=== PATIENT | male | born 1975 | race Caucasian/White ===

== ENCOUNTER 2016-12-09 17:24 | Inpatient (IN) ==
--- NOTE | 2016-12-09 19:04 | Emergency Department Note ---
Disposition Clinical Impression: Duodenal perforation, Tachycardia Disposition: Still a Patient Referrals: Faby Avila CRUISE CONSULTANT [Primary Care Provider] - Forms: Work/School Release, ED Satisfaction Letter General Adult HPI - General Chief complaint: ED Abdominal Pain Stated complaint: Stomach / back pain Time Seen by Provider: 12/09/16 18:40 Source: patient Limitations: no limitations Nursing Notes Reviewed: Yes Vital Signs Reviewed: Yes - History of Present Illness HPI Narrative: Ian 41 yo M presents with abdominal and back pain. PMHX bipolar, schizophrenia, GERD, PUD, esophageal strictures. Pt states that starting at noon today he has been having 10/10 constant pain in his abdomen and back. He states that he had and EGD earlier today with dilation of esophageal stricture and since that time he has had 10/10 pain generalized in abdomen and in lumbar back. Pt states he did vomit one time and it was "dark looking". Pt states he has had pain like this before, when he had his ulcer. Pt denies headache, fever , chills. Denies current nausea, CP, SOB, couh wheeze, numbness tingling, blood in stools or urine. Onset (ago): hour(s) Location: back, abdomen Radiation: non-radiation Pain Severity: severe Pain Scale: 9 Quality: stabbing, aching, sharp, constant Consistency: constant Improves with: nothing Worsens with: movement Associated symptoms: Reports: nausea/vomiting Treatments Prior to Arrival: none - Related Data Home Medications Medication Instructions Recorded Confirmed Duloxetine [Cymbalta] 60 mg PO BID 05/12/15 12/09/16 HYDROcodone/Acet 5/325 mg [[place] 1 tab PO TID 04/20/16 12/09/16 5-325 mg] Hydroxyzine HCl 25 mg PO BID PRN 12/09/16 12/09/16 Previous Rx's Medication Instructions Recorded Omeprazole [PriLOSEC] 40 mg PO BID capsule 05/14/15 Ziprasidone [Geodon] 80 mg PO BID #30 capsule 05/14/15 ChlorproMAZINE [Thorazine] 25 mg PO HS tablet 04/22/16 LORazepam [Ativan] 0.5 mg PO TID PRN #90 tablet 04/22/16 Prazosin [Minipress] 5 mg PO HS capsule 08/24/16 Allergies Allergy/AdvReac Type Severity Reaction Status Date / Time ibuprofen Allergy Unknown Abdominal Verified 12/09/16 17:32 Pain Past Medical History - Past Medical History Medical history: Reports: GERD, other Surgical history: Reports: herniorrhaphy, other Psychiatric history: Reports: bipolar, prior suicide attempt, schizophrenia, previous psychiatric hospitalization - Social History Smoking Status: Never smoker Smokeless Tobacco Status: Yes (chews tobacco) Alcohol use: Reports: occasionally Drug use: Reports: none, other Physical Exam - General Limitations: no limitations General appearance: alert, in no apparent distress - Head Head exam: atraumatic, normocephalic, normal inspection - Eye Eye exam: Present: normal appearance, PERRL, EOMI - ENT ENT exam: normal exam, normal oropharynx, mucous membranes moist - Neck Neck exam: Present: normal inspection, full ROM, trachea midline - Chest Chest inspection: Present: normal inspection, symmetric chest wall rise - Respiratory Respiratory exam: Present: normal lung sounds bilaterally - Cardiovascular Cardiovascular exam: Present: regular rate, normal rhythm, tachycardia, normal heart sounds, +S1, +S2 - Abdominal Exam Abdominal exam: Present: soft, tenderness, guarding, normal bowel sounds. Absent: rebound, rigidity, heel tap sign, tenderness at McBurney's Point Abdominal tenderness: Present: diffuse - Rectal Exam Rectal exam: Present: deferred - Extremities Exam Extremities exam: Present: normal inspection, full ROM. Absent: tenderness, pedal edema - Back Exam Back exam: Present: tenderness, CVA tenderness (R), paraspinal tenderness. Absent: CVA tenderness (L) - Neurological Exam Neurological exam: Present: alert, oriented X3, CN II-XII intact - Psychiatric Psychiatric exam: Present: anxious - Skin Skin exam: Present: warm, dry, intact, normal color. Absent: cyanosis, diaphoresis, pallor Course - Reevaluation(s) Reevaluation #1: 41yo presented after EGD with severe pain Pt OAx3 with continued severe 9/10 pain, and nausea remains tachycardic Time: 21:14 - Consultations Consultation #1: Discussed with Dr. Chang, he will come in and take the patient to surgery. Time: 21:30 Vital Signs Temperature 98.9 F 12/09/16 17:27 Pulse Rate 128 12/09/16 17:27 Respiratory Rate 20 12/09/16 17:27 Blood Pressure 142/95 12/09/16 17:27 O2 Sat by Pulse Oximetry 94 12/09/16 17:27 Temperature 98.9 F 12/09/16 17:27 Pulse Rate 135 12/09/16 21:08 Respiratory Rate 18 12/09/16 21:08 Blood Pressure 148/101 12/09/16 21:08 O2 Sat by Pulse Oximetry 93 12/09/16 21:08 Oxygen Delivery Oxygen Delivery Room Air Medical Decision Making - Differential Diagnosis abdominal pain, PUD, GERD, bleeding ulcer, abdominal perforation, - Medical Records Medical records reviewed: Yes I reviewed the patient's medical records. - Lab Data Lab results reviewed: Yes I reviewed the patient's lab results. Result diagrams: 12/09/16 19:36 12/09/16 19:36 Lab Results 12/09/16 12/09/16 12/09/16 Range/Units 19:36 19:36 19:36 WBC 17.5 H (4.3-11.1) K/mcL RBC 4.42 (4.19-5.50) M/mcL Hgb 13.9 (12.9-16.9) g/dL Hct 42.1 (37.5-50.1) % MCV 95.2 (83.0-100.0) fL MCH 31.4 (28.0-33.3) pg MCHC 33.0 (31.6-35.5) g/dL RDW 12.4 (11.5-14.5) % Plt Count 285 (140-400) K/mcL MPV 9.9 (9.4-12.4) fL Immature Gran % 0.4 (0-4) % Seg Neutrophils % 89.8 % Lymphocytes % 4.6 % Monocytes % 4.9 % Eosinophils % 0.1 % Basophils % 0.2 % Neutrophils # 15.7 H (1.6-8.9) K/mcL Lymphocytes # 0.8 (0.6-4.6) K/mcL Monocytes # 0.9 (0.0-1.3) K/mcL Eosinophils # 0.0 (0.0-0.6) K/mcL Basophils # 0.0 (0.0-0.2) K/mcL Sodium 138 (136-145) mEq/L Potassium 4.0 (3.5-4.5) mEq/L Chloride 102 (98-109) mEq/L Carbon Dioxide 25 (19-29) mEq/L BUN 14 (8-26) mg/dL Creatinine 1.42 H (0.72-1.25) mg/dL Est GFR ( Amer) > 60 (> 60) Est GFR (Non-Af Amer) 56 L (> 60) BUN/Creatinine Ratio 10 (6-26) Glucose 233 H (70-99) mg/dL Calculated Osmolality 294 (280-300) Lactic Acid 4.1 H* (0.5-2.2) mmol/L Calcium 9.3 (8.6-10.8) mg/dL Total Bilirubin 0.4 (0.2-1.2) mg/dL Direct Bilirubin 0.2 (0.0-0.5) mg/dL Indirect Bilirubin 0.2 (0.0-1.2) mg/dL AST 14 (5-34) Units/L ALT 18 (0-55) Units/L Alkaline Phosphatase 57 (38-126) Units/L Serum Total Protein 8.2 (6.0-8.3) g/dL Albumin 4.3 (3.5-5.0) g/dL Globulin 3.9 H (2.4-3.5) g/dL Albumin/Globulin Ratio 1.1 (1.1-2.2) Amylase 47 (25-125) Units/L Lipase 33 (8-78) Units/L - Radiology Data Radiology results reviewed: Yes I reviewed the patient's radiology results. Critical Care Time Critical Care Time: Yes Total Critical Care Time: 30 Attestation: The high probability of a clinically significant, sudden or life threatening deterioration of the [gastrointestinal] system(s) required my full and direct attention, intervention and personal management. The aggregate critical care time was [30] minutes. This time is in addition to time spent performing reported procedures but includes the following: [x] Data Review and interpretation [x] Patient assessment and monitoring of vital signs [x] Documentation [x] Medication orders and management Attestation Statement - Attestation Attestation: I examined this patient and my medical decision-making was reviewed with the SHEET METAL SHOP FOREMAN/PA/Advanced Practice Nurse/Resident Physician. I agree with the documented findings, disposition and treatment plan as described except to the extent set forth below. I had [id number] time with the patient. 41-year-old who underwent endoscopy with dilatation distal esophagus and a dilatation and the duodenum with increasing pain in the abdomen. Exam shows diffusely tender with some guarding and rebound. White count is elevated at 17.5, lactate is 4. CT scan shows a perforated duodenum. I discussed the case with Dr. Martinez surgery will come and is going to take the patient to surgery.
[2016-12-09] MEDS ORDERED: 0.9 % Sodium Chloride 1,000 ML IVC ONE (19:05)
[2016-12-09] MEDS ORDERED: *HR* HYDROmorphone (PF) 1 MG/ML SYRINGE IVP ONE (19:06)
[2016-12-09] MEDS ORDERED: Ondansetron 4 MG/2 ML VIAL IVP PRN ×2 (19:06→21:09)
[2016-12-09] MEDS ORDERED: Pantoprazole 40 MG VIAL IVP ONE (19:06)
[2016-12-09 19:48] LABS: Basophils % 0.2 %; Eosinophils % 0.1 %; Hematocrit 42.1 % (37.5-50.1); Hemoglobin 13.9 g/dL (12.9-16.9); Immature Granulocytes % 0.4 % (0-4); Lymphocytes # 0.8 K/mcL (0.6-4.6); Lymphocytes % 4.6 %; Mean Corpuscular Hemoglobin 31.4 pg (28.0-33.3); Mean Corpuscular Volume 95.2 fL (83.0-100.0); Mean Platelet Volume 9.9 fL (9.4-12.4); Monocytes # 0.9 K/mcL (0.0-1.3); Monocytes % 4.9 %; Neutrophils # 15.7 K/mcL (1.6-8.9); Platelet Count 285 K/mcL (140-400); Red Blood Count 4.42 M/mcL (4.19-5.50); Red Cell Distribution Width 12.4 % (11.5-14.5); Segmented Neutrophils % 89.8 %
[2016-12-09 20:04] LABS: Alanine Aminotransferase 18 Units/L (0-55); Albumin 4.3 g/dL (3.5-5.0); Albumin/Globulin Ratio 1.1 (1.1-2.2); Alkaline Phosphatase 57 Units/L (38-126); Amylase 47 Units/L (25-125); Aspartate Amino Transferase 14 Units/L (5-34); BUN/Creatinine Ratio 10 (6-26); Bilirubin,Direct 0.2 mg/dL (0.0-0.5); Bilirubin,Indirect 0.2 mg/dL (0.0-1.2); Bilirubin,Total 0.4 mg/dL (0.2-1.2); Blood Urea Nitrogen 14 mg/dL (8-26); Calcium 9.3 mg/dL (8.6-10.8); Carbon Dioxide 25 mEq/L (19-29); Chloride 102 mEq/L (98-109); Globulin 3.9 g/dL (2.4-3.5); Glucose 233 mg/dL (70-99); Lipase 33 Units/L (8-78); Osmolality,Calculated 294 (280-300); Sodium 138 mEq/L (136-145); Total Protein 8.2 g/dL (6.0-8.3); eGFR For African Americans > 60 (> 60); eGFR For Non-African Americans 56 (> 60)
[2016-12-09] MEDS ORDERED: Piperacillin/Tazobactam 3.375 GM in D5% in Water (Mini-Bag+) 100 ML IVPB ONE (20:07)
[2016-12-09] MEDS ORDERED: *HR* HYDROmorphone (PF) 1 MG/ML SYRINGE IVP PRN ×2 (21:09→22:12)
[2016-12-09] MEDS: 0.9 % Sodium Chloride 1,000 ML IVC SCH ×2 (22:03→22:11)
--- NOTE | 2016-12-09 22:05 | Anesthesia Evaluation PreOp ---
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: Other (bipolar, schizophrenia) Other Medical History: GERD (pud) Anesthesia History: No Prior Anesthetic Complications, Past Anesthesia (hernia x 5) Alcohol Use: occasionally Drug use: none Medications and Allergies Duloxetine [Cymbalta] 60 mg PO BID 05/12/15 [History] Omeprazole [PriLOSEC] 40 mg PO BID capsule 05/14/15 [Rx] Ziprasidone [Geodon] 80 mg PO BID #30 capsule 05/14/15 [Rx] HYDROcodone/Acet 5/325 mg [[place] 5-325 mg] 1 tab PO TID 04/20/16 [History] ChlorproMAZINE [Thorazine] 25 mg PO HS tablet 04/22/16 [Rx] LORazepam [Ativan] 0.5 mg PO TID PRN #90 tablet 04/22/16 [Rx] Prazosin [Minipress] 5 mg PO HS capsule 04/22/16 [Rx] Hydroxyzine HCl 25 mg PO BID PRN 12/09/16 [History] Allergies ibuprofen Allergy (Unknown, Verified 12/09/16 17:32) Abdominal Pain hx of ulcers - Meds/Allergy Pre-op Review Medications Reviewed: Yes Allergies Reviewed: Yes Beta Blockers on Current Med List: No Anesthesia Results - Labs 12/09/16 19:36 12/09/16 19:36 - Imaging Additional studies: CT abd, duodenal perf Anesthesia Exam Vital Signs/O2 Sat/Glucose, Most Current Pulse Resp BP Pulse Ox 12/09/16 21:08 135 18 148/101 93 12/09/16 20:07 129 18 161/98 94 Height: 1.83 Weight: 93 NPO (# of Hours): >8 - HEENT Pupil (Motor): Pupils equal, EOMI Mallampati: II Teeth: Poor dentition Oral Opening: Greater than 3 - ENGINEERING PROJECT MANAGER LOC: Oriented ENGINEERING PROJECT MANAGER Motor: Normal RUE, Normal LUE, Normal RLE, Normal LLE, Normal Face ENGINEERING PROJECT MANAGER Sensory: Normal: RUE, LUE, RLE, LLE, Face - Cardiac Rhythm: Irregular (tachy) Murmur: None - Pulmonary Respiratory Effort: Symmetrical Anesthesia Assess/Plan ASA Score: 5, E Modified Batsheva Scale for Level of Consciousness: Cooperative, oriented, and tranquil Anesthetic Plan: General Monitoring Plan: Standard Monitors Recovery Plan: PACU
--- NOTE | 2016-12-09 22:05 | General Surg History&Physical ---
Date of Encounter: 12/09/16 Time of Encounter: 22:03 Assessment and Plan (1) Duodenal perforation Current Visit: Yes Status: Acute Plan for exploratory laparotomy and potential resection of duodenal perforation. Risks, benefits, and expected outcomes explained to the patient and his significant other and they agree to proceed. The assessment and plan as outlined above was discussed with the patient and/or family members who expressed understanding and agreement. All questions were answered. History of Present Illness HPI: Mr. House is a 41 year old male who is status post duodenal dilation. He had a stricture in the first portion of the duodenum. This was dilated earlier today. He now presents to the hospital with abdominal pain that has been getting increasingly worse. He has had difficulty with swallowing and abdominal pain prior to his procedure. Past Med Surg Social Fam HX - Past Medical History Medical history: GERD, other Psychiatric history: bipolar, prior suicide attempt, schizophrenia, previous psychiatric hospitalization - Past Surgical History Surgical History: herniorrhaphy, other - Social History Smoking Status: Never smoker Smokeless Tobacco Status: Yes (chews tobacco) Alcohol use: occasionally Drug use: none, other - Family History Mother Adopted: Yes Living Status: Still Living Medications and Allergies Duloxetine [Cymbalta] 60 mg PO BID 05/12/15 [History] Omeprazole [PriLOSEC] 40 mg PO BID capsule 05/14/15 [Rx] Ziprasidone [Geodon] 80 mg PO BID #30 capsule 05/14/15 [Rx] HYDROcodone/Acet 5/325 mg [[place] 5-325 mg] 1 tab PO TID 04/20/16 [History] ChlorproMAZINE [Thorazine] 25 mg PO HS tablet 04/22/16 [Rx] LORazepam [Ativan] 0.5 mg PO TID PRN #90 tablet 04/22/16 [Rx] Prazosin [Minipress] 5 mg PO HS capsule 04/22/16 [Rx] Hydroxyzine HCl 25 mg PO BID PRN 12/09/16 [History] Allergies ibuprofen Allergy (Unknown, Verified 12/09/16 17:32) Abdominal Pain hx of ulcers Review of Systems All systems PM: A 10-system review of systems was performed and is negative for pertinent findings except as documented above in the HPI. General Surgery Exam Initial Vital Signs Temp Pulse Resp BP Pulse Ox 98.9 F 128 20 142/95 94 12/09/16 17:27 12/09/16 17:27 12/09/16 17:27 12/09/16 17:27 12/09/16 17:27 - General physical appearance moderate distress, moderate pain - Eyes PERRL, normal ocular movement - ENT poor residential - Neck trachea midline, no lymphadectomy - Respiratory normal expansion, normal respiratory effort - Cardiovascular Cardiovascular exam: Present: tachycardia, clicks - Abdomen Abdomen general surgery: Present: soft, tender Abdominal Tenderness: Present: diffusely - Integumentary Integumentary general surgery: Present: warm and dry, no abnormal pigmentation - Neurologic Present: CN 2-12 grossly intact, normal sensation - Psychiatric Psychiatric general surgery: Present: A&Ox3, speech is normal - Additional Findings CT scan reveals a duodenal perforation in the first portion of duodenum Results - Labs 12/09/16 19:36 12/09/16 19:36 Abnormal lab results WBC 17.5 K/mcL (4.3-11.1) H 12/09/16 19:36 Neutrophils # 15.7 K/mcL (1.6-8.9) H 12/09/16 19:36 Creatinine 1.42 mg/dL (0.72-1.25) H 12/09/16 19:36 Est GFR (Non-Af Amer) 56 (> 60) L 12/09/16 19:36 Glucose 233 mg/dL (70-99) H 12/09/16 19:36 Lactic Acid 4.1 mmol/L (0.5-2.2) H* 12/09/16 19:36 Globulin 3.9 g/dL (2.4-3.5) H 12/09/16 19:36 All other labs normal.
[2016-12-09] MEDS ORDERED: *HR* Labetalol 100 MG/20 ML MDV IVP PRN (22:12)
[2016-12-09] MEDS ORDERED: *HR* Midazolam HCl 2 MG/2 ML VIAL ONE (22:18)
[2016-12-09] MEDS ORDERED: *HR* FentaNYL (PF) 100 MCG/2 ML VIAL ONE (22:18)
[2016-12-09] MEDS ORDERED: *HR* Propofol 200 MG/20 ML VIAL IVP ONE (22:18)
[2016-12-09] MEDS ORDERED: Ketamine *HR* 500 MG/10 ML MDV ONE (22:18)
[2016-12-09] MEDS ORDERED: Dexamethasone 4 MG/ML VIAL ONE (22:19)
[2016-12-09] MEDS ORDERED: Lidocaine -MPF 2% 2 ML VIAL ONE (22:19)
[2016-12-09] MEDS ORDERED: *HR* Rocuronium Bromide 50 MG/5 ML VIAL ONE (22:19)
[2016-12-09] MEDS ORDERED: Ondansetron 4 MG/2 ML VIAL ONE (22:19)
[2016-12-09] MEDS ORDERED: *HR* Succinylcholine 200 MG/10 ML VIAL IVP ONE (22:19)
[2016-12-09] MEDS ORDERED: Water for inj. (sterile) 10 ML IV ONE (22:21)
[2016-12-09] MEDS ORDERED: *HR* Phenylephrine 10 MG/ML VIAL ONE (23:04)
[2016-12-09] MEDS ORDERED: CefOXitin 2,000 MG VIAL IVPB ONE (23:09)
[2016-12-09] MEDS ORDERED: *HR* HYDROmorphone 2 MG/ML SYRINGE ONE (23:17)
[2016-12-09] MEDS ORDERED: cefOXitin 2,000 MG in D5% in Water (Mini-Bag+) 100 ML IVPB ONE (23:22)
[2016-12-10] MEDS ORDERED: *HR* Rocuronium Bromide 50 MG/5 ML VIAL ONE (00:05)
[2016-12-10] MEDS ORDERED: Neostigmine Methylsulfate 3 MG/3 ML SYRINGE ONE (00:32)
[2016-12-10] MEDS ORDERED: *HR* HYDROmorphone 20 MG/20 ML PCA IV PRN (00:54)
[2016-12-10] MEDS ORDERED: Ondansetron 4 MG/2 ML VIAL IVP PRN (01:31)
[2016-12-10] MEDS ORDERED: *HR* HYDROmorphone (PF) 1 MG/ML SYRINGE IVP PRN ×2 (01:31)
[2016-12-10] MEDS ORDERED: *HR* Labetalol 20 MG/4 ML SYRINGE IVP PRN (01:31)
[2016-12-10] MEDS: D5% in 0.45% NACL 1,000 ML IVC SCH ×4 (02:56→20:00)
[2016-12-10] MEDS ORDERED: *HR* HYDROmorphone 20 MG/20 ML PCA IVC PRN (03:05)
[2016-12-10 04:01] LABS: Hematocrit 39.2 % (37.5-50.1); Hemoglobin 12.6 g/dL (12.9-16.9); Mean Corpuscular HGB Conc 32.1 g/dL (31.6-35.5); Mean Corpuscular Hemoglobin 30.9 pg (28.0-33.3); Mean Corpuscular Volume 96.1 fL (83.0-100.0); Platelet Count 292 K/mcL (140-400); Red Blood Count 4.08 M/mcL (4.19-5.50); Red Cell Distribution Width 12.5 % (11.5-14.5)
[2016-12-10 04:23] LABS: Lymphocytes # 0.3 K/mcL (0.6-4.6); Monocytes # 1.9 K/mcL (0.0-1.3); Neutrophils # 13.3 K/mcL (1.6-8.9); Platelet Estimate Normal (Normal)
[2016-12-10] MEDS: cefOXitin 2,000 MG in D5% in Water (Mini-Bag+) 100 ML IVPB SCH ×3 (08:04→23:09)
[2016-12-10] MEDS ORDERED: Ziprasidone injection 20 MG/ML VIAL IM PRN (10:43)
[2016-12-10] MEDS: *HR* LORazepam 2 MG/ML VIAL IVP PRN ×2 (11:02→18:53)
--- NOTE | 2016-12-10 12:20 | Electrocardiograph Report ---
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
--- NOTE | 2016-12-10 12:23 | General Surgery Progress Note ---
Date of Encounter: 12/10/16 Time of Encounter: 12:00 - Assessment and Plan (1) Duodenal perforation Current Visit: Yes Status: Acute POD #1 from exploratory laparotomy and repair of duodenal perforation with Dr. Martinez NPO NG tube to LIWS IV fluids Supportive care/pain control- IDEA WORKER pump Out of bed to chair today IS every 1 hour while awake PPI threrapy BID Repeat am labs (2) Schizophrenia Current Visit: No Status: Chronic Hold medications due to NPO status Qualifiers: Schizophrenia type: unspecified Qualified Code(s): F20.9 - Schizophrenia, unspecified (3) Anxiety Current Visit: No Status: Acute Ativan TID prn Geodon IM prn for severe agitation Will continue to monitor and adjust regimen as necessary (4) DVT prophylaxis Current Visit: Yes Status: Acute EPCDs to bilateral lower extremities for DVT prophylaxis Subjective Patient reports: no new complaints, feels better, still having pain (surgical), pain is less, no flatus, no bowel movement, afebrile Objective Vital Signs - Last 8 Hours Temp Pulse Resp BP Pulse Ox 12/10/16 12:00 125 14 116/89 94 12/10/16 11:00 97.9 F 125 14 129/88 95 12/10/16 10:00 126 16 130/77 95 12/10/16 09:00 128 14 111/86 95 12/10/16 08:00 124 14 133/87 95 12/10/16 07:45 97.9 F 12/10/16 07:00 97.9 F 124 16 142/94 95 12/10/16 06:00 124 18 127/80 96 12/10/16 05:00 126 17 133/93 94 Intake and Output 12/09/16 12/10/16 12/10/16 23:59 07:59 15:59 Intake Total 2200 / 2200 1100 / 1100 Output Total 1300 / 1300 145 / 145 Balance 2200 / 2200 -1300 / -1300 955 / 955 Intake: IV Fluids 2200 / 2200 1100 / 1100 0.9 % Sodium Chloride 1, 2000 / 2000 000 ML @ 3750 mls/hr IVC .Q16M JOSÉ MIGUEL Rx#:[id number] D5% And 0.45% Nacl 1000 1000 / 1000 Ml Bag 1,000 ML @ 125 mls /hr IVC .Q8H JOSÉ MIGUEL Rx#: [id number] Mefoxin 2,000 MG In 100 / 100 100 / 100 Dextrose 5% (Minibag+) 100 ML 100 ML @ 200 mls/ hr IVPB Q8HR JOSÉ MIGUEL Rx#: [id number] Zosyn 3.375 GM In 100 / 100 Dextrose 5% (Minibag+) 100 ML 100 ML @ 25 mls/hr IVPB ONCE ONE Rx#: [id number] Output: Urine 500 / 500 Estimated Blood Loss 250 / 250 Other 50 / 50 Catheter 310 / 310 100 / 100 Wound Drainage 190 / 190 45 / 45 Right Abdomen 190 / 190 45 / 45 Other: Weight 99.8 kg Blood Glucose* 144 Patient Weight 12/10/16 23:59 Weight 99.8 kg - General physical appearance well developed, well nourished, moderate pain - Eyes normal ocular movement - ENT dry mucosa, atraumatic, normocephalic - Neck Neck exam: trachea midline - Respiratory normal respiratory effort, clear to auscultation, other (diminished bibasilar bases. IS at bedside) - Cardiovascular Cardiovascular exam: Present: tachycardia, regular rhythm - Abdomen Abdomen: Present: soft, tender (expected post-operative tenderness), wound (NG tube to LIWS with bilious drainage noted (minimal); CATHY drain to bulb suction with serousang drainage noted (235ml since surgery)) - Incision Incision: Present: open (Midline with packing noted, small amount of serousang. drainage noted.) - Genitourinary other (ugarte catheter to SD with clear, yellow urine noted) - Neurologic CN 2-12 grossly intact - Psychiatric oriented to person, oriented to place, speech is normal, memory intact - Labs 12/10/16 03:34 12/09/16 19:36 - VTE Documentation of Mechanical Device: Intermittent pneumatic compression device Consult Discharge Plan - Plan Referrals: Faby Avila, VEHICLE ASSEMBLER [Primary Care Provider] - - Attending Attestation I examined this patient and my medical decision-making was reviewed with the HARDWARE MANAGER/PA/Advanced Practice Nurse/Resident Physician. I agree with the documented findings, disposition and treatment plan as described except to the extent set forth below.
[2016-12-10] MEDS ORDERED: Dextrose Gel 15 GM PO PRN ×2 (12:29)
[2016-12-10] MEDS ORDERED: D5% in Water 1,000 ML IVC PRN (12:29)
[2016-12-10] MEDS ORDERED: *HR* Dextrose 50 % in Water (Syg) 50 ML SYRINGE IVP PRN (12:29)
[2016-12-10] MEDS ORDERED: Piperacillin/Tazobactam 3.375 GM in D5% in Water (Mini-Bag+) 100 ML IVPB SCH (16:00)
[2016-12-10] MEDS: Insulin LISPRO 300 UNITS/3 ML VIAL SQ SCH (17:22)
[2016-12-10] MEDS: Pantoprazole 40 MG VIAL IVP SCH (18:07)
[2016-12-10] MEDS: 0.9 % Sodium Chloride 1,000 ML IVC SCH ×9 (19:47→19:59)
[2016-12-11] MEDS: Insulin LISPRO 300 UNITS/3 ML VIAL SQ SCH ×4 (00:24→18:17)
[2016-12-11 03:41] LABS: Hematocrit 32.6 % (37.5-50.1); Immature Platelets 5.1 % (1.1-6.1); Mean Corpuscular HGB Conc 31.9 g/dL (31.6-35.5); Mean Corpuscular Hemoglobin 30.6 pg (28.0-33.3); Mean Corpuscular Volume 95.9 fL (83.0-100.0); Mean Platelet Volume 9.3 fL (9.4-12.4); Platelet Count 292 K/mcL (140-400); Red Cell Distribution Width 12.5 % (11.5-14.5)
[2016-12-11 03:45] LABS: Hemoglobin 10.4 g/dL (12.9-16.9)
[2016-12-11] MEDS: D5% in 0.45% NACL 1,000 ML IVC SCH (04:00)
[2016-12-11 04:04] LABS: BUN/Creatinine Ratio 11 (6-26); Blood Urea Nitrogen 10 mg/dL (8-26); Calcium 8.1 mg/dL (8.6-10.8); Carbon Dioxide 27 mEq/L (19-29); Chloride 103 mEq/L (98-109); Glucose 132 mg/dL (70-99); Osmolality,Calculated 283 (280-300); Potassium 3.9 mEq/L (3.5-4.5); Sodium 136 mEq/L (136-145); eGFR For African Americans > 60 (> 60); eGFR For Non-African Americans > 60 (> 60)
[2016-12-11 04:08] LABS: Lymphocytes # 1.6 K/mcL (0.6-4.6); Neutrophils # 12.8 K/mcL (1.6-8.9); Platelet Estimate Normal (Normal)
[2016-12-11] MEDS: Pantoprazole 40 MG VIAL IVP SCH ×2 (06:08→18:17)
[2016-12-11] MEDS: *HR* LORazepam 2 MG/ML VIAL IVP PRN (06:08)
[2016-12-11] MEDS: cefOXitin 2,000 MG in D5% in Water (Mini-Bag+) 100 ML IVPB SCH ×3 (07:30→23:57)
[2016-12-11] MEDS ORDERED: *HR* Heparin 5,000 UNIT/ML VIAL SQ SCH (09:45)
--- NOTE | 2016-12-11 09:53 | General Surgery Progress Note ---
Date of Encounter: 12/11/16 Time of Encounter: 09:50 - Assessment and Plan (1) Duodenal perforation Current Visit: Yes Status: Acute POD #2 from exploratory laparotomy and repair of duodenal perforation with Dr. Martinez NPO NG tube to LIWS Plan to study with UGI on Wednesday12/14/16 IV fluids- 125ml/hour IV antibiotics- Cefoxitin Supportive care/pain control- BUILDING CODE ADMINISTRATOR pump Out of bed to chair today IS every 1 hour while awake PPI threrapy BID Repeat am labs Discontinue ugarte catheter May transfer to telemetry (2) Schizophrenia Current Visit: No Status: Chronic Hold medications due to NPO status Qualifiers: Schizophrenia type: unspecified Qualified Code(s): F20.9 - Schizophrenia, unspecified (3) Anxiety Current Visit: No Status: Acute Ativan TID prn Geodon IM prn for severe agitation Will continue to monitor and adjust regimen as necessary (4) DVT prophylaxis Current Visit: Yes Status: Acute EPCDs to bilateral lower extremities for DVT prophylaxis Add heparin 5,000 units SQ twice daily for DVT prophylaxis Subjective Patient reports: no new complaints, feels better, still having pain, pain is less, no flatus, no bowel movement, afebrile Objective Vital Signs - Last 8 Hours Temp Pulse Resp BP Pulse Ox 12/11/16 09:00 115 18 185/105 96 12/11/16 08:00 116 18 181/105 97 12/11/16 07:40 98.9 F 12/11/16 07:20 120 16 181/96 97 12/11/16 06:00 122 18 165/103 95 12/11/16 05:00 122 15 159/111 95 12/11/16 04:00 98.2 F 131 15 159/87 94 12/11/16 03:00 124 18 141/102 96 12/11/16 02:00 124 15 163/99 96 Intake and Output 12/10/16 12/11/16 12/11/16 23:59 07:59 15:59 Intake Total 1000 / 1000 1100 / 1100 100 / 100 Output Total 270 / 270 640 / 640 Balance 730 / 730 460 / 460 100 / 100 Intake: IV Fluids 1000 / 1000 1100 / 1100 100 / 100 D5% And 0.45% Nacl 1000 1000 / 1000 1000 / 1000 Ml Bag 1,000 ML @ 125 mls /hr IVC .Q8H JOSÉ MIGUEL Rx#: [id number] Mefoxin 2,000 MG In 100 / 100 100 / 100 Dextrose 5% (Minibag+) 100 ML 100 ML @ 200 mls/ hr IVPB Q8HR JOSÉ MIGUEL Rx#: [id number] Output: Other 10 / 10 Catheter 200 / 200 500 / 500 Gastric Drainage 100 / 100 Wound Drainage 70 / 70 30 / 30 Left Abdomen 70 / 70 30 / 30 Other: Weight 100.97 kg Blood Glucose* 122 128 Patient Weight 12/11/16 23:59 Weight 100.97 kg - General physical appearance well developed, well nourished, no distress - Eyes normal ocular movement - ENT poor senior care, dry mucosa, atraumatic, normocephalic - Neck Neck exam: trachea midline - Respiratory normal respiratory effort, clear to auscultation, other (diminished bibasilar bases) - Cardiovascular Cardiovascular exam: Present: tachycardia, regular rhythm - Abdomen Abdomen: Present: soft, tender (expected post-operative tenderness), wound (NG tube to LIWS with scant amount of drainage noted; CATHY drain to bulb suction with serousang. drainage noted (30ml since midnight) ) - Incision Incision: Present: open (Midline with packing noted, small amount of serousang. drainage without erythema ) - Genitourinary other (ugarte catheter to SD with clear, yellow urine noted) - Neurologic CN 2-12 grossly intact - Psychiatric oriented to time, oriented to person, oriented to place, speech is normal, memory intact - Labs 12/11/16 03:35 12/11/16 03:35 Diabetes panel 12/11/16 Range/Units 03:35 Sodium 136 (136-145) mEq/L Potassium 3.9 (3.5-4.5) mEq/L Chloride 103 (98-109) mEq/L Carbon Dioxide 27 (19-29) mEq/L BUN 10 (8-26) mg/dL Creatinine 0.93 (0.72-1.25) mg/dL Glucose 132 H (70-99) mg/dL Calcium 8.1 L (8.6-10.8) mg/dL Calcium panel 12/11/16 Range/Units 03:35 Calcium 8.1 L (8.6-10.8) mg/dL Pituitary panel 12/11/16 Range/Units 03:35 Sodium 136 (136-145) mEq/L Potassium 3.9 (3.5-4.5) mEq/L Chloride 103 (98-109) mEq/L Carbon Dioxide 27 (19-29) mEq/L BUN 10 (8-26) mg/dL Creatinine 0.93 (0.72-1.25) mg/dL Glucose 132 H (70-99) mg/dL Calcium 8.1 L (8.6-10.8) mg/dL Adrenal panel 12/11/16 Range/Units 03:35 Sodium 136 (136-145) mEq/L Potassium 3.9 (3.5-4.5) mEq/L Chloride 103 (98-109) mEq/L Carbon Dioxide 27 (19-29) mEq/L BUN 10 (8-26) mg/dL Creatinine 0.93 (0.72-1.25) mg/dL Glucose 132 H (70-99) mg/dL Calcium 8.1 L (8.6-10.8) mg/dL - VTE Documentation of Mechanical Device: Intermittent pneumatic compression device Consult Discharge Plan - Plan Referrals: Faby Avila, SNOW TECHNICIAN [Primary Care Provider] - - Attending Attestation I examined this patient and my medical decision-making was reviewed with the DESIGN ARCHITECT/PA/Advanced Practice Nurse/Resident Physician. I agree with the documented findings, disposition and treatment plan as described except to the extent set forth below.
[2016-12-11] MEDS: *HR* Labetalol 20 MG/4 ML SYRINGE IVP SCH ×4 (10:19→21:48)
[2016-12-11] MEDS ORDERED: D5% in 0.45% NACL 1,000 ML IVC SCH (10:37)
--- NOTE | 2016-12-11 11:26 | Operative Note ---
Date of procedure: 12/10/16 Pre-op diagnosis: Perforated duodenum Post-op diagnosis: same Procedure: Exploratory laparotomy with Waleska maneuver the duodenum and a Heineke Mikulicz' s pyloroplasty Anesthesia: QI Surgeon: Liborio Martinez Estimated blood loss (cc): 250 Condition: stable Disposition: ICU Procedure in Detail: After informed consent, the patient was taken to the operating room and placed in a supine position. After adequate sedation and anesthesia the abdomen was prepped and draped. An incision was made in the upper midline from xiphoid process down to just above the umbilicus. A Bookwalter retractor was placed on the field. Once access was gained to the peritoneal cavity retractors are placed on the abdominal side mijares. There was some purulent material in the right upper quadrant. The hepatic flexure of the colon was reflected caudally. The duodenum was identified and it was delivered from its retroperitoneal space. Once the duodenum was kocherized I was able to identify a perforation just distal to the pylorus. There was thickening of the adrenal bulb. A Heineke Mikulicz's pyloroplasty was performed after the pylorus was divided. The mucosa was approximated in a mediolateral fashion with 3-0 silk sutures in interrupted fashion. Once this was completed there was an opening that could be palpated. A 19-Emirati Presley drain was placed in the right upper quadrant. The area was suctioned dry. There is also an omental flap which was reflected and tacked to the repair as well. Once this was completed then the fascia was closed with loop PDS suture cephalad, caudal cephalad motion. He tolerated the procedure well. The patient was taken to the ICU after he was extubated.
[2016-12-11] MEDS ORDERED: 0.9 % Sodium Chloride 1,000 ML IVC SCH (11:30)
[2016-12-11] MEDS ORDERED: D10% in Water 500 ML IVC PRN ×2 (11:35→13:59)
[2016-12-11] MEDS ORDERED: D5% in Water 1,000 ML IVC PRN (13:59)
[2016-12-11] MEDS ORDERED: Dextrose Gel 15 GM PO PRN ×2 (13:59)
[2016-12-11] MEDS ORDERED: Ondansetron 4 MG/2 ML VIAL IVP PRN (13:59)
[2016-12-11] MEDS ORDERED: *HR* HYDROmorphone 20 MG/20 ML PCA IVC PRN (13:59)
[2016-12-11] MEDS ORDERED: *HR* LORazepam 2 MG/ML VIAL IVP PRN (13:59)
[2016-12-11] MEDS ORDERED: *HR* Dextrose 50 % in Water (Syg) 50 ML SYRINGE IVP PRN (13:59)
[2016-12-11] MEDS ORDERED: Ziprasidone injection 20 MG/ML VIAL IM PRN (13:59)
[2016-12-11] MEDS ORDERED: Clinimix E 5%-15% SOLUTION 2,000 ML with MVI, adult with vitamin K 10 ML IVC SCH ×2 (17:00)
[2016-12-11] MEDS: *HR* Heparin 5,000 UNIT/ML VIAL SQ SCH (18:17)
[2016-12-11] MEDS ORDERED: Albuterol 2.5 MG/3 ML NEBULIZER IH ONE (20:20)
[2016-12-11] MEDS: 0.9 % Sodium Chloride 1,000 ML IVC SCH (23:58)
[2016-12-12] MEDS: 0.9 % Sodium Chloride 1,000 ML IVC SCH ×2 (00:34→15:11)
[2016-12-12] MEDS: Insulin LISPRO 300 UNITS/3 ML VIAL SQ SCH ×4 (00:35→18:18)
[2016-12-12] MEDS: *HR* Labetalol 20 MG/4 ML SYRINGE IVP SCH ×6 (02:42→21:14)
[2016-12-12 04:37] LABS: Basophils # 0.1 K/mcL (0.0-0.2); Basophils % 0.3 %; Eosinophils # 0.2 K/mcL (0.0-0.6); Eosinophils % 1.3 %; Hematocrit 30.4 % (37.5-50.1); Hemoglobin 9.9 g/dL (12.9-16.9); Immature Granulocytes % 2.6 % (0-4); Lymphocytes # 2.2 K/mcL (0.6-4.6); Lymphocytes % 11.9 %; Mean Corpuscular HGB Conc 32.6 g/dL (31.6-35.5); Mean Corpuscular Hemoglobin 31.1 pg (28.0-33.3); Mean Corpuscular Volume 95.6 fL (83.0-100.0); Mean Platelet Volume 10.5 fL (9.4-12.4); Monocytes % 5.7 %; Neutrophils # 14.2 K/mcL (1.6-8.9); Platelet Count 297 K/mcL (140-400); Red Blood Count 3.18 M/mcL (4.19-5.50); Red Cell Distribution Width 12.5 % (11.5-14.5); Segmented Neutrophils % 78.2 %
[2016-12-12 05:00] LABS: BUN/Creatinine Ratio 10 (6-26); Blood Urea Nitrogen 8 mg/dL (8-26); Calcium 8.6 mg/dL (8.6-10.8); Carbon Dioxide 28 mEq/L (19-29); Chloride 103 mEq/L (98-109); Glucose 131 mg/dL (70-99); Magnesium 1.7 mg/dL (1.6-2.6); Osmolality,Calculated 284 (280-300); Phosphorous 1.5 mg/dL (2.3-4.7); Potassium 3.5 mEq/L (3.5-4.5); Sodium 137 mEq/L (136-145); Triglycerides 186 mg/dL (< 150); eGFR For African Americans > 60 (> 60); eGFR For Non-African Americans > 60 (> 60)
[2016-12-12 05:04] LABS: Platelet Estimate Normal (Normal)
[2016-12-12] MEDS: Pantoprazole 40 MG VIAL IVP SCH ×2 (05:24→17:29)
[2016-12-12] MEDS: *HR* Heparin 5,000 UNIT/ML VIAL SQ SCH ×2 (05:28→17:29)
[2016-12-12] MEDS: cefOXitin 2,000 MG in D5% in Water (Mini-Bag+) 100 ML IVPB SCH ×2 (09:01→15:09)
--- NOTE | 2016-12-12 11:11 | General Surgery Progress Note ---
Date of Encounter: 12/12/16 Time of Encounter: 11:10 - Assessment and Plan (1) Duodenal perforation Current Visit: Yes Status: Acute Continue the NG till wednesday. Will plan for an UGI then via the ng. He needs to ambulate. Subjective Patient reports: no new complaints, feels better Objective Vital Signs - Last 8 Hours Temp Pulse Resp BP Pulse Ox 12/12/16 08:00 98.6 F 97 18 137/91 95 12/12/16 04:26 98.5 F 106 20 134/82 94 Intake and Output 12/11/16 12/12/16 12/12/16 23:59 07:59 15:59 Intake Total 100 / 100 2128 / 2128 100 / 100 Output Total 350 / 350 1250 / 1250 670 / 670 Balance -250 / -250 879 / 879 -570 / -570 Intake: IV Fluids 100 / 100 2128 / 2128 100 / 100 0.9 % Sodium Chloride 1, 1200 / 1200 000 ML @ 125 mls/hr IVC . Q8H [facility] Rx#:[id number] Clinimix E 5%-15% 579 / 579 SOLUTION 2,000 ML @ 50 mls/hr IVC .Q24H [facility] with M.v.i. Adult 10 ml Rx#: [id number] Mefoxin 2,000 MG In 100 / 100 100 / 100 100 / 100 Dextrose 5% (Minibag+) 100 ML 100 ML @ 200 mls/ hr IVPB Q8HR [facility] Rx#: [id number] Intralipid 20% 250 ML @ 250 / 250 21 mls/hr IVPB DAILY@1700 [facility] Rx#:[id number] Oral 0 / 0 0 / 0 Output: Urine 350 / 350 900 / 900 650 / 650 Gastric Tube Lavage 350 / 350 Amount Right Nare 350 / 350 Wound Drainage 0 / 0 20 / 20 Left Abdomen 0 / 0 20 / 20 Other: Meal NPO NPO breakfast Weight 100.9 kg Blood Glucose* 118 122 135 Patient Weight 12/12/16 23:59 Weight 100.9 kg - General physical appearance well developed, no distress - Eyes PERRL - Respiratory normal expansion - Cardiovascular Cardiovascular exam: Present: NR - Abdomen Abdomen: Present: soft - Incision Incision: Present: clean and dry - Labs 12/12/16 03:44 12/12/16 03:44 Diabetes panel 12/12/16 Range/Units 03:44 Sodium 137 (136-145) mEq/L Potassium 3.5 (3.5-4.5) mEq/L Chloride 103 (98-109) mEq/L Carbon Dioxide 28 (19-29) mEq/L BUN 8 (8-26) mg/dL Creatinine 0.80 (0.72-1.25) mg/dL Glucose 131 H (70-99) mg/dL Calcium 8.6 (8.6-10.8) mg/dL Triglycerides 186 H (< 150) mg/dL Calcium panel 12/12/16 Range/Units 03:44 Calcium 8.6 (8.6-10.8) mg/dL Phosphorus 1.5 L (2.3-4.7) mg/dL Pituitary panel 12/12/16 Range/Units 03:44 Sodium 137 (136-145) mEq/L Potassium 3.5 (3.5-4.5) mEq/L Chloride 103 (98-109) mEq/L Carbon Dioxide 28 (19-29) mEq/L BUN 8 (8-26) mg/dL Creatinine 0.80 (0.72-1.25) mg/dL Glucose 131 H (70-99) mg/dL Calcium 8.6 (8.6-10.8) mg/dL Adrenal panel 12/12/16 Range/Units 03:44 Sodium 137 (136-145) mEq/L Potassium 3.5 (3.5-4.5) mEq/L Chloride 103 (98-109) mEq/L Carbon Dioxide 28 (19-29) mEq/L BUN 8 (8-26) mg/dL Creatinine 0.80 (0.72-1.25) mg/dL Glucose 131 H (70-99) mg/dL Calcium 8.6 (8.6-10.8) mg/dL - VTE Documentation of Mechanical Device: Intermittent pneumatic compression device Consult Discharge Plan - Plan Referrals: Faby Avila, SPRUE CUTTING PRESS OPERATOR [Primary Care Provider] -
[2016-12-12] MEDS ORDERED: Clinimix E 5%-15% SOLUTION 2,000 ML with MVI, adult with vitamin K 10 ML IVC SCH (17:00)
[2016-12-12] MEDS ORDERED: Clinimix E 5%-15% SOLUTION 2,000 ML, Amino Acids 10% 0 ML with MVI, adult with vitami... IVC SCH (17:00)
[2016-12-13] MEDS: Insulin LISPRO 300 UNITS/3 ML VIAL SQ SCH ×4 (00:18→17:27)
[2016-12-13] MEDS: cefOXitin 2,000 MG in D5% in Water (Mini-Bag+) 100 ML IVPB SCH ×3 (00:50→16:04)
[2016-12-13] MEDS: *HR* Labetalol 20 MG/4 ML SYRINGE IVP SCH ×6 (00:50→22:10)
[2016-12-13 03:51] LABS: Magnesium 2.1 mg/dL (1.6-2.6); Phosphorous 1.5 mg/dL (2.3-4.7)
[2016-12-13] MEDS: *HR* Heparin 5,000 UNIT/ML VIAL SQ SCH ×2 (05:38→17:26)
[2016-12-13] MEDS: Pantoprazole 40 MG VIAL IVP SCH ×2 (05:38→16:57)
[2016-12-13] MEDS: 0.9 % Sodium Chloride 1,000 ML IVC SCH ×2 (09:41→12:40)
[2016-12-13] MEDS: Fluconazole 200 MG/100 ML 200 MG/100 ML BAG IVPB SCH (09:43)
--- NOTE | 2016-12-13 12:52 | General Surgery Progress Note ---
Date of Encounter: 12/13/16 Time of Encounter: 12:52 - Assessment and Plan (1) Duodenal perforation Current Visit: Yes Status: Acute Continue the NG till wednesday. Will plan for an UGI then via the ng. He needs to ambulate. Subjective Patient reports: feels better Objective Vital Signs - Last 8 Hours Temp Pulse Resp BP Pulse Ox 12/13/16 09:02 98.3 F 89 18 140/92 95 Intake and Output 12/12/16 12/13/16 12/13/16 23:59 07:59 15:59 Intake Total 0 / 0 100 / 100 1300 / 1300 Output Total 925 / 925 0 / 0 500 / 500 Balance -925 / -925 100 / 100 800 / 800 Intake: IV Fluids 100 / 100 1300 / 1300 0.9 % Sodium Chloride 1, 850 / 850 000 ML @ 125 mls/hr IVC . Q8H [facility] Rx#:[id number] Mefoxin 2,000 MG In 100 / 100 100 / 100 Dextrose 5% (Minibag+) 100 ML 100 ML @ 200 mls/ hr IVPB Q8HR [facility] Rx#: [id number] Intralipid 20% 250 ML @ 250 / 250 21 mls/hr IVPB DAILY@1700 [facility] Rx#:[id number] Diflucan 200 MG/100 ML 100 / 100 200 mg In 100 ml @ 100 mls/hr IVPB DAILY [facility] Rx# :[id number] Oral 0 / 0 0 / 0 Output: Urine 925 / 925 0 / 0 500 / 500 Gastric Tube Lavage 0 / 0 0 / 0 Amount Right Nare 0 / 0 0 / 0 Wound Drainage 0 / 0 0 / 0 Left Abdomen 0 / 0 0 / 0 Other: Meal NPO for supper NPO Weight 101.1 kg Blood Glucose* 128 126 Patient Weight 12/13/16 23:59 Weight 101.1 kg - General physical appearance no distress - Abdomen Abdomen: Present: bowel sounds present, soft (Drain with serosanguineous fluid) - Labs 12/12/16 03:44 12/12/16 03:44 Calcium panel 12/13/16 Range/Units 02:28 Phosphorus 1.5 L (2.3-4.7) mg/dL - VTE Documentation of Mechanical Device: Intermittent pneumatic compression device Consult Discharge Plan - Plan Referrals: Faby Avila, GROOMING ASSISTANT [Primary Care Provider] -
[2016-12-13] MEDS ORDERED: Clinimix E 5%-15% SOLUTION 2,000 ML with MVI, adult with vitamin K 10 ML IVC SCH (17:00)
[2016-12-13] MEDS ORDERED: Clinimix E 5%-15% SOLUTION 2,000 ML, Amino Acids 10% 0 ML with MVI, adult with vitami... IVC SCH (17:00)
[2016-12-14] MEDS: Insulin LISPRO 300 UNITS/3 ML VIAL SQ SCH ×4 (00:43→17:28)
[2016-12-14] MEDS: cefOXitin 2,000 MG in D5% in Water (Mini-Bag+) 100 ML IVPB SCH ×3 (00:56→16:01)
[2016-12-14] MEDS: *HR* Labetalol 20 MG/4 ML SYRINGE IVP SCH ×6 (00:57→21:35)
[2016-12-14 04:49] LABS: Magnesium 2.2 mg/dL (1.6-2.6)
[2016-12-14 04:54] LABS: Phosphorous 2.6 mg/dL (2.3-4.7)
[2016-12-14] MEDS: *HR* Heparin 5,000 UNIT/ML VIAL SQ SCH ×2 (05:49→17:24)
[2016-12-14] MEDS: Pantoprazole 40 MG VIAL IVP SCH ×2 (05:49→17:17)
[2016-12-14] MEDS: Fluconazole 200 MG/100 ML 200 MG/100 ML BAG IVPB SCH (08:09)
[2016-12-14] MEDS ORDERED: 0.9 % Sodium Chloride 1,000 ML IVC SCH (15:57)
--- NOTE | 2016-12-14 16:02 | General Surgery Progress Note ---
Date of Encounter: 12/14/16 Time of Encounter: 15:30 - Assessment and Plan (1) Duodenal perforation Current Visit: Yes Status: Acute POD #5 from exploratory laparotomy and repair of duodenal perforation with Dr. Martinez Remove NG tube Clear liquids with protein supplements UGI complete- no extravasation, delayed emptying into duodenum IV fluids- 20ml/hour Continue TPN IV antibiotics- Cefoxitin Supportive care/pain control- CHILD CARE LEADER pump Out of bed to chair today IS every 1 hour while awake PPI threrapy BID Repeat am labs D/C telemetry (2) Schizophrenia Current Visit: No Status: Chronic Hold medications due to NPO status Qualifiers: Schizophrenia type: unspecified Qualified Code(s): F20.9 - Schizophrenia, unspecified (3) Anxiety Current Visit: No Status: Acute Ativan TID prn Geodon IM prn for severe agitation Will continue to monitor and adjust regimen as necessary (4) DVT prophylaxis Current Visit: Yes Status: Acute EPCDs to bilateral lower extremities for DVT prophylaxis Add heparin 5,000 units SQ twice daily for DVT prophylaxis Subjective Patient reports: no new complaints, feels better, still having pain, pain is less, voiding w/o difficulty, flatus, no bowel movement, afebrile Objective Vital Signs - Last 8 Hours Temp Pulse Resp BP Pulse Ox 12/14/16 10:44 97.8 F 70 18 142/95 96 Intake and Output 12/13/16 12/14/16 12/14/16 23:59 07:59 15:59 Intake Total 100 / 100 350 / 350 200 / 200 Output Total 625 / 625 870 / 870 318 / 318 Balance -525 / -525 -520 / -520 -118 / -118 Intake: IV Fluids 100 / 100 350 / 350 200 / 200 Mefoxin 2,000 MG In 100 / 100 100 / 100 100 / 100 Dextrose 5% (Minibag+) 100 ML 100 ML @ 200 mls/ hr IVPB Q8HR [facility] Rx#: [id number] Intralipid 20% 250 ML @ 250 / 250 21 mls/hr IVPB DAILY@1700 [facility] Rx#:[id number] Diflucan 200 MG/100 ML 100 / 100 200 mg In 100 ml @ 100 mls/hr IVPB DAILY [facility] Rx# :[id number] Oral 0 / 0 0 / 0 0 / 0 Output: Urine 0 / 0 825 / 825 300 / 300 Gastric Tube Lavage 0 / 0 Amount Right Nare 0 / 0 Gastric Drainage 625 / 625 Wound Drainage 0 / 0 45 / Left Abdomen 0 / 0 Other: Meal NPO Percent of Meal Consumed 0% Blood Glucose* 146 138 - General physical appearance well developed, well nourished, no distress - Eyes normal ocular movement - ENT dry mucosa, atraumatic, normocephalic - Neck Neck exam: trachea midline - Respiratory normal respiratory effort, clear to auscultation - Cardiovascular Cardiovascular exam: Present: RRR - Abdomen Abdomen: Present: bowel sounds present, soft, tender (expected post-operative tenderness), wound (CATHY drain to bulb suction with serousang. drainage noted; NG tube clamped for UGI) - Incision Incision: Present: open (Midline with packing noted with scant amount of seorusang. drainage noted.) - Neurologic CN 2-12 grossly intact - Psychiatric oriented to time, oriented to person, oriented to place, speech is normal, memory intact - Labs 12/12/16 03:44 12/12/16 03:44 Calcium panel 12/14/16 Range/Units 04:07 Phosphorus 2.6 D (2.3-4.7) mg/dL - VTE Documentation of Mechanical Device: Intermittent pneumatic compression device Consult Discharge Plan - Plan Referrals: Faby Avila BILLING CONTROL CLERK [Primary Care Provider] -
[2016-12-14] MEDS ORDERED: Clinimix E 5%-15% SOLUTION 2,000 ML with MVI, adult with vitamin K 10 ML IVC SCH (17:00)
[2016-12-15] MEDS: cefOXitin 2,000 MG in D5% in Water (Mini-Bag+) 100 ML IVPB SCH ×3 (00:20→15:49)
[2016-12-15] MEDS: Insulin LISPRO 300 UNITS/3 ML VIAL SQ SCH ×4 (00:23→17:29)
[2016-12-15] MEDS: *HR* Labetalol 20 MG/4 ML SYRINGE IVP SCH ×6 (02:35→21:05)
[2016-12-15 04:00] LABS: Alanine Aminotransferase 55 Units/L (0-55); Albumin 2.5 g/dL (3.5-5.0); Albumin/Globulin Ratio 0.6 (1.1-2.2); Alkaline Phosphatase 105 Units/L (38-126); Aspartate Amino Transferase 52 Units/L (5-34); BUN/Creatinine Ratio 20 (6-26); Bilirubin,Total 0.5 mg/dL (0.2-1.2); Blood Urea Nitrogen 16 mg/dL (8-26); Carbon Dioxide 24 mEq/L (19-29); Chloride 108 mEq/L (98-109); Globulin 4.4 g/dL (2.4-3.5); Glucose 103 mg/dL (70-99); Osmolality,Calculated 291 (280-300); Potassium 3.6 mEq/L (3.5-4.5); Sodium 140 mEq/L (136-145); Total Protein 6.9 g/dL (6.0-8.3); eGFR For African Americans > 60 (> 60); eGFR For Non-African Americans > 60 (> 60)
[2016-12-15] MEDS: Pantoprazole 40 MG VIAL IVP SCH (06:40)
[2016-12-15] MEDS: *HR* Heparin 5,000 UNIT/ML VIAL SQ SCH ×2 (06:41→17:31)
[2016-12-15] MEDS: Fluconazole 200 MG/100 ML 200 MG/100 ML BAG IVPB SCH (08:09)
[2016-12-15] MEDS ORDERED: *HR* LORazepam 0.5 MG TABLET PO PRN (09:52)
--- NOTE | 2016-12-15 09:58 | General Surgery Progress Note ---
Date of Encounter: 12/15/16 Time of Encounter: 09:45 - Assessment and Plan (1) Duodenal perforation Current Visit: Yes Status: Acute POD #6 from exploratory laparotomy and repair of duodenal perforation with Dr. Martinez Continue Clear liquids with protein supplements UGI complete 12/14/16- no extravasation, delayed emptying into duodenum Saline lock IV fluids Continue TPN- may decrease to 50ml/hour and continue IV antibiotics- Cefoxitin Supportive care/pain control- Percocet and prn dilaudid for breakthrough pain PO meds restarted- home regimen Out of bed to chair today IS every 1 hour while awake PPI threrapy BID (2) Schizophrenia Current Visit: No Status: Chronic Resume home medication regimen Qualifiers: Schizophrenia type: unspecified Qualified Code(s): F20.9 - Schizophrenia, unspecified (3) Anxiety Current Visit: No Status: Acute Resume home medication regimen (4) DVT prophylaxis Current Visit: Yes Status: Acute EPCDs to bilateral lower extremities for DVT prophylaxis Heparin 5,000 units SQ twice daily for DVT prophylaxis Subjective Patient reports: no new complaints, feels better, still having pain, tolerating liquids well, voiding w/o difficulty, flatus, bowel movement, diarrhea (X2 episodes), afebrile Objective Vital Signs - Last 8 Hours Temp Pulse Resp BP Pulse Ox 12/15/16 07:18 98.1 F 81 18 138/91 97 12/15/16 05:27 97.6 F 99 20 128/92 93 12/15/16 02:32 94 136/82 95 Intake and Output 12/14/16 12/15/16 12/15/16 23:59 07:59 15:59 Intake Total 1580 / 1580 350 / 350 Output Total 350 / 350 390 / 390 Balance 1230 / 1230 -40 / -40 Intake: IV Fluids 1100 / 1100 350 / 350 0.9 % Sodium Chloride 1, 1000 / 1000 000 ML @ 125 mls/hr IVC . Q8H [facility] Rx#:[id number] Mefoxin 2,000 MG In 100 / 100 100 / 100 Dextrose 5% (Minibag+) 100 ML 100 ML @ 200 mls/ hr IVPB Q8HR [facility] Rx#: [id number] Intralipid 20% 250 ML @ 250 / 250 21 mls/hr IVPB DAILY@1700 [facility] Rx#:[id number] Oral 480 / 480 0 / 0 Output: Urine 300 / 300 350 / 350 Wound Drainage 50 / 50 40 / 40 Left Abdomen 50 / 50 40 / 40 Other: Meal Dinner Percent of Meal Consumed 45% Stool Size Moderate Moderate Stool Consistency loose liquid Stool Color Yellow Brown Green Blood Glucose* 145 142 - General physical appearance well developed, well nourished, no distress - Eyes normal ocular movement - ENT normal mucosa, atraumatic, normocephalic - Neck Neck exam: trachea midline - Respiratory normal respiratory effort, clear to auscultation - Cardiovascular Cardiovascular exam: Present: RRR - Abdomen Abdomen: Present: bowel sounds present, soft, tender (expected post-operative tenderness), wound (Midline with serousang. drainage noted; CATHY with serousang. drainage noted (60ml noted since midnight)) - Incision Incision: Present: open (Midline with packing noted with small amount of serousang. drainage.) - Neurologic CN 2-12 grossly intact - Psychiatric oriented to time, oriented to person, oriented to place, speech is normal, memory intact - Labs 12/12/16 03:44 12/15/16 03:15 Diabetes panel 12/15/16 Range/Units 03:15 Sodium 140 (136-145) mEq/L Potassium 3.6 (3.5-4.5) mEq/L Chloride 108 (98-109) mEq/L Carbon Dioxide 24 (19-29) mEq/L BUN 16 (8-26) mg/dL Creatinine 0.79 (0.72-1.25) mg/dL Glucose 103 H (70-99) mg/dL Calcium 9.0 (8.6-10.8) mg/dL AST 52 H (5-34) Units/L ALT 55 (0-55) Units/L Alkaline Phosphatase 105 (38-126) Units/L Albumin 2.5 L (3.5-5.0) g/dL Calcium panel 12/15/16 Range/Units 03:15 Calcium 9.0 (8.6-10.8) mg/dL Albumin 2.5 L (3.5-5.0) g/dL Pituitary panel 12/15/16 Range/Units 03:15 Sodium 140 (136-145) mEq/L Potassium 3.6 (3.5-4.5) mEq/L Chloride 108 (98-109) mEq/L Carbon Dioxide 24 (19-29) mEq/L BUN 16 (8-26) mg/dL Creatinine 0.79 (0.72-1.25) mg/dL Glucose 103 H (70-99) mg/dL Calcium 9.0 (8.6-10.8) mg/dL Adrenal panel 12/15/16 Range/Units 03:15 Sodium 140 (136-145) mEq/L Potassium 3.6 (3.5-4.5) mEq/L Chloride 108 (98-109) mEq/L Carbon Dioxide 24 (19-29) mEq/L BUN 16 (8-26) mg/dL Creatinine 0.79 (0.72-1.25) mg/dL Glucose 103 H (70-99) mg/dL Calcium 9.0 (8.6-10.8) mg/dL Total Bilirubin 0.5 (0.2-1.2) mg/dL AST 52 H (5-34) Units/L ALT 55 (0-55) Units/L Alkaline Phosphatase 105 (38-126) Units/L Albumin 2.5 L (3.5-5.0) g/dL - VTE Documentation of Mechanical Device: Intermittent pneumatic compression device Consult Discharge Plan - Plan Referrals: Faby Avila, AUTOMOTIVE BRAKE TECHNICIAN [Primary Care Provider] - - Attending Attestation I examined this patient and my medical decision-making was reviewed with the MANAGER PHOTO/PA/Advanced Practice Nurse/Resident Physician. I agree with the documented findings, disposition and treatment plan as described except to the extent set forth below.
[2016-12-15] MEDS: Ziprasidone 80 MG CAPSULE PO SCH ×2 (10:28→21:05)
[2016-12-15] MEDS: *HR* OxyCODONE/APAP 5/325 TABLET PO PRN ×2 (11:22→17:41)
[2016-12-15] MEDS ORDERED: Clinimix E 5%-15% SOLUTION 2,000 ML with MVI, adult with vitamin K 10 ML IVC SCH (17:00)
[2016-12-15] MEDS: *HR* HYDROmorphone (PF) 1 MG/ML SYRINGE IVP PRN (21:02)
[2016-12-15] MEDS: chlorproMAZINE 25 MG TABLET PO SCH (21:05)
[2016-12-16] MEDS: Insulin LISPRO 300 UNITS/3 ML VIAL SQ SCH ×4 (00:34→17:55)
[2016-12-16] MEDS: cefOXitin 2,000 MG in D5% in Water (Mini-Bag+) 100 ML IVPB SCH ×3 (00:40→15:51)
[2016-12-16] MEDS: *HR* OxyCODONE/APAP 5/325 TABLET PO PRN ×4 (00:44→21:57)
[2016-12-16] MEDS: *HR* Labetalol 20 MG/4 ML SYRINGE IVP SCH ×6 (01:26→21:57)
[2016-12-16] MEDS: *HR* HYDROmorphone (PF) 1 MG/ML SYRINGE IVP PRN ×2 (01:38→05:38)
[2016-12-16] MEDS: *HR* Heparin 5,000 UNIT/ML VIAL SQ SCH ×2 (05:38→17:19)
[2016-12-16] MEDS: Fluconazole 200 MG/100 ML 200 MG/100 ML BAG IVPB SCH (07:50)
[2016-12-16] MEDS: Ziprasidone 80 MG CAPSULE PO SCH ×2 (07:56→21:56)
--- NOTE | 2016-12-16 14:06 | General Surgery Progress Note ---
Date of Encounter: 12/16/16 Time of Encounter: 14:00 - Assessment and Plan (1) Duodenal perforation Current Visit: Yes Status: Acute POD #7 from exploratory laparotomy and repair of duodenal perforation with Dr. Martinez Advance to full liquids with protein supplements Saline lock IV fluids TPN- may decrease to 50ml/hour and wean off IV antibiotics- Cefoxitin Supportive care/pain control- Percocet and prn dilaudid for breakthrough pain PO meds restarted- home regimen Out of bed to chair today IS every 1 hour while awake PPI threrapy BID (2) Schizophrenia Current Visit: No Status: Chronic Resume home medication regimen Qualifiers: Schizophrenia type: unspecified Qualified Code(s): F20.9 - Schizophrenia, unspecified (3) Anxiety Current Visit: No Status: Chronic Resume home medication regimen (4) DVT prophylaxis Current Visit: Yes Status: Acute EPCDs to bilateral lower extremities for DVT prophylaxis Heparin 5,000 units SQ twice daily for DVT prophylaxis Subjective Patient reports: no new complaints, feels better, still having pain, pain is less, tolerating liquids well, voiding w/o difficulty, flatus, bowel movement, diarrhea, afebrile Objective Vital Signs - Last 8 Hours Temp Pulse Resp BP Pulse Ox 12/16/16 10:46 97.5 F L 89 14 106/70 95 12/16/16 07:35 97.6 F 77 18 110/72 95 Intake and Output 12/15/16 12/16/16 12/16/16 23:59 07:59 15:59 Intake Total 460 / 460 830 / 830 920 / 920 Output Total 40 / 40 1080 / 1080 1400 / 1400 Balance 420 / 420 -250 / -250 -480 / -480 Intake: IV Fluids 100 / 100 350 / 350 200 / 200 Mefoxin 2,000 MG In 100 / 100 100 / 100 100 / 100 Dextrose 5% (Minibag+) 100 ML 100 ML @ 200 mls/ hr IVPB Q8HR [facility] Rx#: [id number] Intralipid 20% 250 ML @ 250 / 250 21 mls/hr IVPB DAILY@1700 [facility] Rx#:[id number] Diflucan 200 MG/100 ML 100 / 100 200 mg In 100 ml @ 100 mls/hr IVPB DAILY [facility] Rx# :[id number] Oral 360 / 360 480 / 480 720 / 720 Output: Urine 0 / 0 1000 / 1000 700 / 700 Stool 700 / 700 Wound Drainage 40 / 40 80 / 80 0 / 0 Left Abdomen 40 / 40 80 / 80 0 / 0 Other: Meal Lunch Stool Size Large Large Stool Consistency liquid loose liquid Stool Color Brown Brown Yellow Weight 93.259 kg Blood Glucose* 127 163 133 Patient Weight 12/16/16 23:59 Weight 93.259 kg - General physical appearance well developed, well nourished, no distress - Eyes normal ocular movement - ENT normal mucosa, atraumatic, normocephalic - Neck Neck exam: trachea midline - Respiratory normal respiratory effort, clear to auscultation - Cardiovascular Cardiovascular exam: Present: RRR - Abdomen Abdomen: Present: bowel sounds present, soft, tender (minimal, expected post- operative tenderness), wound (CATHY drain to bulb suction with serousang. drainage noted (110ml noted since midnight)) - Incision Incision: Present: open (Midline with packing noted with small amount of serousang. drainage, no odor present) - Neurologic CN 2-12 grossly intact - Psychiatric oriented to time, oriented to person, oriented to place, speech is normal, memory intact - Labs 12/12/16 03:44 12/15/16 03:15 - VTE Documentation of Mechanical Device: Intermittent pneumatic compression device Consult Discharge Plan - Plan Referrals: Faby Avila, LOG OPERATIONS COORDINATOR [Primary Care Provider] - - Attending Attestation I examined this patient and my medical decision-making was reviewed with the COLLEGE PROFESSOR/PA/Advanced Practice Nurse/Resident Physician. I agree with the documented findings, disposition and treatment plan as described except to the extent set forth below.
[2016-12-16] MEDS ORDERED: Clinimix E 5%-15% SOLUTION 2,000 ML with MVI, adult with vitamin K 10 ML IVC SCH ×2 (17:00)
[2016-12-16] MEDS: chlorproMAZINE 25 MG TABLET PO SCH (21:56)
[2016-12-17] MEDS: cefOXitin 2,000 MG in D5% in Water (Mini-Bag+) 100 ML IVPB SCH ×2 (01:12→10:04)
[2016-12-17] MEDS: Insulin LISPRO 300 UNITS/3 ML VIAL SQ SCH ×3 (01:12→12:02)
[2016-12-17] MEDS: *HR* Labetalol 20 MG/4 ML SYRINGE IVP SCH ×3 (01:13→10:05)
[2016-12-17 03:33] LABS: Hematocrit 30.4 % (37.5-50.1); Hemoglobin 9.8 g/dL (12.9-16.9); Mean Corpuscular HGB Conc 32.2 g/dL (31.6-35.5); Mean Corpuscular Hemoglobin 30.3 pg (28.0-33.3); Mean Corpuscular Volume 94.1 fL (83.0-100.0); Mean Platelet Volume 9.9 fL (9.4-12.4); Nucleated Red Blood Cells 0.3 /100 WBC (0); Platelet Count 501 K/mcL (140-400); Red Blood Count 3.23 M/mcL (4.19-5.50); Red Cell Distribution Width 13.1 % (11.5-14.5)
[2016-12-17 03:44] LABS: BUN/Creatinine Ratio 16 (6-26); Blood Urea Nitrogen 14 mg/dL (8-26); Carbon Dioxide 25 mEq/L (19-29); Chloride 107 mEq/L (98-109); Glucose 121 mg/dL (70-99); Osmolality,Calculated 292 (280-300); Potassium 3.8 mEq/L (3.5-4.5); Sodium 140 mEq/L (136-145); eGFR For African Americans > 60 (> 60); eGFR For Non-African Americans > 60 (> 60)
[2016-12-17] MEDS: *HR* Heparin 5,000 UNIT/ML VIAL SQ SCH (05:49)
[2016-12-17] MEDS: *HR* HYDROmorphone (PF) 1 MG/ML SYRINGE IVP PRN ×2 (05:49→15:15)
[2016-12-17 07:49] LABS: Eosinophils # 1.5 K/mcL (0.0-0.6); Lymphocytes # 2.2 K/mcL (0.6-4.6); Monocytes # 0.7 K/mcL (0.0-1.3); Neutrophils # 11.7 K/mcL (1.6-8.9); Platelet Estimate Increased (Normal)
[2016-12-17 07:50] LABS: Polychromasia 1+ (Not Present)
[2016-12-17] MEDS: Ziprasidone 80 MG CAPSULE PO SCH (10:06)
[2016-12-17] MEDS: Fluconazole 200 MG/100 ML 200 MG/100 ML BAG IVPB SCH (10:07)
[2016-12-17] MEDS: *HR* OxyCODONE/APAP 5/325 TABLET PO PRN ×2 (11:27→12:12)
[2016-12-17 14:40] VITALS: BP 124/79
--- NOTE | 2016-12-17 14:49 | Physician Discharge Referral ---
Home Health/Hosp Referral Info Transfer to: Home Health Attending Provider: Dr. Felipe Martinez Provider in Charge Post Discharge: Other (PCP and Dr. Felipe Martinez) - Diagnosis (1) Duodenal perforation Priority: Primary Status: Acute (2) Schizophrenia Priority: Secondary Status: Chronic (3) Anxiety Priority: Secondary Status: Chronic - Respiratory Orders None Smoking Cessation: Smoking cessation has been advised. For more information, call the [employer] Tobacco Quit Line at 6-799-UVEM-NOW. - Dressing/Wound Care Site: Midline abdomen Type of Dressing/Treatments w/Frequency: Cleanse with soap and water in the shower, pack open areas with 1/4 inch plain gauze, cover with ABD pad and tape to secure daily - Diet/Nutrition Diet/Nutrition Orders: Mechanical Soft - Activity Activity Orders: Up ad izabella, Ambulate - Services Needed Following services are medically necessary services: Residential Care Orders: Cleanse with soap and water in the shower, pack open areas with 1/4 inch plain gauze, cover with ABD pad and tape to secure daily - Transfer Medications Prescriptions: Docusate [Colace] 100 mg PO BID #30 capsule OxyCODONE/APAP 5/325 [Percocet 5/325 MG] 1 each PO Q4H PRN #30 tablet PRN Reason: Moderate Pain Home Medications: Duloxetine [Cymbalta] 60 mg PO BID 05/12/15 [History] Ziprasidone [Geodon] 80 mg PO BID #30 capsule 05/14/15 [Rx] ChlorproMAZINE [Thorazine] 25 mg PO HS tablet 04/22/16 [Rx] LORazepam [Ativan] 0.5 mg PO TID PRN #90 tablet 04/22/16 [Rx] Prazosin [Minipress] 5 mg PO HS capsule 04/22/16 [Rx] Pantoprazole Sodium [Protonix] 40 mg PO BID 12/09/16 [History] Docusate [Colace] 100 mg PO BID #30 capsule 12/17/16 [Rx] OxyCODONE/APAP 5/325 [Percocet 5/325 MG] 1 each PO Q4H PRN #30 tablet 12/17/16 [ Rx] Allergies/Adverse Reactions: Allergies ibuprofen Allergy (Unknown, Verified 12/09/16 17:32) Abdominal Pain hx of ulcers Certification: Further, I certify that my clinical findings support that this patient is homebound (i.e. absences from home require considerable and taxing effort and are for medical reasons or latter day services or infrequently or short duration when for other reasons) because: Homebound Reason: Patient requires assistance of a person or device to safely leave home, Leaving home requires considerable and taxing effort due to condition Attestation: My signature below is to certify that this patient is under my care and that I, or nurse practitioner, or a physician's senior assistant manager working with me, has a face-to -face encounter with this patient.
--- NOTE | 2016-12-17 15:00 | Discharge Summary ---
Date of Encounter: 12/17/16 Time of Encounter: 14:30 - Discharge Diagnosis (1) Duodenal perforation Priority: Primary Status: Resolved (2) Schizophrenia Priority: Secondary Status: Chronic Qualifiers: Schizophrenia type: unspecified Qualified Code(s): F20.9 - Schizophrenia, unspecified (3) Anxiety Priority: Secondary Status: Chronic - Discharge Medications Prescriptions: Docusate [Colace] 100 mg PO BID #30 capsule OxyCODONE/APAP 5/325 [Percocet 5/325 MG] 1 each PO Q4H PRN #30 tablet PRN Reason: Moderate Pain Home Medications: Duloxetine [Cymbalta] 60 mg PO BID 05/12/15 [History] Ziprasidone [Geodon] 80 mg PO BID #30 capsule 05/14/15 [Rx] ChlorproMAZINE [Thorazine] 25 mg PO HS tablet 04/22/16 [Rx] LORazepam [Ativan] 0.5 mg PO TID PRN #90 tablet 04/22/16 [Rx] Prazosin [Minipress] 5 mg PO HS capsule 04/22/16 [Rx] Pantoprazole Sodium [Protonix] 40 mg PO BID 12/09/16 [History] Docusate [Colace] 100 mg PO BID #30 capsule 12/17/16 [Rx] OxyCODONE/APAP 5/325 [Percocet 5/325 MG] 1 each PO Q4H PRN #30 tablet 12/17/16 [ Rx] Allergies/Adverse Reactions: Allergies ibuprofen Allergy (Unknown, Verified 12/09/16 17:32) Abdominal Pain hx of ulcers General Surgery Exam Initial Vital Signs Temp Pulse Resp BP Pulse Ox 98.9 F 128 20 142/95 94 12/09/16 17:27 12/09/16 17:27 12/09/16 17:27 12/09/16 17:27 12/09/16 17:27 - General physical appearance well developed, well nourished, no distress - Eyes normal ocular movement - ENT normal mucosa, atraumatic, normocephalic - Neck trachea midline - Respiratory normal expansion, normal respiratory effort, clear to auscultation - Cardiovascular Cardiovascular exam: Present: RRR, 15, 16 - Abdomen Abdomen general surgery: Present: bowel sounds present, soft, tender (minimal, expected post-operative tenderness), wound (CATHY drain to bulb suction with serous drainage noted) - Incision Incision: Present: clean and dry, intact - Integumentary Integumentary general surgery: Present: warm and dry - Neurologic Present: CN 2-12 grossly intact - Musculoskeletal Present: normal gait, normal posture - Psychiatric Psychiatric general surgery: Present: appropriate, oriented to person, oriented to place, oriented to time, speech is normal, memory intact Date of admission: 12/09/16 21:55 Primary care physician: Faby Avila CNP Consults: 12/11/16 19:15 Consult to Invasive Line Access Team [CONS] Routine Reason for Consult: Picc Line Insertion. Need for TPN Line Type: PICC Discharging clinician: Liborio Martinez (Diamante Ohara) Anticipated date of discharge: 12/17/16 - Patient Status Disposition: Home Health Service Condition: Good Functional capacity at discharge: independent ambulation Overall status at discharge: patient is progressing back to baseline - Discharge Instructions Follow Up With: Sherley Ohara CNP [Advanced Practice Nurse] - 12/31/16 10:45 am (surgery follow-up) Faby Avila CNP [Primary Care Provider] - (1 week hospital follow-up) Additional Instructions: Surgical instructions: #1 May shower, no tub bath until released per surgeon #2 Midline incision- wash with soap and water, pack open areas with 1/4 inch plain packing, cover with ABD pad and tape to secure daily #3 No lifting/pushing/pulling greater than 15 lb. for a total of 6 weeks from the date of surgery #4 No driving until off narcotics for 24 hours and able to safely react in the car #5 May climb stairs - Diet and Activity Activity: other (See additional instructions above) Diet: other (full liquid diet with protein supplements 3 times per day until seen in follow-up in the surgery office) - Hospital Course Hospital course: Mr. House is a 41 year old male presented to the hospital with abdominal pain after undergoing an esophageal and duodenal dilatation. He was found to have a duodenal perforation and was taken to the operating room for Exploratory laparotomy with Waleska maneuver the duodenum and a Heineke Mikulicz's pyloroplasty with Dr. Martinez. He remained on bowel rest with an NG tube to LIWS during the initial recovery phase. He received TPN for nutritional support. He did undergo an UGI on POD#5 and there was no extravasation of contrast noted. There were inflammatory changed noted. The NG tube was removed and the patient was trialed on clear liquids and tolerated these well. He was advanced to full liquids and tolerated well. His vital signs are stable and he is afebrile. His pain is well controlled. He is voiding and ambulating without difficulty. We will begin discharge planning to home with home health care for daily dressing changes. Will plan for outpatient follow-up in the next 10-14 days. - Time Spent with Patient Total time spent providing and/or coordinating discharge services: Less than 30 minutes Labs on day of discharge: Labs from last 24 hours 12/17/16 12/17/16 12/17/16 05:37 03:25 03:25 WBC 18.5 H RBC 3.23 L Hgb 9.8 L Hct 30.4 L MCV 94.1 MCH 30.3 MCHC 32.2 RDW 13.1 Plt Count 501 H D MPV 9.9 Seg Neutrophils % 50.0 Band Neutrophils % 13.0 H Lymphocytes % 12.0 Monocytes % 4.0 Eosinophils % 8.0 Metamyelocytes % 2.0 H Myelocytes % 11.0 H Neutrophils # 11.7 H Lymphocytes # 2.2 Monocytes # 0.7 Eosinophils # 1.5 H Nucleated RBCs/100 WBC 0.3 H Platelet Estimate Increased H Polychromasia 1+ A Smear Path Review See Below Sodium 140 Potassium 3.8 Chloride 107 Carbon Dioxide 25 BUN 14 Creatinine 0.86 Est GFR ( Amer) > 60 Est GFR (Non-Af Amer) > 60 BUN/Creatinine Ratio 16 Glucose 121 H POC Glucose 128 H Calculated Osmolality 292 Calcium 9.0 12/17/16 12/16/16 01:03 17:00 WBC RBC Hgb Hct MCV MCH MCHC RDW Plt Count MPV Seg Neutrophils % Band Neutrophils % Lymphocytes % Monocytes % Eosinophils % Metamyelocytes % Myelocytes % Neutrophils # Lymphocytes # Monocytes # Eosinophils # Nucleated RBCs/100 WBC Platelet Estimate Polychromasia Smear Path Review Sodium Potassium Chloride Carbon Dioxide BUN Creatinine Est GFR ( Amer) Est GFR (Non-Af Amer) BUN/Creatinine Ratio Glucose POC Glucose 159 H 114 H Calculated Osmolality Calcium - Impressions ITS Impressions Upper GI Series 12/14/16 00:00 IMPRESSION: Single water-soluble contrast was injected through a NG tube. Delayed contrast entering the duodenum with luminal narrowing of the 1st portion of the duodenum, likely related to postoperative changes and bowel wall thickening. No evidence of contrast extravasation. The 2nd, 3rd and 4th portions of the duodenum appear normal. The results were sent to radiology results communication. D/ / Gregory Jimenes MD / Gregory Jimenes MD Interpreting Provider: Gregory Jimenes MD - Attending Attestation I examined this patient and my medical decision-making was reviewed with the WEB GRAPHIC DESIGNER/PA/Advanced Practice Nurse/Resident Physician. I agree with the documented findings, disposition and treatment plan as described except to the extent set forth below.
== END 2016-12-17 17:57 | disposition home health service (06) | DRG 328 ==
LOC: EMEROO 17:24 → 3ANU 21:55 → ICNU 12-10 00:27 → 3ANU 12-11 13:55
PROVIDERS: ADMIT Surgery; ATTEND Surgery

== ENCOUNTER 2017-10-22 14:00 | Inpatient (IN) ==
[2017-10-22 14:40] LABS: Basophils # 0.1 K/mcL (0.0-0.2); Basophils % 1.3 %; Eosinophils # 0.9 K/mcL (0.0-0.6); Eosinophils % 9.1 %; Hematocrit 40.7 % (37.5-50.1); Hemoglobin 13.1 g/dL (12.9-16.9); Immature Granulocytes % 0.7 % (0-4); Lymphocytes % 32.1 %; Mean Corpuscular HGB Conc 32.2 g/dL (31.6-35.5); Mean Corpuscular Hemoglobin 29.3 pg (28.0-33.3); Mean Corpuscular Volume 91.1 fL (83.0-100.0); Mean Platelet Volume 9.6 fL (9.4-12.4); Monocytes # 0.5 K/mcL (0.0-1.3); Monocytes % 5.8 %; Neutrophils # 4.8 K/mcL (1.6-8.9); Platelet Count 381 K/mcL (140-400); Red Blood Count 4.47 M/mcL (4.19-5.50); Red Cell Distribution Width 14.9 % (11.5-14.5)
--- NOTE | 2017-10-22 14:52 | Emergency Department Note ---
Disposition Clinical Impression: Suicidal ideation Disposition: Admitted As Inpatient Condition: Good Psych HPI - General Chief Complaint: ED Psychiatric Symptoms Stated Complaint: "I need help, I'm trying to kill myself" Time Seen by Provider: 10/22/17 14:19 Source: patient Mode of arrival: ambulatory Limitations: no limitations Nursing Notes Reviewed: Yes Vital Signs Reviewed: Yes - History of Present Illness HPI Narrative: Patient presents today for evaluation of suicidal ideation. Patient has a significant history of schizophrenia. The patient states he has been taking all of his medications as previously prescribed. The patient's thoughts started last night. Hearing voices and seeing things and having thoughts of wanting to cut himself. The patient denies any fevers, chills, chest pain, shortness of breath, abdominal pain, urinary symptoms or problems with bowel movements. No skin rashes or lesions are concerning for trauma. Patient will undergo psychiatric clearance labs and be evaluated by [facility]. Patient is medically cleared at this time. - Related Data Home Medications Medication Instructions Recorded Confirmed DULoxetine [Cymbalta] 60 mg PO BID 05/12/15 10/22/17 Pantoprazole Sodium [Protonix] 40 mg PO BID 12/09/16 10/22/17 Previous Rx's Medication Instructions Recorded Ziprasidone [Geodon] 80 mg PO BID #30 capsule 05/14/15 LORazepam [Ativan] 0.5 mg PO TID PRN #90 tablet 04/22/16 Prazosin [Minipress] 5 mg PO HS capsule 04/22/16 chlorproMAZINE [Thorazine] 25 mg PO HS tablet 04/22/16 Docusate [Colace] 100 mg PO BID #30 capsule 12/17/16 Allergies Allergy/AdvReac Type Severity Reaction Status Date / Time ibuprofen Allergy Unknown Abdominal Verified 10/22/17 14:05 Pain Review of Systems: CONSTITUTIONAL: No weight loss, fever, chills, weakness or fatigue. HEENT: Eyes: No visual changes. Ears, Nose, Throat: No hearing loss, difficulty talking or unable to swallow. SKIN: No rash or itching. CARDIOVASCULAR: No chest pain, chest pressure or chest discomfort. No palpitations or edema. RESPIRATORY: No shortness of breath, cough or sputum. GASTROINTESTINAL: No anorexia, nausea, vomiting or diarrhea. No abdominal pain or blood. GENITOURINARY: No burning on urination or hematuria. NEUROLOGICAL: No headache, dizziness, syncope, paralysis, ataxia, numbness or tingling in the extremities. No change in bowel or bladder control. MUSCULOSKELETAL: No muscle pain, back pain, joint pain or stiffness. Psych: Visual and auditory hallucinations, suicidal ideation Past Medical History - Past Medical History Medical history: Reports: GERD Surgical history: Reports: herniorrhaphy, other Psychiatric history: Reports: bipolar, prior suicide attempt, schizophrenia, previous psychiatric hospitalization - Social History Smoking Status: Never smoker Smokeless Tobacco Status: No Alcohol use: Reports: none Drug use: Reports: none Physical Exam General: disheveled Head: Normocephalic Atraumatic Eyes: PERRL, EOMI ENT: Airway patent, no stridor Neck: supple, no meningismus Chest: Lungs clear to auscultation bilateral Cardiac: Regular rate and rhythm, no murmurs, rubs or gallops Abdomen: soft, nontender, nondistended; no guarding, rebound, or tenderness to percussion Musculoskeletal: Calves symmetric, nontender, no palpable cord Skin: No rash, normal skin tone Neuro: Alert and Oriented to person, place, and time; No focal deficit, CN 2-12 symmetric and intact Psych: Flat affect, disheveled - General Limitations: no limitations General appearance: alert, anxious Course - Reevaluation(s) Reevaluation #1: Patient admitted to 1A Vital Signs Temperature 97.8 F 10/22/17 14:02 Pulse Rate 116 10/22/17 14:02 Respiratory Rate 18 10/22/17 14:02 Blood Pressure 149/98 10/22/17 14:02 O2 Sat by Pulse Oximetry 97 10/22/17 14:02 Temperature 97.8 F 10/22/17 17:40 Pulse Rate 98 10/22/17 17:40 Respiratory Rate 18 10/22/17 17:40 Blood Pressure 140/95 10/22/17 17:40 O2 Sat by Pulse Oximetry 97 10/22/17 14:02 Oxygen Delivery Oxygen Delivery Room Air Psych - Lab Data Result diagrams: 10/22/17 14:27 10/22/17 14:27 Lab Results 10/22/17 10/22/17 10/22/17 Range/Units 14:27 14:27 14:27 WBC 9.3 (4.3-11.1) K/mcL RBC 4.47 (4.19-5.50) M/mcL Hgb 13.1 (12.9-16.9) g/dL Hct 40.7 (37.5-50.1) % MCV 91.1 (83.0-100.0) fL MCH 29.3 (28.0-33.3) pg MCHC 32.2 (31.6-35.5) g/dL RDW 14.9 H (11.5-14.5) % Plt Count 381 (140-400) K/mcL MPV 9.6 (9.4-12.4) fL Immature Gran % 0.7 (0-4) % Seg Neutrophils % 51.0 % Lymphocytes % 32.1 % Monocytes % 5.8 % Eosinophils % 9.1 % Basophils % 1.3 % Neutrophils # 4.8 (1.6-8.9) K/mcL Lymphocytes # 3.0 (0.6-4.6) K/mcL Monocytes # 0.5 (0.0-1.3) K/mcL Eosinophils # 0.9 H (0.0-0.6) K/mcL Basophils # 0.1 (0.0-0.2) K/mcL Sodium 138 (136-145) mEq/L Potassium 4.1 (3.5-5.1) mEq/L Chloride 105 (98-107) mEq/L Carbon Dioxide 25 (23-29) mEq/L BUN 14 (6-20) mg/dL Creatinine 0.79 (0.70-1.30) mg/dL Est GFR ( Amer) > 60 (> 60) Est GFR (Non-Af Amer) > 60 (> 60) BUN/Creatinine Ratio 18 (6-26) Glucose 116 H (70-105) mg/dL Calculated Osmolality 287 (280-300) Calcium 9.5 (8.6-10.3) mg/dL TSH 1.036 (0.340-5.600) mcIU/mL Urine Color (Yellow) Urine Clarity (Clear) Urine pH (5.0-8.0) pH Units Ur Specific Stark (1.010-1.025) Urine Protein (Neg-Trace) mg/dL Urine Glucose (UA) (Normal) mg/dL Urine Ketones (Negative) mg/dL Urine Blood (Negative) Urine Nitrite (Negative) Urine Bilirubin (Negative) Urine Urobilinogen (Normal) mg/dL Ur Leukocyte Esterase (Negative) Salicylates < 5.0 L (15.0-30.0) mg/dL Urine Opiates Screen (Uqndyw=718) ng/mL Acetaminophen < 1.0 L (10-30) mcg/mL Ur Barbiturates Screen (Ugzfty=276) ng/mL Ur Phencyclidine Scrn (Cutoff=25) ng/mL Ur Amphetamines Screen (Cfrybo=2838) ng/mL U Benzodiazepines Scrn (Tncglz=017) ng/mL Urine Cocaine Screen (Cutoff= 300) ng/mL U Marijuana (THC) Screen (Cutoff = 50) ng/mL Ethyl Alcohol 38 H (0-10) mg/dL 10/22/17 10/22/17 Range/Units 14:46 14:46 WBC (4.3-11.1) K/mcL RBC (4.19-5.50) M/mcL Hgb (12.9-16.9) g/dL Hct (37.5-50.1) % MCV (83.0-100.0) fL MCH (28.0-33.3) pg MCHC (31.6-35.5) g/dL RDW (11.5-14.5) % Plt Count (140-400) K/mcL MPV (9.4-12.4) fL Immature Gran % (0-4) % Seg Neutrophils % % Lymphocytes % % Monocytes % % Eosinophils % % Basophils % % Neutrophils # (1.6-8.9) K/mcL Lymphocytes # (0.6-4.6) K/mcL Monocytes # (0.0-1.3) K/mcL Eosinophils # (0.0-0.6) K/mcL Basophils # (0.0-0.2) K/mcL Sodium (136-145) mEq/L Potassium (3.5-5.1) mEq/L Chloride (98-107) mEq/L Carbon Dioxide (23-29) mEq/L BUN (6-20) mg/dL Creatinine (0.70-1.30) mg/dL Est GFR ( Amer) (> 60) Est GFR (Non-Af Amer) (> 60) BUN/Creatinine Ratio (6-26) Glucose (70-105) mg/dL Calculated Osmolality (280-300) Calcium (8.6-10.3) mg/dL TSH (0.340-5.600) mcIU/mL Urine Color Yellow (Yellow) Urine Clarity Clear (Clear) Urine pH 5.5 (5.0-8.0) pH Units Ur Specific Stark 1.018 (1.010-1.025) Urine Protein Negative (Neg-Trace) mg/dL Urine Glucose (UA) Normal (Normal) mg/dL Urine Ketones Negative (Negative) mg/dL Urine Blood Negative (Negative) Urine Nitrite Negative (Negative) Urine Bilirubin Negative (Negative) Urine Urobilinogen Normal (Normal) mg/dL Ur Leukocyte Esterase Negative (Negative) Salicylates (15.0-30.0) mg/dL Urine Opiates Screen Positive H (Bkaciw=408) ng/mL Acetaminophen (10-30) mcg/mL Ur Barbiturates Screen Negative (Qygtqj=710) ng/mL Ur Phencyclidine Scrn Negative (Cutoff=25) ng/mL Ur Amphetamines Screen Negative (Oydpze=1972) ng/mL U Benzodiazepines Scrn Negative (Tyrzdm=632) ng/mL Urine Cocaine Screen Negative (Cutoff= 300) ng/mL U Marijuana (THC) Screen Negative (Cutoff = 50) ng/mL Ethyl Alcohol (0-10) mg/dL Psychiatric Medical Clearance - Medical Clearance Checklist Medical History: Schizophrenia (Chronic) Mood disorder (Chronic) Anxiety (Chronic) Chest pain (Acute) Schizophrenia (Chronic) Syncope due to orthostatic hypotension (Resolved) Melena (Acute) Weakness (Acute) Head injury (Acute) DVT prophylaxis (Acute) Syncope (Acute) Orthostatic hypotension (Acute) Abdominal pain (Resolved) Dyspepsia (Chronic) Suicidal ideation (Acute) Depression (Chronic) Chronic schizophrenia (Acute) Duodenal perforation (Resolved) Tachycardia (Acute) Duodenal perforation (Acute) DVT prophylaxis (Acute) Abdominal pain (Inactive) Abdominal pain (Inactive) Atypical chest pain (Inactive) Diverticulosis (Inactive) Right knee pain (Inactive) Sciatica (Inactive) No Social History Section defined Current Vitals: Last Vital Signs Temp 97.8 F 10/22/17 17:40 Pulse 98 10/22/17 17:40 Resp 18 10/22/17 17:40 BP 140/95 10/22/17 17:40 Pulse Ox 97 10/22/17 14:02 Psychiatric Lab Panel: Drug Levels and Toxicity 10/22/17 10/22/17 14:27 14:46 Urine Opiates Screen Positive H Acetaminophen < 1.0 L Ur Barbiturates Screen Negative Ur Phencyclidine Scrn Negative Ur Amphetamines Screen Negative U Benzodiazepines Scrn Negative Urine Cocaine Screen Negative U Marijuana (THC) Screen Negative Ethyl Alcohol 38 H Abnormal Labs: Abnormal lab results RDW 14.9 % (11.5-14.5) H 10/22/17 14:27 Eosinophils # 0.9 K/mcL (0.0-0.6) H 10/22/17 14:27 Glucose 116 mg/dL (70-105) H 10/22/17 14:27 Salicylates < 5.0 mg/dL (15.0-30.0) L 10/22/17 14:27 Urine Opiates Screen Positive ng/mL (Akalan=458) H 10/22/17 14:46 Acetaminophen < 1.0 mcg/mL (10-30) L 10/22/17 14:27 Ethyl Alcohol 38 mg/dL (0-10) H 10/22/17 14:27 Statement of Medical Clearance: I have evaluated the patient, reviewed diagnostic information, and certify that the patient's medical condition is sufficiently stable that transfer to the psychiatric unit does not pose a significant risk of deterioration.
[2017-10-22 14:55] LABS: Bilirubin,Urine Negative (Negative); Blood,Urine Negative (Negative); Clarity,Urine Clear (Clear); Color,Urine Yellow (Yellow); Glucose,Urine (UA) Normal (Normal); Ketones,Urine Negative (Negative); Leukocyte Esterase,Urine Negative (Negative); Nitrite,Urine Negative (Negative); PH,Urine 5.5 pH Units (5.0-8.0); Protein,Urine Negative (Neg-Trace); Specific Gravity,Urine 1.018 (1.010-1.025); Urobilinogen,Urine Normal (Normal)
--- NOTE | 2017-10-22 14:57 | Emergency Department Note ---
START Narrative - START START: I examined this patient and my medical decision-making was reviewed with the GRIT REMOVAL OPERATOR/PA/Advanced Practice Nurse/Resident Physician. I agree with the documented findings, disposition and treatment plan as described except to the extent set forth below. ED attending note: Patient seen with emergency medicine resident Dr. Javi Alejandre. We independently evaluated the patient. We independently had face-to- face contact with the patient. Please see a copy of his note for details of the history and physical, evaluation, management and disposition of this emergency Department patient. Briefly: 42-year-old male history of schizophrenia presents ambulatory and voluntarily for suicidal ideations. Patient states he wants to cut himself and harm himself. Patient's physical examination is benign there is no signs of any fresh cuts or lacerations at this point in time. Patient will undergo medical clearance and evaluation by mental health services. Disposition pending. Patient stable
[2017-10-22 14:59] LABS: Ethanol 38 mg/dL (0-10)
[2017-10-22 15:00] LABS: Acetaminophen < 1.0 mcg/mL (10-30); Salicylate < 5.0 mg/dL (15.0-30.0)
[2017-10-22 15:01] LABS: Amphetamine Screen,Urine Negative ng/mL (Cutoff=1000); Barbiturate Screen,Urine Negative ng/mL (Cutoff=200); Benzodiazepines Screen,Urine Negative ng/mL (Cutoff=200); Cannabinoid Screen,Urine Negative ng/mL (Cutoff = 50); Cocaine Screen,Urine Negative ng/mL (Cutoff= 300); Opiate Screen,Urine Positive ng/mL (Cutoff=300); Phencyclidine Screen,Urine Negative ng/mL (Cutoff=25)
[2017-10-22 15:09] LABS: BUN/Creatinine Ratio 18 (6-26); Blood Urea Nitrogen 14 mg/dL (6-20); Calcium 9.5 mg/dL (8.6-10.3); Carbon Dioxide 25 mEq/L (23-29); Chloride 105 mEq/L (98-107); Glucose 116 mg/dL (70-105); Osmolality,Calculated 287 (280-300); Potassium 4.1 mEq/L (3.5-5.1); Sodium 138 mEq/L (136-145); eGFR For Non-African Americans > 60 (> 60)
[2017-10-22] MEDS ORDERED: *HR* LORazepam 0.5 MG TABLET PO PRN (16:54)
[2017-10-22] MEDS ORDERED: Mag Hydrox/Al Hydrox/Simeth 30 ML UDC PO PRN (16:56)
[2017-10-22] MEDS ORDERED: Haloperidol Lactate 5 MG/ML VIAL IM PRN (16:56)
[2017-10-22] MEDS ORDERED: *HR* LORazepam 1 MG TABLET PO PRN (16:56)
[2017-10-22] MEDS ORDERED: *HR* LORazepam 2 MG/ML VIAL IM PRN (16:56)
[2017-10-22] MEDS ORDERED: MOM Conc 10 ML UD.LIQ PO PRN (16:56)
[2017-10-22] MEDS ORDERED: chlorproMAZINE 25 MG TABLET PO SCH (21:00)
[2017-10-22] MEDS: hydrOXYzine pamoate 25 MG CAPSULE PO PRN (21:42)
[2017-10-22] MEDS: Ziprasidone 80 MG CAPSULE PO SCH (21:42)
[2017-10-23] MEDS: Ziprasidone 80 MG CAPSULE PO SCH ×2 (08:56→21:20)
--- NOTE | 2017-10-23 13:10 | Psychiatry History & Physical ---
Date of Encounter: 10/23/17 Time of Encounter: 13:02 History of Present Illness Patient Stated Chief Complaint: suicidal ideation Medicare Admission Attestation: For traditional Medicare patients the provided hospital inpatient services are reasonable and necessary and in the case of services not specified as inpatient -only under 42 CFR 419.22 (n), that they are appropriately provided as inpatient services in accordance 42 CFR 412.3. For Critical Access Hospital the patient may reasonably be expected to be discharged or transferred to a hospital within 96 hours after admission to the Critical Access Hospital. Admitted From: Home Plans for Post Hospital Care: Home History of Present Illness: Mr. House is a 42 year old male who was admitted yesterday secondary to SI and /. Client is familiar to staff here and he has had multiple prior admissions. Client states he is diagnosed with Bipolar Disorder and Schizophrenia. He denies ever being told he has Schizoaffective Disorder. Already linked with services in the community. Prescribed Geodon, Cymbalta, Prazosin, and Chlorpromazine. Client states his current medication regimen has worked better for him than anything else over the years. Geodon, Cymbalta, and Prazosin are already at decent doses. Currently only takes 25mg of Chlorpromazine at night. Will increase the dose slightly as opposed to adding yet another medication. Will need to be cautious and make sure his blood pressure does not get too low. Client denies having any physical health problems. Denies any substance abuse issues. Lives with and kids and states they are supportive. Hopefully, just being in a safe environment and having the structure of the hospital for a couple of days will help to stabilize him. Past Med Surg Social Fam HX - Past Medical History Medical history: GERD - Past Psychiatric History Psychiatric history: Reports: bipolar, schizophrenia, previous psychiatric hospitalization Family psychiatric history: Unknown Family History of Suicide: Unknown - Past Surgical History Surgical History: herniorrhaphy, other - Social History Smoking Status: Never smoker Smokeless Tobacco Status: No Alcohol use: none Drug use: none - Family History Mother History Unknown: Yes Adopted: Yes Living Status: Still Living Medications & Allergies DULoxetine [Cymbalta] 60 mg PO BID 05/12/15 [History] Ziprasidone [Geodon] 80 mg PO BID #30 capsule 05/14/15 [Rx] LORazepam [Ativan] 0.5 mg PO TID PRN #90 tablet 04/22/16 [Rx] Prazosin [Minipress] 5 mg PO HS capsule 04/22/16 [Rx] chlorproMAZINE [Thorazine] 25 mg PO HS tablet 04/22/16 [Rx] Pantoprazole Sodium [Protonix] 40 mg PO BID 12/09/16 [History] Docusate [Colace] 100 mg PO BID #30 capsule 12/17/16 [Rx] 3 Allergy/AdvReac Type Severity Reaction Status Date / Time ibuprofen Allergy Unknown Abdominal Verified 10/22/17 14:05 Pain Review of Systems Constitutional: Denies: fever, chills, weakness, weight change Eyes: Denies: eye pain, vision change Ears, Nose, Throat: Denies: ear pain, throat pain, dental pain, hearing loss, congestion Cardiovascular: Denies: chest pain, palpitations, dyspnea on exertion Respiratory: Denies: cough, dyspnea, wheezes Gastrointestinal: Denies: abdominal pain, nausea, vomiting, diarrhea, constipation Genitourinary male: Denies: urgency, dysuria, frequency, genital lesions Genitourinary female: Denies: urgency, dysuria, frequency, abnormal menses, dyspareunia Musculoskeletal: Denies: joint swelling, joint pain Integumentary: Denies: rash, lesions, pruritus Neurological: Denies: headache, weakness, numbness, memory loss Endocrine: Denies: fatigue, heat or cold intolerance Hematologic/Lymphatic: Denies: easy bruising, lymphadenopathy Allergic/Immunologic: Denies: urticaria, itchy eyes Mental Status Exam Patient orientation: Yes Person, Yes Time, Yes Place Level of alertness: Alert Patient appearance: Disheveled Behavior: calm, cooperative Psychomotor activity: Normal Eye contact: Maintains Eye Contact Mood description: Depressed Affect description: congruent with mood Speech pattern: Normal rate, Normal rhythm, Normal tone Speech volume: Normal Thought process: Linear Thought content: Yes Suicidal ideation, No Homicidal ideation, No Overt delusions Perceptual disturbances: Yes Auditory hallucinations, Yes Visual hallucinations Attention span: Capable of Focused Attention Memory description: Grossly Intact Patient reliability: Reliable Historian Intelligence estimate: Average Judgment: Fair Insight: Partial Exam - HEENT Head exam IM: Present: atraumatic Eye exam IM: Present: EOMI ENT exam IM: Present: mucous membranes moist - Neurological Neurological exam IM: Present: alert, oriented X3 - Respiratory Respiratory exam IM: Present: CTAB - GI/Abdominal GI/Abdominal exam IM: Present: normal bowel sounds - Extremities Extremities exam IM: Present: full ROM - Skin Skin exam IM: Present: normal color Results - Vital Signs Vital signs: Temp Pulse Resp BP Pulse Ox 97.2 F L 114 16 111/82 97 10/23/17 09:00 10/23/17 09:00 10/23/17 09:00 10/23/17 09:00 10/22/17 14:02 - Labs Labs: Laboratory Last Values WBC 9.3 K/mcL (4.3-11.1) 10/22/17 14:27 RBC 4.47 M/mcL (4.19-5.50) 10/22/17 14:27 Hgb 13.1 g/dL (12.9-16.9) 10/22/17 14:27 Hct 40.7 % (37.5-50.1) 10/22/17 14:27 MCV 91.1 fL (83.0-100.0) 10/22/17 14:27 MCH 29.3 pg (28.0-33.3) 10/22/17 14:27 MCHC 32.2 g/dL (31.6-35.5) 10/22/17 14:27 RDW 14.9 % (11.5-14.5) H 10/22/17 14:27 Plt Count 381 K/mcL (140-400) 10/22/17 14:27 MPV 9.6 fL (9.4-12.4) 10/22/17 14:27 Immature Gran % 0.7 % (0-4) 10/22/17 14:27 Seg Neutrophils % 51.0 % 10/22/17 14:27 Lymphocytes % 32.1 % 10/22/17 14:27 Monocytes % 5.8 % 10/22/17 14:27 Eosinophils % 9.1 % 10/22/17 14:27 Basophils % 1.3 % 10/22/17 14:27 Neutrophils # 4.8 K/mcL (1.6-8.9) 10/22/17 14:27 Lymphocytes # 3.0 K/mcL (0.6-4.6) 10/22/17 14:27 Monocytes # 0.5 K/mcL (0.0-1.3) 10/22/17 14:27 Eosinophils # 0.9 K/mcL (0.0-0.6) H 10/22/17 14:27 Basophils # 0.1 K/mcL (0.0-0.2) 10/22/17 14:27 Sodium 138 mEq/L (136-145) 10/22/17 14:27 Potassium 4.1 mEq/L (3.5-5.1) 10/22/17 14:27 Chloride 105 mEq/L (98-107) 10/22/17 14:27 Carbon Dioxide 25 mEq/L (23-29) 10/22/17 14:27 BUN 14 mg/dL (6-20) 10/22/17 14:27 Creatinine 0.79 mg/dL (0.70-1.30) 10/22/17 14:27 Est GFR ( Amer) > 60 (> 60) 10/22/17 14:27 Est GFR (Non-Af Amer) > 60 (> 60) 10/22/17 14:27 BUN/Creatinine Ratio 18 (6-26) 10/22/17 14:27 Glucose 116 mg/dL (70-105) H 10/22/17 14:27 Calculated Osmolality 287 (280-300) 10/22/17 14:27 Calcium 9.5 mg/dL (8.6-10.3) 10/22/17 14:27 TSH 1.036 mcIU/mL (0.340-5.600) 10/22/17 14:27 Urine Color Yellow (Yellow) 10/22/17 14:46 Urine Clarity Clear (Clear) 10/22/17 14:46 Urine pH 5.5 pH Units (5.0-8.0) 10/22/17 14:46 Ur Specific [place] 1.018 (1.010-1.025) 10/22/17 14:46 Urine Protein Negative mg/dL (Neg-Trace) 10/22/17 14:46 Urine Glucose (UA) Normal mg/dL (Normal) 10/22/17 14:46 Urine Ketones Negative mg/dL (Negative) 10/22/17 14:46 Urine Blood Negative (Negative) 10/22/17 14:46 Urine Nitrite Negative (Negative) 10/22/17 14:46 Urine Bilirubin Negative (Negative) 10/22/17 14:46 Urine Urobilinogen Normal mg/dL (Normal) 10/22/17 14:46 Ur Leukocyte Esterase Negative (Negative) 10/22/17 14:46 Salicylates < 5.0 mg/dL (15.0-30.0) L 10/22/17 14:27 Urine Opiates Screen Positive ng/mL (Lfoclv=702) H 10/22/17 14:46 Acetaminophen < 1.0 mcg/mL (10-30) L 10/22/17 14:27 Ur Barbiturates Screen Negative ng/mL (Erguzr=133) 10/22/17 14:46 Ur Phencyclidine Scrn Negative ng/mL (Cutoff=25) 10/22/17 14:46 Ur Amphetamines Screen Negative ng/mL (Cxlklt=5628) 10/22/17 14:46 U Benzodiazepines Scrn Negative ng/mL (Nponcf=966) 10/22/17 14:46 Urine Cocaine Screen Negative ng/mL (Cutoff= 300) 10/22/17 14:46 U Marijuana (THC) Screen Negative ng/mL (Cutoff = 50) 10/22/17 14:46 Ethyl Alcohol 38 mg/dL (0-10) H 10/22/17 14:27 Assessment and Plan (1) Schizophrenia Current visit: No Status: Chronic Plan: Admit inpatient for safety and stabilization, Close observation, Suicide Precautions per unit protocol, Encourage participation in unit milieu, Group Therapy, Monitor sleep, Monitor appetite Risks, benefits, side effects, alternatives discussed w/pt: Yes Patient agreeable to treatment: Yes Plans for Post Hospital Care: Home Estimated Length of Stay (Days): 4 Qualifiers: Schizophrenia type: unspecified Qualified Code(s): F20.9 - Schizophrenia, unspecified
[2017-10-23] MEDS ORDERED: chlorproMAZINE 25 MG TABLET PO SCH (21:00)
[2017-10-23] MEDS: hydrOXYzine pamoate 25 MG CAPSULE PO PRN (21:19)
[2017-10-24] MEDS: Ziprasidone 80 MG CAPSULE PO SCH ×2 (09:39→20:48)
--- NOTE | 2017-10-24 10:01 | Psychiatry Progress Note ---
Date of Encounter: 10/24/17 Time of Encounter: 09:52 Subjective Interval history: Client states he did not sleep at all last night. Staff report that he did sleep. Client states SI is lessening but that AH are still present. Discussed how most of his medications are at good doses and that Chlorpromazine was increased slightly last night. If poor sleep and AH are his major complaints then it would make sense to keep increasing this medication. Staff found a ticket for an [employer] in his pants pocket while going through his clothing. Staff also reported his clothing smelled bad. Client may be drinking more than he initially verbalized. /family may also be giving him a hard time about his drinking but this is only speculation at this point. Review of Systems Constitutional: Denies: fever, chills, weakness, weight change Eyes: Denies: eye pain, vision change Ears, Nose, Throat: Denies: ear pain, throat pain, dental pain, hearing loss, congestion Cardiovascular: Denies: chest pain, palpitations, dyspnea on exertion Respiratory: Denies: cough, dyspnea, wheezes Gastrointestinal: Denies: abdominal pain, nausea, vomiting, diarrhea, constipation Musculoskeletal: Denies: joint swelling, joint pain Neurological: Denies: headache, weakness, numbness, memory loss Objective: Exam Patient orientation: Yes Person, Yes Time, Yes Place Level of alertness: Alert Patient appearance: Unkempt, Disheveled Behavior: calm, cooperative Psychomotor activity: Abnormal movements Eye contact: Maintains Eye Contact Mood description: Depressed Affect description: congruent with mood Speech pattern: Normal rate, Normal rhythm, Normal tone Speech volume: Normal Thought process: Linear Thought content: Yes Suicidal ideation, No Homicidal ideation, No Overt delusions Perceptual disturbances: Yes Auditory hallucinations, Yes Visual hallucinations Judgment: Limited Insight: Partial Results - Vital Signs Vital Signs: Temp Pulse Resp BP Pulse Ox 97.8 F 114 16 109/82 97 10/23/17 21:00 10/23/17 21:00 10/23/17 21:10/23/17 21:10/22/17 14:02 Assessment and Plan (1) Schizophrenia Current visit: No Status: Chronic Plan: Continue hospitalization, Close observation, Suicide Precautions per unit protocol, Encourage participation in unit milieu, Group Therapy, Monitor sleep, Monitor appetite Risks, benefits, side effects, alternatives discussed w/pt: Yes Patient agreeable to treatment: Yes Qualifiers: Schizophrenia type: unspecified Qualified Code(s): F20.9 - Schizophrenia, unspecified Consult Discharge Plan - Plan
[2017-10-24] MEDS: chlorproMAZINE 25 MG TABLET PO SCH (20:49)
[2017-10-25] MEDS: Ziprasidone 80 MG CAPSULE PO SCH ×2 (09:07→20:43)
--- NOTE | 2017-10-25 12:35 | Psychiatry Progress Note ---
Date of Encounter: 10/25/17 Time of Encounter: 12:00 Subjective Interval history: Ben is seen today for follow-up. He states that he still feels very depressed and wants to kill himself. He denies any active plan but does report if he left the hospital he would "figure out something." Attempted to discuss alcohol use and how this may be affecting his mood but patient is only minimally responsive to this. He states he cannot remember getting an ROGELIO or why this happened. Today he denies auditory or visual hallucinations and he does not appear to be responding to internal stimuli. He does admit to difficulty falling asleep and staying asleep. He would be willing to try a sleep aid. Encouraged patient to participate in therapeutic milieu and leave his room. Patient verbalized understanding of this. Review of Systems Constitutional: Denies: fever, chills, weakness, weight change Eyes: Denies: eye pain, vision change Ears, Nose, Throat: Denies: ear pain, throat pain, dental pain, hearing loss, congestion Cardiovascular: Denies: chest pain, palpitations, dyspnea on exertion Respiratory: Denies: cough, dyspnea, wheezes Gastrointestinal: Denies: abdominal pain, nausea, vomiting, diarrhea, constipation Musculoskeletal: Denies: joint swelling, joint pain Neurological: Denies: headache, weakness, numbness, memory loss Psychiatric: Reports: depression, anxiety, abnormal sleep pattern, difficulty concentrating, hopelessness, irritability, mood swings. Denies: auditory hallucinations, visual hallucinations Objective: Exam Patient orientation: Yes Person, Yes Time, Yes Place Level of alertness: Alert Patient appearance: Unkempt, Disheveled Behavior: calm, cooperative Psychomotor activity: Slowed Eye contact: Minimal Contact Mood description: Depressed Affect description: flat Speech pattern: Normal rate, Normal rhythm, Normal tone Speech volume: Normal Thought process: [place], Slowed Thinking Thought content: Yes Suicidal ideation Perceptual disturbances: No Reacting to internal stimuli, No Auditory hallucinations, No Visual hallucinations Judgment: Limited Insight: Minimal Results - Vital Signs Vital Signs: Temp Pulse Resp BP Pulse Ox 98 F 114 20 109/83 97 10/25/17 09:00 10/25/17 09:00 10/25/17 09:00 10/25/17 09:00 10/22/17 14:02 Assessment and Plan (1) Schizoaffective disorder Current visit: Yes Status: Acute Plan: Continue hospitalization, Close observation, Suicide Precautions per unit protocol, Encourage participation in unit milieu, Group Therapy, Monitor sleep, Monitor appetite Additional Plan: Continue Geodon. Monitor for side effects. We will start trazodone for improvement in sleep. Encouraged positive coping strategies and participation in therapeutic milieu. Risks, benefits, side effects, alternatives discussed w/pt: Yes Patient agreeable to treatment: Yes Qualifiers: Schizoaffective disorder type: depressive Qualified Code(s): F25.1 - Schizoaffective disorder, depressive type (2) Anxiety Current visit: Yes Status: Acute Plan: Continue hospitalization, Close observation, Suicide Precautions per unit protocol, Encourage participation in unit milieu, Group Therapy, Monitor sleep, Monitor appetite Additional Plan: Vistaril when necessary. (3) Alcohol abuse Current visit: Yes Status: Acute Plan: Continue hospitalization, Close observation, Suicide Precautions per unit protocol, Encourage participation in unit milieu, Group Therapy, Monitor sleep, Monitor appetite Additional Plan: No apparent withdrawal. Continue to monitor. Risks, benefits, side effects, alternatives discussed w/pt: Yes Patient agreeable to treatment: Yes Consult Discharge Plan - Plan Referrals: NONE,PCP [Primary Care Provider] -
[2017-10-25] MEDS: chlorproMAZINE 25 MG TABLET PO SCH (20:40)
[2017-10-25] MEDS: traZODone 50 MG TABLET PO SCH (20:43)
[2017-10-26] MEDS: Ziprasidone 80 MG CAPSULE PO SCH ×2 (09:20→20:45)
[2017-10-26] MEDS: Nicotine 21 MG PATCH.TD24 TD SCH (09:53)
[2017-10-26] MEDS: hydrOXYzine pamoate 25 MG CAPSULE PO PRN ×2 (10:36→20:44)
--- NOTE | 2017-10-26 13:46 | Psychiatry Progress Note ---
Date of Encounter: 10/26/17 Time of Encounter: 13:00 Subjective Interval history: Ben is seen today for follow-up. He states that his depression is slightly improved. He slept a little bit better last night. He denies auditory or visual hallucinations today. He still occasionally is having intermittent suicidal ideations. He reported to staff that he was working nights at [facility] [employer] and not taking his medications because he did not know when to take them with him being awake at night. Patient apparently got an ability I went straight to the hospital after getting out of intermediate from this. Staff discussed with patient' s . Patient denies side effects of current medications. Review of Systems Constitutional: Denies: fever, chills, weakness, weight change Eyes: Denies: eye pain, vision change Ears, Nose, Throat: Denies: ear pain, throat pain, dental pain, hearing loss, congestion Cardiovascular: Denies: chest pain, palpitations, dyspnea on exertion Respiratory: Denies: cough, dyspnea, wheezes Gastrointestinal: Denies: abdominal pain, nausea, vomiting, diarrhea, constipation Musculoskeletal: Denies: joint swelling, joint pain Neurological: Denies: headache, weakness, numbness, memory loss Psychiatric: Reports: depression, anxiety, difficulty concentrating, irritability, mood swings. Denies: auditory hallucinations, visual hallucinations Objective: Exam Patient orientation: Yes Person, Yes Time, Yes Place Level of alertness: Alert Patient appearance: Unkempt, Disheveled Behavior: calm, cooperative Psychomotor activity: Slowed Eye contact: Minimal Contact Mood description: Depressed Affect description: dysphoric Speech pattern: Normal rate, Normal rhythm, Normal tone Speech volume: Normal Thought process: Intact, [place], Slowed Thinking Thought content: Yes Suicidal ideation, No Homicidal ideation Judgment: Limited Insight: Minimal Results - Vital Signs Vital Signs: Temp Pulse Resp BP Pulse Ox 98 F 105 16 113/84 97 10/26/17 09:00 10/26/17 09:00 10/26/17 09:00 10/26/17 09:00 10/22/17 14:02 Assessment and Plan (1) Schizoaffective disorder Current visit: Yes Status: Acute Plan: Continue hospitalization, Close observation, Suicide Precautions per unit protocol, Encourage participation in unit milieu, Group Therapy, Monitor sleep, Monitor appetite Additional Plan: Continue current meds. We will hold on adjusting doses as patient was not taking them as prescribed outside of the hospital. Monitor for side effects. Encourage appropriate sleep hygiene. Risks, benefits, side effects, alternatives discussed w/pt: Yes Patient agreeable to treatment: Yes Qualifiers: Schizoaffective disorder type: depressive Qualified Code(s): F25.1 - Schizoaffective disorder, depressive type (2) Anxiety Current visit: Yes Status: Acute Plan: Continue hospitalization, Close observation, Suicide Precautions per unit protocol, Encourage participation in unit milieu, Group Therapy, Monitor sleep, Monitor appetite Additional Plan: Vistaril when necessary. Risks, benefits, side effects, alternatives discussed w/pt: Yes Patient agreeable to treatment: Yes (3) Alcohol abuse Current visit: Yes Status: Acute Risks, benefits, side effects, alternatives discussed w/pt: Yes Patient agreeable to treatment: Yes Consult Discharge Plan - Plan Referrals: NONE,PCP [Primary Care Provider] -
[2017-10-26] MEDS: traZODone 50 MG TABLET PO SCH (20:44)
[2017-10-26] MEDS: chlorproMAZINE 25 MG TABLET PO SCH (20:44)
[2017-10-27] MEDS: Acetaminophen 325 MG TABLET PO PRN ×2 (06:35→15:20)
[2017-10-27] MEDS: Nicotine 21 MG PATCH.TD24 TD SCH (08:37)
[2017-10-27] MEDS: Ziprasidone 80 MG CAPSULE PO SCH ×2 (08:39→20:47)
[2017-10-27] MEDS: hydrOXYzine pamoate 25 MG CAPSULE PO PRN (08:58)
--- NOTE | 2017-10-27 16:53 | Psychiatry Progress Note ---
Date of Encounter: 10/27/17 Time of Encounter: 12:00 Subjective Interval history: Ben is seen today for follow-up. He reports his mood is a lot better today. We discussed the importance of medication compliance. Patient is agreeable to taking his meds as prescribed when he leaves the hospital. He denies suicidal ideation. He denies auditory or visual hallucinations today. He has been agreeable to substance abuse treatment. He did request medications for his ADHD but we discussed that that would be between him and his outpatient provider. Also discussed he should not be on controlled substances if he was misusing alcohol. Patient starting feel good enough to leave the hospital and is agreeable to discharge tomorrow if his mood symptoms remain stable. Review of Systems Psychiatric: Reports: depression, anxiety, difficulty concentrating, irritability, mood swings. Denies: auditory hallucinations, visual hallucinations Objective: Exam Patient orientation: Yes Person, Yes Time, Yes Place Level of alertness: Alert Patient appearance: Disheveled Behavior: calm, cooperative Psychomotor activity: Normal Eye contact: Maintains Eye Contact Mood description: Euthymic/stable Affect description: full range Speech pattern: Normal rate, Normal rhythm, Normal tone Speech volume: Normal Thought process: Linear, [place] Thought content: No Suicidal ideation, No Homicidal ideation Perceptual disturbances: No Auditory hallucinations, No Visual hallucinations Judgment: Limited Insight: Minimal Results - Vital Signs Vital Signs: Temp Pulse Resp BP Pulse Ox 97.4 F L 96 18 128/85 97 10/27/17 09:00 10/27/17 09:00 10/27/17 09:00 10/27/17 09:00 10/22/17 14:02 Assessment and Plan (1) Schizoaffective disorder Current visit: Yes Status: Acute Plan: Continue hospitalization, Close observation, Suicide Precautions per unit protocol, Encourage participation in unit milieu, Group Therapy, Monitor sleep, Monitor appetite Additional Plan: Continue current meds. Plan for discharge tomorrow as long as patient's symptoms continued to improve. Discussed the importance of outpatient follow-up. Risks, benefits, side effects, alternatives discussed w/pt: Yes Patient agreeable to treatment: Yes Qualifiers: Schizoaffective disorder type: depressive Qualified Code(s): F25.1 - Schizoaffective disorder, depressive type (2) Anxiety Current visit: Yes Status: Acute Risks, benefits, side effects, alternatives discussed w/pt: Yes Patient agreeable to treatment: Yes (3) Alcohol abuse Current visit: Yes Status: Acute Risks, benefits, side effects, alternatives discussed w/pt: Yes Patient agreeable to treatment: Yes Consult Discharge Plan - Plan Referrals: Imani Velasquez [Outside] - 11/01/17 2:00 pm (The above appointment is with Juli Lee for outpatient mental health and substance abuse counseling services. You will also see Marta Perez for outpatient psychiatric assessment and medication management services on 12/06/2017 at 9:20 AM.)
[2017-10-27] MEDS: chlorproMAZINE 25 MG TABLET PO SCH (20:46)
[2017-10-27] MEDS: traZODone 50 MG TABLET PO SCH (20:48)
[2017-10-28] MEDS: Nicotine 21 MG PATCH.TD24 TD SCH (08:00)
[2017-10-28] MEDS: hydrOXYzine pamoate 25 MG CAPSULE PO PRN (08:02)
[2017-10-28] MEDS: Ziprasidone 80 MG CAPSULE PO SCH (08:02)
--- NOTE | 2017-10-28 08:33 | Discharge Summary ---
Date of Encounter: 10/28/17 Time of Encounter: 09:00 Diagnosis - Discharge Diagnosis (1) Schizoaffective disorder Priority: Primary Status: Acute Qualifiers: Schizoaffective disorder type: depressive Qualified Code(s): F25.1 - Schizoaffective disorder, depressive type (2) Anxiety Priority: Secondary Status: Acute (3) Alcohol abuse Priority: Secondary Status: Acute Medications - Discharge Medications Prescriptions: chlorproMAZINE [Thorazine] 25 mg PO HS #30 tablet DULoxetine [Cymbalta] 60 mg PO BID #120 capsule. Prazosin [Minipress] 5 mg PO HS #30 capsule traZODone [TraZODone] 50 mg PO HS #30 tablet Ziprasidone [Geodon] 80 mg PO BID #30 capsule 05/14/15 [Rx] LORazepam [Ativan] 0.5 mg PO TID PRN #90 tablet 04/22/16 [Rx] Pantoprazole Sodium [Protonix] 40 mg PO BID 12/09/16 [History] Docusate [Colace] 100 mg PO BID #30 capsule 12/17/16 [Rx] DULoxetine [Cymbalta] 60 mg PO BID #120 capsule. 10/28/17 [Rx] Prazosin [Minipress] 5 mg PO HS #30 capsule 10/28/17 [Rx] chlorproMAZINE [Thorazine] 25 mg PO HS #30 tablet 10/28/17 [Rx] traZODone [TraZODone] 50 mg PO HS #30 tablet 10/28/17 [Rx] 3 Allergy/AdvReac Type Severity Reaction Status Date / Time ibuprofen Allergy Unknown Abdominal Verified 10/22/17 14:05 Pain Provider Date of admission: 10/22/17 16:39 Primary care physician: PCP NONE Discharging clinician: Vani Santiago Assessment and Plan - Patient/Caregiver Discharge Instructions Activity: resume usual activities as tolerated Diet: regular diet - Follow up Plan Follow up with: Imani Velasquez [Outside] - 11/01/17 2:00 pm (The above appointment is with Juli Lee for outpatient mental health and substance abuse counseling services. You will also see Marta Perez for outpatient psychiatric assessment and medication management services on 12/06/2017 at 9:20 AM.) Functional capacity at discharge: independent ambulation Overall status at discharge: Stable Disposition: Home, Self-Care Hospital Course Hospital course: Mr. House is a 42 year old male with a history of schizoaffective disorder, anxiety and recent history of alcohol abuse who presented to the hospital with increasing depression and reporting hallucinations. He was admitted to [facility] for psychiatric stabilization. Patient was incorporated into the therapeutic milieu and offer group and individual as well as recreational therapy. He was also offered psychoeducational materials and supportive therapy. He was placed on suicide precautions and close observation per unit protocol. Patient was restarted on his home medications. He reported that he has been working nights at [employer] and states that he did not know when to take his medications because he was working during the night and sleeping during the day. He was not taking them regularly and started to note that his mood worsened. Also, he apparently got a DUI prior to coming to the hospital and was very upset and stressed about this. Patient was willing to to attend some group and unit activities while on the unit. He was cooperative and pleasant with peers and staff. Throughout the course of the hospital stay he did report that his mood was improving. At the time of discharge she denied suicidal or homicidal ideation, intent or plan. He denied auditory or visual hallucinations. Patient is willing to continue treatment as an outpatient as well as consider substance abuse treatment. He is discharged stable condition. - Time Spent with Patient Total time spent providing and/or coordinating discharge services: Less than 30 minutes Quality - Multiple Antipsychotics Patient discharged on 2 or more antipsychotic medications: No Procedures - Procedures Procedures: Medication Management, Crisis Stabilization, Supportive Therapy, Group Therapy, Psychoeducational Therapy Mental Status Exam - Mental Status Exam Patient orientation: Yes Person, Yes Time, Yes Place Level of alertness: Alert Patient appearance: Unkempt Behavior: calm, cooperative Psychomotor activity: Normal Eye contact: Maintains Eye Contact Mood description: Euthymic/stable Affect description: congruent with mood, full range Speech pattern: Normal rate, Normal rhythm, Normal tone Speech Volume: Normal Thought process: Linear, Goal Oriented Thought Content: No Suicidal ideation, No Homicidal ideation, No Overt delusions Perceptual Disturbances: No Auditory hallucinations, No Visual hallucinations Judgment: Limited Insight: Partial
[2017-10-28 09:37] VITALS: BP 115/85
== END 2017-10-28 11:40 | disposition home or self-care (01) | DRG 885 ==
LOC: EMEROO 14:00 → 1ANU 16:39 → SUATTDRO 16:39 → 1ANU 17:32
PROVIDERS: ADMIT Psychiatry & Neurology Psychiatry; ATTEND Student in an Organized Health Care Education/Training Program

== ENCOUNTER 2018-06-05 18:35 | Observation (INO) ==
[2018-06-05] MEDS ORDERED: 0.9 % Sodium Chloride 1,000 ML IVC ONE (19:01)
[2018-06-05] MEDS ORDERED: Famotidine 20 MG/2 ML VIAL IVP ONE (19:01)
--- NOTE | 2018-06-05 19:08 | Emergency Department Note ---
Disposition Clinical Impression: Melena Gastritis Qualifiers: Gastritis type: unspecified gastritis Chronicity: unspecified Gastritis bleeding: with bleeding Qualified Code(s): K29.71 - Gastritis, unspecified, with bleeding Disposition: Admitted As Inpatient Condition: Good Abdominal Pain HPI - General Chief Complaint: ED Abdominal Pain Stated Complaint: "ulcers,rectal bleeding" Time Seen by Provider: 06/05/18 18:47 Source: patient Mode of arrival: private vehicle Limitations: no limitations Nursing Notes Reviewed: Yes Vital Signs Reviewed: Yes - History of Present Illness HPI Narrative: 43-year-old male history of prior ulcerations in his esophagus and stomach who presents to the ER with a complaint of abdominal pain and dark bowel movements. The patient states this started on Wednesday. He was seen on Wednesday where he had labs performed and was sent home. He has a history of duodenal perforation in 2017 following an EGD requiring exploratory laparotomy. He also has a past history of 5 hernia repairs. Reports his bowel movements have been dark. No gross blood. Denies bleeding from any other source. He is not on antiplatelet or anticoagulation medications. Returned today because his pain was worsening including pain around his epigastric and right sided that goes into his back. He has required blood transfusions in the past. No other complaints. Pt Subjective Complaint: abdominal pain Onset (ago): day(s) Consistency: constant Location: epigastric Pain Severity: moderate Pain Scale: 8 Radiation: back Migration to: no migration Improves with: nothing Worsens with: nothing Associated symptoms: Reports: melena. Denies: hematemesis, hematochezia, hematuria Treatments prior to arrival: none - Related Data Home Medications Medication Instructions Recorded Confirmed Pantoprazole Sodium [Protonix] 40 mg PO BID 12/09/16 10/22/17 Previous Rx's Medication Instructions Recorded Ziprasidone [Geodon] 80 mg PO BID #30 capsule 05/14/15 LORazepam [Ativan] 0.5 mg PO TID PRN #90 tablet 04/22/16 Docusate [Colace] 100 mg PO BID #30 capsule 12/17/16 DULoxetine [Cymbalta] 60 mg PO BID #120 capsule. 10/28/17 Prazosin [Minipress] 5 mg PO HS #30 capsule 10/28/17 chlorproMAZINE [Thorazine] 25 mg PO HS #30 tablet 03/01/18 traZODone [TraZODone] 50 mg PO HS #30 tablet 10/28/17 Sucralfate [Carafate] 1 gm PO QIDAC #40 tablet 06/01/18 Allergies Allergy/AdvReac Type Severity Reaction Status Date / Time ibuprofen Allergy Unknown Abdominal Verified 06/05/18 19:05 Pain All systems ED: reviewed and negative except as stated. ENT ED: Denies: epistaxis Respiratory: Denies: hemoptysis Gastrointestinal: Reports: abdominal pain, melena. Denies: nausea, vomiting, diarrhea, hematemesis, hematochezia Genitourinary: Denies: hematuria Abdominal Pain PMH - Past Medical History Medical history: Reports: GERD, GI bleed Psychiatric history: Reports: bipolar, schizophrenia, previous psychiatric hospitalization - Social History Smoking status: Never smoker Alcohol use: Reports: none Drug use: Reports: none Physical Exam - General Limitations: no limitations General appearance: alert, in no apparent distress - Head Head exam: atraumatic, normocephalic - Eye Eye exam: Present: normal appearance - ENT ENT exam: normal exam - Neck Neck exam: Present: normal inspection - Chest Chest inspection: Present: normal inspection, symmetric chest wall rise - Respiratory Respiratory exam: Present: normal lung sounds bilaterally - Cardiovascular Cardiovascular exam: Present: regular rate, normal rhythm, normal heart sounds - Abdominal Exam Abdominal exam: Present: soft, tenderness (Mild tenderness in the epigastric and right upper quadrant.). Absent: distention, guarding, rigidity - Rectal Exam Tobacco Stemmer present during exam: Yes Rectal exam: Present: normal inspection, heme (-) stool (Grossly). Absent: bloody stool, hemorrhoids - Extremities Exam Extremities exam: Present: normal inspection, full ROM - Expanded Upper Extremity Exam Shoulder exam: Present: normal inspection, full ROM Arm exam: Present: normal inspection, full ROM Elbow exam: Present: normal inspection, full ROM Forearm/Wrist exam: Present: normal inspection, full ROM Hand exam: Present: normal inspection, full ROM - Expanded Lower Extremity Exam Hip/Pelvis exam: Present: normal inspection, full ROM Upper leg exam: Present: normal inspection, full ROM Knee exam: Present: normal inspection, full ROM Lower leg exam: Present: normal inspection, full ROM Ankle exam: Present: normal inspection, full ROM Foot/toe exam: Present: normal inspection, full ROM - Skin Skin exam: Present: warm, dry Course Course Narrative: Patient seen and examined. Nonsurgical abdominal exam. Plan to obtain imaging , labs, IV fluids, Pepcid. - Reevaluation(s) Reevaluation #1: Discussed results of imaging and lab work with the patient. Agreeable with admission. Plan to start a Protonix drip given findings of gastritis with his melena. Vital Signs Temperature 98.1 F 06/05/18 18:42 Pulse Rate 81 06/05/18 18:42 Respiratory Rate 20 06/05/18 18:42 Blood Pressure 116/81 06/05/18 18:42 O2 Sat by Pulse Oximetry 99 06/05/18 18:42 Temperature 98.1 F 06/05/18 19:13 Pulse Rate 79 06/05/18 19:55 Respiratory Rate 17 06/05/18 19:55 Blood Pressure 139/89 06/05/18 19:55 O2 Sat by Pulse Oximetry 100 06/05/18 19:55 Oxygen Delivery Oxygen Delivery Room Air Abdominal Pain - MDM Narrative Medical decision making narrative: 43-year-old male presenting with melanotic for 6 days with epigastric abdominal pain with a prior history of gastric ulcerations and pyloroplasty from a duodenal perforation. He is not on any anticoagulants. He is hemodynamically stable here. Does have a roughly 1.5 drop in his hemoglobin from previous. CT imaging consistent with gastritis. The patient was given an initial dose of Pepcid and started on a Protonix drip. The patient is admitted to the hospitalist service for further evaluation. - Lab Data Lab results reviewed: Yes I reviewed the patient's lab results. Result diagrams: 06/05/18 18:57 06/05/18 18:57 Lab Results 06/05/18 06/05/18 06/05/18 Range/Units 18:56 18:57 18:57 WBC 12.1 H (4.3-11.1) K/mcL RBC 4.39 (4.19-5.50) M/mcL Hgb 12.7 L (12.9-16.9) g/dL Hct 40.0 (37.5-50.1) % MCV 91.1 (83.0-100.0) fL MCH 28.9 (28.0-33.3) pg MCHC 31.8 (31.6-35.5) g/dL RDW 13.4 (11.5-14.5) % Plt Count 388 (140-400) K/mcL MPV 10.3 (9.4-12.4) fL Immature Gran % 0.7 (0-4) % Seg Neutrophils % 56.0 % Lymphocytes % 28.1 % Monocytes % 6.4 % Eosinophils % 8.1 % Basophils % 0.7 % Neutrophils # 6.8 (1.6-8.9) K/mcL Lymphocytes # 3.4 (0.6-4.6) K/mcL Monocytes # 0.8 (0.0-1.3) K/mcL Eosinophils # 1.0 H (0.0-0.6) K/mcL Basophils # 0.1 (0.0-0.2) K/mcL PT 11.0 (9.4-12.1) Seconds INR 1.0 APTT 37.7 H (26.0-36.0) Seconds Sodium (136-145) mEq/L Potassium (3.5-5.1) mEq/L Chloride (98-107) mEq/L Carbon Dioxide (23-29) mEq/L BUN (6-20) mg/dL Creatinine (0.70-1.30) mg/dL Est GFR ( Amer) (> 60) Est GFR (Non-Af Amer) (> 60) BUN/Creatinine Ratio (6-26) Glucose (70-105) mg/dL Calculated Osmolality (280-300) Calcium (8.6-10.3) mg/dL Stool Occult Bld Scrn Negative (Negative) Blood Type Antibody Screen 06/05/18 06/05/18 Range/Units 18:57 18:57 WBC (4.3-11.1) K/mcL RBC (4.19-5.50) M/mcL Hgb (12.9-16.9) g/dL Hct (37.5-50.1) % MCV (83.0-100.0) fL MCH (28.0-33.3) pg MCHC (31.6-35.5) g/dL RDW (11.5-14.5) % Plt Count (140-400) K/mcL MPV (9.4-12.4) fL Immature Gran % (0-4) % Seg Neutrophils % % Lymphocytes % % Monocytes % % Eosinophils % % Basophils % % Neutrophils # (1.6-8.9) K/mcL Lymphocytes # (0.6-4.6) K/mcL Monocytes # (0.0-1.3) K/mcL Eosinophils # (0.0-0.6) K/mcL Basophils # (0.0-0.2) K/mcL PT (9.4-12.1) Seconds INR APTT (26.0-36.0) Seconds Sodium 136 (136-145) mEq/L Potassium 4.2 (3.5-5.1) mEq/L Chloride 103 (98-107) mEq/L Carbon Dioxide 27 (23-29) mEq/L BUN 12 (6-20) mg/dL Creatinine 0.84 (0.70-1.30) mg/dL Est GFR ( Amer) > 60 (> 60) Est GFR (Non-Af Amer) > 60 (> 60) BUN/Creatinine Ratio 14 (6-26) Glucose 126 H (70-105) mg/dL Calculated Osmolality 283 (280-300) Calcium 9.1 (8.6-10.3) mg/dL Stool Occult Bld Scrn (Negative) Blood Type O POSITIVE Antibody Screen NEGATIVE - Radiology Data Radiology results reviewed: Yes I reviewed the patient's radiology results. Abdomen/Pelvis CT 06/05/18 19:00 IMPRESSION: 1. Diffuse thickening of the wall of the stomach. This may be exaggerated by its collapsed state but gastritis could give this appearance. No focal mass lesions identified. 2. Normal appearing gallbladder 3. No obstructive uropathy 4. Colonic diverticulosis without evidence for diverticulitis 5. Normal appearing appendix D/ / Alexx Molina MD / Alexx Molina MD Interpreting Provider: Alexx Molina MD S.B.A.R. - S.B.A.R. Situation: Demographics, MOA Background: Presenting Complaint, Relevant PMH, Meds, & Allergies Assessment: Course and respsone to treatment, Exam Concerns, Patient/Family Expectation, Pertinant Lab Results Recommendation: Barrier(s) to disposition, Recommendation based on pending studies, treatments, or consults S.B.A.R. Report Given to: Dr. Casey Salcido Repor Time: 20:24 Attestation Statement - Attestation Attestation: Patient was seen with resident physician. I reviewed the history, physical, assessment and plan, and agree with the findings. I also personally evaluated this patient and had [id number] time with this patient. 43-year-old male presents with blood in stool. Patient says he has had this since earlier this week Wednesday. He was seen in the ER had a normal H&H and was dispositioned home. He claims he did not get the medicine that was prescribed him Carafate. He has had PPIs in the past. He is also had a perforation in the past which resulted in GI bleeding similar to this. He now has pain in the right mid abdominal area radiating inferiorly. Patient was concerned as he was told to return to the ER if he had continuation of bleeding. No nausea vomiting. Review systems as above remainder negative. Physical exam vital signs are stable. ENT is unremarkable. Heart and lungs are normal. Abdomen is soft and could not reproduce tenderness with palpation. Extremities unremarkable. Neurologically intact. Skin no rashes. Psych normal. ED course. We will do a GI bleed workup. He will get Protonix. Hemoccult was negative but it was not a good sample. His blood counts have dropped slightly from Tuesdays number which is suggestive of continuation of GI bleed. Considering his history of perforation in the past and a CT scan which shows some inflammation were going to admit the patient to the hospital service for serial H&H's and additional evaluation and treatment as indicated. Patient was comfortable with this plan. We notified the hospitalist service as the need for admission. Hemodynamically he remained stable in the emergency department.
[2018-06-05 19:27] LABS: Basophils # 0.1 K/mcL (0.0-0.2); Basophils % 0.7 %; Eosinophils % 8.1 %; Hemoglobin 12.7 g/dL (12.9-16.9); Immature Granulocytes % 0.7 % (0-4); Lymphocytes # 3.4 K/mcL (0.6-4.6); Lymphocytes % 28.1 %; Mean Corpuscular HGB Conc 31.8 g/dL (31.6-35.5); Mean Corpuscular Hemoglobin 28.9 pg (28.0-33.3); Mean Corpuscular Volume 91.1 fL (83.0-100.0); Mean Platelet Volume 10.3 fL (9.4-12.4); Monocytes # 0.8 K/mcL (0.0-1.3); Monocytes % 6.4 %; Neutrophils # 6.8 K/mcL (1.6-8.9); Platelet Count 388 K/mcL (140-400); Red Blood Count 4.39 M/mcL (4.19-5.50); Red Cell Distribution Width 13.4 % (11.5-14.5)
[2018-06-05 19:37] LABS: Activated Partial Thrombo Time 37.7 Seconds (26.0-36.0)
[2018-06-05] MEDS ORDERED: *HR* FentaNYL (PF) 100 MCG/2 ML VIAL IVP ONE (19:43)
[2018-06-05] MEDS ORDERED: GI Cocktail 40 ML EACH PO ONE (19:43)
[2018-06-05 19:50] LABS: BUN/Creatinine Ratio 14 (6-26); Blood Urea Nitrogen 12 mg/dL (6-20); Calcium 9.1 mg/dL (8.6-10.3); Carbon Dioxide 27 mEq/L (23-29); Chloride 103 mEq/L (98-107); Glucose 126 mg/dL (70-105); Osmolality,Calculated 283 (280-300); Potassium 4.2 mEq/L (3.5-5.1); Sodium 136 mEq/L (136-145); eGFR For Non-African Americans > 60 (> 60)
[2018-06-05] MEDS ORDERED: Naloxone 0.4 MG/ML INJ IVP PRN (20:54)
[2018-06-05] MEDS ORDERED: Acetaminophen 325 MG TABLET PO PRN (20:54)
--- NOTE | 2018-06-05 22:03 | Internal Med History&Physical ---
<Alexx Jamison Valentin - Last Filed: 06/05/18 21:56> Date of Encounter: 06/05/18 Time of Encounter: 21:57 Internal Medicine - H&P: HPI Chief complaint: Abdominal pain Admitted From: Emergency Dept Plans for Post Hospital Care: Home History of present illness: Mr. House is a 43 year old male with history of gastric ulcers, previous ulcerations with perforation after endoscopy presents with abdominal pain. Patient states that his pain began Wednesday. He reports using the emergency department for this complaint and was discharged home with follow-up however his pain persisted so he presented back to the emergency department. He reports epigastric pain with radiation into the right upper quadrant. He states his pain was similar to his previous ulcer pain. He reports some intermittent nausea but denies vomiting. He reports loose stools that have been black for the last 2 days. Denies hematemesis or hematochezia, vomiting. He reports he was last scoped a year ago which was complicated by duodenal perforation for which he underwent emergency surgery. He reports chills but denies fevers, denies chest pain, shortness of breath, dysuria, syncope, lightheadedness. Of note patient also reports that due to insurance reasons he has been out of his medications approximately a month. He was given Protonix in the emergency department 2 days ago but otherwise has not been able to take his Protonix at home as is prescribed. Past Med Surg Social Fam HX - Past Medical History Medical history: GERD, GI bleed Additional medical history: gastric and esophageal ulcers Psychiatric history: bipolar, schizophrenia, previous psychiatric hospitalization - Past Surgical History Surgical History: herniorrhaphy, other Additional surgical history: exploratory surgery on stomach, was lacerated during scope , repaired - Social History Smoking Status: Never smoker Smokeless Tobacco Status: No Alcohol use: none Drug use: none - Family History Mother Adopted: Yes Living Status: Still Living Internal Medicine - H&P: Meds Ziprasidone [Geodon] 80 mg PO BID #30 capsule 05/14/15 [Rx] LORazepam [Ativan] 0.5 mg PO TID PRN #90 tablet 04/22/16 [Rx] Pantoprazole Sodium [Protonix] 40 mg PO BID 12/09/16 [History] Docusate [Colace] 100 mg PO BID #30 capsule 12/17/16 [Rx] DULoxetine [Cymbalta] 60 mg PO BID #120 capsule. 10/28/17 [Rx] Prazosin [Minipress] 5 mg PO HS #30 capsule 10/28/17 [Rx] chlorproMAZINE [Thorazine] 25 mg PO HS #30 tablet 10/28/17 [Rx] traZODone [TraZODone] 50 mg PO HS #30 tablet 10/28/17 [Rx] Sucralfate [Carafate] 1 gm PO QIDAC #40 tablet 06/01/18 [Rx] 3 Allergy/AdvReac Type Severity Reaction Status Date / Time ibuprofen Allergy Unknown Abdominal Verified 06/05/18 19:05 Pain All Systems PM: A 10-system review of systems was performed and is negative for pertinent findings except as documented above in the HPI. - Constitutional Constitutional: chills, no fatigue, no fever(s), no lethargy - EENT Eyes: no blurry vision, no change in vision Nose, mouth and throat: no sinus pain, no sinus pressure, no sore throat - Cardiovascular Cardiovascular ROS IM: no chest pain, no dyspnea, no lightheadedness, no palpitations, no syncope - Respiratory Respiratory: no cough, no dyspnea, no chest congestion, no excessive phlegm production, no change in phlegm color - Gastrointestinal Gastrointestinal: abdominal pain, change in stool character, melena, nausea, no diarrhea, no hematemesis, no hematochezia, no vomiting - Genitourinary Genitourinary ROS male: no dysuria, no hematuria - Musculoskeletal Musculoskeletal ROS IM: no arthralgias - Integumentary Integumentary IM: no erythema, no rash - Neurological Neurological ROS: no disequilibrium, no dizziness, no numbness, no tingling, no weakness - Psychiatric Psychiatric: no anxiety, no depression - Endocrine Endocrine IM: no polydipsia, no polyuria - Hematologic/Lymphatic Hematologic/Lymphatic: no easy bleeding, no easy bruising - Allergic/Immunologic Allergic/Immunologic: no tongue swelling, no throat swelling - Constitutional Vitals: Temp Pulse Resp BP Pulse Ox 98.1 F 63 14 144/92 100 06/05/18 21:16 06/05/18 21:16 06/05/18 21:16 06/05/18 21:16 06/05/18 21:16 General appearance: Present: A&O X 3, pleasant, no acute distress, answers questions appropriately Exam: . - Head Head exam: Present: atraumatic, normal inspection, normocephalic - Eye Eye exam: Present: EOMI, PERRL - ENT ENT exam: Present: mucous membranes moist, normal oropharynx Additional comments: Poor dentition noted - Neck Neck exam general surgery: Present: full ROM, supple - Respiratory Respiratory exam: Present: CTAB. Absent: rales, rhonchi, wheezes - Cardiovascular Cardiovascular exam: Present: RRR. Absent: gallop, irregular rhythm, rubs, systolic murmur, tachycardia - GI/Abdominal GI/Abdominal exam: Present: normal bowel sounds, soft, tenderness (epigastric and RUQ), no peritoneal signs. Absent: distended, firm, guarding, mass, rebound , rigid Additional comments: Midline surgical scar present - Extremities Exam Extremities exam: Present: warm. Absent: pedal edema, tenderness - Neurological Exam Neurological exam: Present: alert, CN II-XII intact, oriented X3, no focal deficits - Psychiatric Psychiatric exam: Present: normal affect, normal mood - Skin Skin exam: Present: dry, intact, warm Internal Med - H&P Results - Labs CBC & Chem 7: 06/05/18 18:57 06/05/18 18:57 - Assessment and plan (1) GI bleed Current Visit: No Status: Acute Assessment and plan: Patient reports several days of black tarry stools with abdominal pain similar to his previous ulcer pain. CT of the abdomen and pelvis reveals thickening wall of the stomach with possible gastritis. No evidence of perforation. No peritoneal signs on exam. Hemoglobin was 13.9 4 days ago, is now 12.7. Trend hemoglobin every 6 hours. Start PPI infusion. Patient has been off his PPI for the last month. Clear liquid diet until midnight and then make nothing by mouth. Surgery has been consulted for possible upper endoscopy. Of note patient has mild leukocytosis and subjective chills but no fevers or other signs of infection. We will obtain blood cultures now, hold off on antibiotics as the patient does not appear infected but will have low threshold for starting antibiotics. Qualifiers: GI bleed type/associated pathology: melena Qualified Code(s): K92.1 - Melena (2) History of ulcer disease Current Visit: Yes Status: Acute Assessment and plan: Concern for recurrent ulcers given symptoms as discussed above. (3) DVT prophylaxis Current Visit: No Status: Acute Assessment and plan: EPCDs for now given concern of GI bleed. (4) Psychiatric disorder Current Visit: Yes Status: Acute Assessment and plan: Patient appears to be at baseline, no evidence of acute psychiatric illness. Patient reports she has been without his medication for a month but appears stable this time. Recommend outpatient follow-up with psychiatry as long as the patient remained stable. conference services director consult to assist with medication coverage. - Time Spent With Patient Total time spent is greater than 50% in coordination of care (as documented) at patient's floor/unit and/or counseling patient: <Darien Peña - Last Filed: 06/06/18 00:08> Date of Encounter: 06/05/18 Time of Encounter: 22:35 - Constitutional Constitutional: chills, no fever(s), no night sweats - EENT Eyes: no change in vision Ears: no ear pain, no tinnitus Nose, mouth and throat: no sore throat - Cardiovascular Cardiovascular ROS IM: no chest pain, no dyspnea, no lightheadedness - Respiratory Respiratory: no cough, no chest congestion, no excessive phlegm production - Gastrointestinal Gastrointestinal: abdominal pain, heartburn, melena, nausea, no hematemesis, no hematochezia - Genitourinary Genitourinary ROS male: no dysuria, no flank pain, no hematuria - Integumentary Integumentary IM: no rash, no jaundice - Neurological Neurological ROS: no focal weakness - Allergic/Immunologic Allergic/Immunologic: GI upset with certain foods, no wheezing - Constitutional Vitals: Temp Pulse Resp BP Pulse Ox 98.1 F 63 14 144/92 100 06/05/18 21:16 06/05/18 21:16 06/05/18 21:16 06/05/18 21:16 06/05/18 21:16 General appearance: Present: A&O X 3, pleasant, no acute distress - Eye Eye exam: Present: PERRL. Absent: scleral icterus - ENT ENT exam: Present: mucous membranes moist, normal oropharynx Additional comments: dental caries/poor dentition - Neck Neck exam general surgery: Present: supple - Respiratory Respiratory exam: Present: CTAB. Absent: rales, rhonchi, wheezes - Cardiovascular Cardiovascular exam: Present: RRR, +S1, +S2. Absent: diastolic murmur, systolic murmur - GI/Abdominal GI/Abdominal exam: Present: normal bowel sounds, soft, tenderness. Absent: guarding, rebound - Extremities Exam Extremities exam: Present: warm, radial pulses palpable and symmetrical. Absent : calf tenderness - Back Exam Back exam: Absent: CVA tenderness (L), CVA tenderness (R) - Skin Skin exam: Present: dry, warm Internal Med - H&P Results - Labs CBC & Chem 7: 06/05/18 23:01 06/05/18 18:57 Labs: Short CBC 06/05/18 Range/Units 23:01 WBC 10.3 (4.3-11.1) K/mcL Hgb 12.1 L (12.9-16.9) g/dL Hct 38.6 (37.5-50.1) % Plt Count 362 (140-400) K/mcL - Assessment and plan (1) DVT prophylaxis Current Visit: No Status: Acute (2) GI bleed Current Visit: No Status: Acute Qualifiers: GI bleed type/associated pathology: melena Qualified Code(s): K92.1 - Melena (3) History of ulcer disease Current Visit: Yes Status: Acute (4) Psychiatric disorder Current Visit: Yes Status: Acute - Time Spent With Patient Total time spent is greater than 50% in coordination of care (as documented) at patient's floor/unit and/or counseling patient: - Attending Attestation I discussed the patient MILLE LACS, past medical history, review of systems, lab data , and exam findings with Dr. Jamison. I then saw and examined patient independently as well. Patient is resting comfortably in bed, he is hemodynamically stable, and he has no concerns other than some mild epigastric pain. He does report melena for the last 5 days. I reviewed his old records and noted that he had ulcers and perforation roughly year ago. He was seen and treated by Dr. Danielle and Dr. Martinez. [facility] and I contacted him requesting that either Dr. Danielle or Dr. Martinez see patient in consultation tomorrow and likely proceed with EGD at their discretion. We will keep patient nothing by mouth after midnight, on protonix drip, and monitor his hemoglobin and hematocrit closely. I did request blood cultures be drawn, but it I do not think he needs antibiotics at this time. Should he develop any fever or rising white count, I would have a low threshold to start antibiotics to cover GI organisms. Other than my comments noted above and documented physical exam findings, I agree with Dr. Jamison's assessment and plan.
[2018-06-05] MEDS: Pantoprazole 40 MG in 0.9 % Sodium Chloride Mini Bag 100 ML IVC SCH (22:35)
[2018-06-05] MEDS: Ringers Solution, Lactated 1,000 ML IVC SCH (22:38)
[2018-06-05] MEDS ORDERED: OXYCODONE Oral CONC 10 MG/0.5 ML ORAL.SYG SL ONE (23:10)
[2018-06-05 23:18] LABS: Hematocrit 38.6 % (37.5-50.1); Hemoglobin 12.1 g/dL (12.9-16.9); Mean Corpuscular HGB Conc 31.3 g/dL (31.6-35.5); Mean Corpuscular Hemoglobin 28.4 pg (28.0-33.3); Mean Corpuscular Volume 90.6 fL (83.0-100.0); Mean Platelet Volume 10.2 fL (9.4-12.4); Platelet Count 362 K/mcL (140-400); Red Blood Count 4.26 M/mcL (4.19-5.50); Red Cell Distribution Width 13.5 % (11.5-14.5)
[2018-06-06] MEDS: Pantoprazole 40 MG in 0.9 % Sodium Chloride Mini Bag 100 ML IVC SCH ×3 (03:25→14:01)
[2018-06-06 04:02] LABS: Basophils # 0.1 K/mcL (0.0-0.2); Basophils % 0.9 %; Eosinophils # 0.9 K/mcL (0.0-0.6); Hematocrit 38.1 % (37.5-50.1); Hemoglobin 12.1 g/dL (12.9-16.9); Immature Granulocytes % 0.4 % (0-4); Lymphocytes # 3.7 K/mcL (0.6-4.6); Lymphocytes % 34.2 %; Mean Corpuscular HGB Conc 31.8 g/dL (31.6-35.5); Mean Corpuscular Hemoglobin 28.9 pg (28.0-33.3); Mean Corpuscular Volume 90.9 fL (83.0-100.0); Mean Platelet Volume 10.3 fL (9.4-12.4); Monocytes # 0.7 K/mcL (0.0-1.3); Monocytes % 6.5 %; Neutrophils # 5.3 K/mcL (1.6-8.9); Platelet Count 373 K/mcL (140-400); Red Blood Count 4.19 M/mcL (4.19-5.50); Red Cell Distribution Width 13.5 % (11.5-14.5)
[2018-06-06 04:21] LABS: BUN/Creatinine Ratio 11 (6-26); Blood Urea Nitrogen 9 mg/dL (6-20); Calcium 8.9 mg/dL (8.6-10.3); Carbon Dioxide 29 mEq/L (23-29); Chloride 105 mEq/L (98-107); Glucose 91 mg/dL (70-105); Magnesium 2.4 mg/dL (1.6-2.6); Osmolality,Calculated 282 (280-300); Potassium 4.3 mEq/L (3.5-5.1); Sodium 137 mEq/L (136-145); eGFR For Non-African Americans > 60 (> 60)
[2018-06-06] MEDS ORDERED: OXYCODONE Oral CONC 10 MG/0.5 ML ORAL.SYG SL PRN (06:18)
[2018-06-06] MEDS: Ringers Solution, Lactated 1,000 ML IVC SCH (08:30)
--- NOTE | 2018-06-06 10:29 | General Surgery Consult Note ---
Date of Encounter: 06/06/18 Time of Encounter: 09:45 Assessment and Plan (1) Melena Current Visit: Yes Status: Acute NPO IV fluids PPI therapy- protonix gtt ordered per medicine service Carafate QID Plan for EGD with Dr. Martinez in the next 24 hours Supportive care Hgb stable Surgery will continue to follow and assess progress (2) Abdominal pain Current Visit: No Status: Resolved NPO IV fluids PPI therapy- protonix gtt ordered per medicine service Carafate QID Plan for EGD with Dr. Martinez in the next 24 hours Supportive care Surgery will continue to follow and assess progress Qualifiers: Abdominal location: epigastric Qualified Code(s): R10.13 - Epigastric pain History of Present Illness Consult date: 06/06/18 Reason for consult: abdominal pain Requesting physician: Alexx Jamison History of present illness: Mr oHuse is a 43 year old male with a past medical history significant for a perforated duodenal ulcer in November of 2016 as well as schizophrenia, bipolar disorder, and gastric ulcers. He reports that he began having epigastric and RUQ abdominal discomfort 1 week ago. he states that the pain was similar to when he had a perforated ulcer in November of 2016. He states that the pain was constant. He reported to the ED 6 days ago and states that he was treated and released. He was given an Rx for protonix at that time. He does report that he has not been taking his PPI because he has not been able to fill his prescriptions for approxiately 1 month. He did not fill the Rx for protonix given by the ED. He reported back to the ED last evening with persistent pain and black stools. He reports having black stools for the last few days. Admits to nausea without vomiting. Denies any hematemesis or coffee ground emesis. Denies any fevers/chills. Denies any shortness of breath or chest pains. Denies any syncope. He denies have any black stools since admission to the hospital. His last EGD was complete in 2016 when he had perforation of his duodenum. We have been asked to see and evaluate the patient for recommendations/treatment. Past Med Surg Social Fam HX - Past Medical History Source: patient Medical history: GERD (with gastric and duodenal ulcers), GI bleed Additional medical history: gastric and duondenal ulcers Psychiatric history: bipolar, schizophrenia, previous psychiatric hospitalization - Past Surgical History Surgical History: herniorrhaphy Additional surgical history: Exploratory laparotomy with Waleska maneuver the duodenum and a Heineke Mikulicz's pyloroplasty 11/[address] Martinez, EGD 11/2016 - Social History Smoking Status: Never smoker Smokeless Tobacco Status: No Alcohol use: none Drug use: none Current living situation: Home - Independent Activity Level: Independent ambulation - Family History Mother Adopted: Yes Living Status: Still Living Medications and Allergies No Known Home Drugs 06/06/18 [History] 3 Allergy/AdvReac Type Severity Reaction Status Date / Time ibuprofen Allergy Unknown Abdominal Verified 06/05/18 19:05 Pain Review of Systems All systems PM: reviewed and no additional remarkable complaints except as stated (in the HPI) All systems PM: The remainder of the systems were reviewed and are negative General Surgery Exam Initial Vital Signs Temp Pulse Resp BP Pulse Ox 98.1 F 81 20 116/81 99 10 18:42 10 18:42 06/05/18 18:42 06/05/18 18:42 06/05/18 18:42 - General physical appearance well nourished, no distress - Eyes normal ocular movement - ENT poor assisted, atraumatic, normocephalic - Neck trachea midline - Respiratory normal respiratory effort, clear to auscultation - Cardiovascular Cardiovascular exam: Present: RRR - Abdomen Abdomen general surgery: Present: bowel sounds present, soft, tender Abdominal Tenderness: Present: epigastic, RUQ - Integumentary Integumentary general surgery: Present: warm and dry - Neurologic Present: CN 2-12 grossly intact, normal coordination, normal sensation - Psychiatric Psychiatric general surgery: Present: A&Ox3 Exam Initial Vital Signs Temp Pulse Resp BP Pulse Ox 98.1 F 81 20 116/81 99 06/05/18 18:42 10 18:42 06/05/18 18:42 06/05/18 18:42 06/05/18 18:42 Results - Labs 06/06/18 03:34 06/06/18 03:34 Abnormal lab results Hgb 12.1 g/dL (12.9-16.9) L 06/06/18 03:34 Eosinophils # 0.9 K/mcL (0.0-0.6) H 06/06/18 03:34 APTT 37.7 Seconds (26.0-36.0) H 06/05/18 18:57 Diabetes panel 06/06/18 Range/Units 03:34 Sodium 137 (136-145) mEq/L Potassium 4.3 (3.5-5.1) mEq/L Chloride 105 (98-107) mEq/L Carbon Dioxide 29 (23-29) mEq/L BUN 9 (6-20) mg/dL Creatinine 0.82 (0.70-1.30) mg/dL Glucose 91 (70-105) mg/dL Calcium 8.9 (8.6-10.3) mg/dL Calcium panel 06/06/18 Range/Units 03:34 Calcium 8.9 (8.6-10.3) mg/dL Pituitary panel 06/06/18 Range/Units 03:34 Sodium 137 (136-145) mEq/L Potassium 4.3 (3.5-5.1) mEq/L Chloride 105 (98-107) mEq/L Carbon Dioxide 29 (23-29) mEq/L BUN 9 (6-20) mg/dL Creatinine 0.82 (0.70-1.30) mg/dL Glucose 91 (70-105) mg/dL Calcium 8.9 (8.6-10.3) mg/dL Adrenal panel 06/06/18 Range/Units 03:34 Sodium 137 (136-145) mEq/L Potassium 4.3 (3.5-5.1) mEq/L Chloride 105 (98-107) mEq/L Carbon Dioxide 29 (23-29) mEq/L BUN 9 (6-20) mg/dL Creatinine 0.82 (0.70-1.30) mg/dL Glucose 91 (70-105) mg/dL Calcium 8.9 (8.6-10.3) mg/dL All other labs normal. - Imaging Additional studies: Abdomen/Pelvis CT 06/05/18 19:00 IMPRESSION: 1. Diffuse thickening of the wall of the stomach. This may be exaggerated by its collapsed state but gastritis could give this appearance. No focal mass lesions identified. 2. Normal appearing gallbladder 3. No obstructive uropathy 4. Colonic diverticulosis without evidence for diverticulitis 5. Normal appearing appendix D/ / Alexx Molina MD / Alexx Molina MD Interpreting Provider: Alexx Molina MD Consult Discharge Plan - Plan Referrals: Faby Avila CNP [Primary Care Provider] - - Attending Attestation For this encounter, I have reviewed the SAMPLER TESTER or PA documentation, treatment plan, and medical decision making; and I have had face to face time with this patient.
[2018-06-06] MEDS ORDERED: *HR* FentaNYL (PF) 100 MCG/2 ML VIAL ONE (11:17)
[2018-06-06] MEDS ORDERED: *HR* Midazolam HCl 5 MG/5 ML VIAL IVP ONE ×2 (11:17→11:36)
[2018-06-06] MEDS ORDERED: Simethicone 40 MG/0.6 ML MLS IR ONE (11:36)
[2018-06-06] MEDS ORDERED: Tetracaine/Benzocaine/Butamben 1 SPRAY AEROSOL MM ONE (11:36)
--- NOTE | 2018-06-06 11:37 | Pre-Sedation Evaluation ---
Pre-sedation evaluation - Pre-sedation checklist Procedure: EGD Recent Vitals: Last Vital Signs Temp 98.0 F 06/06/18 10:27 Pulse 58 06/06/18 10:27 Resp 16 06/06/18 10:27 BP 138/93 06/06/18 10:27 Pulse Ox 99 06/06/18 10:27 H&P (including ROS) documented in medical record: Yes Previous reaction to sedatives/anesthetics: No Dietary Status: NPO after Midnight Dentition: No loose teeth or bridges, poor dentition Possible difficult airway: No ASA Classification *see protocol: CLASS III-Severe systemic disease Cardiac Registry (Cardio Only) - Functional Capacity - Clincal Frailty Scale
--- NOTE | 2018-06-06 12:20 | Internal Med Progress Note ---
Hospitalist Progress Note - Encounter Date of Encounter: 06/06/18 Time of Encounter: 09:30 - Subjective Interval History: Patient was seen and assessed at bedside at 9:30 AM. He is alert, awake, oriented, pleasant. He denies any headache, vomiting, shortness of breath, chest pain. Patient has epigastric pain that radiates in the right upper quadrant with associated nausea, no vomiting or diarrhea. He denies any further loose, dark stools. She reports sudden onset of pain to abdomen Wednesday at 1400, it awakened him from sleep. He reports it as 7/10, sharp, stabbing. It has improved to a 4/10 with continued nausea. Patient will go for EGD today. - Exam Vitals: Temp Pulse Resp BP Pulse Ox 97.3 F L 85 16 134/91 96 06/06/18 12:01 06/06/18 12:01 06/06/18 12:01 06/06/18 12:01 06/06/18 12:01 Exam: General: Pt resting quietly on bed, no distress. Skin: pwd, no rashes, lesions, redness Neurological: Pt is alert and awake, oriented x 3, Speech is clear, PERRLA, EOMI , no nystagmus, no pronator drift. strength equal x 4 extremities HEENT: mucous mumbranes moist, no conjuctival pallor Neck: supple, no tracheal deviation, no lymphadenopathy, tenderness, no thyromegaly Heart: S1S2 heard without gallops, clicks, murmurs, no bradycardia or tachycardia, pt has no peripheral edema, pedal and radial pulses palpable bilaterally. Lungs: clear throughout without wheezing, rales, or ronchi, respirations are unlabored Abdomen: soft and tender to palpation in right upper quadrant and epigastric area with bowel sound present, no hepatomegaly. Psych: Normal affect with good eye contact - Assessment and Plan (1) DVT prophylaxis Current Visit: Yes Status: Acute Assessment and Plan: EPCDs for now given concern of GI bleed.Pt is ambulatory in the room. (2) GI bleed Current Visit: No Status: Ruled-out Assessment and Plan: ruled out. Patient reports several days of black tarry stools with abdominal pain similar to his previous ulcer pain. CT of the abdomen and pelvis reveals thickening wall of the stomach with possible gastritis. No evidence of perforation. Hemoglobin was 13.9 4 days ago, is now 12.1. Stool occult blood is negative. EGD completed, normal esophagus, one nonbleeding duodenal ulcer with no stigmata of bleeding, as well as gastritis per report. PPI gtt stopped, will switch to po for pending discharge. Clear liquid diet , advance as tolerated. Pt will follow up with Dr. Martinez in the office in 2 weeks. (3) History of ulcer disease Current Visit: Yes Status: Acute Assessment and Plan: Concern for recurrent ulcers given symptoms as discussed above. Pt has not been able to afford his PPI, will continue after discharge. check with clinical social work therapist to see if they can assist with medications. Carafate 1000mg po qidac started today, continue after discharge. (4) Psychiatric disorder Current Visit: Yes Status: Acute Assessment and Plan: Patient appears to be at baseline, no evidence of acute psychiatric illness. Patient reports she has been without his medication for a month but appears stable this time. Recommend outpatient follow-up with psychiatry as long as the patient remained stable. consulting services project manager consult to assist with medication coverage. (5) Abdominal pain Current Visit: Yes Status: Acute Assessment and Plan: Plan as above. He reports sudden onset epigastric pain with radiation to right upper quadrant with associated nausea. Onset while sleeping on the day of admission. Prior history of same. EGD results above. Continue PPI and Carafate Attempt to control pain with nonnarcotic pain medication Patient will stay overnight in an attempt to control pain, likely discharge tomorrow. - Time Spent with Patient Total time spent is greater than 50% in coordination of care (as documented) at patient's floor/unit and/or counseling patient: less than 15 minutes Plan of Care Discussed with: patient Internal Medicine: Result - Labs CBC & Chem 7: 06/06/18 03:34 06/06/18 03:34 Labs: Short CBC 06/05/18 06/06/18 Range/Units 23:01 03:34 WBC 10.3 10.7 (4.3-11.1) K/mcL Hgb 12.1 L 12.1 L (12.9-16.9) g/dL Hct 38.6 38.1 (37.5-50.1) % Plt Count 362 373 (140-400) K/mcL Neutrophils # 5.3 (1.6-8.9) K/mcL BMP 06/06/18 03:34 Sodium 137 Potassium 4.3 Chloride 105 Carbon Dioxide 29 BUN 9 Creatinine 0.82 Glucose 91 Calcium 8.9 - ABG Interpretation ABG results: PT/INR, D-dimer PT 11.0 Seconds (9.4-12.1) 06/05/18 18:57 Consult Discharge Plan - Plan Referrals: Faby Avila, ACCOUNTING SUPERVISOR [Primary Care Provider] - (2) GI bleed Qualifiers: GI bleed type/associated pathology: melena Qualified Code(s): K92.1 - Melena (5) Abdominal pain Qualifiers: Abdominal location: epigastric Qualified Code(s): R10.13 - Epigastric pain
[2018-06-06] MEDS: Sucralfate 1 GM TABLET PO SCH ×3 (12:26→21:38)
[2018-06-06] MEDS: Acetaminophen 325 MG TABLET PO PRN (21:39)
[2018-06-07] MEDS: Acetaminophen 325 MG TABLET PO PRN ×2 (05:22→11:43)
[2018-06-07 05:52] LABS: Basophils # 0.1 K/mcL (0.0-0.2); Basophils % 0.8 %; Eosinophils # 0.6 K/mcL (0.0-0.6); Eosinophils % 6.7 %; Hematocrit 40.8 % (37.5-50.1); Hemoglobin 12.9 g/dL (12.9-16.9); Immature Granulocytes % 0.3 % (0-4); Lymphocytes # 2.5 K/mcL (0.6-4.6); Lymphocytes % 25.8 %; Mean Corpuscular HGB Conc 31.6 g/dL (31.6-35.5); Mean Corpuscular Hemoglobin 28.4 pg (28.0-33.3); Mean Corpuscular Volume 89.7 fL (83.0-100.0); Mean Platelet Volume 10.1 fL (9.4-12.4); Monocytes # 0.5 K/mcL (0.0-1.3); Monocytes % 5.5 %; Neutrophils # 5.9 K/mcL (1.6-8.9); Platelet Count 379 K/mcL (140-400); Red Blood Count 4.55 M/mcL (4.19-5.50); Red Cell Distribution Width 13.2 % (11.5-14.5); Segmented Neutrophils % 60.9 %
[2018-06-07 06:13] LABS: BUN/Creatinine Ratio 11 (6-26); Blood Urea Nitrogen 10 mg/dL (6-20); Calcium 9.3 mg/dL (8.6-10.3); Carbon Dioxide 27 mEq/L (23-29); Chloride 103 mEq/L (98-107); Glucose 93 mg/dL (70-105); Osmolality,Calculated 285 (280-300); Sodium 138 mEq/L (136-145); eGFR For Non-African Americans > 60 (> 60)
[2018-06-07] MEDS: Sucralfate 1 GM TABLET PO SCH ×3 (07:53→15:54)
[2018-06-07 14:23] VITALS: BP 131/86
--- NOTE | 2018-06-07 15:35 | Discharge Summary ---
- NOTES TO OUTPATIENT PROVIDER Notes to Outpatient Provider: Follow up with general surgery as an outpatient Orders not resulted at time of discharge: Pending orders 06/05/18 22:13 Culture,Blood [BC] Routine 06/06/18 11:50 H. pylori Urease Culture [RM] Stat Date of Encounter: 06/07/18 Time of Encounter: 11:00 - Discharge Diagnosis (1) Abdominal pain Priority: Primary Status: Acute Qualifiers: Abdominal location: epigastric Qualified Code(s): R10.13 - Epigastric pain (2) GI bleed Priority: Primary Status: Ruled-out Qualifiers: GI bleed type/associated pathology: melena Qualified Code(s): K92.1 - Melena (3) History of ulcer disease Priority: Primary Status: Acute (4) Psychiatric disorder Priority: Secondary Status: Acute Hospital course: Patient is a 43 year old male with history of gastric ulcers, previous ulcerations with perforation after endoscopy presents with abdominal pain. He reports epigastric pain with radiation into the right upper quadrant. He states his pain was similar to his previous ulcer pain. He reports some intermittent nausea but denies vomiting. He reports loose stools that have been black for the last 2 days. Denies hematemesis or hematochezia, vomiting. He reports he was last scoped a year ago which was complicated by duodenal perforation for which he underwent emergency surgery. During patients hospital stay general surgery was consulted for EGD which showed 1 nonbleeding duodenal ulcer. Recommendations for patient to start Carafate and PPI will be discharged to follow up with general surgery as an outpatient. - Time Spent with Patient Total time spent providing and/or coordinating discharge services: Less than 30 minutes - Discharge Medications Prescriptions: Omeprazole [PriLOSEC] 20 mg PO BIDAC #60 capsule. Sucralfate [Carafate] 1 gm PO QIDAC #120 tablet Home Medications: Omeprazole [PriLOSEC] 20 mg PO BIDAC #60 capsule. 06/07/18 [Rx] Sucralfate [Carafate] 1 gm PO QIDAC #120 tablet 06/07/18 [Rx] Allergies/Adverse Reactions: 3 Allergy/AdvReac Type Severity Reaction Status Date / Time ibuprofen Allergy Unknown Abdominal Verified 06/05/18 19:05 Pain Date of admission: 06/05/18 20:15 Primary care physician: Faby Avila CNP Consults: 06/05/18 20:55 Consult to Surgery [CONS] Routine Consulting Provider: Surgery June Surgical Reason for Consult: Abdominal pain/Hgb drop, hx of ulcers Call Completed: Yes 06/05/18 22:12 Consult to Dredge Pump Operator [CONS] Routine Reason for SW Consult: Patient reports being without his medication for the past month due to insurance reasons - Constitutional Vitals: Temp Pulse Resp BP Pulse Ox 97.7 F 70 15 131/86 99 06/07/18 14:20 06/07/18 14:20 06/07/18 14:20 06/07/18 14:20 06/07/18 14:20 General appearance: Present: A&O X 3, pleasant, no acute distress Exam: Gen.: Nonacute distress, alert and oriented 3 Skin: Normal color - Patient Status Disposition: Home, Self-Care Condition: Good - Discharge Instructions Follow Up With: Liborio Martinez DO [Partnered Physician] - 07/05/18 10:50 am (hospital follow-up ) Faby Avila CNP [Primary Care Provider] - 06/14/18 10:00 am Additional Instructions: Avoid citrus and tomato based foods
--- NOTE | 2018-06-07 15:51 | General Surgery Progress Note ---
Date of Encounter: 06/07/18 Time of Encounter: 15:50 - Assessment and Plan (1) Melena Current Visit: Yes Status: Resolved (2) Abdominal pain Current Visit: Yes Status: Acute Qualifiers: Abdominal location: epigastric Qualified Code(s): R10.13 - Epigastric pain Subjective Patient reports: no new complaints, feels better, afebrile Objective Vital Signs - Last 8 Hours Temp Pulse Resp BP Pulse Ox 06/07/18 14:20 97.7 F 70 15 131/86 99 06/07/18 10:09 98.4 F 74 15 130/87 97 Intake and Output 06/06/18 06/07/18 06/07/18 23:59 07:59 15:59 Intake Total 1100 / 1100 100 / 100 600 / 600 Output Total 550 / 550 0 / 0 0 / 0 Balance 550 / 550 100 / 100 600 / 600 Intake: IV Fluids 1100 / 1100 Lactated Ringers 1,000 ML @ 100 1000 / 1000 mls/hr IVC .Q10H JOSÉ MIGUEL Rx#: [id number] Oral 0 / 0 100 / 100 600 / 600 Output: Urine 550 / 550 0 / 0 0 / 0 Other: Meal Lunch Percent of Meal Consumed 25% # Voids 2 Weight 84.7 kg Patient Weight 06/07/18 23:59 Weight 84.7 kg - General physical appearance well nourished, no distress - Eyes normal ocular movement - ENT poor residential, atraumatic, normocephalic - Neck Neck exam: trachea midline - Respiratory normal respiratory effort, clear to auscultation - Cardiovascular Cardiovascular exam: Present: RRR - Abdomen Abdomen: Present: bowel sounds present, soft, non tender - Neurologic CN 2-12 grossly intact - Musculoskeletal normal gait, normal posture - Psychiatric oriented to time, oriented to person, oriented to place, speech is normal, memory intact - Labs 06/07/18 05:28 06/07/18 05:28 Diabetes panel 06/07/18 Range/Units 05:28 Sodium 138 (136-145) mEq/L Potassium 4.0 (3.5-5.1) mEq/L Chloride 103 (98-107) mEq/L Carbon Dioxide 27 (23-29) mEq/L BUN 10 (6-20) mg/dL Creatinine 0.87 (0.70-1.30) mg/dL Glucose 93 (70-105) mg/dL Calcium 9.3 (8.6-10.3) mg/dL Calcium panel 06/07/18 Range/Units 05:28 Calcium 9.3 (8.6-10.3) mg/dL Pituitary panel 06/07/18 Range/Units 05:28 Sodium 138 (136-145) mEq/L Potassium 4.0 (3.5-5.1) mEq/L Chloride 103 (98-107) mEq/L Carbon Dioxide 27 (23-29) mEq/L BUN 10 (6-20) mg/dL Creatinine 0.87 (0.70-1.30) mg/dL Glucose 93 (70-105) mg/dL Calcium 9.3 (8.6-10.3) mg/dL Adrenal panel 06/07/18 Range/Units 05:28 Sodium 138 (136-145) mEq/L Potassium 4.0 (3.5-5.1) mEq/L Chloride 103 (98-107) mEq/L Carbon Dioxide 27 (23-29) mEq/L BUN 10 (6-20) mg/dL Creatinine 0.87 (0.70-1.30) mg/dL Glucose 93 (70-105) mg/dL Calcium 9.3 (8.6-10.3) mg/dL Consult Discharge Plan - Plan Additional Instructions: Avoid citrus and tomato based foods Referrals: Faby Avila, EDWAR [Primary Care Provider] - Liborio Martinez DO [Partnered Physician] - 07/05/18 10:50 am (hospital follow-up ) Prescriptions: Omeprazole [PriLOSEC] 20 mg PO BIDAC #60 capsule. Sucralfate [Carafate] 1 gm PO QIDAC #120 tablet
== END 2018-06-07 17:38 | disposition home or self-care (01) ==
LOC: EMEROOARM 18:35 → 3ANU 18:35 → SUATTDRO 20:15 → 3ANU 21:05
PROVIDERS: ADMIT Pediatrics; ATTEND Hospitalist
PROC: ENDOEBX (2018-06-06 14:30)

== ENCOUNTER 2018-06-12 18:25 | Observation (INO) ==
[2018-06-12] MEDS ORDERED: 0.9 % Sodium Chloride 1,000 ML IVC ONE (18:43)
[2018-06-12] MEDS ORDERED: Sucralfate 1 GM TABLET PO STA (18:43)
[2018-06-12] MEDS ORDERED: GI Cocktail 40 ML EACH PO ONE (18:43)
--- NOTE | 2018-06-12 18:44 | Emergency Department Note ---
Disposition Clinical Impression: YADIRA (acute kidney injury) GI bleed Qualifiers: GI bleed type/associated pathology: unspecified gastrointestinal hemorrhage type Qualified Code(s): K92.2 - Gastrointestinal hemorrhage, unspecified Disposition: Admitted As Inpatient Condition: Undetermined Forms: ED Satisfaction Letter Time of Disposition: 19:36 GI Bleed HPI - General Chief complaint: ED GI Bleed Stated complaint: rectal bleeding Time Seen by Provider: 06/12/18 18:38 Source: patient Mode of arrival: ambulatory Limitations: no limitations Nursing Notes Reviewed: Yes Vital Signs Reviewed: Yes - History of Present Illness HPI Narrative: 43-year-old male with extensive history of gastric ulcers and GI bleeding arrives to the emergency department complaining of worsening GI bleeding. Patient denies any hematemesis. He is complaining of melena or hematochezia. The patient was recently admitted to the hospital roughly 1 week ago with concern for GI bleeding and worsening anemia. The patient had a scope at that time which revealed an ulcer. The patient's continued on his medications. The patient states that he was fainted last night after feeling very weak. The patient arrives to the emergency department with no complaints of chest pain, difficulty breathing, worse abdominal discomfort. He is otherwise resting comfortably with the exception of his baseline epigastric discomfort. - Related Data Previous Rx's Medication Instructions Recorded Omeprazole [PriLOSEC] 20 mg PO BIDAC #60 capsule. 06/07/18 Sucralfate [Carafate] 1 gm PO QIDAC #120 tablet 06/07/18 Allergies Allergy/AdvReac Type Severity Reaction Status Date / Time ibuprofen Allergy Unknown Abdominal Verified 06/05/18 19:05 Pain All systems ED: reviewed and negative except as stated. Constitutional: Denies: fever, chills, weakness ENT ED: Denies: congestion Cardiovascular: Reports: syncope. Denies: chest pain, dyspnea on exertion, edema Respiratory: Denies: dyspnea Gastrointestinal: Reports: melena, hematochezia. Denies: abdominal pain, nausea , vomiting, diarrhea, constipation, hematemesis Genitourinary: Reports: urgency, dysuria Musculoskeletal: Denies: back pain Integumentary: Denies: rash Neurological: Denies: headache Past Medical History - Past Medical History Attestation: Yes The following information was validated with the patient. Source: patient, old records reviewed Medical history: Reports: GERD (with gastric and duodenal ulcers), GI bleed Surgical history: Reports: herniorrhaphy Psychiatric history: Reports: bipolar, schizophrenia, previous psychiatric hospitalization - Social History Smoking Status: Never smoker Smokeless Tobacco Status: No Alcohol use: Reports: none Drug use: Reports: none Physical Exam - General Limitations: no limitations General appearance: alert, in no apparent distress - Head Head exam: atraumatic, normocephalic, normal inspection - Eye Eye exam: Present: normal appearance, PERRL, EOMI - ENT ENT exam: normal exam, normal oropharynx, mucous membranes moist - Neck Neck exam: Present: normal inspection, full ROM, trachea midline - Chest Chest inspection: Present: normal inspection, symmetric chest wall rise - Respiratory Respiratory exam: Present: normal lung sounds bilaterally - Cardiovascular Cardiovascular exam: Present: normal rhythm, tachycardia, normal heart sounds - Abdominal Exam Abdominal exam: Present: soft, Non-Tender. Absent: tenderness, distention, guarding, rebound, rigidity - Extremities Exam Extremities exam: Present: normal inspection, full ROM. Absent: tenderness, pedal edema - Neurological Exam Neurological exam: Present: alert, oriented X3 - Skin Skin exam: Present: warm, dry, intact, pallor Course Vital Signs Temperature 98.5 F 06/12/18 18:30 Pulse Rate 118 06/12/18 18:30 Respiratory Rate 16 06/12/18 18:30 Blood Pressure 163/91 06/12/18 18:30 O2 Sat by Pulse Oximetry 100 06/12/18 18:30 Temperature 98.5 F 06/12/18 18:51 Pulse Rate 118 06/12/18 18:51 Respiratory Rate 16 06/12/18 18:51 Blood Pressure 163/91 06/12/18 18:51 O2 Sat by Pulse Oximetry 100 06/12/18 18:51 Oxygen Delivery Oxygen Delivery Room Air GI Bleed - [facility] Narrative Medical decision making narrative: Patient work-up demonstrates mildly decreased Hgb. The patient arrived to the ED and was noted to be tachycardic in the 102s. The patient had labs drawn and was administered IVF 1L bolus. He had some fluid response to his HR. Labs revealed YADIRA. The patient has evelio experiencing continued bleeding. Reveiw of chart found friable esophageal tissue and non-bleeding duodenal ulcer. The patient will be admitted with likely trending of Hgb. The patient case will be discussed with Endoscopy infection control rn. Patient made aware and agrees to plan. No further questions or concerns noted. Administered protonix, GI cocktail, and Carafate. The patient will be admitted to the hospitalist, Dr. Woods. - Medical Records Medical records reviewed: Yes I reviewed the patient's medical records. - Lab Data Lab results reviewed: Yes I reviewed the patient's lab results. Result diagrams: 06/12/18 18:38 06/12/18 18:38 Lab Results 06/12/18 06/12/18 06/12/18 Range/Units 18:38 18:38 18:50 WBC 19.4 H D (4.3-11.1) K/mcL RBC 4.41 (4.19-5.50) M/mcL Hgb 12.6 L (12.9-16.9) g/dL Hct 39.8 (37.5-50.1) % MCV 90.2 (83.0-100.0) fL MCH 28.6 (28.0-33.3) pg MCHC 31.7 (31.6-35.5) g/dL RDW 13.8 (11.5-14.5) % Plt Count 439 H (140-400) K/mcL MPV 10.1 (9.4-12.4) fL Immature Gran % 0.6 (0-4) % Seg Neutrophils % 70.8 % Lymphocytes % 12.8 % Monocytes % 8.1 % Eosinophils % 7.2 % Basophils % 0.5 % Neutrophils # 13.7 H (1.6-8.9) K/mcL Lymphocytes # 2.5 (0.6-4.6) K/mcL Monocytes # 1.6 H (0.0-1.3) K/mcL Eosinophils # 1.4 H (0.0-0.6) K/mcL Basophils # 0.1 (0.0-0.2) K/mcL Sodium 138 (136-145) mEq/L Potassium 4.6 (3.5-5.1) mEq/L Chloride 104 (98-107) mEq/L Carbon Dioxide 23 (23-29) mEq/L BUN 30 H (6-20) mg/dL Creatinine 1.58 H (0.70-1.30) mg/dL Est GFR ( Amer) 59 L (> 60) Est GFR (Non-Af Amer) 49 L (> 60) BUN/Creatinine Ratio 19 (6-26) Glucose 121 H (70-105) mg/dL Calculated Osmolality 293 (280-300) Calcium 10.1 (8.6-10.3) mg/dL Blood Type O POSITIVE - EKG Data EKG attestation: Yes I reviewed and interpreted this EKG. EKG results narrative: Heart rate 99 beats for minute. Normal sinus rhythm. No ST elevation or ST depression noted. EKG identical to EKG from June 11. No acute changes noted.
--- NOTE | 2018-06-12 18:46 | Emergency Department Note ---
Disposition Clinical Impression: GI bleed, YADIRA (acute kidney injury) Disposition: Admitted As Inpatient Condition: Undetermined General Adult HPI - General Chief complaint: ED GI Bleed Stated complaint: rectal bleeding Time Seen by Provider: 06/12/18 18:38 Source: patient Mode of arrival: ambulatory Limitations: no limitations - History of Present Illness Pain Scale: 8 - Related Data Previous Rx's Medication Instructions Recorded Omeprazole [PriLOSEC] 20 mg PO BIDAC #60 capsule. 06/07/18 Sucralfate [Carafate] 1 gm PO QIDAC #120 tablet 06/07/18 Allergies Allergy/AdvReac Type Severity Reaction Status Date / Time ibuprofen Allergy Unknown Abdominal Verified 06/05/18 19:05 Pain Constitutional: Denies: fever, chills, weakness ENT ED: Denies: congestion Cardiovascular: Reports: syncope. Denies: chest pain, dyspnea on exertion, edema Respiratory: Denies: dyspnea Gastrointestinal: Reports: melena, hematochezia. Denies: abdominal pain, nausea , vomiting, diarrhea, constipation, hematemesis Genitourinary: Reports: urgency, dysuria Musculoskeletal: Denies: back pain Integumentary: Denies: rash Neurological: Denies: headache Past Medical History - Past Medical History Medical history: Reports: GERD (with gastric and duodenal ulcers), GI bleed Surgical history: Reports: herniorrhaphy Psychiatric history: Reports: bipolar, schizophrenia, previous psychiatric hospitalization - Social History Smoking Status: Never smoker Smokeless Tobacco Status: No Alcohol use: Reports: none Drug use: Reports: none Physical Exam - General Limitations: no limitations General appearance: alert, in no apparent distress Course Vital Signs Temperature 98.5 F 06/12/18 18:30 Pulse Rate 118 06/12/18 18:30 Respiratory Rate 16 06/12/18 18:30 Blood Pressure 163/91 06/12/18 18:30 O2 Sat by Pulse Oximetry 100 06/12/18 18:30 Temperature 98.5 F 06/12/18 18:51 Pulse Rate 74 06/12/18 19:52 Respiratory Rate 17 06/12/18 19:52 Blood Pressure 149/85 06/12/18 19:52 O2 Sat by Pulse Oximetry 100 06/12/18 19:52 Oxygen Delivery Oxygen Delivery Room Air Medical Decision Making - Lab Data Result diagrams: 06/12/18 18:38 06/12/18 18:38 Lab Results 06/12/18 06/12/18 06/12/18 Range/Units 18:38 18:38 18:50 WBC 19.4 H D (4.3-11.1) K/mcL RBC 4.41 (4.19-5.50) M/mcL Hgb 12.6 L (12.9-16.9) g/dL Hct 39.8 (37.5-50.1) % MCV 90.2 (83.0-100.0) fL MCH 28.6 (28.0-33.3) pg MCHC 31.7 (31.6-35.5) g/dL RDW 13.8 (11.5-14.5) % Plt Count 439 H (140-400) K/mcL MPV 10.1 (9.4-12.4) fL Immature Gran % 0.6 (0-4) % Seg Neutrophils % 70.8 % Lymphocytes % 12.8 % Monocytes % 8.1 % Eosinophils % 7.2 % Basophils % 0.5 % Neutrophils # 13.7 H (1.6-8.9) K/mcL Lymphocytes # 2.5 (0.6-4.6) K/mcL Monocytes # 1.6 H (0.0-1.3) K/mcL Eosinophils # 1.4 H (0.0-0.6) K/mcL Basophils # 0.1 (0.0-0.2) K/mcL Sodium 138 (136-145) mEq/L Potassium 4.6 (3.5-5.1) mEq/L Chloride 104 (98-107) mEq/L Carbon Dioxide 23 (23-29) mEq/L BUN 30 H (6-20) mg/dL Creatinine 1.58 H (0.70-1.30) mg/dL Est GFR ( Amer) 59 L (> 60) Est GFR (Non-Af Amer) 49 L (> 60) BUN/Creatinine Ratio 19 (6-26) Glucose 121 H (70-105) mg/dL Calculated Osmolality 293 (280-300) Calcium 10.1 (8.6-10.3) mg/dL Blood Type O POSITIVE Antibody Screen NEGATIVE Attestation Statement - Attestation Attestation: I examined this patient and my medical decision-making was reviewed with the Resident Physician. I agree with the documented findings, disposition and treatment plan as described except to the extent set forth below. [id number] time provided Patient arrives complaining of blood per rectum. History of duodenal ulcer. Patient tachycardic upon arrival but otherwise appears in no acute distress. Plan of care and management discussed by me the resident physician Dr. Connell Upper endoscopy report dated 06/06/18 results reviewed by me
[2018-06-12 19:03] LABS: Basophils # 0.1 K/mcL (0.0-0.2); Basophils % 0.5 %; Eosinophils # 1.4 K/mcL (0.0-0.6); Eosinophils % 7.2 %; Hematocrit 39.8 % (37.5-50.1); Hemoglobin 12.6 g/dL (12.9-16.9); Immature Granulocytes % 0.6 % (0-4); Lymphocytes # 2.5 K/mcL (0.6-4.6); Lymphocytes % 12.8 %; Mean Corpuscular HGB Conc 31.7 g/dL (31.6-35.5); Mean Corpuscular Hemoglobin 28.6 pg (28.0-33.3); Mean Corpuscular Volume 90.2 fL (83.0-100.0); Mean Platelet Volume 10.1 fL (9.4-12.4); Monocytes # 1.6 K/mcL (0.0-1.3); Monocytes % 8.1 %; Neutrophils # 13.7 K/mcL (1.6-8.9); Platelet Count 439 K/mcL (140-400); Red Blood Count 4.41 M/mcL (4.19-5.50); Red Cell Distribution Width 13.8 % (11.5-14.5); Segmented Neutrophils % 70.8 %
[2018-06-12] MEDS ORDERED: Pantoprazole 40 MG VIAL IVP ONE (19:15)
[2018-06-12 19:21] LABS: Calcium 10.1 mg/dL (8.6-10.3); Potassium 4.6 mEq/L (3.5-5.1)
[2018-06-12] MEDS ORDERED: Naloxone 0.4 MG/ML INJ IVP PRN (20:06)
[2018-06-12] MEDS ORDERED: Ondansetron 4 MG/2 ML VIAL IVP PRN (20:06)
--- NOTE | 2018-06-12 20:14 | Internal Med History&Physical ---
Addendum entered and electronically signed by Alexx Barnes DO 06/12/18 21: 31: Addendum to A/P YADIRA Patient has elevated serum creatinine 1.58, Baseline 0.8 Suspect this is secondary to poor PO intake Got 1L bolus in ED, will continue at 100mL/hr LR Recheck BMP in AM Avoid nephrotoxins Original Note: <Alexx Barnes - Last Filed: 06/12/18 21:04> Date of Encounter: 06/12/18 Time of Encounter: 21:04 Internal Medicine - H&P: HPI Chief complaint: Abdominal pain Admitted From: Emergency Dept Plans for Post Hospital Care: Home History of present illness: Mr. House is a 43 year old male with history of gastric and duodenal ulcers, multiple psychiatric complaints and recent admission for GI bleed who presents to the ED for continued right upper quadrant abdominal pain. The patient was recently discharged from [facility] approximately 1 week ago at which time he was being worked up for upper quadrant abdominal pain with melena. He did have EGD which demonstrated gastric ulcer at that time, and he was discharged on Carafate and PPI. He states that he has not with ulcers for a significant amount time, since he was a teenager. According to the patient, he never truly recovered following this hospitalization. He continues to have significant pain that is 8 out of 10 in intensity, resides primarily in the right upper quadrant and is nonradiating. Nothing seems to help the pain too much other than sometimes a little bit of milk, however eating makes the pain significantly worse and he feels that he is unable to eat as result. The pain is otherwise constant, and it has actually even woken him from sleep. In addition of this, the patient says that today he started to have dark/coffee ground-appearing bowel movements which were initially liquid in nature but then became dry and pasty. Last night at work, the patient says that he began to feel faint and dizzy and had to leave early as result. He felt that he may pass out at that time. He returned to the emergency room because he was concerned that he may be experiencing worsening of this potential GI bleed and felt that he should be checked out again. In the emergency room, the patient received labs which demonstrated significantly elevated WBC at 19.4, however relatively stable hemoglobin at 12.6. He did demonstrate acute kidney injury with a BUN/creatinine 30 and serum creatinine 1.58. On arrival the patient was tachycardic with heart rate of 118 initially. GI was consulted from the ED and recommended admission for observation. 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 He denies smoking, denies recent alcohol use for several years, denies illicit drug use. He does admit to drinking approximately 2 sodas per day. Surgical history: Several endoscopies with one perforation which required open repair, multiple hernia repairs Family history: Patient is adopted although he knows that his mother is a 74- year-old woman who is living and healthy Past Med Surg Social Fam HX - Past Medical History Medical history: GERD (with gastric and duodenal ulcers), GI bleed Additional medical history: gastric and duondenal ulcers Psychiatric history: bipolar, schizophrenia, previous psychiatric hospitalization - Past Surgical History Surgical History: herniorrhaphy Additional surgical history: Exploratory laparotomy with Waleska maneuver the duodenum and a Heineke Mikulicz's pyloroplasty 11/[address] Martinez, EGD 2016. EGD 06/16 - Social History Smoking Status: Never smoker Smokeless Tobacco Status: No Alcohol use: none Drug use: none - Family History Mother Adopted: Yes Living Status: Still Living Father History Unknown: Yes Internal Medicine - H&P: Meds Omeprazole [PriLOSEC] 20 mg PO BIDAC #60 capsule. 06/07/18 [Rx] Sucralfate [Carafate] 1 gm PO QIDAC #120 tablet 06/07/18 [Rx] 3 Allergy/AdvReac Type Severity Reaction Status Date / Time ibuprofen Allergy Unknown Abdominal Verified 06/05/18 19:05 Pain All Systems PM: A 10-system review of systems was performed and is negative for pertinent findings except as documented above in the HPI. Review of systems: Constitutional: Denies fevers, chills, weight loss. Does feel generally fatigued Head/Neck: Denies neck stiffness. Admits to headache EENT: Denies vision changes/blurriness, rhinorrhea, congestion, sore throat CVS: Denies chest pain, palpitations, COLE, orthopnea, edema, PND Pulm: Denies SOB, cough, sputum, hemoptysis, wheezing GI: Admits to right upper quadrant abdominal pain which is intense, melenic stools : Denies dysuria, increased frequency, urgency, hematuria Heme: Denies ease of bleeding or bruising MSK: Denies joint pain, limited ROM Skin: Denies rashes, ulcers, color changes Neuro: Denies paresthesias, focal deficits, ataxia - Constitutional Vitals: Temp Pulse Resp BP Pulse Ox 98.5 F 74 17 149/85 100 06/12/18 18:51 06/12/18 19:52 06/12/18 19:52 06/12/18 19:52 06/12/18 19:52 Exam: Gen: Vitals noted. No acute distress. Relatively unkempt HEENT: Normocephalic, atraumatic. Poor dentition Neck: Supple. No adenopathy. Cardiac: RRR, no murmur, +S1/S2 Pulmonary: CTA bilaterally, no wheezes, rales or rhonchi, equal chest expansion Abdomen: soft, mild tenderness to palpation, no guarding. Vertical midline scar noted from prior open surgery Back: Nontender throughout. MSK: ROM intact, no joint swelling noted Extremities: no BLE edema, nontender calf, no cyanosis or clubbing Neuro: moves all extremities, no focal deficits. A&Ox3 Psych: Appropriate mood and behavior Internal Med - H&P Results - Labs CBC & Chem 7: 06/12/18 20:34 06/12/18 18:38 - Assessment and plan (1) GI bleed Current Visit: Yes Status: Suspected Assessment and plan: Suspected GI bleed, source duodenal ulcer Patient was admitted approximately one week ago with known duodenal ulcer on EGD Long history of epigastric ulcer disease and duodenal ulcers He was discharged on PPI and Carafate, however continues to have worsening symptoms Reports melena over the past 24 hours We will make the patient clear liquids tonight, nothing by mouth after midnight We will put the patient on IV Protonix drip overnight GI was consultative from the ED, we will see the patient in the morning Qualifiers: GI bleed type/associated pathology: duodenal ulcer Qualified Code(s): K26.4 - Chronic or unspecified duodenal ulcer with hemorrhage (2) Pre-syncope Current Visit: Yes Status: Acute Assessment and plan: Presyncope at work, likely secondary to dehydration Patient presents with poor oral intake secondary to abdominal pain I suspect that he has been failing to take in enough oral hydration due to the fact that he is having abdominal pain when he does This endorse not only by his history but also the fact that he has developed an YADIRA We will give the patient IV hydration, monitor vitals (3) YADIRA (acute kidney injury) Current Visit: Yes Status: Acute (4) Abdominal pain Current Visit: Yes Status: Acute Assessment and plan: Abdominal pain, likely secondary to gastritis versus duodenal ulcer Patient was admitted one week ago with EGD that demonstrated duodenal ulcer and some gastric erythema CT abdomen and pelvis on 06/05/18 did demonstrate gastric wall thickening suggestive of gastritis At this time we will continue with PPI drip, monitor with serial abdominal exams GI consult in AM Qualifiers: Abdominal location: right upper quadrant Qualified Code(s): R10.11 - Right upper quadrant pain (5) DVT prophylaxis Current Visit: No Status: Acute Assessment and plan: SQ Heparin is contraindicated in suspected GI bleed We will use SCDs in this patient (6) Duodenal ulcer Current Visit: Yes Status: Acute - Time Spent With Patient Total time spent is greater than 50% in coordination of care (as documented) at patient's floor/unit and/or counseling patient: <ArminMariella - Last Filed: 06/12/18 22:02> Date of Encounter: 06/12/18 Internal Medicine - H&P: HPI History of present illness: Mr. House is a 43 year old male All Systems PM: A 10-system review of systems was performed and is negative for pertinent findings except as documented above in the HPI. - Constitutional Vitals: Temp Pulse Resp BP Pulse Ox 98.7 F 77 14 136/89 100 06/12/18 20:30 06/12/18 20:30 06/12/18 20:30 06/12/18 20:30 06/12/18 20:30 Internal Med - H&P Results - Labs CBC & Chem 7: 06/12/18 20:34 06/12/18 18:38 Labs: Short CBC 06/12/18 Range/Units 20:34 WBC 15.4 H (4.3-11.1) K/mcL Hgb 11.7 L (12.9-16.9) g/dL Hct 36.6 L (37.5-50.1) % Plt Count 406 H (140-400) K/mcL Neutrophils # 10.5 H (1.6-8.9) K/mcL - Assessment and plan (1) DVT prophylaxis Current Visit: No Status: Acute (2) Abdominal pain Current Visit: Yes Status: Acute Qualifiers: Abdominal location: right upper quadrant Qualified Code(s): R10.11 - Right upper quadrant pain (3) GI bleed Current Visit: Yes Status: Suspected Qualifiers: GI bleed type/associated pathology: duodenal ulcer Qualified Code(s): K26.4 - Chronic or unspecified duodenal ulcer with hemorrhage (4) YADIRA (acute kidney injury) Current Visit: Yes Status: Acute (5) Pre-syncope Current Visit: Yes Status: Acute (6) Duodenal ulcer Current Visit: Yes Status: Acute - Time Spent With Patient Total time spent is greater than 50% in coordination of care (as documented) at patient's floor/unit and/or counseling patient: - Attending Attestation Pop House is a 43 year old man with a history of gastric/ duodenal ulcers and prior perforation who was recently discharged from here after presenting with dark stool and underwent EGD showing 1 non-bleeding duodenal ulcer. He was discharged on 06/08 with sucralfate and omeprazole. He presents now with dark stool again and feeling faint. He denied chest pain and difficulty breathing but complaints of burning abdominal pain. He says milk helps with the pain. He was slightly tachycardic. He was placed on IVF and given IVP PPI. Of note, his last endoscopic gastric biopsy was negative for H.pylori. PMHx: Schizoaffective d/o, anxiety. SHx: Emergent duodenal perforation surgery Social: Prior hx of alcohol abuse. FHx: Diabetes in mother. Review of systems: All systems reviewed and negative except as listed above in the HPI. Vitals: Reviewed Physical exam remarkable for well-developed, well-appearing white man in NAD. Foul-smelling. Very poor dentition. Warm, supple skin. No cyanosis. CTABL. Nl s1 /s2. Non-distended abdomen, tender to palpation in epigastrium and RUQ, no peripheral edema. AAOx 3 and no focal deficits. Affect appropriate. Will admit to observation for suspected upper GI bleed. H/H stable for now but will require continued monitoring. Start PPI gtt. Avoid NSAIDs. GI consult. Continuous IVF. NPO. He also has stage 2 YADIRA likely from poor volemia which should improve with fluids. His CBC indices are also elevated which could be secondary to hemoconcentration; will follow.
[2018-06-12 20:56] LABS: Basophils # 0.1 K/mcL (0.0-0.2); Basophils % 0.6 %; Eosinophils # 1.1 K/mcL (0.0-0.6); Eosinophils % 7.2 %; Hematocrit 36.6 % (37.5-50.1); Hemoglobin 11.7 g/dL (12.9-16.9); Immature Granulocytes % 0.5 % (0-4); Lymphocytes # 2.4 K/mcL (0.6-4.6); Lymphocytes % 15.3 %; Mean Corpuscular Volume 90.6 fL (83.0-100.0); Mean Platelet Volume 10.3 fL (9.4-12.4); Monocytes # 1.3 K/mcL (0.0-1.3); Monocytes % 8.3 %; Neutrophils # 10.5 K/mcL (1.6-8.9); Platelet Count 406 K/mcL (140-400); Red Blood Count 4.04 M/mcL (4.19-5.50); Segmented Neutrophils % 68.1 %
[2018-06-12] MEDS: Pantoprazole 40 MG in 0.9 % Sodium Chloride Mini Bag 100 ML IVC SCH (21:01)
[2018-06-12] MEDS: Ringers Solution, Lactated 1,000 ML IVC SCH (21:15)
[2018-06-12] MEDS: OXYCODONE Oral CONC 10 MG/0.5 ML ORAL.SYG SL PRN (21:25)
[2018-06-12] MEDS ORDERED: Sucralfate 1 GM TABLET PO SCH (22:00)
[2018-06-13] MEDS: Pantoprazole 40 MG in 0.9 % Sodium Chloride Mini Bag 100 ML IVC SCH ×5 (01:25→22:03)
[2018-06-13] MEDS: OXYCODONE Oral CONC 10 MG/0.5 ML ORAL.SYG SL PRN ×6 (01:31→23:08)
[2018-06-13 04:27] LABS: Prothrombin Time 11.3 Seconds (9.4-12.1)
[2018-06-13 04:28] LABS: Basophils # 0.1 K/mcL (0.0-0.2); Basophils % 0.4 %; Eosinophils # 0.9 K/mcL (0.0-0.6); Eosinophils % 5.5 %; Hemoglobin 11.6 g/dL (12.9-16.9); Lymphocytes # 2.4 K/mcL (0.6-4.6); Lymphocytes % 14.3 %; Mean Corpuscular HGB Conc 32.2 g/dL (31.6-35.5); Mean Platelet Volume 10.1 fL (9.4-12.4); Monocytes # 1.4 K/mcL (0.0-1.3); Monocytes % 8.4 %; Neutrophils # 11.8 K/mcL (1.6-8.9); Platelet Count 375 K/mcL (140-400); Segmented Neutrophils % 70.4 %
[2018-06-13 04:48] LABS: Albumin 4.1 g/dL (3.5-5.7); Albumin/Globulin Ratio 1.5 (1.1-2.2); Bilirubin,Direct 0.1 mg/dL (0.0-0.2); Bilirubin,Indirect 0.2 mg/dL (0.0-1.2); Bilirubin,Total 0.3 mg/dL (0.3-1.0); Globulin 2.8 g/dL (2.4-3.5); Total Protein 6.9 g/dL (6.4-8.9)
[2018-06-13 04:52] LABS: Alanine Aminotransferase 9 Units/L (7-52); Albumin/Globulin Ratio 1.4 (1.1-2.2); Alkaline Phosphatase 49 Units/L (34-104); Aspartate Amino Transferase 9 Units/L (13-39); BUN/Creatinine Ratio 17 (6-26); Bilirubin,Total 0.3 mg/dL (0.3-1.0); Blood Urea Nitrogen 23 mg/dL (6-20); Calcium 9.1 mg/dL (8.6-10.3); Carbon Dioxide 21 mEq/L (23-29); Chloride 110 mEq/L (98-107); Globulin 2.9 g/dL (2.4-3.5); Glucose 76 mg/dL (70-105); Magnesium 2.2 mg/dL (1.6-2.6); Osmolality,Calculated 290 (280-300); Potassium 4.3 mEq/L (3.5-5.1); Sodium 139 mEq/L (136-145); Total Protein 6.9 g/dL (6.4-8.9); eGFR For Non-African Americans 57 (> 60)
[2018-06-13] MEDS ORDERED: *HR* Dextrose 50 % in Water (Syg) 50 ML SYRINGE IVP ONE (05:28)
[2018-06-13] MEDS ORDERED: *HR* Dextrose 50 % in Water (Syg) 50 ML SYRINGE ONE (05:50)
--- NOTE | 2018-06-13 08:56 | Electrocardiograph Report ---
[address] [address] Test Date: 2018-06-12 Pat Name: Pop House Department: [id number] Room: 3A43 Gender: M Direct Care Staffer: : 1975 Requested By: Carlos Connell Order Number: [id number] Reading MD: Stella Leahy Measurements Intervals [place] Rate: 99 P: 82 AK: 143 QRS: 81 QRSD: 90 T: 65 QT: 316 QTc: 406 Interpretive Statements Sinus rhythm Nonspecific ST abnormalities Q waves inferiorly may represent prior SD Electronically Signed On 06-13-2018 8:54:07 EDT by Stella Leahy
--- NOTE | 2018-06-13 09:58 | Gastroenterology Consult Note ---
<Lachelle Pineda - Last Filed: 06/13/18 09:51> Date of Encounter: 06/13/18 Time of Encounter: 09:05 - Assessment and plan (1) Melena Current Visit: No Status: Resolved Assessment and plan: Will proceed with EGD today to rule out upper GI bleed from known duodenal ulcers, gastritis or avm. Continue PPI and carafate. (2) Abdominal pain Current Visit: Yes Status: Acute Qualifiers: Abdominal location: right upper quadrant Qualified Code(s): R10.11 - Right upper quadrant pain - Time Spent With Patient Total time spent is greater than 50% in coordination of care (as documented) at patient's floor/unit and/or counseling patient: GI History of Present Illness - Data of Consult Patient: known to practice within the last 3 years Consult date: 06/13/18 Requesting Physician: Devin Moore MD - Consult Narrative Reason for consult: RUQ pain, melena History of present illness: Mr. House is a 43 year old male with history of perforated duodenal ulcer in November 2016, with open repair, schizophrenia and recent admission for GI bleed. He presents to the ED for continued right upper quadrant abdominal pain. The patient was recently discharged from [facility] approximately 1 week ago at which time he was being worked up for upper quadrant abdominal pain with melena. He did have EGD which demonstrated gastric ulcer at that time, and he was discharged on Carafate and PPI. He admitted to not taking PPI for one month before last admission but states he has been taking carafate and prilosec daily since being discharged home. He complains of continuous right upper quadrant pain, worse with eating and would wake him at night. He admits to 3 black stools and diarrhea at home. Denies any nausea and vomiting. Last night at work, the patient says that he began to feel faint and dizzy and had to leave early as result. He felt that he may pass out at that time. He returned to the emergency room because he was concerned that he may be experiencing worsening of this potential GI bleed and felt that he should be checked out again. He was also found to be have acute kidney injury in the ER,likely due to poor by mouth intake and hydration was initiated. He denies aspirin or NSAIDs or blood thinners. Past Med Surg Social Fam HX - Past Medical History Medical history: GERD (with gastric and duodenal ulcers), GI bleed Additional medical history: gastric and duondenal ulcers Psychiatric history: bipolar, schizophrenia, previous psychiatric hospitalization - Past Surgical History Surgical History: herniorrhaphy Additional surgical history: Exploratory laparotomy with Waleska maneuver the duodenum and a Heineke Mikulicz's pyloroplasty 11/[address] Martinez, EGD 2016. EGD 06/16 - Social History Smoking Status: Never smoker Smokeless Tobacco Status: No Alcohol use: none Drug use: none - Family History Mother Adopted: Yes Age: 72 Living Status: Still Living Father History Unknown: Yes Review of Systems: GI: as per TELLER GENERAL: denies fever, has some chills EYES: denies yellow discoloration ENT: denies pain with swallowing or difficulty swallowing CARDIO: denies chest pain, palpitations RESP: No Shortness of breath with exertion : denies change in color of urine NEURO: weakness and dizziness last night HEME: Denies any bruising MS: denies joint pain, joint swelling or back pain. DERM: denies rash or itching PSYCH: multiple complaints in his history - Constitutional Vitals: Temp Pulse Resp BP Pulse Ox 98.0 F 80 16 133/82 100 06/13/18 06:46 06/13/18 06:46 06/13/18 06:46 06/13/18 06:46 06/13/18 06:46 Exam: CONSTITUTIONAL:~alert, no acute distress.~HEAD:~normocephalic, black discoloation of teeth.~EYES:~no jaundice.~NECK:~no obvious swelling.~HEART:~ regular rate and rhythm, no murmurs.~LUNGS:~bilateral good air entry.~ABDOMEN:~ non distended, soft, tender epigastric and RUQ, no masses pulpable, no organomegaly, scar well healed.~RECTAL EXAM:~Deferred.~EXTREMITIES:~no clubbing , cyanosis or edema.~SKIN:~pallor noted,no stigmata of chronic liver disease.~ NEUROLOGIC:~no obvious focal defect.~~~~ Results - Labs CBC & Chem 7: 06/13/18 04:07 06/13/18 04:07 Labs: Last Result Calcium 9.1 mg/dL (8.6-10.3) 06/13/18 04:07 Entire Visit Hgb 11.6 g/dL (12.9-16.9) L 06/13/18 04:07 Hct 36.0 % (37.5-50.1) L 06/13/18 04:07 PT 11.3 Seconds (9.4-12.1) 06/13/18 04:07 Total Bilirubin 0.3 mg/dL (0.3-1.0) 06/13/18 04:07 AST 9 Units/L (13-39) L 06/13/18 04:07 ALT 9 Units/L (7-52) 06/13/18 04:07 - ABG ABG results: PT/INR, D-dimer PT 11.3 Seconds (9.4-12.1) 06/13/18 04:07 Consult Discharge Plan - Plan Referrals: Faby Avila, [employer] [Primary Care Provider] - <Do Wasserman - Last Filed: 06/13/18 13:23> Date of Encounter: 06/13/18 Time of Encounter: 12:45 - Time Spent With Patient Total time spent is greater than 50% in coordination of care (as documented) at patient's floor/unit and/or counseling patient: GI History of Present Illness - Data of Consult Requesting Physician: Devin Moore MD - Consult Narrative History of present illness: Mr. House is a 43 year old male - Constitutional Vitals: Temp Pulse Resp BP Pulse Ox 98.3 F 87 16 125/71 98 06/13/18 09:54 06/13/18 12:48 06/13/18 12:48 06/13/18 12:48 06/13/18 12:48 Results - Labs CBC & Chem 7: 06/13/18 12:00 06/13/18 04:07 Labs: Last Result Calcium 9.1 mg/dL (8.6-10.3) 06/13/18 04:07 Entire Visit Hgb 11.2 g/dL (12.9-16.9) L 06/13/18 12:00 Hct 34.6 % (37.5-50.1) L 06/13/18 12:00 PT 11.3 Seconds (9.4-12.1) 06/13/18 04:07 Total Bilirubin 0.3 mg/dL (0.3-1.0) 06/13/18 04:07 AST 9 Units/L (13-39) L 06/13/18 04:07 ALT 9 Units/L (7-52) 06/13/18 04:07 - ABG ABG results: PT/INR, D-dimer PT 11.3 Seconds (9.4-12.1) 06/13/18 04:07 - Attending Attestation I have personally performed a face to face evaluation on this patient. I have reviewed and agree with the care plan. History and Exam by me shows: Seen patient with a history of peptic ulcer disease that required surgery by Dr. Martinez in 2017 he was admitted last week because of abdominal pain and found to have ulcer again. Was sent home on omeprazole and Carafate and per patient he has been taking them but now he is mentioning again because of melena and abdominal pain. On examination he is tender in the right upper quadrant . Assessment : patient with significant history of peptic ulcer disease now with recurrence of his ulcer. Recommendation: EGD to make sure patient is not bleeding from the ulcer. No NSAIDs at all. We will also check serum gastrin to make sure patient do not have Zolinger Villatoro syndrome.
--- NOTE | 2018-06-13 10:52 | Anesthesia Evaluation PreOp ---
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 06/07/18 [Rx] Sucralfate [Carafate] 1 gm PO QIDAC #120 tablet 06/07/18 [Rx] 3 Allergy/AdvReac Type Severity Reaction Status Date / Time ibuprofen Allergy Unknown Abdominal Verified 06/05/18 19:05 Pain - Meds/Allergy Pre-op Review Medications Reviewed: Yes Allergies Reviewed: Yes Beta Blockers on Current Med List: No Anesthesia Results - Labs 06/13/18 12:00 06/13/18 04:07 Laboratory Last Values WBC 16.8 K/mcL (4.3-11.1) H 06/13/18 04:07 RBC 4.00 M/mcL (4.19-5.50) L 06/13/18 04:07 Hgb 11.6 g/dL (12.9-16.9) L 06/13/18 04:07 Hct 36.0 % (37.5-50.1) L 06/13/18 04:07 MCV 90.0 fL (83.0-100.0) 06/13/18 04:07 MCH 29.0 pg (28.0-33.3) 06/13/18 04:07 MCHC 32.2 g/dL (31.6-35.5) 06/13/18 04:07 RDW 14.0 % (11.5-14.5) 06/13/18 04:07 Plt Count 375 K/mcL (140-400) 06/13/18 04:07 MPV 10.1 fL (9.4-12.4) 06/13/18 04:07 Immature Gran % 1.0 % (0-4) 06/13/18 04:07 Seg Neutrophils % 70.4 % 06/13/18 04:07 Lymphocytes % 14.3 % 06/13/18 04:07 Monocytes % 8.4 % 06/13/18 04:07 Eosinophils % 5.5 % 06/13/18 04:07 Basophils % 0.4 % 06/13/18 04:07 Neutrophils # 11.8 K/mcL (1.6-8.9) H 06/13/18 04:07 Lymphocytes # 2.4 K/mcL (0.6-4.6) 06/13/18 04:07 Monocytes # 1.4 K/mcL (0.0-1.3) H 06/13/18 04:07 Eosinophils # 0.9 K/mcL (0.0-0.6) H 06/13/18 04:07 Basophils # 0.1 K/mcL (0.0-0.2) 06/13/18 04:07 PT 11.3 Seconds (9.4-12.1) 06/13/18 04:07 INR 1.0 06/13/18 04:07 Sodium 139 mEq/L (136-145) 06/13/18 04:07 Potassium 4.3 mEq/L (3.5-5.1) 06/13/18 04:07 Chloride 110 mEq/L (98-107) H 06/13/18 04:07 Carbon Dioxide 21 mEq/L (23-29) L 06/13/18 04:07 BUN 23 mg/dL (6-20) H 06/13/18 04:07 Creatinine 1.38 mg/dL (0.70-1.30) H 06/13/18 04:07 Est GFR ( Amer) > 60 (> 60) 06/13/18 04:07 Est GFR (Non-Af Amer) 57 (> 60) L 06/13/18 04:07 BUN/Creatinine Ratio 17 (6-26) 06/13/18 04:07 Glucose 76 mg/dL (70-105) 06/13/18 04:07 POC Glucose 149 mg/dL (70-99) H 06/13/18 06:42 Calculated Osmolality 290 (280-300) 06/13/18 04:07 Calcium 9.1 mg/dL (8.6-10.3) 06/13/18 04:07 Magnesium 2.2 mg/dL (1.6-2.6) 06/13/18 04:07 Total Bilirubin 0.3 mg/dL (0.3-1.0) 06/13/18 04:07 Direct Bilirubin 0.1 mg/dL (0.0-0.2) 06/13/18 04:07 Indirect Bilirubin 0.2 mg/dL (0.0-1.2) 06/13/18 04:07 AST 9 Units/L (13-39) L 06/13/18 04:07 ALT 9 Units/L (7-52) 06/13/18 04:07 Alkaline Phosphatase 49 Units/L (34-104) 06/13/18 04:07 Serum Total Protein 6.9 g/dL (6.4-8.9) 06/13/18 04:07 Albumin 4.0 g/dL (3.5-5.7) 06/13/18 04:07 Globulin 2.9 g/dL (2.4-3.5) 06/13/18 04:07 Albumin/Globulin Ratio 1.4 (1.1-2.2) 06/13/18 04:07 Blood Type O POSITIVE 06/12/18 18:50 Antibody Screen NEGATIVE 06/12/18 18:50 Anesthesia Exam Vital Signs/O2 Sat, Most Current Temp Pulse Resp BP Pulse Ox 98.3 F 90 15 111/75 98 06/13/18 09:54 06/13/18 09:54 06/13/18 09:54 06/13/18 09:54 06/13/18 09:54 Height: 1.83 m Weight: 83 kg - BMI 25 NPO (# of Hours): 8 - HEENT Mallampati: I Teeth: Poor dentition Oral Opening: Greater than 3 - Cardiac Rhythm: Regular - Pulmonary Breath Sounds: bilateral Clear Respiratory Effort: Symmetrical - Additional Findings Active Medications Lactated Ringer's (Lactated Ringers) 1,000 mls @ 100 mls/hr IVC .Q10H JOSÉ MIGUEL Stop: 06/13/18 16:14 Last Admin: 06/12/18 21:15 Dose: 100 mls/hr Pantoprazole Sodium 40 mg/ (Sodium Chloride) 100 mls @ 20 mls/hr IVC .Q5H JOSÉ MIGUEL Stop: 12/12/18 20:16 Last Admin: 06/13/18 06:10 Dose: 20 mls/hr Naloxone HCl (Narcan) 0.4 mg IVP Q2MIN PRN PRN Reason: SEE COMMENTS Stop: 12/12/18 20:07 Ondansetron HCl (Zofran) 4 mg IVP Q8HR PRN PRN Reason: Nausea And Vomiting Stop: 12/12/18 20:07 Oxycodone HCl (Oxycodone Oral Conc) 5 mg SL Q4H PRN; Protocol PRN Reason: mild to moderate pain Stop: 12/12/18 20:59 Oxycodone HCl (Oxycodone Oral Conc) 10 mg SL Q4H PRN; Protocol PRN Reason: Severe Pain Stop: 12/12/18 20:59 Last Admin: 06/13/18 06:19 Dose: 10 mg Anesthesia Assess/Plan ASA Score: 3 Anesthetic Plan: MAC Monitoring Plan: Standard Monitors Recovery Plan: Other
[2018-06-13] MEDS ORDERED: Pantoprazole 40 MG VIAL ONE (11:01)
[2018-06-13] MEDS ORDERED: Lidocaine -MPF 2% 2 ML VIAL ONE (11:51)
[2018-06-13] MEDS ORDERED: *HR* Propofol 200 MG/20 ML VIAL IVP ONE ×2 (11:52→12:03)
--- NOTE | 2018-06-13 12:29 | Internal Med Progress Note ---
Hospitalist Progress Note - Encounter Date of Encounter: 06/13/18 Time of Encounter: 12:26 - Subjective Interval History: Pt reports dark stools. He denies fever, chills, N/V or diarrhea. Denies CP or SOB - Exam Vitals: Temp Pulse Resp BP Pulse Ox 98.3 F 90 15 111/75 98 06/13/18 09:54 06/13/18 09:54 06/13/18 09:54 06/13/18 09:54 06/13/18 09:54 Exam: Gen: Vitals noted. No acute distress. Relatively unkempt HEENT: Normocephalic, atraumatic. Poor dentition Neck: Supple. No adenopathy. Cardiac: RRR, no murmur, +S1/S2 Pulmonary: CTA bilaterally, no wheezes, rales or rhonchi, equal chest expansion Abdomen: soft, mild tenderness to palpation, no guarding. Vertical midline scar noted from prior open surgery Back: Nontender throughout. MSK: ROM intact, no joint swelling noted Extremities: no BLE edema, nontender calf, no cyanosis or clubbing Neuro: moves all extremities, no focal deficits. A&Ox3 Psych: Appropriate mood and behavior - Assessment and Plan (1) GI bleed Current Visit: Yes Status: Suspected Assessment and Plan: Suspected GI bleed, source duodenal ulcer Patient was admitted approximately one week ago with known duodenal ulcer on EGD Long history of epigastric ulcer disease and duodenal ulcers He was discharged on PPI and Carafate, however continues to have worsening symptoms Reports melena over the past 24 hours On clear liquids and nothing by mouth after midnight 06/13/2018 On IV Protonix drip overnight GI planing EGD 06/13/2018 (2) Duodenal ulcer Current Visit: Yes Status: Acute Assessment and Plan: Recent admission for this and at that times was discharged on PPI and carafate. (3) Abdominal pain Current Visit: Yes Status: Acute Assessment and Plan: Abdominal pain, likely secondary to gastritis versus duodenal ulcer Patient was admitted one week ago with EGD that demonstrated duodenal ulcer and some gastric erythema CT abdomen and pelvis on 06/05/18 did demonstrate gastric wall thickening suggestive of gastritis Continue with PPI drip, monitor with serial abdominal exams GI consulted to see and planing on repeating EGD 06/13/2018 (4) YADIRA (acute kidney injury) Current Visit: Yes Status: Acute Assessment and Plan: cr down from 1.50 to 1.38. Will continue with IVF and check BMP in am. (5) Pre-syncope Current Visit: Yes Status: Acute Assessment and Plan: Pre-syncope at work, likely secondary to dehydration Patient presented with poor oral intake secondary to abdominal pain continue with IV hydration, monitor vitals DVT Prophylaxis: SCD - Summary of Assessment and Plan Summary of Assessment and Plan: Mr. House is a 43 year old male with history of gastric and duodenal ulcers, multiple psychiatric complaints and recent admission for GI bleed who presents to the ED for continued right upper quadrant abdominal pain. The patient was recently discharged from [facility] approximately 1 week ago at which time he was being worked up for upper quadrant abdominal pain with melena. He did have EGD which demonstrated gastric ulcer at that time, and he was discharged on Carafate and PPI. He states that he has not with ulcers for a significant amount time, since he was a teenager. According to the patient, he never truly recovered following this hospitalization. He continues to have significant pain that is 8 out of 10 in intensity, resides primarily in the right upper quadrant and is non-radiating. Nothing seems to help the pain too much other than sometimes a little bit of milk, however eating makes the pain significantly worse and he feels that he is unable to eat as result. The pain is otherwise constant, and it has actually even woken him from sleep. In addition of this, the patient says that today he started to have dark/coffee ground-appearing bowel movements which were initially liquid in nature but then became dry and pasty. Last night at work, the patient says that he began to feel faint and dizzy and had to leave early as result. He felt that he may pass out at that time. He returned to the emergency room because he was concerned that he may be experiencing worsening of this potential GI bleed and felt that he should be checked out again. In the emergency room, the patient received labs which demonstrated significantly elevated WBC at 19.4, however relatively stable hemoglobin at 12.6. He did demonstrate acute kidney injury with a BUN/creatinine 30 and serum creatinine 1.58. On arrival the patient was tachycardic with heart rate of 118 initially. GI was consulted from the ED and recommended admission for observation. 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 He denies smoking, denies recent alcohol use for several years, denies illicit drug use. He does admit to drinking approximately 2 sodas per day. Surgical history: Several endoscopies with one perforation which required open repair, multiple hernia repairs - Time Spent with Patient Total time spent is greater than 50% in coordination of care (as documented) at patient's floor/unit and/or counseling patient: Plan of Care Discussed with: patient Internal Medicine: Result - Labs CBC & Chem 7: 06/13/18 04:07 06/13/18 04:07 Labs: Short CBC 06/12/18 06/13/18 Range/Units 20:34 04:07 WBC 15.4 H 16.8 H (4.3-11.1) K/mcL Hgb 11.7 L 11.6 L (12.9-16.9) g/dL Hct 36.6 L 36.0 L (37.5-50.1) % Plt Count 406 H 375 (140-400) K/mcL Neutrophils # 10.5 H 11.8 H (1.6-8.9) K/mcL BMP 06/13/18 04:07 Sodium 139 Potassium 4.3 Chloride 110 H Carbon Dioxide 21 L BUN 23 H Creatinine 1.38 H Glucose 76 Calcium 9.1 Liver Function 06/13/18 06/13/18 Range/Units 04:07 04:07 Total Bilirubin 0.3 0.3 (0.3-1.0) mg/dL Direct Bilirubin 0.1 (0.0-0.2) mg/dL AST 9 L 8 L (13-39) Units/L ALT 9 8 (7-52) Units/L Alkaline Phosphatase 49 51 (34-104) Units/L Albumin 4.0 4.1 (3.5-5.7) g/dL - ABG Interpretation ABG results: PT/INR, D-dimer PT 11.3 Seconds (9.4-12.1) 06/13/18 04:07 Consult Discharge Plan - Plan Referrals: Faby Avila, ENRICHMENT SPECIALIST [Primary Care Provider] - (1) GI bleed Qualifiers: GI bleed type/associated pathology: duodenal ulcer Qualified Code(s): K26.4 - Chronic or unspecified duodenal ulcer with hemorrhage (3) Abdominal pain Qualifiers: Abdominal location: right upper quadrant Qualified Code(s): R10.11 - Right upper quadrant pain
[2018-06-13 12:37] LABS: Basophils # 0.1 K/mcL (0.0-0.2); Basophils % 0.5 %; Eosinophils # 0.8 K/mcL (0.0-0.6); Eosinophils % 5.1 %; Hematocrit 34.6 % (37.5-50.1); Hemoglobin 11.2 g/dL (12.9-16.9); Immature Granulocytes % 0.5 % (0-4); Lymphocytes # 2.4 K/mcL (0.6-4.6); Lymphocytes % 15.5 %; Mean Corpuscular HGB Conc 32.4 g/dL (31.6-35.5); Mean Corpuscular Hemoglobin 29.1 pg (28.0-33.3); Mean Corpuscular Volume 89.9 fL (83.0-100.0); Mean Platelet Volume 10.1 fL (9.4-12.4); Monocytes # 1.4 K/mcL (0.0-1.3); Neutrophils # 10.7 K/mcL (1.6-8.9); Platelet Count 367 K/mcL (140-400); Red Blood Count 3.85 M/mcL (4.19-5.50); Red Cell Distribution Width 14.4 % (11.5-14.5); Segmented Neutrophils % 69.4 %
[2018-06-13] MEDS: Sucralfate 1 GM TABLET PO SCH ×3 (13:39→22:02)
[2018-06-13] MEDS: Ringers Solution, Lactated 1,000 ML IVC SCH (14:28)
[2018-06-14 01:56] LABS: BUN/Creatinine Ratio 14 (6-26); Blood Urea Nitrogen 15 mg/dL (6-20); Calcium 8.9 mg/dL (8.6-10.3); Carbon Dioxide 22 mEq/L (23-29); Chloride 107 mEq/L (98-107); Glucose 93 mg/dL (70-105); Osmolality,Calculated 285 (280-300); Potassium 4.2 mEq/L (3.5-5.1); Sodium 137 mEq/L (136-145); eGFR For Non-African Americans > 60 (> 60)
[2018-06-14] MEDS: Pantoprazole 40 MG in 0.9 % Sodium Chloride Mini Bag 100 ML IVC SCH ×5 (03:12→23:52)
[2018-06-14] MEDS: OXYCODONE Oral CONC 10 MG/0.5 ML ORAL.SYG SL PRN ×5 (03:32→22:21)
[2018-06-14] MEDS: Sucralfate 1 GM TABLET PO SCH ×4 (08:09→22:22)
--- NOTE | 2018-06-14 09:20 | Gastroenterology Progress Note ---
<Lachelle Pineda - Last Filed: 06/14/18 09:18> Date of Encounter: 06/14/18 Time of Encounter: 09:00 - Assessment and plan (1) Abdominal pain Current Visit: Yes Status: Acute Assessment and plan: Continues to complain of RUQ pain. EGD showed gastric and duodenal ulcers. Continue protonix drip for at least 24 more hours, dc home on omeprazole 40 mg bid and carafate tid. Discussed with pt and he verbalizes understanding. Qualifiers: Abdominal location: right upper quadrant Qualified Code(s): R10.11 - Right upper quadrant pain (2) Gastric ulcer Current Visit: Yes Status: Acute (3) Duodenal ulcer Current Visit: Yes Status: Acute - Time Spent With Patient Total time spent is greater than 50% in coordination of care (as documented) at patient's floor/unit and/or counseling patient: - Subjective Interval history: Pt is status post EGD. He has continued complaints of RUQ pain. He is tolerating clear liquids without nausea or vomiting. - Constitutional Vitals: Temp Pulse Resp BP Pulse Ox 98.2 F 76 16 130/82 99 06/14/18 07:26 06/14/18 07:26 06/14/18 07:26 06/14/18 07:26 06/14/18 07:26 Exam: CONSTITUTIONAL:~alert, no acute distress.~HEAD:~normocephalic.~EYES:~no jaundice.~NECK:~no obvious swelling.~HEART:~regular rate and rhythm, no murmurs. ~LUNGS:~bilateral good air entry.~ABDOMEN:~non distended, soft, tender epigastric and RUQ, no masses pulpable, no organomegaly.~RECTAL EXAM:~Deferred.~ EXTREMITIES:~no clubbing, cyanosis or edema.~SKIN:~no stigmata of chronic liver disease.~NEUROLOGIC:~no obvious focal defect.~~~~ Results - Labs CBC & Chem 7: 06/13/18 12:00 06/14/18 01:14 Labs: Last Result Calcium 8.9 mg/dL (8.6-10.3) 06/14/18 01:14 Entire Visit Hgb 11.2 g/dL (12.9-16.9) L 06/13/18 12:00 Hct 34.6 % (37.5-50.1) L 06/13/18 12:00 PT 11.3 Seconds (9.4-12.1) 06/13/18 04:07 Total Bilirubin 0.3 mg/dL (0.3-1.0) 06/13/18 04:07 AST 9 Units/L (13-39) L 06/13/18 04:07 ALT 9 Units/L (7-52) 06/13/18 04:07 - ABG ABG results: PT/INR, D-dimer PT 11.3 Seconds (9.4-12.1) 06/13/18 04:07 Consult Discharge Plan - Plan Referrals: Faby Avila, BARREL LOADER AND CLEANER [Primary Care Provider] - <Do Wasserman - Last Filed: 06/14/18 15:05> Date of Encounter: 06/14/18 Time of Encounter: 14:55 - Time Spent With Patient Total time spent is greater than 50% in coordination of care (as documented) at patient's floor/unit and/or counseling patient: - Constitutional Vitals: Temp Pulse Resp BP Pulse Ox 98.8 F 97 14 135/90 98 06/14/18 14:32 06/14/18 14:32 06/14/18 14:32 06/14/18 14:32 06/14/18 14:32 Results - Labs CBC & Chem 7: 06/13/18 12:00 06/14/18 01:14 Labs: Last Result Calcium 8.9 mg/dL (8.6-10.3) 06/14/18 01:14 Entire Visit Hgb 11.2 g/dL (12.9-16.9) L 06/13/18 12:00 Hct 34.6 % (37.5-50.1) L 06/13/18 12:00 PT 11.3 Seconds (9.4-12.1) 06/13/18 04:07 Total Bilirubin 0.3 mg/dL (0.3-1.0) 06/13/18 04:07 AST 9 Units/L (13-39) L 06/13/18 04:07 ALT 9 Units/L (7-52) 06/13/18 04:07 - ABG ABG results: PT/INR, D-dimer PT 11.3 Seconds (9.4-12.1) 06/13/18 04:07 - Attending Attestation I have personally performed a face to face evaluation on this patient. I have reviewed and agree with the care plan. History and Exam by me shows: Patient seen still complaining of right-sided abdominal pain. A: Patient with peptic ulcer disease and multiple ulcers in the prepyloric and the duodenal wall. Recommendation: Twice a day PPI omeprazole 40 mg twice a day of discharge along with Carafate 1 g 3 times a day tablets. No NSAIDs no alcohol no spicy food.
--- NOTE | 2018-06-14 14:51 | Internal Med Progress Note ---
Hospitalist Progress Note - Encounter Date of Encounter: 06/14/18 Time of Encounter: 14:47 - Subjective Interval History: Pt states no BM since his admission and reports feeling constipated. He denies fever, chills, N/V or diarrhea. Denies CP or SOB - Exam Vitals: Temp Pulse Resp BP Pulse Ox 98.8 F 97 14 135/90 98 06/14/18 14:32 06/14/18 14:32 06/14/18 14:32 06/14/18 14:32 06/14/18 14:32 Exam: Gen: Vitals noted. No acute distress. Relatively unkempt HEENT: Normocephalic, atraumatic. Poor dentition Neck: Supple. No adenopathy. Cardiac: RRR, no murmur, +S1/S2 Pulmonary: CTA bilaterally, no wheezes, rales or rhonchi, equal chest expansion Abdomen: soft, mild tenderness to palpation, no guarding. Vertical midline scar noted from prior open surgery Back: Non-tender throughout. MSK: ROM intact, no joint swelling noted Extremities: no BLE edema, non-tender calf, no cyanosis or clubbing Neuro: moves all extremities, no focal deficits. A&Ox3 Psych: Appropriate mood and behavior - Assessment and Plan (1) GI bleed Current Visit: Yes Status: Suspected Assessment and Plan: Seen by GI and s/p EGD which showed gastric ulcer and duodenal ulcers. Per GI, ulcers where non-bleeding. Patient was admitted approximately one week ago with known duodenal ulcer on EGD Long history of epigastric ulcer disease and duodenal ulcers He was discharged on PPI and Carafate, however did not fill carafate due to cost. Coupon has been given for Sulcrafate at [facility] which should help alleviate pt' s symptoms. On clear liquids and advance as tolerated. On IV Protonix drip overnight per GI then poss DC 06/15/2018 with PPI and carafate (2) Duodenal ulcer Current Visit: Yes Status: Acute Assessment and Plan: Recent admission for this and at that times was discharged on PPI and carafate, however did not fill carafate due to cost. Coupon has been given for Sulcrafate at [facility] which should help alleviate pt' s symptoms. (3) Abdominal pain Current Visit: Yes Status: Acute Assessment and Plan: Abdominal pain, likely secondary to gastritis versus duodenal ulcer Patient was admitted one week ago with EGD that demonstrated duodenal ulcer and some gastric erythema GI consulting and s/p EGD, see above. Continue with PPI drip. CT abd/pelvis CT/CT abd pelvis wo no iv no oral IMPRESSION: 1. Diffuse thickening of the wall of the stomach. This may be exaggerated by its collapsed state but gastritis could give this appearance. No focal mass lesions identified. 2. Normal appearing gallbladder 3. No obstructive uropathy 4. Colonic diverticulosis without evidence for diverticulitis 5. Normal appearing appendix (4) YADIRA (acute kidney injury) Current Visit: Yes Status: Acute Assessment and Plan: Resolved. Cr down from 1.50 to 1.38 to 1.11. Will DC IVF and encourage PO intake (5) Pre-syncope Current Visit: Yes Status: Acute Assessment and Plan: Pre-syncope likely secondary to dehydration Patient presented with poor oral intake secondary to abdominal pain responded to IV hydration, continue to monitor vitals DVT Prophylaxis: SCD - Summary of Assessment and Plan Summary of Assessment and Plan: Mr. House is a 43 year old male with history of gastric and duodenal ulcers, multiple psychiatric complaints and recent admission for GI bleed who presents to the ED for continued right upper quadrant abdominal pain. The patient was recently discharged from [facility] approximately 1 week ago at which time he was being worked up for upper quadrant abdominal pain with melena. He did have EGD which demonstrated gastric ulcer at that time, and he was discharged on Carafate and PPI. He states that he has not with ulcers for a significant amount time, since he was a teenager. According to the patient, he never truly recovered following this hospitalization. He continues to have significant pain that is 8 out of 10 in intensity, resides primarily in the right upper quadrant and is non-radiating. Nothing seems to help the pain too much other than sometimes a little bit of milk, however eating makes the pain significantly worse and he feels that he is unable to eat as result. The pain is otherwise constant, and it has actually even woken him from sleep. In addition of this, the patient says that today he started to have dark/coffee ground-appearing bowel movements which were initially liquid in nature but then became dry and pasty. Last night at work, the patient says that he began to feel faint and dizzy and had to leave early as result. He felt that he may pass out at that time. He returned to the emergency room because he was concerned that he may be experiencing worsening of this potential GI bleed and felt that he should be checked out again. In the emergency room, the patient received labs which demonstrated significantly elevated WBC at 19.4, however relatively stable hemoglobin at 12.6. He did demonstrate acute kidney injury with a BUN/creatinine 30 and serum creatinine 1.58. On arrival the patient was tachycardic with heart rate of 118 initially. GI was consulted from the ED and recommended admission for observation. 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 He does admit to drinking approximately 2 sodas per day. Surgical history: Several endoscopies with one perforation which required open repair, multiple hernia repairs - Time Spent with Patient Total time spent is greater than 50% in coordination of care (as documented) at patient's floor/unit and/or counseling patient: less than 15 minutes Plan of Care Discussed with: patient Internal Medicine: Result - Labs CBC & Chem 7: 06/13/18 12:00 06/14/18 01:14 Labs: BMP 06/14/18 01:14 Sodium 137 Potassium 4.2 Chloride 107 Carbon Dioxide 22 L BUN 15 Creatinine 1.11 Glucose 93 Calcium 8.9 - ABG Interpretation ABG results: PT/INR, D-dimer PT 11.3 Seconds (9.4-12.1) 06/13/18 04:07 Consult Discharge Plan - Plan Referrals: Faby Avila, ACCESS NURSE [Primary Care Provider] - (1) GI bleed Qualifiers: GI bleed type/associated pathology: duodenal ulcer Qualified Code(s): K26.4 - Chronic or unspecified duodenal ulcer with hemorrhage (3) Abdominal pain Qualifiers: Abdominal location: right upper quadrant Qualified Code(s): R10.11 - Right upper quadrant pain
[2018-06-14 23:48] LABS: Bilirubin,Urine Negative (Negative); Blood,Urine Negative (Negative); Clarity,Urine Clear (Clear); Color,Urine Yellow (Yellow); Glucose,Urine (UA) Normal (Normal); Ketones,Urine Negative (Negative); Leukocyte Esterase,Urine Negative (Negative); Nitrite,Urine Negative (Negative); Protein,Urine Negative (Neg-Trace); Specific Gravity,Urine 1.015 (1.010-1.025); Urobilinogen,Urine Normal (Normal)
[2018-06-15] MEDS: Pantoprazole 40 MG in 0.9 % Sodium Chloride Mini Bag 100 ML IVC SCH ×2 (04:06→09:03)
[2018-06-15] MEDS: OXYCODONE Oral CONC 10 MG/0.5 ML ORAL.SYG SL PRN ×3 (04:06→15:08)
[2018-06-15] MEDS: Sucralfate 1 GM TABLET PO SCH ×2 (08:14→11:58)
[2018-06-15] MEDS ORDERED: MOM Conc 10 ML UD.LIQ PO ONE (09:40)
[2018-06-15 10:36] VITALS: BP 113/74
--- NOTE | 2018-06-15 12:52 | Discharge Summary ---
- NOTES TO OUTPATIENT PROVIDER Notes to Outpatient Provider: PCP in 5 to 7 days Orders not resulted at time of discharge: Pending orders 06/12/18 21:01 Occult Blood,Stool [BF] Routine 06/14/18 01:14 Gastrin AM 0400 Date of Encounter: 06/15/18 Time of Encounter: 12:50 - Discharge Diagnosis (1) GI bleed Priority: Primary Status: Suspected Assessment and Plan: Seen by GI and s/p EGD which showed gastric ulcer and duodenal ulcers. Per GI, ulcers where non-bleeding. Patient was admitted approximately one week ago with known duodenal ulcer on EGD Long history of epigastric ulcer disease and duodenal ulcers He was discharged on PPI and Carafate, however did not fill carafate due to cost. Coupon has been given for Sulcrafate at [facility] which should help alleviate pt' s symptoms. On clear liquids and advance as tolerated. On IV Protonix drip overnight per GI then poss DC 06/15/2018 with Omeprazole 20 mg PO BID and carafate 1gm TID Qualifiers: GI bleed type/associated pathology: duodenal ulcer Qualified Code(s): K26.4 - Chronic or unspecified duodenal ulcer with hemorrhage (2) Duodenal ulcer Priority: Primary Status: Acute Assessment and Plan: Recent admission for this and at that times was discharged on PPI and carafate, however did not fill carafate due to cost. Coupon has been given for Sulcrafate at [facility] which should help alleviate pt' s symptoms. (3) Abdominal pain Priority: Primary Status: Acute Assessment and Plan: Resolved. Abdominal pain, likely secondary to gastritis versus duodenal ulcer Patient was admitted one week ago with EGD that demonstrated duodenal ulcer and some gastric erythema GI consulting and s/p EGD, see above. Continue with PPI drip. CT abd/pelvis CT/CT abd pelvis wo no iv no oral IMPRESSION: 1. Diffuse thickening of the wall of the stomach. This may be exaggerated by its collapsed state but gastritis could give this appearance. No focal mass lesions identified. 2. Normal appearing gallbladder 3. No obstructive uropathy 4. Colonic diverticulosis without evidence for diverticulitis 5. Normal appearing appendix Qualifiers: Abdominal location: right upper quadrant Qualified Code(s): R10.11 - Right upper quadrant pain (4) YADIRA (acute kidney injury) Priority: Secondary Status: Acute Assessment and Plan: Resolved. Cr down from 1.50 to 1.38 to 1.11. Will DC IVF and encourage PO intake (5) Pre-syncope Priority: Secondary Status: Acute Assessment and Plan: Pre-syncope likely secondary to dehydration Patient presented with poor oral intake secondary to abdominal pain responded to IV hydration, continue to monitor vitals Hospital course: History of presenting illness. Mr. House is a 43 year old male with history of gastric and duodenal ulcers, multiple psychiatric complaints and recent admission for GI bleed who presents to the ED for continued right upper quadrant abdominal pain. The patient was recently discharged from [facility] approximately 1 week ago at which time he was being worked up for upper quadrant abdominal pain with melena. He did have EGD which demonstrated gastric ulcer at that time, and he was discharged on Carafate and PPI. He states that he has not with ulcers for a significant amount time, since he was a teenager. According to the patient, he never truly recovered following this hospitalization. He continues to have significant pain that is 8 out of 10 in intensity, resides primarily in the right upper quadrant and is non-radiating. Nothing seems to help the pain too much other than sometimes a little bit of milk, however eating makes the pain significantly worse and he feels that he is unable to eat as result. The pain is otherwise constant, and it has actually even woken him from sleep. In addition of this, the patient says that today he started to have dark/coffee ground-appearing bowel movements which were initially liquid in nature but then became dry and pasty. Last night at work, the patient says that he began to feel faint and dizzy and had to leave early as result. He felt that he may pass out at that time. He returned to the emergency room because he was concerned that he may be experiencing worsening of this potential GI bleed and felt that he should be checked out again. In the emergency room, the patient received labs which demonstrated significantly elevated WBC at 19.4, however relatively stable hemoglobin at 12.6. He did demonstrate acute kidney injury with a BUN/creatinine 30 and serum creatinine 1.58. On arrival the patient was tachycardic with heart rate of 118 initially. GI was consulted from the ED and recommended admission for observation. 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 He denies smoking, denies recent alcohol use for several years, denies illicit drug use. He does admit to drinking approximately 2 sodas per day. Surgical history: Several endoscopies with one perforation which required open repair, multiple hernia repairs. See Assessment and plan for hospital course Discharge discussed with: patient - Time Spent with Patient Total time spent providing and/or coordinating discharge services: Greater than 30 minutes - Discharge Medications Home Medications: Omeprazole [PriLOSEC] 20 mg PO BIDAC #60 capsule. 06/07/18 [Rx] Sucralfate [Carafate] 1 gm PO QIDAC #120 tablet 06/15/18 [Rx] Allergies/Adverse Reactions: 3 Allergy/AdvReac Type Severity Reaction Status Date / Time ibuprofen Allergy Unknown Abdominal Verified 06/05/18 19:05 Pain Date of admission: 06/12/18 19:44 Primary care physician: Faby Avila CNP Consults: 06/12/18 20:09 Consult to Gastroenterology [CONS] Routine Consulting Provider: Gastroenterology June Reason for Consult: Upper GI bleed, consulted from ED Call Completed: Yes Discharging clinician: Cathryn Jack Anticipated date of discharge: 06/15/18 - Constitutional Vitals: Temp Pulse Resp BP Pulse Ox 98.5 F 85 16 113/74 96 06/15/18 10:34 06/15/18 10:34 06/15/18 10:34 06/15/18 10:34 06/15/18 10:34 Exam: Gen: Vitals noted. No acute distress. Relatively unkempt HEENT: Normocephalic, atraumatic. Poor dentition Neck: Supple. No adenopathy. Cardiac: RRR, no murmur, +S1/S2 Pulmonary: CTA bilaterally, no wheezes, rales or rhonchi, equal chest expansion Abdomen: soft, mild tenderness to palpation, no guarding. Vertical midline scar noted from prior open surgery Back: Non-tender throughout. MSK: ROM intact, no joint swelling noted Extremities: no BLE edema, non-tender calf, no cyanosis or clubbing Neuro: moves all extremities, no focal deficits. A&Ox3 Psych: Appropriate mood and behavior - Patient Status Disposition: Home, Self-Care Condition: Good Overall status at discharge: patient is back to baseline - Discharge Instructions Follow Up With: Faby Avila, PAGINATOR [Primary Care Provider] - - Diet and Activity Activity: increase activity as tolerated Diet: advance to your usual diet, regular diet
== END 2018-06-15 16:00 | disposition home or self-care (01) ==
LOC: EMEROOARM 18:25 → 3ANU 18:25
PROVIDERS: ADMIT Internal Medicine; ATTEND Internal Medicine
PROC: ENDOEBX (2018-06-13 13:00)

== ENCOUNTER 2018-06-19 15:02 | Observation (INO) ==
[2018-06-19] MEDS ORDERED: Metoclopramide 10 MG/2 ML VIAL IVP ONE (15:28)
--- NOTE | 2018-06-19 15:31 | Emergency Department Note ---
Addendum entered and electronically signed by Frank Tejada DO 06/19/18 22:23: I examined this patient and my medical decision-making was reviewed with the Jc hackett Physician. I agree with the documented findings, disposition and treatment plan as described except to the extent set forth below. Findings consistent with terminal illilitis. Can not exclude neoplasm, will admit for colonoscopy and gi consultation to ro colon cancer. Patient has on going abd pain and will need admission for pain control. Original Note: Disposition Clinical Impression: RUQ abdominal pain Disposition: Still a Patient Referrals: Faby Avila CNP [Primary Care Provider] - Forms: ED Satisfaction Letter, Work/School Release Time of Disposition: 19:35 General Adult HPI - General Chief complaint: ED Abdominal Pain Stated complaint: ABD / Back Pain Time Seen by Provider: 06/19/18 15:09 Source: patient Mode of arrival: ambulatory Limitations: no limitations - History of Present Illness HPI Narrative: This is a 43-year-old male with a history of bleeding gastric ulcer who reports vomiting starting yesterday, right upper quadrant pain, and fever and also states that he has been constipated for the last 4 days. He states that he became constipated while he was admitted in the hospital, and believes he received opiates at that time. He has taken no opiates since his admission. He still takes omeprazole and Carafate. Pain Scale: 8 - Related Data Previous Rx's Medication Instructions Recorded Omeprazole [PriLOSEC] 20 mg PO BIDAC #60 capsule. 06/07/18 Sucralfate [Carafate] 1 gm PO QIDAC #120 tablet 06/15/18 Allergies Allergy/AdvReac Type Severity Reaction Status Date / Time ibuprofen Allergy Unknown Abdominal Verified 06/05/18 19:05 Pain All systems ED: reviewed and negative except as stated. Gastrointestinal: Reports: abdominal pain, vomiting, constipation Past Medical History - Past Medical History Medical history: Reports: GERD (with gastric and duodenal ulcers), GI bleed Surgical history: Reports: herniorrhaphy Psychiatric history: Reports: bipolar, schizophrenia, previous psychiatric hospitalization - Social History Smoking Status: Never smoker Smokeless Tobacco Status: No Alcohol use: Reports: none Drug use: Reports: none Physical Exam - General Limitations: no limitations General appearance: alert, in distress (In mild distress) - Head Head exam: atraumatic, normocephalic, normal inspection - Eye Eye exam: Present: normal appearance, PERRL, EOMI. Absent: scleral icterus - Chest Chest inspection: Present: normal inspection, symmetric chest wall rise - Respiratory Respiratory exam: Present: normal lung sounds bilaterally - Cardiovascular Cardiovascular exam: Present: regular rate, normal rhythm, normal heart sounds - Abdominal Exam Abdominal exam: Present: soft, tenderness. Absent: distention, guarding, rebound, rigidity Abdominal tenderness: Present: RUQ, mild. Absent: RLQ, LUQ, LLQ - Extremities Exam Extremities exam: Present: normal inspection, full ROM. Absent: tenderness, pedal edema - Back Exam Back exam: Present: tenderness (There is bilateral paralumbar tenderness). A bsent: CVA tenderness (R), CVA tenderness (L) - Neurological Exam Neurological exam: Present: alert, oriented X3, CN II-XII intact - Psychiatric Psychiatric exam: Present: normal affect, normal mood - Skin Skin exam: Present: warm, dry, intact, normal color Course Course Narrative: This is a 43-year-old male with nausea and vomiting along with constipation. The nausea and vomiting is associated with right upper quadrant pain and I am co ncerned about cholecystitis. Constipation may well be associated with opiates. Vital Signs Temperature 98.9 F 06/19/18 15:05 Pulse Rate 99 06/19/18 15:05 Respiratory Rate 18 06/19/18 15:05 Blood Pressure 185/112 06/19/18 15:05 O2 Sat by Pulse Oximetry 97 06/19/18 15:05 Temperature 98.9 F 06/19/18 15:30 Pulse Rate 84 06/19/18 16:50 Respiratory Rate 16 06/19/18 16:50 Blood Pressure 134/96 06/19/18 16:50 O2 Sat by Pulse Oximetry 100 06/19/18 16:50 Oxygen Delivery Oxygen Delivery Room Air Medical Decision Making - MDM Narrative Medical decision making narrative: 43 y/o M with RUQ pain and tenderness, concern for cholecystitis Signed out to Dr Tejada before US results were available - Lab Data Lab results reviewed: Yes I reviewed the patient's lab results. Lab results narrative: CBC shows leukocytosis at 14.8, anemia at 12.0 36.8, thrombocytosis of 543 BMP was unremarkable LFT was unremarkable Lipase was low Result diagrams: 06/19/18 15:40 06/19/18 15:40 Lab Results 06/19/18 06/19/18 Range/Units 15:40 15:40 WBC 14.8 H (4.3-11.1) K/mcL RBC 4.24 (4.19-5.50) M/mcL Hgb 12.0 L (12.9-16.9) g/dL Hct 36.8 L (37.5-50.1) % MCV 86.8 (83.0-100.0) fL MCH 28.3 (28.0-33.3) pg MCHC 32.6 (31.6-35.5) g/dL RDW 13.0 (11.5-14.5) % Plt Count 543 H (140-400) K/mcL MPV 9.6 (9.4-12.4) fL Immature Gran % 2.8 (0-4) % Seg Neutrophils % 57.8 % Lymphocytes % 22.1 % Monocytes % 7.6 % Eosinophils % 8.5 % Basophils % 1.2 % Neutrophils # 8.6 (1.6-8.9) K/mcL Lymphocytes # 3.3 (0.6-4.6) K/mcL Monocytes # 1.1 (0.0-1.3) K/mcL Eosinophils # 1.3 H (0.0-0.6) K/mcL Basophils # 0.2 (0.0-0.2) K/mcL Sodium 138 (136-145) mEq/L Potassium 4.0 (3.5-5.1) mEq/L Chloride 104 (98-107) mEq/L Carbon Dioxide 25 (23-29) mEq/L BUN 17 (6-20) mg/dL Creatinine 1.11 (0.70-1.30) mg/dL Est GFR ( Amer) > 60 (> 60) Est GFR (Non-Af Amer) > 60 (> 60) BUN/Creatinine Ratio 15 (6-26) Glucose 124 H (70-105) mg/dL Calculated Osmolality 289 (280-300) Calcium 10.0 (8.6-10.3) mg/dL Total Bilirubin 0.2 L (0.3-1.0) mg/dL Direct Bilirubin 0.1 (0.0-0.2) mg/dL Indirect Bilirubin 0.1 (0.0-1.2) mg/dL AST 34 (13-39) Units/L ALT 36 (7-52) Units/L Alkaline Phosphatase 64 (34-104) Units/L Serum Total Protein 7.6 (6.4-8.9) g/dL Albumin 4.2 (3.5-5.7) g/dL Globulin 3.4 (2.4-3.5) g/dL Albumin/Globulin Ratio 1.2 (1.1-2.2) Lipase 74 (11-82) Units/L Critical Care Time Critical Care Time: No
[2018-06-19] MEDS ORDERED: Methylnaltrexone 12 MG/0.6 ML SYRINGE SQ ONE (15:32)
[2018-06-19 15:48] LABS: Basophils # 0.2 K/mcL (0.0-0.2); Basophils % 1.2 %; Eosinophils # 1.3 K/mcL (0.0-0.6); Eosinophils % 8.5 %; Hematocrit 36.8 % (37.5-50.1); Immature Granulocytes % 2.8 % (0-4); Lymphocytes # 3.3 K/mcL (0.6-4.6); Lymphocytes % 22.1 %; Mean Corpuscular HGB Conc 32.6 g/dL (31.6-35.5); Mean Corpuscular Hemoglobin 28.3 pg (28.0-33.3); Mean Corpuscular Volume 86.8 fL (83.0-100.0); Mean Platelet Volume 9.6 fL (9.4-12.4); Monocytes # 1.1 K/mcL (0.0-1.3); Monocytes % 7.6 %; Neutrophils # 8.6 K/mcL (1.6-8.9); Platelet Count 543 K/mcL (140-400); Red Blood Count 4.24 M/mcL (4.19-5.50); Segmented Neutrophils % 57.8 %
[2018-06-19 16:12] LABS: Alanine Aminotransferase 36 Units/L (7-52); Albumin 4.2 g/dL (3.5-5.7); Albumin/Globulin Ratio 1.2 (1.1-2.2); Alkaline Phosphatase 64 Units/L (34-104); Aspartate Amino Transferase 34 Units/L (13-39); BUN/Creatinine Ratio 15 (6-26); Bilirubin,Direct 0.1 mg/dL (0.0-0.2); Bilirubin,Indirect 0.1 mg/dL (0.0-1.2); Bilirubin,Total 0.2 mg/dL (0.3-1.0); Blood Urea Nitrogen 17 mg/dL (6-20); Carbon Dioxide 25 mEq/L (23-29); Chloride 104 mEq/L (98-107); Globulin 3.4 g/dL (2.4-3.5); Glucose 124 mg/dL (70-105); Lipase 74 Units/L (11-82); Osmolality,Calculated 289 (280-300); Sodium 138 mEq/L (136-145); Total Protein 7.6 g/dL (6.4-8.9); eGFR For Non-African Americans > 60 (> 60)
[2018-06-19] MEDS ORDERED: Isovue-370 500 ML INFUS..BTL IV ONE (19:22)
[2018-06-19] MEDS ORDERED: *HR* HYDROmorphone (PF) 1 MG/ML SYRINGE IVP ONE (19:23)
[2018-06-19] MEDS ORDERED: *HR* LORazepam 2 MG/ML VIAL IVP ONE (22:07)
[2018-06-19] MEDS ORDERED: *HR* Promethazine 25 MG/ML VIAL IM ONE (22:07)
[2018-06-19] MEDS: Ringers Solution, Lactated 1,000 ML IVC SCH (22:26)
[2018-06-20] MEDS ORDERED: Naloxone 0.4 MG/ML INJ IVP PRN (07:37)
[2018-06-20] MEDS: *HR* HYDROcodone/Acet 5/325 mg TABLET PO PRN ×3 (08:23→20:21)
--- NOTE | 2018-06-20 09:50 | Gastroenterology Consult Note ---
<Alexx Jamison - Last Filed: 06/20/18 12:47> Date of Encounter: 06/20/18 Time of Encounter: 09:48 - Assessment and plan (1) Ileitis, terminal Status: Acute Assessment and plan: Patient presents with right-sided abdominal pain, constipation and one episode of vomiting. CT of the abdomen and pelvis with contrast revealed thickening of the ileocecal valve and terminal ileum. Differential includes infectious versus inflammatory versus malignancy. Plan for Golytely bowel prep this afternoon and colonoscopy with biopsies tomorrow. If not clear in AM then tap water enemas until clear. Discussed with patient and he is agreeable to proceed. Of note patient was noted to have multiple liver lesions on both CT and right upper quadrant ultrasound. These have been present since at least 2014, likely indicative of hemangioma. Qualifiers: Digestive disease complication type: without complication Qualified Code(s): K50.00 - Crohn's disease of small intestine without complications (2) Peptic ulcer disease Status: Chronic Assessment and plan: History of peptic ulcer disease with multiple EGDs recently. Most recent upper endoscopy on 06/13/18 revealed grade a esophagitis with 3 nonbleeding linear gastric ulcers, largest was 7 mm duodenal ulcers were also noted. No stigmata of recent bleeding was noted. Patient does report 1 episode of hematemesis recently. Hemoglobin stable. Continue omeprazole 20 mg twice a day and Carafate 4 times a day with meals. No indication for repeat upper endoscopy at this time. - Time Spent With Patient Total time spent is greater than 50% in coordination of care (as documented) at patient's floor/unit and/or counseling patient: GI History of Present Illness - Data of Consult Patient: known to practice within the last 3 years Consult date: 06/20/18 Requesting Physician: Bola Sierra MD - Consult Narrative Reason for consult: Abdominal pain/ileitis History of present illness: Mr. House is a 43 year old male with history of peptic ulcer disease, schizophrenia who presents with right-sided abdominal pain. Patient states that the pain is been going on for the last month or so. He describes it as a sharp pain on the right side of his abdomen. He states he has had this pain on and off for the last several years. He states he has been hospitalized twice recently for melanoma and has had upper endoscopy that revealed gastric ulcers. He states he has had ulcers for years and had surgery about a year ago after a duodenal perforation post endoscopy. He reports intermittent subjective fevers and chills. He reports an episode of vomiting recently and noted some bright red blood in the emesis. He reports he has not had a bowel movement in the last 3 days and is normally regular with daily bowel movements. He states his last bowel movement was formed and normal for him, denies loose stools, diarrhea, hematochezia, melena. He denies any oral ulcerations, personal or family history of inflammatory bowel disease. Patient states that he takes omeprazole and Carafate daily. Colonoscopy: Approx 5 years ago EGD: 06/13/2018 Past Med Surg Social Fam HX - Past Medical History Medical history: GERD, GI bleed Additional medical history: gastric and duondenal ulcers Psychiatric history: bipolar, schizophrenia, previous psychiatric hospitalization - Past Surgical History Surgical History: herniorrhaphy Additional surgical history: Exploratory laparotomy with Waleska maneuver the duodenum and a Heineke Mikulicz's pyloroplasty 11/[address] Martinez, EGD 11/2016. EGD 06/16 - Social History Smoking Status: Never smoker Smokeless Tobacco Status: No Alcohol use: none Drug use: none - Family History Mother Adopted: Yes Age: 72 Living Status: Still Living All systems PM: reviewed and no additional remarkable complaints except as stated - Gastrointestinal Gastrointestinal: Present: as per HPI, abdominal pain, constipation, hematemesis, nausea, vomiting. Absent: change in bowel habits, coffee ground emesis, diarrhea, melena - Constitutional Constitutional: no weight gain, no weight loss - Constitutional Vitals: Temp Pulse Resp BP Pulse Ox 98.6 F 82 14 132/91 99 06/20/18 04:55 06/20/18 04:55 06/20/18 04:55 06/20/18 04:55 06/20/18 04:55 General appearance: Present: A&O X 3, pleasant, no acute distress - Head Head exam: Present: atraumatic, normal inspection, normocephalic - ENT ENT exam: Present: mucous membranes moist, normal oropharynx - Neck Neck exam general surgery: Present: full ROM - Respiratory Respiratory exam: Present: CTAB. Absent: rales, rhonchi, wheezes - Cardiovascular Cardiovascular exam: Present: RRR. Absent: gallop, rubs, systolic murmur - GI/Abdominal GI/Abdominal exam: Present: distended (mild), normal bowel sounds, soft, tenderness (RUQ/RLQ), no peritoneal signs. Absent: firm, guarding, rigid - Rectal Rectal exam: Present: deferred - Extremities Exam Extremities exam: Present: warm. Absent: pedal edema, tenderness - Psychiatric Psychiatric exam: Present: flat affect Results - Labs CBC & Chem 7: 06/19/18 15:40 06/19/18 15:40 Labs: Last Result Calcium 10.0 mg/dL (8.6-10.3) 06/19/18 15:40 Entire Visit Hgb 12.0 g/dL (12.9-16.9) L 06/19/18 15:40 Hct 36.8 % (37.5-50.1) L 06/19/18 15:40 Total Bilirubin 0.2 mg/dL (0.3-1.0) L 06/19/18 15:40 AST 34 Units/L (13-39) 06/19/18 15:40 ALT 36 Units/L (7-52) 06/19/18 15:40 Lipase 74 Units/L (11-82) 06/19/18 15:40 - Impressions Impressions Gallbladder Ultrasound 06/19/18 15:27 IMPRESSION: 1. Nonspecific echogenic right and left hepatic lobe lesions typically reflect cavernous hemangiomas in the absence of known malignancy elsewhere. In retrospect, both of these are present on unenhanced CT abdomen (06/14/2015) in keeping with benign findings. 2. Remainder of the ultrasound right upper quadrant appears unremarkable. D/ / Cordell Harrison / Cordell Harrison Interpreting Provider: Cordell Harrison Abdomen/Pelvis CT 06/19/18 20:55 IMPRESSION: 1. Thickening in the region of the terminal ileum and ileocecal bowel. Inflammatory versus neoplastic conditions should be considered. Mild distention of small bowel loops. 2. Two small solid liver lesions which may represent hemangiomas; however, metastatic disease cannot be ruled out. 3. Mild right lower quadrant mesenteric lymphadenopathy. RECOMMENDATIONS: Colonoscopy or contrast study to visualize the ileocecal valve and distal ileum D/ / 06/19/2018 21:47:36 Ignacia Dunbar MD / [email or web address] Interpreting Provider: Ignacia Dunbar MD Consult Discharge Plan - Plan Instructions: Peptic Ulcer (DC), Colonoscopy (DC), Crohn Disease (DC) Additional Instructions: FOLLOW-UP WITH DR. ZHANG -- NEXT WEEK (THEY WILL CALL WITH THE APPT).. Referrals: Faby Avila, [employer] [Primary Care Provider] - 06/27/18 9:00 am Prescriptions: Acetaminophen [Tylenol] 500 mg PO Q6HR #20 tablet <Eliu Zhang - Last Filed: 06/24/18 10:32> - Time Spent With Patient Total time spent is greater than 50% in coordination of care (as documented) at patient's floor/unit and/or counseling patient: GI History of Present Illness - Data of Consult Requesting Physician: Nicolas Dias - Consult Narrative History of present illness: Mr. House is a 43 year old male - Constitutional Vitals: Temp Pulse Resp BP Pulse Ox 97.8 F 69 16 105/67 94 06/22/18 06:39 06/22/18 06:39 06/22/18 06:39 06/22/18 06:39 06/22/18 06:39 Results - Labs CBC & Chem 7: 06/21/18 06:00 06/21/18 06:00 Labs: Last Result Calcium 9.2 mg/dL (8.6-10.3) 06/21/18 06:00 Entire Visit Hgb 10.9 g/dL (12.9-16.9) L 06/21/18 06:00 Hct 33.8 % (37.5-50.1) L 06/21/18 06:00 Total Bilirubin 0.2 mg/dL (0.3-1.0) L 06/19/18 15:40 AST 34 Units/L (13-39) 06/19/18 15:40 ALT 36 Units/L (7-52) 06/19/18 15:40 Lipase 74 Units/L (11-82) 06/19/18 15:40 - Attending Attestation Agree. I have personally performed a face to face evaluation on this patient. I have reviewed and agree with the care plan. History and Exam by me shows:
--- NOTE | 2018-06-20 11:33 | Internal Med History&Physical ---
Date of Encounter: 06/20/18 Time of Encounter: 08:16 Internal Medicine - H&P: HPI Chief complaint: abdominal pain Admitted From: Home Plans for Post Hospital Care: Home History of present illness: Mr. House is a 43 year old male with past medical history of peptic ulcer disease who came in to ER with complaint of abdominal pain for past 2-3 days. Patient has long-standing history of ulcers and recently was discharged after endoscopy which showed gastric and duodenal ulcers. He was discharged on PPI and Carafate. He also had associated nausea vomiting or past 1-2 days. He has decreased appetite but no significant weight loss. He had colonoscopy about 5-6 years ago at [facility] and apparently did not find any abnormal findings. His associated constipation for past 2-3 days. He has associated subjective fevers and chills. Denies any back pain diarrhea or urinary problems or blood in stool. Denies any family history significant for any colon cancer or inflammatory bowel disease. Patient had a CT abdomen in ER and received Dilaudid and Phenergan. CT showed thickening of terminal ileum and ileocecal valve suspicion of inflammatory versus neoplastic condition and to liver lesions and mild right lower quadrant mesenteric adenopathy. Patient had abdominal ultrasound which showed a liver lesion more likely to be hemangiomas in stable on comparison to scan from 2015. On interview patient alert oriented in was acute distress. Corroborated above- mentioned history. Currently nothing by mouth. Vitals stable. Past Med Surg Social Fam HX - Past Medical History Attestation: Yes The following information was validated with the patient. Medical history: GERD, GI bleed Additional medical history: gastric and duondenal ulcers Psychiatric history: bipolar, schizophrenia, previous psychiatric hospitalization - Past Surgical History Surgical History: herniorrhaphy Additional surgical history: Exploratory laparotomy with Ribera maneuver the duodenum and a Heineke Mikulicz's pyloroplasty 11/[address] Martinez, EGD 11/2016. EGD 06/16 - Social History Smoking Status: Never smoker Smokeless Tobacco Status: No Alcohol use: none Drug use: none - Family History Mother Adopted: Yes Age: 72 Living Status: Still Living - Additional Family History Additional family history: No significant family history in mother, father or sibling to his knowledge. Internal Medicine - H&P: Meds Omeprazole [PriLOSEC] 20 mg PO BIDAC #60 capsule. 06/07/18 [Rx] Sucralfate [Carafate] 1 gm PO QIDAC #120 tablet 06/15/18 [Rx] Allergy/AdvReac Type Severity Reaction Status Date / Time ibuprofen Allergy Unknown Abdominal Verified 06/05/18 19:05 Pain All Systems PM: A 10-system review of systems was performed and is negative for pertinent findin gs except as documented above in the HPI. - Constitutional Vitals: Temp Pulse Resp BP Pulse Ox 98.6 F 94 16 146/85 97 06/20/18 10:25 06/20/18 10:25 06/20/18 10:25 06/20/18 10:25 06/20/18 10:25 General appearance: Present: A&O X 3, no acute distress Exam: Constitutional: Vitals as noted. Conversant. No Apparent Distress. Eyes : Sclera white, conjunctiva clear, no lid lag, PEARLA. ENT : Grossly normal hearing. Oropharyngeal exam unremarkable. Moist mucus membranes. No JVD, no cervical lymphadenopathy. no thyromegaly or mass. Respiratory : Clear to auscultation bilaterally. No accessory muscle use, rales, rhonchi or wheezes Cardiovascular : RRR, +S1, +S2. no murmur, gallop, rubs. No chest wall tendern ess GI/Abdominal : Soft, tendernes in RLQ, Non-distended, normal bowel sounds, soft, no peritoneal signs. no orgenomegaly or mass appreciated. no hernia. Musculoskeletal: no deformity noted. no edema or cyanosis. warm extremities, pulses palpable and symmetrical in UE/LE. no calf tenderness. Neurological: AO X3, CN II-XII grossly intact, grossly normal motor and sensory exam. Skin: No skin rash, lesions or ulcers noted. Pych: Good insight and judgement. Intact memory. AOx3. Internal Med - H&P Results - Labs CBC & Chem 7: 06/19/18 15:40 06/19/18 15:40 Labs: Short CBC 06/19/18 Range/Units 15:40 WBC 14.8 H (4.3-11.1) K/mcL Hgb 12.0 L (12.9-16.9) g/dL Hct 36.8 L (37.5-50.1) % Plt Count 543 H (140-400) K/mcL Neutrophils # 8.6 (1.6-8.9) K/mcL BMP 06/19/18 15:40 Sodium 138 Potassium 4.0 Chloride 104 Carbon Dioxide 25 BUN 17 Creatinine 1.11 Glucose 124 H Calcium 10.0 Liver Function 06/19/18 Range/Units 15:40 Total Bilirubin 0.2 L (0.3-1.0) mg/dL Direct Bilirubin 0.1 (0.0-0.2) mg/dL AST 34 (13-39) Units/L ALT 36 (7-52) Units/L Alkaline Phosphatase 64 (34-104) Units/L Albumin 4.2 (3.5-5.7) g/dL - EKG Data -: EKG Interpreted by Myself Rate: normal - EKG Data Prior EKG available for review: yes - Impressions ITS Impressions Gallbladder Ultrasound 06/19/18 15:27 IMPRESSION: 1. Nonspecific echogenic right and left hepatic lobe lesions typically reflect cavernous hemangiomas in the absence of known malignancy elsewhere. In retrospect, both of these are present on unenhanced CT abdomen (06/14/2015) in keeping with benign findings. 2. Remainder of the ultrasound right upper quadrant appears unremarkable. D/ / Cordell Harrison / Cordell Harrison Interpreting Provider: Cordell Harrison Abdomen/Pelvis CT 06/19/18 20:55 IMPRESSION: 1. Thickening in the region of the terminal ileum and ileocecal bowel. Inflammatory versus neoplastic conditions should be considered. Mild distention of small bowel loops. 2. Two small solid liver lesions which may represent hemangiomas; however, metastatic disease cannot be ruled out. 3. Mild right lower quadrant mesenteric lymphadenopathy. RECOMMENDATIONS: Colonoscopy or contrast study to visualize the ileocecal valve and distal ileum D/ / 06/19/2018 21:47:36 Ignacia Dunbar MD / [email or web address] Interpreting Provider: Ignacia Dunbar MD - Assessment and plan (1) Abdominal pain Current Visit: No Status: Acute Assessment and plan: Patient has right lower quadrant and right upper quadrant pain - CT abdomen suggestive of terminal ileitis with differential of IBD for malignancy. - Ultrasound abdomen with 2 lesions likely to be hemangiomas. - Last colonoscopy about 5 years ago which was reportedly normal Plan - Patient needs colonoscopy for further evaluation. We will consult gastroenterology. - Continue patient to be nothing by mouth. - Pain and nausea control with oxycodone and Zofran Qualifiers: Abdominal location: right upper quadrant Qualified Code(s): R10.11 - Right upper quadrant pain (2) Ileitis, terminal Current Visit: Yes Status: Acute Assessment and plan: -As above Qualifiers: Digestive disease complication type: without complication Qualified Code(s): K50.00 - Crohn's disease of small intestine without complications (3) Peptic ulcer disease Current Visit: Yes Status: Chronic Assessment and plan: - Avoid NSAIDs - Resume PPI and Carafate (4) YADIRA (acute kidney injury) Current Visit: No Status: Acute Assessment and plan: - Baseline creatinine of 0.8 currently 1.1. - Likely prerenal - We will start patient on IV fluids of LR at 1 25 mL/hr - Monitor renal function - Time Spent With Patient Total time spent is greater than 50% in coordination of care (as documented) at patient's floor/unit and/or counseling patient:
[2018-06-20] MEDS: Sucralfate 1 GM TABLET PO SCH ×3 (11:39→22:32)
[2018-06-20] MEDS ORDERED: SODIUM CHLORIDE/NAHCO3/KCL/PEG 4,000 ML SOLN.RECON PO ONE (17:00)
[2018-06-20] MEDS ORDERED: Ondansetron 4 MG/2 ML VIAL IVP ONE (20:54)
[2018-06-20] MEDS ORDERED: Ondansetron 4 MG/2 ML VIAL IM ONE (22:54)
[2018-06-21 01:14] LABS: Bilirubin,Urine Negative (Negative); Blood,Urine Negative (Negative); Clarity,Urine Clear (Clear); Color,Urine Yellow (Yellow); Glucose,Urine (UA) Normal (Normal); Ketones,Urine Negative (Negative); Leukocyte Esterase,Urine Negative (Negative); Nitrite,Urine Negative (Negative); Protein,Urine Negative (Neg-Trace); Specific Gravity,Urine 1.018 (1.010-1.025); Urobilinogen,Urine Normal (Normal)
[2018-06-21] MEDS: *HR* HYDROcodone/Acet 5/325 mg TABLET PO PRN ×2 (04:15→19:44)
[2018-06-21 06:22] LABS: Basophils # 0.1 K/mcL (0.0-0.2); Basophils % 1.3 %; Eosinophils # 0.7 K/mcL (0.0-0.6); Hematocrit 33.8 % (37.5-50.1); Hemoglobin 10.9 g/dL (12.9-16.9); Immature Granulocytes % 1.5 % (0-4); Lymphocytes # 2.1 K/mcL (0.6-4.6); Lymphocytes % 20.1 %; Mean Corpuscular HGB Conc 32.2 g/dL (31.6-35.5); Mean Corpuscular Hemoglobin 27.9 pg (28.0-33.3); Mean Corpuscular Volume 86.7 fL (83.0-100.0); Mean Platelet Volume 9.4 fL (9.4-12.4); Monocytes # 0.8 K/mcL (0.0-1.3); Monocytes % 7.9 %; Neutrophils # 6.5 K/mcL (1.6-8.9); Platelet Count 478 K/mcL (140-400); Red Cell Distribution Width 13.4 % (11.5-14.5); Segmented Neutrophils % 62.2 %
[2018-06-21 06:55] LABS: BUN/Creatinine Ratio 16 (6-26); Blood Urea Nitrogen 14 mg/dL (6-20); Calcium 9.2 mg/dL (8.6-10.3); Carbon Dioxide 28 mEq/L (23-29); Chloride 103 mEq/L (98-107); Glucose 110 mg/dL (70-105); Osmolality,Calculated 289 (280-300); Potassium 3.8 mEq/L (3.5-5.1); Sodium 139 mEq/L (136-145); eGFR For Non-African Americans > 60 (> 60)
[2018-06-21] MEDS: Sucralfate 1 GM TABLET PO SCH ×4 (08:20→22:28)
[2018-06-21] MEDS: OXYCODONE Oral CONC 10 MG/0.5 ML ORAL.SYG SL PRN ×2 (10:00→15:20)
[2018-06-21] MEDS: Ringers Solution, Lactated 1,000 ML IVC SCH ×4 (10:03→19:44)
--- NOTE | 2018-06-21 11:23 | Gastroenterology Progress Note ---
<Alexx Jamison - Last Filed: 06/21/18 12:41> Date of Encounter: 06/21/18 Time of Encounter: 10:09 - Assessment and plan (1) Ileitis, terminal Status: Acute Assessment and plan: Patient presents with right-sided abdominal pain, constipation and one episode of vomiting. CT of the abdomen and pelvis with contrast revealed thickening of the ileocecal valve and terminal ileum. Differential includes infectious versus inflammatory versus malignancy. Underwent bowel prep last night, now with clear bowel movements. Plan for colonoscopy this afternoon. Patient remains nothing by mouth. Of note patient was noted to have multiple liver lesions on both CT and right upper quadrant ultrasound. These have been present since at least 2014, likely indicative of hemangioma. Qualifiers: Digestive disease complication type: without complication Qualified Code(s): K50.00 - Crohn's disease of small intestine without complications (2) Peptic ulcer disease Status: Chronic Assessment and plan: History of peptic ulcer disease with multiple EGDs recently. Most recent upper endoscopy on 06/13/18 revealed grade a esophagitis with 3 nonbleeding linear gastric ulcers, largest was 7 mm duodenal ulcers were also noted. No stigmata of recent bleeding was noted. Patient does report 1 episode of hematemesis recently. Hemoglobin stable. Continue omeprazole 20 mg twice a day and Carafate 4 times a day with meals. No indication for repeat upper endoscopy at this time. - Time Spent With Patient Total time spent is greater than 50% in coordination of care (as documented) at patient's floor/unit and/or counseling patient: - Subjective Interval history: Patient seen and examined at bedside. Patient states that he feels slightly better today although still has some mild right-sided abdominal pain. He states he had one episode of vomiting last night related to his bowel prep. He reports it was clear without blood. He is had frequent bowel movements that are becoming clear. Denies hematochezia or melena. - Constitutional Vitals: Temp Pulse Resp BP Pulse Ox 98.2 F 72 16 133/84 99 06/21/18 07:05 06/21/18 07:05 06/21/18 07:05 06/21/18 07:05 06/21/18 07:05 General appearance: Present: A&O X 3, pleasant, no acute distress - Respiratory Respiratory exam: Present: CTAB. Absent: rales, rhonchi, wheezes - Cardiovascular Cardiovascular exam: Present: RRR. Absent: gallop, rubs, systolic murmur - GI/Abdominal GI/Abdominal exam: Present: normal bowel sounds, soft, tenderness (Mild right- sided). Absent: distended, firm Results - Labs CBC & Chem 7: 06/21/18 06:00 06/21/18 06:00 Labs: Last Result Calcium 9.2 mg/dL (8.6-10.3) 06/21/18 06:00 Entire Visit Hgb 10.9 g/dL (12.9-16.9) L 06/21/18 06:00 Hct 33.8 % (37.5-50.1) L 06/21/18 06:00 Total Bilirubin 0.2 mg/dL (0.3-1.0) L 06/19/18 15:40 AST 34 Units/L (13-39) 06/19/18 15:40 ALT 36 Units/L (7-52) 06/19/18 15:40 Lipase 74 Units/L (11-82) 06/19/18 15:40 Consult Discharge Plan - Plan Instructions: Peptic Ulcer (DC), Colonoscopy (DC), Crohn Disease (DC) Additional Instructions: FOLLOW-UP WITH DR. RO -- NEXT WEEK (THEY WILL CALL WITH THE APPT).. Referrals: Faby Avila ASSOCIATE SALES MANAGER [Primary Care Provider] - 06/27/18 9:00 am Prescriptions: Acetaminophen [Tylenol] 500 mg PO Q6HR #20 tablet <Eliu Ro - Last Filed: 06/24/18 10:06> - Time Spent With Patient Total time spent is greater than 50% in coordination of care (as documented) at patient's floor/unit and/or counseling patient: - Constitutional Vitals: Temp Pulse Resp BP Pulse Ox 97.8 F 69 16 105/67 94 06/22/18 06:39 06/22/18 06:39 06/22/18 06:39 06/22/18 06:39 06/22/18 06:39 Results - Labs CBC & Chem 7: 06/21/18 06:00 06/21/18 06:00 Labs: Last Result Calcium 9.2 mg/dL (8.6-10.3) 06/21/18 06:00 Entire Visit Hgb 10.9 g/dL (12.9-16.9) L 06/21/18 06:00 Hct 33.8 % (37.5-50.1) L 06/21/18 06:00 Total Bilirubin 0.2 mg/dL (0.3-1.0) L 06/19/18 15:40 AST 34 Units/L (13-39) 06/19/18 15:40 ALT 36 Units/L (7-52) 06/19/18 15:40 Lipase 74 Units/L (11-82) 06/19/18 15:40 - Attending Attestation Possiblity of Crohn's disease given his symptoms and presentation. Plan colonoscopy with biopsies today I examined this patient and my medical decision-making was reviewed with the Resident Physician. I agree with the documented findings, disposition and treatment plan as described except to the extent set forth below.
[2018-06-21] MEDS ORDERED: Lidocaine -MPF 2% 2 ML VIAL ONE (12:02)
[2018-06-21] MEDS ORDERED: Propofol 500 MG/50 ML INFUS..BTL ONE (13:10)
--- NOTE | 2018-06-21 13:11 | Anesthesia Evaluation PreOp ---
Date of Encounter: 06/21/18 Time of Encounter: 13:09 - Past History Planned Operation: Colonoscopy Cardiac History: Denies any Significant Hx Pulmonary History: Denies Any Significant HX BLENDER/BRAZE APPLICATOR History: Other (Bipolar, Schizophrenia) Other Medical History: GERD (GASTRIC & DUODENAL ULCERS, GI BLEED, PYLOROPLASTY 2016) Anesthesia History: No Prior Anesthetic Complications, Past Anesthesia (EGD,Exploratory laparotomy with [place] maneuver the duodenum and a Heineke Mikulicz's pyloroplasty 11/[address] Martinez, EGD 11/2016. EGD 06/16) Alcohol Use: none Drug use: none Medications and Allergies Omeprazole [PriLOSEC] 20 mg PO BIDAC #60 capsule. 06/07/18 [Rx] Sucralfate [Carafate] 1 gm PO QIDAC #120 tablet 06/15/18 [Rx] Allergy/AdvReac Type Severity Reaction Status Date / Time ibuprofen Allergy Unknown Abdominal Verified 06/05/18 19:05 Pain - Meds/Allergy Pre-op Review Medications Reviewed: Yes Allergies Reviewed: Yes Beta Blockers on Current Med List: No Anesthesia Results - Labs 06/21/18 06:00 06/21/18 06:00 Echo 09/18/15 EF-60-65% no valvular dx - Imaging EKG: report reviewed (Sinus rhythm Nonspecific ST abnormalities Q waves inferiorly may represent prior PR) Anesthesia Exam Vital Signs/O2 Sat, Most Current Temp Pulse Resp BP Pulse Ox 98.2 F 79 16 130/83 98 06/21/18 10:13 06/21/18 10:13 06/21/18 10:13 06/21/18 10:13 06/21/18 10:13 - HEENT Pupil (Motor): Pupils equal Mallampati: I Oral Opening: Greater than 3 - BLENDER/BRAZE APPLICATOR LOC: Oriented BLENDER/BRAZE APPLICATOR Motor: Normal RUE, Normal LUE, Normal RLE, Normal LLE, Normal Face BLENDER/BRAZE APPLICATOR Sensory: Normal: RUE, LUE, RLE, LLE, Face - Cardiac Rhythm: Regular Murmur: None JVD: No Carotid Bruit: No - Pulmonary Breath Sounds: bilateral Clear Respiratory Effort: Symmetrical Anesthesia Assess/Plan ASA Score: 3 Modified Livingston Scale for Level of Consciousness: Cooperative, oriented, and tranquil Anesthetic Plan: MAC Autologous Blood: Yes Monitoring Plan: Standard Monitors Recovery Plan: Other
--- NOTE | 2018-06-21 23:35 | Internal Med Progress Note ---
Hospitalist Progress Note - Encounter Date of Encounter: 06/21/18 Time of Encounter: 19:00 - Subjective Interval History: SUBJECTIVE: We admitted this patient with right lower quadrant abdominal pain. CT done at admission shows suspected terminal ileitis. The patient was recently diagnosed with multiple gastric/duodenal ulcers suspected of peptic ulcer disease. Denies nausea and vomiting. His right lower quadrant abdominal pain is relatively mild. Denies chest pain, dyspnea, coughing and wheezing. OBJECTIVE: Skin: Free of rash and discoloration. ENMT: Oral/pharyngeal mucosa is normal in appearance. Eyes: Sclera is white. There is no discharge from eyes. Respiratory: Normal breath sounds; no crackles or wheezes. CV: Heart is regular; no gallop or murmur. GI: Abdomen is soft and not tender. There is no palpable mass or visceromegaly. Neuro: There is no focal deficits. ADDITIONAL DATA: Hemoglobin is 10.9 with WBC of 10.4 thousand (14.8 thousand at admission). BMP is normal. ASSESSMENT AND PLAN: Suspected terminal ileitis. GI is consulted. They are to do lower endoscopy. Peptic ulcer disease. Stable. We will continue Prilosec and Carafate. History of schizophrenia/bipolar disorder. The patient tells me that he could not afford for medications prescribed to him for those problems. - Exam Vitals: Temp Pulse Resp BP Pulse Ox 98.4 F 83 15 123/71 92 06/21/18 23:05 06/21/18 23:05 06/21/18 23:05 06/21/18 23:05 06/21/18 23:05 Exam: xx - Assessment and Plan (1) Ileitis, terminal Current Visit: Yes Status: Acute (2) Peptic ulcer disease Current Visit: Yes Status: Chronic (3) GERD with esophagitis Current Visit: Yes Status: Acute (4) Schizophrenia Current Visit: No Status: Chronic (5) Bipolar disorder Current Visit: Yes Status: Acute - Time Spent with Patient Total time spent is greater than 50% in coordination of care (as documented) at patient's floor/unit and/or counseling patient: 25 - 35 minutes Plan of Care Discussed with: patient Internal Medicine: Result - Labs CBC & Chem 7: 06/21/18 06:00 06/21/18 06:00 Labs: Short CBC 06/21/18 Range/Units 06:00 WBC 10.4 (4.3-11.1) K/mcL Hgb 10.9 L (12.9-16.9) g/dL Hct 33.8 L (37.5-50.1) % Plt Count 478 H (140-400) K/mcL Neutrophils # 6.5 (1.6-8.9) K/mcL BMP 06/21/18 06:00 Sodium 139 Potassium 3.8 Chloride 103 Carbon Dioxide 28 BUN 14 Creatinine 0.86 Glucose 110 H Calcium 9.2 Urine 06/21/18 Range/Units 01:05 Urine Color Yellow (Yellow) Urine Clarity Clear (Clear) Urine pH 6.0 (5.0-8.0) pH Units Ur Specific [place] 1.018 (1.010-1.025) Urine Protein Negative (Neg-Trace) mg/dL Urine Glucose (UA) Normal (Normal) mg/dL Consult Discharge Plan - Plan Referrals: Faby Avila, AUTO GLASS TECHNICIAN [Primary Care Provider] - (1) Ileitis, terminal Qualifiers: Digestive disease complication type: without complication Qualified Code(s): K50.00 - Crohn's disease of small intestine without complications (4) Schizophrenia Qualifiers: Schizophrenia type: unspecified Qualified Code(s): F20.9 - Schizophrenia, unspecified (5) Bipolar disorder Qualifiers: Active/Remission status: in full remission Most recent bipolar episode type: most recent episode unspecified type Qualified Code(s): F31.70 - Bipolar disorder, currently in remission, most recent episode unspecified
[2018-06-22] MEDS: *HR* HYDROcodone/Acet 5/325 mg TABLET PO PRN (04:07)
[2018-06-22] MEDS: Ringers Solution, Lactated 1,000 ML IVC SCH (04:07)
[2018-06-22 06:42] VITALS: BP 105/67
[2018-06-22] MEDS: Sucralfate 1 GM TABLET PO SCH ×2 (09:07→12:00)
--- NOTE | 2018-06-22 09:41 | Gastroenterology Progress Note ---
Date of Encounter: 06/22/18 Time of Encounter: 09:39 - Assessment and plan (1) Ileitis, terminal Current Visit: Yes Status: Acute Assessment and plan: Status post colonoscopy with inflammation noted at the terminal ileum. Biopsies obtained and pathology is pending. Tolerating diet, minimal pain and no nausea and vomiting. Stable for discharge from a GI standpoint. Follow-up as an outpatient in 1 week to discuss biopsy results Qualifiers: Digestive disease complication type: without complication Qualified Code(s): K50.00 - Crohn's disease of small intestine without complications (2) Peptic ulcer disease Current Visit: Yes Status: Chronic Assessment and plan: History of peptic ulcer disease with multiple EGDs recently. Most recent upper endoscopy on 06/13/18 revealed grade a esophagitis with 3 nonbleeding linear gastric ulcers, largest was 7 mm duodenal ulcers were also noted. No stigmata of recent bleeding was noted. Patient does report 1 episode of hematemesis recently. Hemoglobin stable. Continue omeprazole 20 mg twice a day and Carafate 4 times a day with meals. No indication for repeat upper endoscopy at this time. - Time Spent With Patient Total time spent is greater than 50% in coordination of care (as documented) at patient's floor/unit and/or counseling patient: - Subjective Interval history: Patient seen and examined at bedside. Patient states that he feels pretty good today. He still reports mild right-sided abdominal pain but otherwise has no complaints. She has had a few clear bowel movements after his colonoscopy yesterday. Denies nausea and vomiting. Tolerating diet well. - Constitutional Vitals: Temp Pulse Resp BP Pulse Ox 97.8 F 69 16 105/67 94 06/22/18 06:39 06/22/18 06:39 06/22/18 06:39 06/22/18 06:39 06/22/18 06:39 General appearance: Present: A&O X 3, pleasant, no acute distress - Respiratory Respiratory exam: Present: CTAB. Absent: rales, rhonchi, wheezes - Cardiovascular Cardiovascular exam: Present: RRR. Absent: gallop, rubs, systolic murmur - GI/Abdominal GI/Abdominal exam: Present: normal bowel sounds, soft, tenderness (mild, RUQ, RLQ). Absent: distended Results - Labs CBC & Chem 7: 06/21/18 06:00 06/21/18 06:00 Labs: Last Result Calcium 9.2 mg/dL (8.6-10.3) 06/21/18 06:00 Entire Visit Hgb 10.9 g/dL (12.9-16.9) L 06/21/18 06:00 Hct 33.8 % (37.5-50.1) L 06/21/18 06:00 Total Bilirubin 0.2 mg/dL (0.3-1.0) L 06/19/18 15:40 AST 34 Units/L (13-39) 06/19/18 15:40 ALT 36 Units/L (7-52) 06/19/18 15:40 Lipase 74 Units/L (11-82) 06/19/18 15:40 Consult Discharge Plan - Plan Referrals: Faby Avila, SHEET METAL WELDER [Primary Care Provider] -
--- NOTE | 2018-06-22 09:50 | Discharge Summary ---
Orders not resulted at time of discharge: Pending orders 06/21/18 14:47 Surgical Pathology [PTH] Routine Date of Encounter: 06/22/18 Time of Encounter: 09:45 - Discharge Diagnosis (1) Ileitis, terminal Priority: Primary Status: Acute Qualifiers: Digestive disease complication type: without complication Qualified Code(s): K50.00 - Crohn's disease of small intestine without complications (2) Peptic ulcer disease Priority: Primary Status: Chronic (3) GERD with esophagitis Priority: Primary Status: Chronic (4) Schizophrenia Priority: Secondary Status: Chronic Qualifiers: Schizophrenia type: unspecified Qualified Code(s): F20.9 - Schizophrenia, unspecified (5) Bipolar disorder Priority: Secondary Status: Chronic Qualifiers: Active/Remission status: in full remission Most recent bipolar episode type: most recent episode unspecified type Qualified Code(s): F31.70 - Bipolar disorder, currently in remission, most recent episode unspecified Hospital course: HOSPITAL COURSE: The patient is a 43-year-old male. He has been fighting with her peptic ulcer disease/had multiple EGDs recently. We admitted him with abdominal pain, nausea and vomiting developing in the last few days preceding this admission. Most of his pain was in the right lower quadrant. CT of abdomen and pelvis suggested diagnosis of terminal ileitis. We presented him to GI service. They proceeded with colonoscopy. They found multiple ulcers at the ileocecal valve. They were biopsied. They found a few ulcers in the terminal ileum. They were biopsied, too. The patient was treated with twice a day Prilosec and Carafate. He was getting When necessary [place] and/or oxycodone. Interestingly, his abdominal pain, nausea and vomiting subsided nearly completely during this short hospitalization. This is why we decided for further treatments in outpatient settings. CONDITION AT DISCHARGE: He feels good. He has only mild right lower quadrant abdominal pain. No nausea and vomiting. Skin: Free of rash and discoloration. Respiratory: Normal breath sounds with no crackles and wheezes bilaterally. CV: Heart is regular with no gallop or murmur. GI: Abdomen is flat and soft with no palpable mass or visceromegaly. Neuro exam: There is no focal deficits. Normal speech, swallowing and gait. SEE DISCHARGE ORDERS/MEDICATIONS.. Discharge discussed with: patient, client care consultant - Time Spent with Patient Total time spent providing and/or coordinating discharge services: Greater than 30 minutes (40 minutes..) - Discharge Medications Prescriptions: Acetaminophen [Tylenol] 500 mg PO Q6HR #20 tablet Home Medications: Omeprazole [PriLOSEC] 20 mg PO BIDAC #60 capsule. 06/07/18 [Rx] Sucralfate [Carafate] 1 gm PO QIDAC #120 tablet 06/15/18 [Rx] Acetaminophen [Tylenol] 500 mg PO Q6HR #20 tablet 06/22/18 [Rx] Allergies/Adverse Reactions: Allergy/AdvReac Type Severity Reaction Status Date / Time ibuprofen Allergy Unknown Abdominal Verified 06/05/18 19:05 Pain Date of admission: 06/19/18 22:28 Primary care physician: Faby Avila CNP Consults: 06/20/18 12:44 Consult to Gastroenterology [CONS] Routine Consulting Provider: Gastroenterology June Reason for Consult: elevated lft Call Completed: Yes 06/20/18 18:36 Consult to Invasive Line Access Team [CONS] Routine Reason for Consult: poor vascular access, no success with vein viewer Line Type: EPIV Discharging clinician: Nicolas Dias Anticipated date of discharge: 06/22/18 - Constitutional Vitals: Temp Pulse Resp BP Pulse Ox 97.8 F 69 16 105/67 94 06/22/18 06:39 06/22/18 06:39 06/22/18 06:39 06/22/18 06:39 06/22/18 06:39 General appearance: Present: A&O X 3, no acute distress, answers questions appropriately Exam: xx - Patient Status Disposition: Home, Self-Care Condition: Fair Functional capacity at discharge: independent ambulation Overall status at discharge: patient is not back to baseline - Discharge Instructions Instructions: Peptic Ulcer (DC), Colonoscopy (DC), Crohn Disease (DC) Follow Up With: Faby Avila CNP [Primary Care Provider] - 06/27/18 9:00 am Additional Instructions: FOLLOW-UP WITH DR. RO -- NEXT WEEK (THEY WILL CALL WITH THE APPT).. - Diet and Activity Activity: resume usual activities as tolerated Diet: regular diet - VTE Reasons for not Prescribing Prophylaxis: Treatment not Indicated - Low risk for VTE Deep Vein Thrombosis/Pulmonary Embolism Present on Admission: No
[2018-06-26 07:28] LABS: Saccharomyces cerevisiae IgA 9.3 Units (0.0-24.9)
== END 2018-06-22 13:03 | disposition home or self-care (01) ==
LOC: 3ANU 15:02 → EMEROOARM 15:02 → SUATTDRO 22:28 → 3ANU 22:43
PROVIDERS: ADMIT Family Medicine; ATTEND Internal Medicine
PROC: ENDOCBX (2018-06-21 19:05)

== ENCOUNTER 2018-07-15 17:15 | Observation (INO) ==
[2018-07-15] MEDS ORDERED: Ondansetron 4 MG/2 ML VIAL IVP ONE (18:46)
[2018-07-15] MEDS ORDERED: 0.9 % Sodium Chloride 1,000 ML IVC ONE (18:47)
[2018-07-15] MEDS ORDERED: Isovue-370 500 ML INFUS..BTL IV ONE (18:47)
[2018-07-15] MEDS ORDERED: *HR* FentaNYL (PF) 100 MCG/2 ML VIAL IVP ONE (18:50)
--- NOTE | 2018-07-15 18:53 | Emergency Department Note ---
Disposition Clinical Impression: Abdominal pain, RLQ abdominal pain Disposition: Admitted As Inpatient Condition: Fair General Adult HPI - General Chief complaint: ED Abdominal Pain Stated complaint: "abd pain,black stool" Time Seen by Provider: 07/15/18 17:30 Source: patient, family Limitations: no limitations Nursing Notes Reviewed: Yes Vital Signs Reviewed: Yes - History of Present Illness HPI Narrative: Patient is a 43 year old male with chief complaint of 3 days of right sided abdominal pain and multiple episodes of dark colored diarrhea. Pt reports that he has been admitted for similar complaint three times in the past month. Pt reports that his last admission one month ago he had a CT scan with no acute findings, EGD with confirmation of stomach ulcers and colonoscopy which showed inflammation of right sided colon. Pt reports that he is being seen by Dr. Calles who has ordered an outpatient CT abdomen and pelvis with contrast which he has not yet gone for because he does not currently have insurance. Pt states that right sided abdominal pain is constant and sharp. Pt denies nausea, vomiting. Pt denies history of coagulopathy, not currently on blood thinners, pt denies overtly bleeding from any other site. Pt denies fever chills. Pt denies lightheadedness, syncope. Pt denies dysuria, hematuria, low back pain. Pain Scale: 8 - Related Data Home Medications Medication Instructions Recorded Confirmed Duloxetine HCl [Cymbalta] 60 mg PO BID 07/16/18 07/16/18 Hyoscyamine SL [Levsin SL] 0.125 mg SL Q6H PRN 07/16/18 07/16/18 Prazosin HCl [Minipress] 5 mg PO HS PRN 07/16/18 07/16/18 RX: Chlorpromazine HCl 25 mg PO HS 07/16/18 07/16/18 RX: LORazepam [Ativan] 0.5 mg PO BID PRN 07/16/18 07/16/18 RX: Ziprasidone [Geodon] 80 mg PO BID 07/16/18 07/16/18 RX: traZODone [TraZODone] 50 mg PO HS PRN 07/16/18 07/16/18 Previous Rx's Medication Instructions Recorded RX: Omeprazole [PriLOSEC] 20 mg PO BIDAC #60 capsule. 06/07/18 RX: Sucralfate [Carafate] 1 gm PO QIDAC #120 tablet 06/15/18 Allergies Allergy/AdvReac Type Severity Reaction Status Date / Time ibuprofen Allergy Unknown Abdominal Verified 06/05/18 19:05 Pain NSAIDS (Non-Steroidal Allergy See Verified 07/16/18 16:55 Anti-Inflamma Comments Constitutional: Denies: fever, chills, weakness Cardiovascular: Denies: chest pain, palpitations, dyspnea on exertion, syncope Respiratory: Denies: cough, dyspnea Gastrointestinal: Reports: abdominal pain, diarrhea, melena. Denies: nausea, vomiting Genitourinary: Denies: dysuria, hematuria Musculoskeletal: Denies: back pain Neurological: Denies: headache, weakness, numbness Hematological/Lymphatic: Reports: as per HPI (no bleeding from other sites) Past Medical History - Past Medical History Medical history: Reports: GERD, GI bleed Surgical history: Reports: herniorrhaphy Psychiatric history: Reports: bipolar, schizophrenia, previous psychiatric hospitalization - Social History Smoking Status: Never smoker Smokeless Tobacco Status: No Alcohol use: Reports: none Drug use: Reports: none Physical Exam - General Limitations: no limitations General appearance: alert, in no apparent distress - Head Head exam: atraumatic, normocephalic, normal inspection - Eye Eye exam: Present: normal appearance - ENT ENT exam: mucous membranes moist - Chest Chest inspection: Present: normal inspection, symmetric chest wall rise - Respiratory Respiratory exam: Present: normal lung sounds bilaterally - Cardiovascular Cardiovascular exam: Present: normal rhythm, tachycardia, normal heart sounds - Abdominal Exam Abdominal exam: Present: soft, tenderness. Absent: distention, guarding, rebound, psoas sign, heel tap sign Abdominal tenderness: Present: RUQ, RLQ, mild - Extremities Exam Extremities exam: Present: normal inspection, full ROM. Absent: tenderness, pedal edema - Back Exam Back exam: Absent: tenderness, CVA tenderness (R), CVA tenderness (L) - Neurological Exam Neurological exam: Present: alert, oriented X3 - Skin Skin exam: Present: warm, dry, intact, normal color Course Vital Signs Temperature 98.9 F 07/15/18 17:17 Pulse Rate 126 07/15/18 17:17 Respiratory Rate 16 07/15/18 17:17 Blood Pressure 117/77 07/15/18 17:17 O2 Sat by Pulse Oximetry 99 07/15/18 17:17 Temperature 98.9 F 07/15/18 17:44 Pulse Rate 126 07/15/18 17:44 Respiratory Rate 16 07/15/18 17:44 Blood Pressure 117/77 07/15/18 17:44 O2 Sat by Pulse Oximetry 99 07/15/18 17:44 Oxygen Delivery Oxygen Delivery Room Air Medical Decision Making - Lab Data Result diagrams: 07/17/18 03:09 07/17/18 03:09
[2018-07-15 19:13] LABS: Basophils # 0.1 K/mcL (0.0-0.2); Basophils % 1.3 %; Eosinophils % 12.1 %; Hematocrit 31.6 % (37.5-50.1); Immature Granulocytes % 0.6 % (0-4); Lymphocytes # 2.9 K/mcL (0.6-4.6); Lymphocytes % 35.1 %; Mean Corpuscular HGB Conc 31.6 g/dL (31.6-35.5); Mean Corpuscular Hemoglobin 27.2 pg (28.0-33.3); Mean Corpuscular Volume 86.1 fL (83.0-100.0); Mean Platelet Volume 9.2 fL (9.4-12.4); Monocytes # 0.6 K/mcL (0.0-1.3); Monocytes % 7.7 %; Neutrophils # 3.5 K/mcL (1.6-8.9); Platelet Count 411 K/mcL (140-400); Red Blood Count 3.67 M/mcL (4.19-5.50); Red Cell Distribution Width 13.5 % (11.5-14.5); Segmented Neutrophils % 43.2 %
--- NOTE | 2018-07-15 19:15 | Emergency Department Note ---
Disposition Clinical Impression: Abdominal pain Qualifiers: Abdominal location: right lower quadrant Qualified Code(s): R10.31 - Right lower quadrant pain Disposition: Admitted As Inpatient Condition: Fair Referrals: Faby Avila, CLAY PRESS OPERATOR [Primary Care Provider] - Forms: ED Satisfaction Letter, Work/School Release General Adult HPI - General Chief complaint: ED Abdominal Pain Stated complaint: "abd pain,black stool" Time Seen by Provider: 07/15/18 17:30 Source: patient, family Limitations: no limitations Nursing Notes Reviewed: Yes Vital Signs Reviewed: Yes - History of Present Illness Pain Scale: 8 - Related Data Previous Rx's Medication Instructions Recorded Omeprazole [PriLOSEC] 20 mg PO BIDAC #60 capsule.dr 06/07/18 Sucralfate [Carafate] 1 gm PO QIDAC #120 tablet 06/15/18 Acetaminophen [Tylenol] 500 mg PO Q6HR #20 tablet 06/22/18 Ciprofloxacin [Cipro] 500 mg PO BID #20 tablet 06/26/18 metroNIDAZOLE [Metronidazole] 500 mg PO TID #30 tablet 06/26/18 Allergies Allergy/AdvReac Type Severity Reaction Status Date / Time ibuprofen Allergy Unknown Abdominal Verified 06/05/18 19:05 Pain Constitutional: Denies: fever, chills, weakness Cardiovascular: Denies: chest pain, palpitations, dyspnea on exertion, syncope Respiratory: Denies: cough, dyspnea Gastrointestinal: Reports: abdominal pain, diarrhea, melena. Denies: nausea, vomiting Genitourinary: Denies: dysuria, hematuria Musculoskeletal: Denies: back pain Neurological: Denies: headache, weakness, numbness Hematological/Lymphatic: Reports: as per HPI (no bleeding from other sites) Past Medical History - Past Medical History Medical history: Reports: GERD, GI bleed Surgical history: Reports: herniorrhaphy Psychiatric history: Reports: bipolar, schizophrenia, previous psychiatric hospitalization - Social History Smoking Status: Never smoker Smokeless Tobacco Status: No Alcohol use: Reports: none Drug use: Reports: none Physical Exam - General Limitations: no limitations General appearance: alert, in no apparent distress Course Vital Signs Temperature 98.9 F 07/15/18 17:17 Pulse Rate 126 07/15/18 17:17 Respiratory Rate 16 07/15/18 17:17 Blood Pressure 117/77 07/15/18 17:17 O2 Sat by Pulse Oximetry 99 07/15/18 17:17 Temperature 98.9 F 07/15/18 17:44 Pulse Rate 97 07/15/18 21:13 Respiratory Rate 18 07/15/18 21:13 Blood Pressure 129/86 07/15/18 21:13 O2 Sat by Pulse Oximetry 98 07/15/18 21:13 Oxygen Delivery Oxygen Delivery Room Air Medical Decision Making - MDM Narrative Medical decision making narrative: Abdomen/Pelvis CT 07/15/18 18:47 IMPRESSION: The appendix is mildly dilated measuring 10.3 cm but only slightly increased in size from prior studies. The appendix is primarily fluid-filled with no definite periappendiceal fat stranding. Findings are equivocal for mild or early appendicitis and clinical correlation is recommended. Mild to moderate stool load suggests constipation. Urinary bladder is markedly distended. Correlate for possible outlet obstruction. There is trace bibasilar pleural and parenchymal lung disease. D/ / John North MD / John North MD Interpreting Provider: John North MD 2130 hrs.: Patient is still having some pain in the area we spoke with Dr. Pelaez, he is on for surgery, patient seen Dr. Martinez before so he has to call who is on for their group. Were talking Dr. Lara at this time for evaluation. 2148 hrs.: Dr. Lara is agreed to the admission. - Lab Data Result diagrams: 07/15/18 18:57 07/15/18 18:57 Lab Results 07/15/18 07/15/18 07/15/18 Range/Units 18:57 18:57 19:22 WBC 8.2 (4.3-11.1) K/mcL RBC 3.67 L (4.19-5.50) M/mcL Hgb 10.0 L (12.9-16.9) g/dL Hct 31.6 L (37.5-50.1) % MCV 86.1 (83.0-100.0) fL MCH 27.2 L (28.0-33.3) pg MCHC 31.6 (31.6-35.5) g/dL RDW 13.5 (11.5-14.5) % Plt Count 411 H (140-400) K/mcL MPV 9.2 L (9.4-12.4) fL Immature Gran % 0.6 (0-4) % Seg Neutrophils % 43.2 % Lymphocytes % 35.1 % Monocytes % 7.7 % Eosinophils % 12.1 % Basophils % 1.3 % Neutrophils # 3.5 (1.6-8.9) K/mcL Lymphocytes # 2.9 (0.6-4.6) K/mcL Monocytes # 0.6 (0.0-1.3) K/mcL Eosinophils # 1.0 H (0.0-0.6) K/mcL Basophils # 0.1 (0.0-0.2) K/mcL Sodium 137 (136-145) mEq/L Potassium 3.8 (3.5-5.1) mEq/L Chloride 103 (98-107) mEq/L Carbon Dioxide 26 (23-29) mEq/L BUN 16 (6-20) mg/dL Creatinine 1.11 (0.70-1.30) mg/dL Est GFR ( Amer) > 60 (> 60) Est GFR (Non-Af Amer) > 60 (> 60) BUN/Creatinine Ratio 14 (6-26) Glucose 110 H (70-105) mg/dL Calculated Osmolality 286 (280-300) Calcium 9.6 (8.6-10.3) mg/dL Total Bilirubin 0.3 (0.3-1.0) mg/dL Direct Bilirubin 0.0 (0.0-0.2) mg/dL Indirect Bilirubin 0.3 (0.0-1.2) mg/dL AST 12 L (13-39) Units/L ALT 12 (7-52) Units/L Alkaline Phosphatase 47 (34-104) Units/L Serum Total Protein 6.9 (6.4-8.9) g/dL Albumin 4.1 (3.5-5.7) g/dL Globulin 2.8 (2.4-3.5) g/dL Albumin/Globulin Ratio 1.5 (1.1-2.2) Lipase 28 (11-82) Units/L Urine Color Yellow (Yellow) Urine Clarity Clear (Clear) Urine pH 6.5 (5.0-8.0) pH Units Ur Specific [place] 1.006 L (1.010-1.025) Urine Protein Negative (Neg-Trace) mg/dL Urine Glucose (UA) Normal (Normal) mg/dL Urine Ketones Negative (Negative) mg/dL Urine Blood Negative (Negative) Urine Nitrite Negative (Negative) Urine Bilirubin Negative (Negative) Urine Urobilinogen Normal (Normal) mg/dL Ur Leukocyte Esterase Negative (Negative) Ur Culture Indicated? NO (NO) Attestation Statement - Attestation Attestation: This documentation is done with the assistance of Dragon dictation. Despite efforts made to ensure accuracy, there may be inaccuracies in pharmacist's aide or spelling and typographical errors. I examined this patient and my medical decision-making was reviewed with the Resident Physician. I agree with the documented findings, disposition and treatment plan as described except to the extent set forth below. Patient seen and evaluated by Dr. Tubbs and myself, I agree with his evaluation and management plan, supervise care the patient's stay. Patient comes in today with abdominal pain which he says chronically. Also dark-colored stool. Has been getting worked up with GI. He said he was here does need a CAT scan done the had a CAT scan done 2 weeks ago which was negative. [facility] lab work on him to clean make him more comfortable then reassess. He is in agreement with this plan.
[2018-07-15 19:36] LABS: Bilirubin,Urine Negative (Negative); Blood,Urine Negative (Negative); Clarity,Urine Clear (Clear); Color,Urine Yellow (Yellow); Glucose,Urine (UA) Normal (Normal); Ketones,Urine Negative (Negative); Leukocyte Esterase,Urine Negative (Negative); Nitrite,Urine Negative (Negative); PH,Urine 6.5 pH Units (5.0-8.0); Protein,Urine Negative (Neg-Trace); Specific Gravity,Urine 1.006 (1.010-1.025); Urobilinogen,Urine Normal (Normal)
[2018-07-15 20:02] LABS: Alanine Aminotransferase 12 Units/L (7-52); Albumin 4.1 g/dL (3.5-5.7); Albumin/Globulin Ratio 1.5 (1.1-2.2); Alkaline Phosphatase 47 Units/L (34-104); Aspartate Amino Transferase 12 Units/L (13-39); BUN/Creatinine Ratio 14 (6-26); Bilirubin,Indirect 0.3 mg/dL (0.0-1.2); Bilirubin,Total 0.3 mg/dL (0.3-1.0); Blood Urea Nitrogen 16 mg/dL (6-20); Calcium 9.6 mg/dL (8.6-10.3); Carbon Dioxide 26 mEq/L (23-29); Chloride 103 mEq/L (98-107); Globulin 2.8 g/dL (2.4-3.5); Glucose 110 mg/dL (70-105); Lipase 28 Units/L (11-82); Osmolality,Calculated 286 (280-300); Potassium 3.8 mEq/L (3.5-5.1); Sodium 137 mEq/L (136-145); Total Protein 6.9 g/dL (6.4-8.9); eGFR For Non-African Americans > 60 (> 60)
--- NOTE | 2018-07-15 20:27 | Emergency Department Note ---
Disposition Clinical Impression: RLQ abdominal pain Disposition: Admitted As Inpatient Condition: Fair Referrals: Faby Avila, SLACKMAN [Primary Care Provider] - Forms: ED Satisfaction Letter, Work/School Release Time of Disposition: 21:48 General Adult HPI - General Chief complaint: ED Abdominal Pain Stated complaint: "abd pain,black stool" Time Seen by Provider: 07/15/18 17:30 Source: patient, family Mode of arrival: ambulatory Limitations: no limitations Nursing Notes Reviewed: Yes Vital Signs Reviewed: Yes - History of Present Illness HPI Narrative: Patient is a 43-year-old male with PMHx of bipolar, schizophrenia, and crohns presents [facility] department for evaluation of 3 days of right-sided abdominal pain as well as multiple episodes of diarrhea with intermittent blood present. Patient states that he has been seen for similar symptoms in the past 3 months and is currently seen by general surgery as well as gastroenterology has had multiple scopes done. States that he also has a CT of his abdomen and pelvis scheduled in the next couple weeks for an unknown reason. Denies any recent sick contacts. States that he does have a history of ulcers which she currently is on medication for. Pain Scale: 8 - Related Data Previous Rx's Medication Instructions Recorded Omeprazole [PriLOSEC] 20 mg PO BIDAC #60 capsule. 06/07/18 Sucralfate [Carafate] 1 gm PO QIDAC #120 tablet 06/15/18 Acetaminophen [Tylenol] 500 mg PO Q6HR #20 tablet 06/22/18 Ciprofloxacin [Cipro] 500 mg PO BID #20 tablet 06/26/18 metroNIDAZOLE [Metronidazole] 500 mg PO TID #30 tablet 06/26/18 Allergies Allergy/AdvReac Type Severity Reaction Status Date / Time ibuprofen Allergy Unknown Abdominal Verified 06/05/18 19:05 Pain All systems ED: reviewed and negative except as stated. Review of Systems: As Per HPI Constitutional: Denies: fever, chills, weakness Cardiovascular: Denies: chest pain, palpitations, dyspnea on exertion, syncope Respiratory: Denies: cough, dyspnea Gastrointestinal: Reports: abdominal pain, diarrhea, melena. Denies: nausea, vomiting Genitourinary: Denies: dysuria, hematuria Musculoskeletal: Denies: back pain Neurological: Denies: headache, weakness, numbness Hematological/Lymphatic: Reports: as per HPI (no bleeding from other sites) Past Medical History - Past Medical History Attestation: Yes The following information was validated with the patient. Medical history: Reports: GERD, GI bleed Surgical history: Reports: herniorrhaphy Psychiatric history: Reports: bipolar, schizophrenia, previous psychiatric hospitalization - Social History Smoking Status: Never smoker Smokeless Tobacco Status: No Alcohol use: Reports: none Drug use: Reports: none Physical Exam CONSTITUTIONAL: Alert and oriented X3. No acute distress. HEAD: Normocephalic; atraumatic. EYES: PERRL, no scleral icterus. THROAT: Mucus membranes moist. No ulcers/lesions. NOSE: The nose is normal in appearance without rhinorrhea RESP: Normal chest excursion with respiration; breath sounds clear and equal bilaterally; no wheezes, rhonchi, or rales CARD: Regular rhythm, without murmurs, rub or gallop ABD: Non-distended; mild right lower quadrant tenderss without rigidity, rebound or guarding SKIN: Normal for age and race; warm and dry; no apparent lesions - General Limitations: no limitations General appearance: alert, in no apparent distress Course Course Narrative: Review the patient's records does appear that he has been seen multiple times in the past month for similar symptoms which been going on intermittently. Going to surgery for the patient was diagnosed with Crohn's as well as peptic ulcer disease. According to past records the patient has had an endoscopy as well as fluoroscopy was performed which ulcers were found throughout the GI tract however none were actively bleeding. Plan is times evaluate the patient's hemoglobin given his reports of lower GI bleed. Patient also undergo basic labs receive analgesia as well as a CT scan of abdomen and pelvis. - Reevaluation(s) Reevaluation #1: Discussed the CT scan findings with Dr. Lara with showing concerns for acute early appendicitis with appendiceal dilation greater than 10 mm. Discussed plan to admit the patient to the surgery service and she will see the patient in the morning. We will also give the patient an initial dose of antibiotics in the emergency department. Discussed this with the patient he agrees to plan. Discussed with the patient is to be nothing by mouth until seen by the surgeon tomorrow morning. Time: 21:49 Vital Signs Temperature 98.9 F 07/15/18 17:17 Pulse Rate 126 07/15/18 17:17 Respiratory Rate 16 07/15/18 17:17 Blood Pressure 117/77 07/15/18 17:17 O2 Sat by Pulse Oximetry 99 07/15/18 17:17 Temperature 98.9 F 07/15/18 17:44 Pulse Rate 97 07/15/18 21:13 Respiratory Rate 18 07/15/18 21:13 Blood Pressure 129/86 07/15/18 21:13 O2 Sat by Pulse Oximetry 98 07/15/18 21:13 Oxygen Delivery Oxygen Delivery Room Air Medical Decision Making - Medical Records Medical records reviewed: Yes I reviewed the patient's medical records. - Lab Data Lab results reviewed: Yes I reviewed the patient's lab results. Result diagrams: 07/15/18 18:57 07/15/18 18:57 Lab Results 07/15/18 07/15/18 07/15/18 Range/Units 18:57 18:57 19:22 WBC 8.2 (4.3-11.1) K/mcL RBC 3.67 L (4.19-5.50) M/mcL Hgb 10.0 L (12.9-16.9) g/dL Hct 31.6 L (37.5-50.1) % MCV 86.1 (83.0-100.0) fL MCH 27.2 L (28.0-33.3) pg MCHC 31.6 (31.6-35.5) g/dL RDW 13.5 (11.5-14.5) % Plt Count 411 H (140-400) K/mcL MPV 9.2 L (9.4-12.4) fL Immature Gran % 0.6 (0-4) % Seg Neutrophils % 43.2 % Lymphocytes % 35.1 % Monocytes % 7.7 % Eosinophils % 12.1 % Basophils % 1.3 % Neutrophils # 3.5 (1.6-8.9) K/mcL Lymphocytes # 2.9 (0.6-4.6) K/mcL Monocytes # 0.6 (0.0-1.3) K/mcL Eosinophils # 1.0 H (0.0-0.6) K/mcL Basophils # 0.1 (0.0-0.2) K/mcL Sodium 137 (136-145) mEq/L Potassium 3.8 (3.5-5.1) mEq/L Chloride 103 (98-107) mEq/L Carbon Dioxide 26 (23-29) mEq/L BUN 16 (6-20) mg/dL Creatinine 1.11 (0.70-1.30) mg/dL Est GFR ( Amer) > 60 (> 60) Est GFR (Non-Af Amer) > 60 (> 60) BUN/Creatinine Ratio 14 (6-26) Glucose 110 H (70-105) mg/dL Calculated Osmolality 286 (280-300) Calcium 9.6 (8.6-10.3) mg/dL Total Bilirubin 0.3 (0.3-1.0) mg/dL Direct Bilirubin 0.0 (0.0-0.2) mg/dL Indirect Bilirubin 0.3 (0.0-1.2) mg/dL AST 12 L (13-39) Units/L ALT 12 (7-52) Units/L Alkaline Phosphatase 47 (34-104) Units/L Serum Total Protein 6.9 (6.4-8.9) g/dL Albumin 4.1 (3.5-5.7) g/dL Globulin 2.8 (2.4-3.5) g/dL Albumin/Globulin Ratio 1.5 (1.1-2.2) Lipase 28 (11-82) Units/L Urine Color Yellow (Yellow) Urine Clarity Clear (Clear) Urine pH 6.5 (5.0-8.0) pH Units Ur Specific [place] 1.006 L (1.010-1.025) Urine Protein Negative (Neg-Trace) mg/dL Urine Glucose (UA) Normal (Normal) mg/dL Urine Ketones Negative (Negative) mg/dL Urine Blood Negative (Negative) Urine Nitrite Negative (Negative) Urine Bilirubin Negative (Negative) Urine Urobilinogen Normal (Normal) mg/dL Ur Leukocyte Esterase Negative (Negative) Ur Culture Indicated? NO (NO) - Radiology Data Radiology results reviewed: Yes I reviewed the patient's radiology results. Abdomen/Pelvis CT 07/15/18 18:47 IMPRESSION: The appendix is mildly dilated measuring 10.3 cm but only slightly increased in size from prior studies. The appendix is primarily fluid-filled with no definite periappendiceal fat stranding. Findings are equivocal for mild or early appendicitis and clinical correlation is recommended. Mild to moderate stool load suggests constipation. Urinary bladder is markedly distended. Correlate for possible outlet obstruction. There is trace bibasilar pleural and parenchymal lung disease. D/ / John North MD / John North MD Interpreting Provider: John North MD
[2018-07-15] MEDS ORDERED: Piperacillin/Tazobactam 3.375 GM in Water for inj. (sterile) 20 ML 20 ML IVP ONE (21:39)
[2018-07-15] MEDS ORDERED: *HR* HYDROmorphone (PF) 1 MG/ML SYRINGE IVP ONE (21:53)
[2018-07-15] MEDS ORDERED: Ondansetron 4 MG/2 ML VIAL IVP PRN (23:18)
[2018-07-16] MEDS: MORPHINE SUL Oral CONC 10 MG/0.5 ML ORAL.SYG SL PRN ×3 (00:19→12:22)
[2018-07-16] MEDS: 0.9 % Sodium Chloride 1,000 ML IVC SCH ×4 (00:21→22:48)
[2018-07-16] MEDS ORDERED: Piperacillin/Tazobactam 3.375 GM in 0.9 % Sodium Chloride Mini Bag 100 ML IVPB SCH (08:00)
--- NOTE | 2018-07-16 08:28 | Anesthesia Evaluation PreOp ---
Date of Encounter: 07/16/18 Time of Encounter: 09:32 - Past History Planned Operation: [employer]DE[employer]IPS History: Other (BIPOLAR, SCHIZOPHRENIA) Other Medical History: GERD (GASTRIC ULCERS), Other (ANEMIA, INTERMITTENT BLOODY DIARRHEA) Alcohol Use: none Drug use: none Medications and Allergies Omeprazole [PriLOSEC] 20 mg PO BIDAC #60 capsule. 06/07/18 [Rx] Sucralfate [Carafate] 1 gm PO QIDAC #120 tablet 06/15/18 [Rx] Allergy/AdvReac Type Severity Reaction Status Date / Time ibuprofen Allergy Unknown Abdominal Verified 06/05/18 19:05 Pain - Meds/Allergy Pre-op Review Medications Reviewed: Yes Allergies Reviewed: Yes Beta Blockers on Current Med List: No Anesthesia Results - Labs 07/15/18 18:57 07/15/18 18:57 Anesthesia Exam Vital Signs/O2 Sat, Most Current Temp Pulse Resp BP Pulse Ox 98.4 F 93 13 125/86 94 07/16/18 07:12 07/16/18 07:12 07/16/18 07:12 07/16/18 07:12 07/16/18 07:12 Weight: 88 KG NPO (# of Hours): 8 - HEENT Mallampati: II Teeth: Missing, Poor dentition Oral Opening: Greater than 3 - Cardiac Rhythm: Regular - Pulmonary Breath Sounds: bilateral Clear Respiratory Effort: Symmetrical - Additional Findings Active Medications Sodium Chloride (0.9 % Sodium Chloride) 1,000 mls @ 115 mls/hr IVC .[id number] JOSÉ MIGUEL Stop: 01/14/19 23:31 Last Admin: 07/16/18 00:21 Dose: 115 mls/hr Piperacillin Sod/Tazobactam (Sod 3.375 gm/ Sodium Chloride) 100 mls @ 25 mls/hr IVPB Q8HR JOSÉ MIGUEL Stop: 01/15/19 08:01 Metoprolol Tartrate (Lopressor) 5 mg IVP Q6HR PRN PRN Reason: Hypertension Stop: 01/15/19 09:30 Morphine Sulfate (Roxanol Oral Conc) 5 mg SL Q4HR PRN PRN Reason: Pain Stop: 01/14/19 23:18 Last Admin: 07/16/18 04:05 Dose: 5 mg Naloxone HCl (Narcan) 0.4 mg IVP Q2MIN PRN PRN Reason: SEE COMMENTS Stop: 01/15/19 09:30 Omeprazole (Prilosec) 20 mg PO DAILY@0630 [facility]; Protocol Stop: 01/15/19 06:31 Last Admin: 07/16/18 05:21 Dose: Not Given Ondansetron HCl (Zofran) 4 mg IVP Q6HR PRN; Protocol PRN Reason: Nausea Stop: 01/14/19 23:19 Pantoprazole Sodium (Protonix) 40 mg IVP DAILY [facility] Stop: 01/16/19 09:01 Promethazine HCl (Phenergan) 12.5 mg IVP Q6HR PRN PRN Reason: Nausea And Vomiting Stop: 01/15/19 09:30 MAR Administrations Discontinued Medications Piperacillin Sod/Tazobactam (Sod 3.375 gm/ Sterile Water) 20 mls @ 400 mls/hr IVP ONCE ONE Stop: 07/15/18 21:40 Last Admin: 07/15/18 22:20 Dose: 400 mls/hr Anesthesia Assess/Plan ASA Score: 3 Anesthetic Plan: General Monitoring Plan: Standard Monitors Recovery Plan: PACU Anes Supervising Prov Stmt: Patient informed and consented. Risks, benefits, and alternatives discussed. Patient wishes to proceed.
[2018-07-16] MEDS ORDERED: Lidocaine -MPF 4% 5 ML AMPUL ONE (08:50)
[2018-07-16] MEDS ORDERED: Naloxone 0.4 MG/ML INJ IVP PRN ×2 (09:29→12:29)
[2018-07-16] MEDS ORDERED: *HR* Promethazine 25 MG/ML VIAL IVP PRN ×3 (09:29→12:29)
[2018-07-16] MEDS ORDERED: *HR* Metoprolol 5 MG/5 ML VIAL IVP PRN ×2 (09:29→12:29)
--- NOTE | 2018-07-16 09:34 | General Surg History&Physical ---
Date of Encounter: 07/16/18 Time of Encounter: 09:32 Assessment and Plan (1) Abnormal CT of the abdomen Current Visit: Yes Status: Acute The assessment and plan as outlined above was discussed with the patient and/or family members who expressed understanding and agreement. All questions were answered. I have personally reviewed patients CT and appendix is dilated but no obvious inflammation surrounding appendix. Discussed that he had isolated and focal RLQ pain, vitals stable, normal wbc, I am unsure if this is truly his appendix or not. We discussed the options of observation and antibiotics and serial abdominal exams versus laparoscopic appendectomy and this at least takes it as a source of pain out of the equation. He decided he would like to undergo surgery, risks and benefits discussed and he wishes to proceed. npo ivf hydration prn pain control antibiotics prn antiemetics (2) RLQ abdominal pain Current Visit: Yes Status: Acute The assessment and plan as outlined above was discussed with the patient and/or family members who expressed understanding and agreement. All questions were answered. History of Present Illness Chief complaint: RLQ abdominal pain, diarrhea HPI: Mr. House is a 43 year old male who for the past three days has been having persistent RLQ pain without radiation. The pain is constant and sharp, and has been becoming more severe over the last three days. He denies nausea or emesis. He has been having diarrhea for three days as well. No fevers, chills or night sweats. No dysuria. He thinks his stools have been dark, no obvious red blood. He has been seeing GI and getting worked up for generalized abdominal pain recently. He states this pain in the RLQ is not like the pain he has been having. Past Med Surg Social Fam HX - Past Medical History Source: patient Medical history: GERD, GI bleed, other (gastric ulcers) Additional medical history: possible chron's Psychiatric history: bipolar, schizophrenia, previous psychiatric hospitalization - Past Surgical History Surgical History: herniorrhaphy (umbilical and bilateral groin), other (duodenal perforation after EGD/dilation - repaired with Heineke Miklicz pylorplasty, EGD/colonoscopies, bilateral knee arhthroscopies) Additional surgical history: 5 hernias, scope on stomach - Social History Smoking Status: Never smoker Smokeless Tobacco Status: No Alcohol use: none Drug use: none - Family History Mother Adopted: Yes Living Status: Still Living Medications and Allergies Omeprazole [PriLOSEC] 20 mg PO BIDAC #60 capsule. 06/07/18 [Rx] Sucralfate [Carafate] 1 gm PO QIDAC #120 tablet 06/15/18 [Rx] Allergy/AdvReac Type Severity Reaction Status Date / Time ibuprofen Allergy Unknown Abdominal Verified 06/05/18 19:05 Pain Review of Systems All systems PM: reviewed and no additional remarkable complaints except as stated All systems PM: The remainder of the systems were reviewed and are negative General Surgery Exam Initial Vital Signs Temp Pulse Resp BP Pulse Ox 98.9 F 126 16 117/77 99 07/15/18 17:17 07/15/18 17:17 07/15/18 17:17 07/15/18 17:17 07/15/18 17:17 - General physical appearance well developed, well nourished, no distress - Eyes PERRL, normal ocular movement - ENT normal mucosa, normocephalic - Neck no masses - Respiratory normal respiratory effort, clear to auscultation - Cardiovascular Cardiovascular exam: Present: RRR - Abdomen Abdomen general surgery: Present: bowel sounds present, soft, tender. Absent: distended, guarding, rebound Abdominal Tenderness: Present: RLQ - Integumentary Integumentary general surgery: Present: warm and dry, no abnormal pigmentation - Neurologic Present: CN 2-12 grossly intact - Musculoskeletal Present: normal posture - Psychiatric Psychiatric general surgery: Present: A&Ox3, speech is normal Results - Labs 07/15/18 18:57 07/15/18 18:57 Abnormal lab results RBC 3.67 M/mcL (4.19-5.50) L 07/15/18 18:57 Hgb 10.0 g/dL (12.9-16.9) L 07/15/18 18:57 Hct 31.6 % (37.5-50.1) L 07/15/18 18:57 MCH 27.2 pg (28.0-33.3) L 07/15/18 18:57 Plt Count 411 K/mcL (140-400) H 07/15/18 18:57 MPV 9.2 fL (9.4-12.4) L 07/15/18 18:57 Eosinophils # 1.0 K/mcL (0.0-0.6) H 07/15/18 18:57 Glucose 110 mg/dL (70-105) H 07/15/18 18:57 AST 12 Units/L (13-39) L 07/15/18 18:57 Ur Specific [place] 1.006 (1.010-1.025) L 07/15/18 19:22 Diabetes panel 07/15/18 Range/Units 18:57 Sodium 137 (136-145) mEq/L Potassium 3.8 (3.5-5.1) mEq/L Chloride 103 (98-107) mEq/L Carbon Dioxide 26 (23-29) mEq/L BUN 16 (6-20) mg/dL Creatinine 1.11 (0.70-1.30) mg/dL Glucose 110 H (70-105) mg/dL Calcium 9.6 (8.6-10.3) mg/dL AST 12 L (13-39) Units/L ALT 12 (7-52) Units/L Alkaline Phosphatase 47 (34-104) Units/L Albumin 4.1 (3.5-5.7) g/dL Calcium panel 07/15/18 Range/Units 18:57 Calcium 9.6 (8.6-10.3) mg/dL Albumin 4.1 (3.5-5.7) g/dL Pituitary panel 07/15/18 Range/Units 18:57 Sodium 137 (136-145) mEq/L Potassium 3.8 (3.5-5.1) mEq/L Chloride 103 (98-107) mEq/L Carbon Dioxide 26 (23-29) mEq/L BUN 16 (6-20) mg/dL Creatinine 1.11 (0.70-1.30) mg/dL Glucose 110 H (70-105) mg/dL Calcium 9.6 (8.6-10.3) mg/dL Adrenal panel 07/15/18 Range/Units 18:57 Sodium 137 (136-145) mEq/L Potassium 3.8 (3.5-5.1) mEq/L Chloride 103 (98-107) mEq/L Carbon Dioxide 26 (23-29) mEq/L BUN 16 (6-20) mg/dL Creatinine 1.11 (0.70-1.30) mg/dL Glucose 110 H (70-105) mg/dL Calcium 9.6 (8.6-10.3) mg/dL Total Bilirubin 0.3 (0.3-1.0) mg/dL AST 12 L (13-39) Units/L ALT 12 (7-52) Units/L Alkaline Phosphatase 47 (34-104) Units/L Albumin 4.1 (3.5-5.7) g/dL All other labs normal. - Imaging CT scan - abdomen: report reviewed, image reviewed CT scan - pelvis: report reviewed, image reviewed
[2018-07-16] MEDS ORDERED: *HR* Propofol 200 MG/20 ML VIAL IVP ONE (09:45)
[2018-07-16] MEDS ORDERED: *HR* Midazolam HCl 2 MG/2 ML VIAL ONE (09:45)
[2018-07-16] MEDS ORDERED: *HR* FentaNYL (PF) 100 MCG/2 ML VIAL ONE ×2 (09:45→10:34)
[2018-07-16] MEDS ORDERED: *HR* Rocuronium Bromide 50 MG/5 ML VIAL ONE (09:48)
[2018-07-16] MEDS ORDERED: Lidocaine -MPF 2% 2 ML VIAL ONE (09:48)
[2018-07-16] MEDS ORDERED: *HR* Succinylcholine 200 MG/10 ML VIAL IVP ONE (09:48)
[2018-07-16] MEDS ORDERED: *HR* Labetalol 20 MG/4 ML SYRINGE IVP PRN (09:51)
[2018-07-16] MEDS ORDERED: Albuterol 2.5 MG/3 ML NEBULIZER IH ONE (09:51)
[2018-07-16] MEDS ORDERED: *HR* HYDROmorphone 2 MG TABLET PO PRN (09:51)
[2018-07-16] MEDS ORDERED: *HR* HYDROmorphone (PF) 1 MG/ML SYRINGE IVP PRN (09:51)
[2018-07-16] MEDS ORDERED: Acetaminophen IV 1,000 MG/100 ML INFUS..BTL ONE (10:00)
[2018-07-16] MEDS ORDERED: Neostigmine Methylsulfate 3 MG/3 ML SYRINGE ONE (10:34)
[2018-07-16] MEDS ORDERED: *HR* PHENYLEPHRINE 1,000 MCG/10 ML SYRINGE IVP ONE (10:34)
[2018-07-16] MEDS ORDERED: Ondansetron 4 MG/2 ML VIAL ONE (10:34)
[2018-07-16] MEDS ORDERED: Dexamethasone 4 MG/ML VIAL ONE (10:34)
[2018-07-16] MEDS ORDERED: Ketorolac 30 MG/ML VIAL ONE (11:06)
--- NOTE | 2018-07-16 11:06 | Operative Note ---
Date of procedure: 07/16/18 Pre-op diagnosis: right lower quadrant abdominal pain,dilated appendix Post-op diagnosis: same Procedure: Laparoscopic appendectomy Complications: none immediate Anesthesia: QI, local Surgeon: Priyanka Wilcox Was there an retail administrative assistant present: No Estimated blood loss (cc): 5 Specimen: appendix Condition: stable Disposition: PACU Procedure in Detail: The patient was brought into the operating suite and placed supine on the operating table. Sign-in was performed and everyone was in agreement. Anesthesia was induced and patient was endotracheally intubated by anesthesia without incident. An OG tube was placed by anesthesia. Ashby catheter was placed by the circulating nurse and 2 L of urine was drained from the bladder. The abdomen was prepped and draped in the usual sterile fashion. A timeout was performed and everyone was in agreement. Left upper quadrant incision through the skin and the subcutaneous tissues made with a 11 blade. A Veress needle was placed into this incision and a water drop test confirmed placement and the abdomen was insufflated. We then entered the abdomen with the 5 mm 0 degree laparoscope on a 5 mm X-dara trocar. The area under entry was visualized and there was no bleeding and no apparent bowel injury. We placed a suprapubic 5 mm port under direct visualization after first incising the skin with an 11 blade. We then placed another 5 mm port in the left lower quadrant position under direct visualization after first incising the skin with an 11 blade. A supraumbilical incision through the skin and the subcutaneous tissues made with an 11 blade. A 12 mm xcel trocar was placed through this. The patient was placed in slight Trendelenburg left side down position. The cecum was located as was the appendix. The appendix was adhesed to the right lateral abdominal wall and the adhesions were taken down with scissors and gentle blunt dissection. The appendix was grasped and retracted anteriorly and caudally with a laparoscopic Maria Fernanda. A [place] was used to dissect between the mesoappendix and the appendix at the base of the cecum. The mesoappendix was transected with a laparoscopic flex-ex ETS stapler using a white load. The appendix was transected at the base of the cecum with the same stapler utilizing a white load. The appendix was placed in a laparoscopic Endo Catch bag and removed via the supraumbilical incision site. Both staple lines were evaluated and there was no bleeding and both staple lines were intact. The area was irrigated with sterile saline which was then suctioned free from the abdomen. The insufflation was suctioned free from the abdomen and all trochars removed. We closed the abdominal wall at the supraumbilical incision site with an 0 Vicryl [id number] stitch. A 30 cc of 0.5% Marcaine was injected subcutaneously at the 4 port sites. The skin at the three 5 mm port sites was closed with 4-0 Monocryl interrupted subcuticular stitches. The skin at the supraumbilical incision site was closed with a 4-0 Monocryl running subcuticular stitch. Steri-Strips were applied to the wounds. The patient was extubated in the OR and tolerated the procedure well and was taken to PACU after all lap and instrument counts were correct at the end of the case. Ashby catheter was removed at the end of the case
--- NOTE | 2018-07-16 12:07 | Anesthesia Evaluation Post Op ---
Date of Encounter: 07/16/18 Time of Encounter: 11:37 - Discharge PostOp Status: Transfer Patient to floor (Patient's vital signs have been reviewed. Patient is stable postoperatively and has adequately recovered from anesthesia. Patient is determined to have stable airway patency and respiratory function including respiratory rate and oxygen saturation. Patient has a stable heart rate, blood pressure and adequate hydration. Patients mental status is acceptable. Patients temperature is appropriate. Pain and nausea are adequately controlled.)
[2018-07-16] MEDS ORDERED: MORPHINE SUL Oral CONC 10 MG/0.5 ML ORAL.SYG SL PRN (12:29)
[2018-07-16] MEDS ORDERED: Ondansetron 4 MG/2 ML VIAL IVP PRN (12:29)
[2018-07-16 13:14] LABS: Basophils # 0.1 K/mcL (0.0-0.2); Basophils % 0.4 %; Eosinophils # 0.7 K/mcL (0.0-0.6); Eosinophils % 4.3 %; Hematocrit 31.9 % (37.5-50.1); Immature Granulocytes % 0.6 % (0-4); Lymphocytes # 1.4 K/mcL (0.6-4.6); Mean Corpuscular HGB Conc 31.3 g/dL (31.6-35.5); Mean Corpuscular Hemoglobin 27.2 pg (28.0-33.3); Mean Corpuscular Volume 86.7 fL (83.0-100.0); Mean Platelet Volume 9.5 fL (9.4-12.4); Monocytes # 0.3 K/mcL (0.0-1.3); Monocytes % 1.7 %; Neutrophils # 14.5 K/mcL (1.6-8.9); Platelet Count 394 K/mcL (140-400); Red Blood Count 3.68 M/mcL (4.19-5.50); Red Cell Distribution Width 13.6 % (11.5-14.5)
[2018-07-16 13:34] LABS: BUN/Creatinine Ratio 11 (6-26); Blood Urea Nitrogen 13 mg/dL (6-20); Calcium 8.5 mg/dL (8.6-10.3); Carbon Dioxide 27 mEq/L (23-29); Chloride 104 mEq/L (98-107); Glucose 93 mg/dL (70-105); Osmolality,Calculated 286 (280-300); Potassium 4.2 mEq/L (3.5-5.1); Sodium 138 mEq/L (136-145); eGFR For Non-African Americans > 60 (> 60)
[2018-07-16] MEDS: Sucralfate 1 GM TABLET PO SCH ×3 (14:18→20:11)
[2018-07-16] MEDS: *HR* OxyCODONE/APAP 5/325 TABLET PO PRN ×2 (16:58→21:16)
[2018-07-16] MEDS ORDERED: *HR* OxyCODONE Immed Rel 5 MG TABLET PO ONE (23:03)
[2018-07-17] MEDS: *HR* OxyCODONE/APAP 5/325 TABLET PO PRN ×2 (03:20→07:55)
[2018-07-17 03:45] LABS: Basophils % 0.2 %; Immature Granulocytes % 0.7 % (0-4); Lymphocytes # 1.2 K/mcL (0.6-4.6); Lymphocytes % 8.6 %; Mean Corpuscular HGB Conc 32.4 g/dL (31.6-35.5); Mean Corpuscular Hemoglobin 27.4 pg (28.0-33.3); Mean Corpuscular Volume 84.5 fL (83.0-100.0); Mean Platelet Volume 9.6 fL (9.4-12.4); Monocytes # 0.4 K/mcL (0.0-1.3); Monocytes % 3.2 %; Neutrophils # 11.6 K/mcL (1.6-8.9); Platelet Count 376 K/mcL (140-400); Red Blood Count 2.96 M/mcL (4.19-5.50); Red Cell Distribution Width 13.5 % (11.5-14.5); Segmented Neutrophils % 87.3 %
[2018-07-17 03:52] LABS: Hemoglobin 8.1 g/dL (12.9-16.9)
[2018-07-17 04:05] LABS: BUN/Creatinine Ratio 14 (6-26); Blood Urea Nitrogen 13 mg/dL (6-20); Calcium 8.1 mg/dL (8.6-10.3); Carbon Dioxide 23 mEq/L (23-29); Chloride 106 mEq/L (98-107); Glucose 125 mg/dL (70-105); Osmolality,Calculated 288 (280-300); Potassium 4.2 mEq/L (3.5-5.1); Sodium 138 mEq/L (136-145); eGFR For Non-African Americans > 60 (> 60)
[2018-07-17] MEDS: Sucralfate 1 GM TABLET PO SCH ×2 (07:55→11:36)
[2018-07-17] MEDS: 0.9 % Sodium Chloride 1,000 ML IVC SCH (08:13)
[2018-07-17] MEDS ORDERED: Pantoprazole 40 MG VIAL IVP SCH (09:00)
[2018-07-17 11:29] VITALS: BP 105/65
--- NOTE | 2018-07-17 11:31 | Discharge Summary ---
Date of Encounter: 07/17/18 Time of Encounter: 11:33 - Discharge Diagnosis (1) Abnormal CT of the abdomen Priority: Secondary Status: Acute (2) RLQ abdominal pain Priority: Primary Status: Acute (3) Urinary retention Priority: Secondary Status: Acute General Surgery Exam Initial Vital Signs Temp Pulse Resp BP Pulse Ox 98.9 F 126 16 117/77 99 07/15/18 17:17 07/15/18 17:17 07/15/18 17:17 07/15/18 17:17 07/15/18 17:17 - General physical appearance well developed, well nourished, no distress - Eyes PERRL, normal ocular movement - ENT normal mucosa, normocephalic - Neck trachea midline - Respiratory normal expansion, clear to auscultation - Cardiovascular Cardiovascular exam: Present: RRR - Abdomen Abdomen general surgery: Present: bowel sounds present, soft, tender (appropriate post op tenderness) Abdominal Tenderness: Present: RLQ - Incision Incision: Present: clean and dry, intact - Integumentary Integumentary general surgery: Present: warm and dry, no abnormal pigmentation - Neurologic Present: CN 2-12 grossly intact - Musculoskeletal Present: normal posture - Psychiatric Psychiatric general surgery: Present: A&Ox3, speech is normal - Hospital Course Hospital course: Mr. House is a 43 year old male admitted with abnormal CT scan of abdomen and pelvis and RLQ pain. He underwent an uncomplicated laparoscopic appendectomy. He had enlarged bladder on CT during admission. At surgery catheter was placed and he had 2 L urine drained. Postoperative after ugarte removed he had urinary retention and a Ugarte catheter was placed. Patient was started on Flomax. He is tolerating a diet and having appropriate bowel and bladder function now. His pain is controlled with by mouth medication. He is discharged him in stable condition with a Ugarte catheter and leg bag. He is to follow up with urology next week. He is given prescriptions for pain medication for postoperative pain, Colace for narcotic-induced constipation, Flomax for his urinary retention. He will follow-up with us in the office in 2 weeks with the nurse practitioner. - Time Spent with Patient Total time spent providing and/or coordinating discharge services: - Discharge Medications Prescriptions: Oxycodone HCl/Acetaminophen [Percocet 5-325 mg Tablet] 1 each PO Q6HR PRN 6 Days #20 tablet PRN Reason: Pain Docusate [Colace] 100 mg PO BID #30 capsule Tamsulosin [Flomax] 0.4 mg PO DAILY #30 cap.er.24h Home Medications: Omeprazole [PriLOSEC] 20 mg PO BIDAC #60 capsule.dr 06/07/18 [Rx] Sucralfate [Carafate] 1 gm PO QIDAC #120 tablet 06/15/18 [Rx] Chlorpromazine HCl 25 mg PO HS 07/16/18 [History] Duloxetine HCl [Cymbalta] 60 mg PO BID 07/16/18 [History] Hyoscyamine SL [Levsin Sl] 0.125 mg SL Q6H PRN 07/16/18 [History] LORazepam [Ativan] 0.5 mg PO BID PRN 07/16/18 [History] Prazosin HCl [Minipress] 5 mg PO HS PRN 07/16/18 [History] Ziprasidone [Geodon] 80 mg PO BID 07/16/18 [History] traZODone [TraZODone] 50 mg PO HS PRN 07/16/18 [History] Docusate [Colace] 100 mg PO BID #30 capsule 07/17/18 [Rx] Oxycodone HCl/Acetaminophen [Percocet 5-325 mg Tablet] 1 each PO Q6HR PRN 6 Days #20 tablet 07/17/18 [Rx] Tamsulosin [Flomax] 0.4 mg PO DAILY #30 cap.er.24h 07/17/18 [Rx] Allergies/Adverse Reactions: Allergy/AdvReac Type Severity Reaction Status Date / Time ibuprofen Allergy Unknown Abdominal Verified 06/05/18 19:05 Pain NSAIDS (Non-Steroidal Allergy See Verified 07/16/18 16:55 Anti-Inflamma Comments Date of admission: 07/15/18 21:48 Primary care physician: Faby Avila CNP Discharging clinician: Priyanka Wilcox Anticipated date of discharge: 07/17/18 Labs on day of discharge: Labs from last 24 hours 07/17/18 07/17/18 07/16/18 03:09 03:09 12:35 WBC 13.3 H RBC 2.96 L Hgb 8.1 L D Hct 25.0 L MCV 84.5 MCH 27.4 L MCHC 32.4 RDW 13.5 Plt Count 376 MPV 9.6 Immature Gran % 0.7 Seg Neutrophils % 87.3 Lymphocytes % 8.6 Monocytes % 3.2 Eosinophils % 0.0 Basophils % 0.2 Neutrophils # 11.6 H Lymphocytes # 1.2 Monocytes # 0.4 Eosinophils # 0.0 Basophils # 0.0 Sodium 138 138 Potassium 4.2 4.2 Chloride 106 104 Carbon Dioxide 23 27 BUN 13 13 Creatinine 0.95 1.19 Est GFR ( Amer) > 60 > 60 Est GFR (Non-Af Amer) > 60 > 60 BUN/Creatinine Ratio 14 11 Glucose 125 H 93 Calculated Osmolality 288 286 Calcium 8.1 L 8.5 L 07/16/18 12:35 WBC 17.1 H D RBC 3.68 L Hgb 10.0 L Hct 31.9 L MCV 86.7 MCH 27.2 L MCHC 31.3 L RDW 13.6 Plt Count 394 MPV 9.5 Immature Gran % 0.6 Seg Neutrophils % 85.0 Lymphocytes % 8.0 Monocytes % 1.7 Eosinophils % 4.3 Basophils % 0.4 Neutrophils # 14.5 H Lymphocytes # 1.4 Monocytes # 0.3 Eosinophils # 0.7 H Basophils # 0.1 Sodium Potassium Chloride Carbon Dioxide BUN Creatinine Est GFR ( Amer) Est GFR (Non-Af Amer) BUN/Creatinine Ratio Glucose Calculated Osmolality Calcium - Impressions ITS Impressions Abdomen/Pelvis CT 07/15/18 18:47 IMPRESSION: The appendix is mildly dilated measuring 10.3 cm but only slightly increased in size from prior studies. The appendix is primarily fluid-filled with no definite periappendiceal fat stranding. Findings are equivocal for mild or early appendicitis and clinical correlation is recommended. Mild to moderate stool load suggests constipation. Urinary bladder is markedly distended. Correlate for possible outlet obstruction. There is trace bibasilar pleural and parenchymal lung disease. D/ / John North MD / John North MD Interpreting Provider: John North MD - Patient Status Disposition: Home, Self-Care Condition: Fair Overall status at discharge: patient is progressing back to baseline - Discharge Instructions Follow Up With: Faby Avila CNP [Primary Care Provider] - (Hospital follow up appointment has been requested. ) Ronaldo Muñoz MD [Partnered Physician] - (pt needs appt this week for urinary retention as DC'd with catheter, any provider is ok) Marta Rico CNP [Advanced Practice Nurse] - (2 week surgical followup) Additional Instructions: No lifting more than 20 pounds for 2 weeks. Okay to take a shower in 24 hours. No tub baths or pools for 1 week. Okay to ride in the car wearing a seatbelt and climb steps. No driving until off narcotics for 24 hours and able to react safely Remove Steri-Strips in 1 week Do not take pain medicine/narcotics on an empty stomach it will likely cause nausea and possibly vomiting. If pain medication is too strong okay to break in half - Diet and Activity Activity: increase activity as tolerated Diet: advance to your usual diet
== END 2018-07-17 14:08 | disposition home or self-care (01) ==
LOC: EMEROOARM 17:15 → 3BNU 17:15
PROVIDERS: ADMIT Surgery; ATTEND Surgery

== ENCOUNTER 2018-07-29 10:52 | Observation (INO) ==
[2018-07-29] MEDS ORDERED: Isovue-370 500 ML INFUS..BTL IV ONE (11:09)
[2018-07-29] MEDS ORDERED: 0.9 % Sodium Chloride 1,000 ML IVC ONE (11:09)
[2018-07-29] MEDS: Ondansetron 4 MG/2 ML VIAL IVP ONE ×2 (11:23→11:30)
[2018-07-29] MEDS ORDERED: Hyoscyamine 0.5 MG/ML MLS IVP ONE (11:32)
--- NOTE | 2018-07-29 11:33 | Emergency Department Note ---
Disposition Clinical Impression: Abdominal pain, Urinary retention, Near syncope Disposition: Admitted As Inpatient Condition: Good General Adult HPI - General Chief complaint: ED Dizziness Stated complaint: Low bp/nausea abd pain Time Seen by Provider: 07/29/18 10:57 Source: patient - History of Present Illness HPI Narrative: Patient is a 43 year old male with PMH significant for recent laparoscopic appendectomy 2 weeks ago presents with chief complaint of presyncopal episode this at 7:30am today and recorded low blood pressure at surgery follow up appointment this morning. Patient was diagnosed six days ago with retroperitoneal hematoma and mild anemia. Patient reports that this morning when he was walking out of his bathroom he become lightheaded and "shaky" and fell down. Patient states that he did not hit his head, he did not have LOC, did not injure any other part of his body, patient is not currently on blood thinners. Patient states that he was able to stand up after his fall and ambulate without assistance. Patient then went to appointment with Dr. Wilcox for s/p appendectomy where is blood pressure was found to be "70s/60s" at which point they advised him to come to the ER. Patient admits to right lower quadrant pain which is nonradiating sharp in nature and is getting progressively worse since his appendectomy. Patient states that he has chronic RLQ pain and this feels similar to that pain except more severe. Patient also states that he continues to feel lightheaded at this time. Patient denies chest pain, SOB, fever, chills, SMITH, vision changes, numbness tinging, weakness, nausea, vomiting, diarrhea, dark stools, urinary symptoms. Pain Scale: 7 - Related Data Home Medications Medication Instructions Recorded Confirmed RX: Chlorpromazine HCl 25 mg PO HS 07/16/18 07/29/18 RX: Duloxetine HCl [Cymbalta] 60 mg PO BID 07/16/18 07/29/18 RX: Hyoscyamine SL [Levsin Sl] 0.125 mg SL Q6H PRN 07/16/18 07/29/18 RX: LORazepam [Ativan] 0.5 mg PO BID PRN 07/16/18 07/29/18 RX: Ziprasidone [Geodon] 80 mg PO BID 07/16/18 07/29/18 RX: traZODone [TraZODone] 50 mg PO HS PRN 07/16/18 07/29/18 Previous Rx's Medication Instructions Recorded RX: Docusate [Colace] 100 mg PO BID #30 capsule 07/17/18 RX: Cefdinir [Omnicef] 300 mg PO BID #14 capsule 07/30/18 RX: Tamsulosin [Flomax] 0.8 mg PO DAILY #30 capsule 07/30/18 Allergies Allergy/AdvReac Type Severity Reaction Status Date / Time ibuprofen Allergy Unknown Abdominal Verified 07/29/18 11:03 Pain NSAIDS (Non-Steroidal Allergy See Verified 07/29/18 11:03 Anti-Inflamma Comments Constitutional: Denies: fever, chills Eyes: Denies: eye pain, vision change ENT ED: Denies: ear pain, throat pain, congestion Cardiovascular: Reports: other (presyncopal). Denies: chest pain, palpitations Respiratory: Denies: cough, dyspnea Gastrointestinal: Reports: abdominal pain (RLQ). Denies: nausea, vomiting, diarrhea, melena Genitourinary: Denies: dysuria, hematuria Musculoskeletal: Denies: back pain, neck pain Integumentary: Reports: other (no ecchymosis). Denies: rash Neurological: Denies: headache, weakness, numbness, paresthesias Past Medical History - Past Medical History Medical history: Reports: GERD, GI bleed Surgical history: Reports: herniorrhaphy Psychiatric history: Reports: bipolar, schizophrenia, previous psychiatric hospitalization - Social History Smoking Status: Never smoker Smokeless Tobacco Status: No Alcohol use: Reports: none Drug use: Reports: none Physical Exam - General General appearance: alert, in no apparent distress - Head Head exam: atraumatic, normocephalic, normal inspection - Eye Eye exam: Present: normal appearance, PERRL, EOMI - ENT ENT exam: normal exam, normal oropharynx, mucous membranes dry - Neck Neck exam: Present: normal inspection, full ROM. Absent: tenderness - Chest Chest inspection: Present: normal inspection - Respiratory Respiratory exam: Present: normal lung sounds bilaterally - Cardiovascular Cardiovascular exam: Present: regular rate, normal rhythm, normal heart sounds - Abdominal Exam Abdominal exam: Present: soft, tenderness, rigidity, scar (no signs of dehiscence, erythema, discharge, no flores turners or cullens sign). Absent: distention, guarding, rebound Abdominal tenderness: Present: RLQ, moderate - Extremities Exam Extremities exam: Present: normal inspection, full ROM, normal capillary refill. Absent: tenderness, pedal edema - Back Exam Back exam: Present: normal inspection, full ROM. Absent: tenderness, CVA tenderness (R), CVA tenderness (L) - Neurological Exam Neurological exam: Present: alert, oriented X3, CN II-XII intact, normal gait. Absent: motor sensory deficit - Psychiatric Psychiatric exam: Present: normal affect, normal mood - Skin Skin exam: Present: warm, dry, intact, normal color Course Vital Signs Temperature 97.7 F 07/29/18 11:03 Pulse Rate 105 07/29/18 11:03 Respiratory Rate 20 07/29/18 11:03 Blood Pressure 84/55 07/29/18 11:03 O2 Sat by Pulse Oximetry 97 07/29/18 11:03 Temperature 97.7 F 07/29/18 11:15 Pulse Rate 105 07/29/18 11:15 Respiratory Rate 20 07/29/18 11:15 Blood Pressure 84/55 07/29/18 11:15 O2 Sat by Pulse Oximetry 97 07/29/18 11:15 Oxygen Delivery Oxygen Delivery Room Air Medical Decision Making - Lab Data Result diagrams: 07/30/18 11:22 07/30/18 04:35
--- NOTE | 2018-07-29 11:36 | Emergency Department Note ---
Disposition Clinical Impression: Abdominal pain, Urinary retention, Near syncope Disposition: Admitted As Inpatient Condition: Fair Referrals: Faby Avila, [employer] [Primary Care Provider] - General Adult HPI - General Stated complaint: Low bp/nausea abd pain Time Seen by Provider: 07/29/18 10:57 Source: patient - History of Present Illness Pain Scale: 7 - Related Data Home Medications Medication Instructions Recorded Confirmed Chlorpromazine HCl 25 mg PO HS 07/16/18 07/16/18 Duloxetine HCl [Cymbalta] 60 mg PO BID 07/16/18 07/16/18 Hyoscyamine SL [Levsin Sl] 0.125 mg SL Q6H PRN 07/16/18 07/16/18 LORazepam [Ativan] 0.5 mg PO BID PRN 07/16/18 07/16/18 Prazosin HCl [Minipress] 5 mg PO HS PRN 07/16/18 07/16/18 Ziprasidone [Geodon] 80 mg PO BID 07/16/18 07/16/18 traZODone [TraZODone] 50 mg PO HS PRN 07/16/18 07/16/18 Previous Rx's Medication Instructions Recorded Omeprazole [PriLOSEC] 20 mg PO BIDAC #60 capsule.dr 06/07/18 Sucralfate [Carafate] 1 gm PO QIDAC #120 tablet 06/15/18 Docusate [Colace] 100 mg PO BID #30 capsule 07/17/18 Tamsulosin [Flomax] 0.4 mg PO DAILY #30 cap.er.24h 07/17/18 cephALEXin [Keflex] 500 mg PO BID #14 capsule 07/24/18 Allergies Allergy/AdvReac Type Severity Reaction Status Date / Time ibuprofen Allergy Unknown Abdominal Verified 07/29/18 11:03 Pain NSAIDS (Non-Steroidal Allergy See Verified 07/29/18 11:03 Anti-Inflamma Comments Past Medical History - Past Medical History Medical history: Reports: GERD, GI bleed Surgical history: Reports: herniorrhaphy Psychiatric history: Reports: bipolar, schizophrenia, previous psychiatric hospitalization - Social History Smoking Status: Never smoker Smokeless Tobacco Status: No Alcohol use: Reports: none Drug use: Reports: none Physical Exam - General General appearance: alert Course Vital Signs Temperature 97.7 F 07/29/18 11:03 Pulse Rate 105 07/29/18 11:03 Respiratory Rate 20 07/29/18 11:03 Blood Pressure 84/55 07/29/18 11:03 O2 Sat by Pulse Oximetry 97 07/29/18 11:03 Temperature 97.7 F 07/29/18 11:15 Pulse Rate 73 07/29/18 14:55 Respiratory Rate 12 07/29/18 14:55 Blood Pressure 128/93 07/29/18 14:55 O2 Sat by Pulse Oximetry 100 07/29/18 14:55 Oxygen Delivery Oxygen Delivery Room Air Medical Decision Making - Lab Data Result diagrams: 07/29/18 11:14 07/29/18 11:14 Lab Results 07/29/18 07/29/18 07/29/18 Range/Units 11:14 11:14 11:14 WBC 12.0 H (4.3-11.1) K/mcL RBC 3.52 L (4.19-5.50) M/mcL Hgb 9.8 L (12.9-16.9) g/dL Hct 31.2 L (37.5-50.1) % MCV 88.6 (83.0-100.0) fL MCH 27.8 L (28.0-33.3) pg MCHC 31.4 L (31.6-35.5) g/dL RDW 16.8 H (11.5-14.5) % Plt Count 546 H (140-400) K/mcL MPV 9.8 (9.4-12.4) fL Immature Gran % 2.6 (0-4) % Seg Neutrophils % 54.1 % Lymphocytes % 26.5 % Monocytes % 7.1 % Eosinophils % 8.7 % Basophils % 1.0 % Neutrophils # 6.5 (1.6-8.9) K/mcL Lymphocytes # 3.2 (0.6-4.6) K/mcL Monocytes # 0.9 (0.0-1.3) K/mcL Eosinophils # 1.1 H (0.0-0.6) K/mcL Basophils # 0.1 (0.0-0.2) K/mcL ESR (0-10) mm/hr PT 11.1 (9.4-12.1) Seconds INR 1.0 APTT 36.1 H (26.0-36.0) Seconds Sodium 138 (136-145) mEq/L Potassium 3.6 (3.5-5.1) mEq/L Chloride 106 (98-107) mEq/L Carbon Dioxide 28 (23-29) mEq/L BUN 15 (6-20) mg/dL Creatinine 0.93 (0.70-1.30) mg/dL Est GFR ( Amer) > 60 (> 60) Est GFR (Non-Af Amer) > 60 (> 60) BUN/Creatinine Ratio 16 (6-26) Glucose 83 (70-105) mg/dL Calculated Osmolality 286 (280-300) Lactic Acid (0.5-2.2) mmol/L Calcium 9.0 (8.6-10.3) mg/dL Total Bilirubin 0.5 (0.3-1.0) mg/dL Direct Bilirubin 0.0 (0.0-0.2) mg/dL Indirect Bilirubin 0.5 (0.0-1.2) mg/dL AST 10 L (13-39) Units/L ALT 11 (7-52) Units/L Alkaline Phosphatase 47 (34-104) Units/L Troponin I < 0.03 (< 0.04) ng/mL C-Reactive Protein 13 H (Less than 10) mg/L Serum Total Protein 6.7 (6.4-8.9) g/dL Albumin 3.9 (3.5-5.7) g/dL Globulin 2.8 (2.4-3.5) g/dL Albumin/Globulin Ratio 1.4 (1.1-2.2) Lipase 29 (11-82) Units/L Urine Color (Yellow) Urine Clarity (Clear) Urine pH (5.0-8.0) pH Units Ur Specific [place] (1.010-1.025) Urine Protein (Neg-Trace) mg/dL Urine Glucose (UA) (Normal) mg/dL Urine Ketones (Negative) mg/dL Urine Blood (Negative) Urine Nitrite (Negative) Urine Bilirubin (Negative) Urine Urobilinogen (Normal) mg/dL Ur Leukocyte Esterase (Negative) Ur Culture Indicated? (NO) 07/29/18 07/29/18 07/29/18 Range/Units 11:14 11:54 13:40 WBC (4.3-11.1) K/mcL RBC (4.19-5.50) M/mcL Hgb (12.9-16.9) g/dL Hct (37.5-50.1) % MCV (83.0-100.0) fL MCH (28.0-33.3) pg MCHC (31.6-35.5) g/dL RDW (11.5-14.5) % Plt Count (140-400) K/mcL MPV (9.4-12.4) fL Immature Gran % (0-4) % Seg Neutrophils % % Lymphocytes % % Monocytes % % Eosinophils % % Basophils % % Neutrophils # (1.6-8.9) K/mcL Lymphocytes # (0.6-4.6) K/mcL Monocytes # (0.0-1.3) K/mcL Eosinophils # (0.0-0.6) K/mcL Basophils # (0.0-0.2) K/mcL ESR 33 H (0-10) mm/hr PT (9.4-12.1) Seconds INR APTT (26.0-36.0) Seconds Sodium (136-145) mEq/L Potassium (3.5-5.1) mEq/L Chloride (98-107) mEq/L Carbon Dioxide (23-29) mEq/L BUN (6-20) mg/dL Creatinine (0.70-1.30) mg/dL Est GFR ( Amer) (> 60) Est GFR (Non-Af Amer) (> 60) BUN/Creatinine Ratio (6-26) Glucose (70-105) mg/dL Calculated Osmolality (280-300) Lactic Acid 0.8 (0.5-2.2) mmol/L Calcium (8.6-10.3) mg/dL Total Bilirubin (0.3-1.0) mg/dL Direct Bilirubin (0.0-0.2) mg/dL Indirect Bilirubin (0.0-1.2) mg/dL AST (13-39) Units/L ALT (7-52) Units/L Alkaline Phosphatase (34-104) Units/L Troponin I (< 0.04) ng/mL C-Reactive Protein (Less than 10) mg/L Serum Total Protein (6.4-8.9) g/dL Albumin (3.5-5.7) g/dL Globulin (2.4-3.5) g/dL Albumin/Globulin Ratio (1.1-2.2) Lipase (11-82) Units/L Urine Color Yellow (Yellow) Urine Clarity Clear (Clear) Urine pH 6.5 (5.0-8.0) pH Units Ur Specific [place] 1.008 L (1.010-1.025) Urine Protein Negative (Neg-Trace) mg/dL Urine Glucose (UA) Normal (Normal) mg/dL Urine Ketones Negative (Negative) mg/dL Urine Blood Negative (Negative) Urine Nitrite Negative (Negative) Urine Bilirubin Negative (Negative) Urine Urobilinogen Normal (Normal) mg/dL Ur Leukocyte Esterase Negative (Negative) Ur Culture Indicated? NO (NO) Attestation Statement - Attestation Attestation: I examined this patient and my medical decision-making was reviewed with the Resident Physician. I agree with the documented findings, disposition and wesly atment plan as described except to the extent set forth below. Patient to the ED with chief complaint of abdominal pain and dizziness. Patient is been seen twice since his appendectomy a couple weeks ago. He states he feels dizzy and he checked his blood pressure home and it was low. On exam he has right lower quadrant tenderness. Blood pressures 100 systolic on my eval. Plan. Basic labs and CT abdomen pelvis. CT reviewed.Read by cardiology appears to be surgical clips. Admitted to medicine with surgical consult. Abdomen/Pelvis CTA 07/29/18 11:09 IMPRESSION: 1. There is a blush of contrast noted in the cecum concerning for an area of active bleeding. 2. The right pelvic sidewall hemorrhage is smaller since the 07/24/2018 exam. There is a small area of active bleeding along the inferior margin (series 4, image 213). 3. Small bilateral pleural effusions, not appreciably changed. D/ / 07/29/2018 13:35:15 Chauncey Maciel MD / harlan Interpreting Provider: Chauncey Maciel MD Chest X-Ray 07/29/18 11:27 IMPRESSION: No radiographic evidence of acute cardiopulmonary process. D/ / Dread Neville MD / Dread Neville MD Interpreting Provider: Dread Neville MD
[2018-07-29 11:49] LABS: Basophils # 0.1 K/mcL (0.0-0.2); Eosinophils # 1.1 K/mcL (0.0-0.6); Eosinophils % 8.7 %; Hematocrit 31.2 % (37.5-50.1); Hemoglobin 9.8 g/dL (12.9-16.9); Immature Granulocytes % 2.6 % (0-4); Lymphocytes # 3.2 K/mcL (0.6-4.6); Lymphocytes % 26.5 %; Mean Corpuscular HGB Conc 31.4 g/dL (31.6-35.5); Mean Corpuscular Hemoglobin 27.8 pg (28.0-33.3); Mean Corpuscular Volume 88.6 fL (83.0-100.0); Mean Platelet Volume 9.8 fL (9.4-12.4); Monocytes # 0.9 K/mcL (0.0-1.3); Monocytes % 7.1 %; Neutrophils # 6.5 K/mcL (1.6-8.9); Platelet Count 546 K/mcL (140-400); Red Blood Count 3.52 M/mcL (4.19-5.50); Red Cell Distribution Width 16.8 % (11.5-14.5); Segmented Neutrophils % 54.1 %
[2018-07-29 11:57] LABS: Prothrombin Time 11.1 Seconds (9.4-12.1)
[2018-07-29 12:00] LABS: Activated Partial Thrombo Time 36.1 Seconds (26.0-36.0)
[2018-07-29 12:18] LABS: Troponin I < 0.03 ng/mL (< 0.04)
--- NOTE | 2018-07-29 12:34 | Emergency Department Note ---
Disposition Clinical Impression: Urinary retention, Near syncope Abdominal pain Qualifiers: Abdominal location: right lower quadrant Qualified Code(s): R10.31 - Right l ower quadrant pain Disposition: Admitted As Inpatient Condition: Fair Time of Disposition: 14:17 General Adult HPI - General Chief complaint: ED Dizziness Stated complaint: Low bp/nausea abd pain Time Seen by Provider: 07/29/18 10:57 Source: patient - History of Present Illness HPI Narrative: I have personally seen and evaluated the patient along with the Medical Student. I have reviewed and confirmed the history of present illness, review of s ystems, family, medical, and surgical history and agree with the documentation except as documented below. HPI/ROS: Briefly, patient presenting with near-syncope and right lower quadrant abdominal pain. States he still feels lightheaded like he is going to pass out. Recent medical record review does show a appendectomy about 2 weeks ago and post at the CT scan showed a small retroperitoneal hematoma. Physical exam: CONSTITUTIONAL: [Chronically ill appearing in no acute distress] SKIN: [Warm, dry, and intact without rash] EYES: [extraocular movements are grossly intact, clear conjunctiva] HENT: [Normocephalic, atraumatic, moist mucus membranes] NECK: [no obvious swelling, normal range of motion] PULMONARY: [normal chest rise and fall, no respiratory distress or stridor CARDIOVASCULAR: [regular rate, distal extremities are warm and well perfused] GASTROINSTESTINAL: [nondistended, mildly tender in the epigastrium and right lower quadrant without guarding or rebound, nonrigid] GENITOURINARY: [deferred] NEUROLOGIC: [normal speech, moves all extremities] MUSCULOSKELETAL: [no gross deformities, atraumatic] PSYCHIATRIC: [normal mood and affect] Pain Scale: 7 - Related Data Home Medications Medication Instructions Recorded Confirmed Chlorpromazine HCl 25 mg PO HS 07/16/18 07/16/18 Duloxetine HCl [Cymbalta] 60 mg PO BID 07/16/18 07/16/18 Hyoscyamine SL [Levsin Sl] 0.125 mg SL Q6H PRN 07/16/18 07/16/18 LORazepam [Ativan] 0.5 mg PO BID PRN 07/16/18 07/16/18 Prazosin HCl [Minipress] 5 mg PO HS PRN 07/16/18 07/16/18 Ziprasidone [Geodon] 80 mg PO BID 07/16/18 07/16/18 traZODone [TraZODone] 50 mg PO HS PRN 07/16/18 07/16/18 Previous Rx's Medication Instructions Recorded Omeprazole [PriLOSEC] 20 mg PO BIDAC #60 capsule. 06/07/18 Sucralfate [Carafate] 1 gm PO QIDAC #120 tablet 06/15/18 Docusate [Colace] 100 mg PO BID #30 capsule 07/17/18 Tamsulosin [Flomax] 0.4 mg PO DAILY #30 cap.er.24h 07/17/18 cephALEXin [Keflex] 500 mg PO BID #14 capsule 07/24/18 Allergies Allergy/AdvReac Type Severity Reaction Status Date / Time ibuprofen Allergy Unknown Abdominal Verified 07/29/18 11:03 Pain NSAIDS (Non-Steroidal Allergy See Verified 07/29/18 11:03 Anti-Inflamma Comments Constitutional: Denies: fever, chills Eyes: Denies: eye pain, vision change ENT ED: Denies: ear pain, throat pain, congestion Cardiovascular: Reports: other (presyncopal). Denies: chest pain, palpitations Respiratory: Denies: cough, dyspnea Gastrointestinal: Reports: abdominal pain (RLQ). Denies: nausea, vomiting, diarrhea, melena Genitourinary: Denies: dysuria, hematuria Musculoskeletal: Denies: back pain, neck pain Integumentary: Reports: other (no ecchymosis). Denies: rash Neurological: Denies: headache, weakness, numbness, paresthesias Past Medical History - Past Medical History Medical history: Reports: GERD, GI bleed Surgical history: Reports: herniorrhaphy Psychiatric history: Reports: bipolar, schizophrenia, previous psychiatric hospitalization - Social History Smoking Status: Never smoker Smokeless Tobacco Status: No Alcohol use: Reports: none Drug use: Reports: none Physical Exam - General General appearance: alert Course Course Narrative: Plan is to get seemed to be labs as well as a CT of his abdomen to evaluate for worsened retroperitoneal hematoma. Patient agreeable plan - Reevaluation(s) Reevaluation #1: Patient's CTA results are back and showed some concern over active bleeding around the cecum and right lower quadrant. I spoke with surgery (Dr. Wilcox) and she looked at the CT images and think that this is due to to the patient's staple line from the anastomosis and not from an active bleed. After comparing these images to the previous it does seem to be in the same spot. His hemoglobin is stable and his vital signs are stable. Will need admission. The hospitalist service for further cardiac workup of his near syncope. He also has urinary retention again and was supposed to see urology, but had not. And would recommend that they be consult an ongoing inpatient basis as well. Patient will have his hemoglobin was trended and if anything significantly changes surgery could be consulted at that time. Vital Signs Temperature 97.7 F 07/29/18 11:03 Pulse Rate 105 07/29/18 11:03 Respiratory Rate 20 07/29/18 11:03 Blood Pressure 84/55 07/29/18 11:03 O2 Sat by Pulse Oximetry 97 07/29/18 11:03 Temperature 97.7 F 07/29/18 11:15 Pulse Rate 105 07/29/18 11:15 Respiratory Rate 20 07/29/18 11:15 Blood Pressure 84/55 07/29/18 11:15 O2 Sat by Pulse Oximetry 97 07/29/18 11:15 Oxygen Delivery Oxygen Delivery Room Air Medical Decision Making - Medical Records Medical records reviewed: Yes I reviewed the patient's medical records. - Lab Data Lab results reviewed: Yes I reviewed the patient's lab results. Result diagrams: 07/29/18 11:14 07/29/18 11:14 Lab Results 07/29/18 07/29/18 07/29/18 Range/Units 11:14 11:14 11:14 WBC 12.0 H (4.3-11.1) K/mcL RBC 3.52 L (4.19-5.50) M/mcL Hgb 9.8 L (12.9-16.9) g/dL Hct 31.2 L (37.5-50.1) % MCV 88.6 (83.0-100.0) fL MCH 27.8 L (28.0-33.3) pg MCHC 31.4 L (31.6-35.5) g/dL RDW 16.8 H (11.5-14.5) % Plt Count 546 H (140-400) K/mcL MPV 9.8 (9.4-12.4) fL Immature Gran % 2.6 (0-4) % Seg Neutrophils % 54.1 % Lymphocytes % 26.5 % Monocytes % 7.1 % Eosinophils % 8.7 % Basophils % 1.0 % Neutrophils # 6.5 (1.6-8.9) K/mcL Lymphocytes # 3.2 (0.6-4.6) K/mcL Monocytes # 0.9 (0.0-1.3) K/mcL Eosinophils # 1.1 H (0.0-0.6) K/mcL Basophils # 0.1 (0.0-0.2) K/mcL ESR (0-10) mm/hr PT 11.1 (9.4-12.1) Seconds INR 1.0 APTT 36.1 H (26.0-36.0) Seconds Sodium 138 (136-145) mEq/L Potassium 3.6 (3.5-5.1) mEq/L Chloride 106 (98-107) mEq/L Carbon Dioxide 28 (23-29) mEq/L BUN 15 (6-20) mg/dL Creatinine 0.93 (0.70-1.30) mg/dL Est GFR ( Amer) > 60 (> 60) Est GFR (Non-Af Amer) > 60 (> 60) BUN/Creatinine Ratio 16 (6-26) Glucose 83 (70-105) mg/dL Calculated Osmolality 286 (280-300) Lactic Acid (0.5-2.2) mmol/L Calcium 9.0 (8.6-10.3) mg/dL Total Bilirubin 0.5 (0.3-1.0) mg/dL Direct Bilirubin 0.0 (0.0-0.2) mg/dL Indirect Bilirubin 0.5 (0.0-1.2) mg/dL AST 10 L (13-39) Units/L ALT 11 (7-52) Units/L Alkaline Phosphatase 47 (34-104) Units/L Troponin I < 0.03 (< 0.04) ng/mL C-Reactive Protein 13 H (Less than 10) mg/L Serum Total Protein 6.7 (6.4-8.9) g/dL Albumin 3.9 (3.5-5.7) g/dL Globulin 2.8 (2.4-3.5) g/dL Albumin/Globulin Ratio 1.4 (1.1-2.2) Lipase 29 (11-82) Units/L Urine Color (Yellow) Urine Clarity (Clear) Urine pH (5.0-8.0) pH Units Ur Specific [place] (1.010-1.025) Urine Protein (Neg-Trace) mg/dL Urine Glucose (UA) (Normal) mg/dL Urine Ketones (Negative) mg/dL Urine Blood (Negative) Urine Nitrite (Negative) Urine Bilirubin (Negative) Urine Urobilinogen (Normal) mg/dL Ur Leukocyte Esterase (Negative) Ur Culture Indicated? (NO) 07/29/18 07/29/18 07/29/18 Range/Units 11:14 11:54 13:40 WBC (4.3-11.1) K/mcL RBC (4.19-5.50) M/mcL Hgb (12.9-16.9) g/dL Hct (37.5-50.1) % MCV (83.0-100.0) fL MCH (28.0-33.3) pg MCHC (31.6-35.5) g/dL RDW (11.5-14.5) % Plt Count (140-400) K/mcL MPV (9.4-12.4) fL Immature Gran % (0-4) % Seg Neutrophils % % Lymphocytes % % Monocytes % % Eosinophils % % Basophils % % Neutrophils # (1.6-8.9) K/mcL Lymphocytes # (0.6-4.6) K/mcL Monocytes # (0.0-1.3) K/mcL Eosinophils # (0.0-0.6) K/mcL Basophils # (0.0-0.2) K/mcL ESR 33 H (0-10) mm/hr PT (9.4-12.1) Seconds INR APTT (26.0-36.0) Seconds Sodium (136-145) mEq/L Potassium (3.5-5.1) mEq/L Chloride (98-107) mEq/L Carbon Dioxide (23-29) mEq/L BUN (6-20) mg/dL Creatinine (0.70-1.30) mg/dL Est GFR ( Amer) (> 60) Est GFR (Non-Af Amer) (> 60) BUN/Creatinine Ratio (6-26) Glucose (70-105) mg/dL Calculated Osmolality (280-300) Lactic Acid 0.8 (0.5-2.2) mmol/L Calcium (8.6-10.3) mg/dL Total Bilirubin (0.3-1.0) mg/dL Direct Bilirubin (0.0-0.2) mg/dL Indirect Bilirubin (0.0-1.2) mg/dL AST (13-39) Units/L ALT (7-52) Units/L Alkaline Phosphatase (34-104) Units/L Troponin I (< 0.04) ng/mL C-Reactive Protein (Less than 10) mg/L Serum Total Protein (6.4-8.9) g/dL Albumin (3.5-5.7) g/dL Globulin (2.4-3.5) g/dL Albumin/Globulin Ratio (1.1-2.2) Lipase (11-82) Units/L Urine Color Yellow (Yellow) Urine Clarity Clear (Clear) Urine pH 6.5 (5.0-8.0) pH Units Ur Specific [place] 1.008 L (1.010-1.025) Urine Protein Negative (Neg-Trace) mg/dL Urine Glucose (UA) Normal (Normal) mg/dL Urine Ketones Negative (Negative) mg/dL Urine Blood Negative (Negative) Urine Nitrite Negative (Negative) Urine Bilirubin Negative (Negative) Urine Urobilinogen Normal (Normal) mg/dL Ur Leukocyte Esterase Negative (Negative) Ur Culture Indicated? NO (NO) - Radiology Data Radiology results reviewed: Yes I reviewed the patient's radiology results. - EKG Data EKG #1 EKG attestation: Yes I reviewed and interpreted this EKG. EKG results narrative: Sinus rhythm, rate 90, normal axis, no ischemic changes
[2018-07-29 12:49] LABS: Alanine Aminotransferase 11 Units/L (7-52); Albumin 3.9 g/dL (3.5-5.7); Albumin/Globulin Ratio 1.4 (1.1-2.2); Alkaline Phosphatase 47 Units/L (34-104); Aspartate Amino Transferase 10 Units/L (13-39); BUN/Creatinine Ratio 16 (6-26); Bilirubin,Indirect 0.5 mg/dL (0.0-1.2); Bilirubin,Total 0.5 mg/dL (0.3-1.0); Blood Urea Nitrogen 15 mg/dL (6-20); C-Reactive Protein 13 mg/L (Less than 10); Carbon Dioxide 28 mEq/L (23-29); Chloride 106 mEq/L (98-107); Globulin 2.8 g/dL (2.4-3.5); Glucose 83 mg/dL (70-105); Lipase 29 Units/L (11-82); Osmolality,Calculated 286 (280-300); Potassium 3.6 mEq/L (3.5-5.1); Sodium 138 mEq/L (136-145); Total Protein 6.7 g/dL (6.4-8.9); eGFR For Non-African Americans > 60 (> 60)
[2018-07-29 13:50] LABS: Bilirubin,Urine Negative (Negative); Blood,Urine Negative (Negative); Clarity,Urine Clear (Clear); Color,Urine Yellow (Yellow); Glucose,Urine (UA) Normal (Normal); Ketones,Urine Negative (Negative); Leukocyte Esterase,Urine Negative (Negative); Nitrite,Urine Negative (Negative); PH,Urine 6.5 pH Units (5.0-8.0); Protein,Urine Negative (Neg-Trace); Specific Gravity,Urine 1.008 (1.010-1.025); Urobilinogen,Urine Normal (Normal)
[2018-07-29] MEDS ORDERED: *HR* HYDROmorphone (PF) 1 MG/ML SYRINGE IVP ONE ×2 (14:21→20:23)
[2018-07-29] MEDS ORDERED: Naloxone 0.4 MG/ML INJ IVP PRN (14:26)
--- NOTE | 2018-07-29 15:07 | Internal Med History&Physical ---
Date of Encounter: 07/29/18 Time of Encounter: 15:05 Internal Medicine - H&P: HPI Chief complaint: His blood pressure was low Admitted From: Home Plans for Post Hospital Care: Home History of present illness: Mr. House is a 43 year old male with medical history of schizophrenia, depression, bipolar, recent arthroscopic appendectomy in this facility on 07/16/[address] solis, complicated by acute urinary retention and retroperitoneal hematoma. He was at the surgeon's office for follow-up today when was noted to have a low blood pressure systolic 70, diastolic blood sleep. The patient reports he woke up this morning and had a fall after having felt dizziness, and weakness. He denies vertigo, denies fever or chills, denies chest pain, palpitations or diaphoresis preceding the presyncopal episode. He denies any sick contacts or recent travels. He denies any seizure-like activity, denies any focal weakness, loss of sensation, speech deficits or facial paralysis. He denies blurry vision or headaches. He has no neck stiffness. His blood pressure continued to be low when he was presented to the emergency r oom, improved with fluid hydration. He denies any changes in bowel or urinary habits. He is yet to follow up with urology as recommended by his discharge on 07/17. Workup showed leukocytosis with left shift, elevated ESR, CRP. Hemoglobin is at baseline from discharge, however he has a new leukocytosis and thrombocytosis. Initial abdomen and pelvis CAT scan was read as a cecal with an area concerning for active bleeding as well as pelvic sidewall hematoma which and small bilateral pleural effusions which is stable. However, radiologist indicated report stating the high attenuation area in the cecum relates to suture line and is not an area of active bleeding. Chest x-rays unremarkable. Patient will be placed on observation and work up for presyncope and hypotension of unknown etiology. Abdomen exam is benign at this time. He is full code. Past Med Surg Social Fam HX - Past Medical History Medical history: GERD, GI bleed Additional medical history: Esophageal and gastric ulcers. Psychiatric history: bipolar, schizophrenia, previous psychiatric hospitalization - Past Surgical History Surgical History: herniorrhaphy Additional surgical history: 5 hernias, scope on stomach - Social History Smoking Status: Never smoker Smokeless Tobacco Status: No Alcohol use: none Drug use: none - Family History Mother Adopted: Yes Living Status: Still Living Internal Medicine - H&P: Meds Omeprazole [PriLOSEC] 20 mg PO BIDAC #60 capsule. 06/07/18 [Rx] Sucralfate [Carafate] 1 gm PO QIDAC #120 tablet 06/15/18 [Rx] Chlorpromazine HCl 25 mg PO HS 07/16/18 [History] Duloxetine HCl [Cymbalta] 60 mg PO BID 07/16/18 [History] Hyoscyamine SL [Levsin Sl] 0.125 mg SL Q6H PRN 07/16/18 [History] LORazepam [Ativan] 0.5 mg PO BID PRN 07/16/18 [History] Prazosin HCl [Minipress] 5 mg PO HS PRN 07/16/18 [History] Ziprasidone [Geodon] 80 mg PO BID 07/16/18 [History] traZODone [TraZODone] 50 mg PO HS PRN 07/16/18 [History] Docusate [Colace] 100 mg PO BID #30 capsule 07/17/18 [Rx] Tamsulosin [Flomax] 0.4 mg PO DAILY #30 cap.er.24h 07/17/18 [Rx] cephALEXin [Keflex] 500 mg PO BID #14 capsule 07/24/18 [Rx] Allergy/AdvReac Type Severity Reaction Status Date / Time ibuprofen Allergy Unknown Abdominal Verified 07/29/18 11:03 Pain NSAIDS (Non-Steroidal Allergy See Verified 07/29/18 11:03 Anti-Inflamma Comments All Systems PM: A 10-system review of systems was performed and is negative for pertinent fi ndings except as documented above in the HPI. - Constitutional Constitutional: as per HPI - EENT Eyes: as per HPI Ears: as per HPI Nose, mouth and throat: as per HPI - Cardiovascular Cardiovascular ROS IM: as per HPI - Respiratory Respiratory: as per HPI - Gastrointestinal Gastrointestinal: as per HPI - Musculoskeletal Musculoskeletal ROS IM: as per HPI - Integumentary Integumentary IM: as per HPI - Neurological Neurological ROS: as per HPI - Hematologic/Lymphatic Hematologic/Lymphatic: as per HPI - Constitutional Vitals: Temp Pulse Resp BP Pulse Ox 97.7 F 73 12 128/93 100 07/29/18 11:15 07/29/18 14:55 07/29/18 14:55 07/29/18 14:55 07/29/18 14:55 General appearance: Present: A&O X 3, pleasant, no acute distress Exam: Vital signs are stable. Blood pressure within normal limits. Orthostatic vitals done by myself, unremarkable. Gen.: Not in any form of distress, speaks full sentences, HEENT: Not pale, anicteric, not cyanotic. Moist oral mucosa. Normal inspection of the neck. Chest: No chest wall tenderness. Equal chest movement bilaterally. Respiratory: Clear to auscultation bilaterally. Heart: S1-S2 only no murmurs gallops or rubs, regular rate and rhythm. Abdomen:supraumbilical scar, right lower quadrant scar, no tenderness demonstrable. Bowel sounds present in all quadrants. No palpably enlarged organs Extremities: Normal joint inspection, no pedal edema bilaterally. Skin: No rash. Neuro: Alert, awake, oriented 3. No focal deficits, gait is normal, facial paralysis. Speech is normal. Psych: Flat affect Internal Med - H&P Results - Labs CBC & Chem 7: 07/29/18 11:14 07/29/18 11:14 Labs: Short CBC 07/29/18 Range/Units 11:14 WBC 12.0 H (4.3-11.1) K/mcL Hgb 9.8 L (12.9-16.9) g/dL Hct 31.2 L (37.5-50.1) % Plt Count 546 H (140-400) K/mcL Neutrophils # 6.5 (1.6-8.9) K/mcL BMP 07/29/18 11:14 Sodium 138 Potassium 3.6 Chloride 106 Carbon Dioxide 28 BUN 15 Creatinine 0.93 Glucose 83 Calcium 9.0 Cardiac Enzymes 07/29/18 Range/Units 11:14 Troponin I < 0.03 (< 0.04) ng/mL Liver Function 07/29/18 Range/Units 11:14 Total Bilirubin 0.5 (0.3-1.0) mg/dL Direct Bilirubin 0.0 (0.0-0.2) mg/dL AST 10 L (13-39) Units/L ALT 11 (7-52) Units/L Alkaline Phosphatase 47 (34-104) Units/L Albumin 3.9 (3.5-5.7) g/dL Urine 07/29/18 Range/Units 13:40 Urine Color Yellow (Yellow) Urine Clarity Clear (Clear) Urine pH 6.5 (5.0-8.0) pH Units Ur Specific [place] 1.008 L (1.010-1.025) Urine Protein Negative (Neg-Trace) mg/dL Urine Glucose (UA) Normal (Normal) mg/dL - Impressions ITS Impressions Abdomen/Pelvis CTA 07/29/18 11:09 IMPRESSION: 1. There is a blush of contrast noted in the cecum concerning for an area of active bleeding. 2. The right pelvic sidewall hemorrhage is smaller since the 07/24/2018 exam. There is a small area of active bleeding along the inferior margin (series 4, image 213). 3. Small bilateral pleural effusions, not appreciably changed. D/ / 07/29/2018 13:35:15 Chauncey Maciel MD / harlan Interpreting Provider: Chauncey Maciel MD Chest X-Ray 07/29/18 11:27 IMPRESSION: No radiographic evidence of acute cardiopulmonary process. D/ / Dread Neville MD / Dread Neville MD Interpreting Provider: Dread Neville MD - Assessment and plan (1) Pre-syncope Current Visit: Yes Status: Acute Assessment and plan: EKG WNL Patient was hypotensive on arrival Blood pressure improved after IVF in ER Orthostats negative, however, patient had received IVF EKG Unremarkable Trops negative Cycle Hb q6h Obtain ECHO Obtain carotid USS MOnitor on tele Fall precautions (2) Abdominal pain Current Visit: Yes Status: Acute Assessment and plan: Chronic When distracted, patient's abdominal exam was unremarkable No findings on CT scan to suggest acute abdomen Continue to monitor Qualifiers: Abdominal location: right lower quadrant Qualified Code(s): R10.31 - Right lower quadrant pain (3) Abnormal CT of the abdomen Current Visit: Yes Status: Acute Assessment and plan: CT scan noted for stable retroperitoneal hematoma, no active bleeding Discussed with Dr.Spahn, no current indications for surgical eval Will consult prn (4) Chronic schizophrenia Current Visit: Yes Status: Chronic Assessment and plan: Resume home meds after confirmation (5) DVT prophylaxis Current Visit: Yes Status: Acute (6) Retroperitoneal hematoma Current Visit: Yes Status: Acute Assessment and plan: CT scan noted-stated stable "2. The right pelvic sidewall hemorrhage is smaller since the 07/24/2018 exam. There is a small area of active bleeding along the inferior margin (series 4, image 213)" Hb stable at baseline, Continue to monitor Hb (7) Schizoaffective disorder Current Visit: Yes Status: Chronic Assessment and plan: resume home meds after confirmation Qualifiers: Schizoaffective disorder type: depressive Qualified Code(s): F25.1 - S chizoaffective disorder, depressive type - Time Spent With Patient Total time spent is greater than 50% in coordination of care (as documented) at patient's floor/unit and/or counseling patient:
[2018-07-29] MEDS ORDERED: Perflutren Lipid Microsphere 1.3 ML in 0.9 % Sodium Chloride 8.7 ML IVP ONE (15:22)
[2018-07-29 17:52] LABS: Hematocrit 30.8 % (37.5-50.1); Hemoglobin 9.5 g/dL (12.9-16.9)
[2018-07-29] MEDS ORDERED: *HR* LORazepam 0.5 MG TABLET PO PRN (18:00)
[2018-07-29] MEDS ORDERED: Hyoscyamine SL 0.125 MG TAB.SUBL SL PRN (18:00)
[2018-07-29] MEDS ORDERED: traZODone 50 MG TABLET PO PRN (18:00)
[2018-07-29] MEDS: Ringers Solution, Lactated 1,000 ML IVC SCH (18:38)
[2018-07-29] MEDS: Sucralfate 1 GM TABLET PO SCH (20:34)
[2018-07-29] MEDS: Ziprasidone 80 MG CAPSULE PO SCH (20:34)
[2018-07-29] MEDS ORDERED: chlorproMAZINE 25 MG TABLET PO SCH (21:00)
[2018-07-29 22:55] LABS: Hematocrit 32.4 % (37.5-50.1); Hemoglobin 10.3 g/dL (12.9-16.9)
[2018-07-30] MEDS: *HR* OxyCODONE/APAP 5/325 TABLET PO PRN ×2 (02:20→09:06)
[2018-07-30] MEDS: Ringers Solution, Lactated 1,000 ML IVC SCH (02:21)
[2018-07-30 04:49] LABS: Hematocrit 30.7 % (37.5-50.1); Hemoglobin 9.5 g/dL (12.9-16.9)
[2018-07-30 05:08] LABS: BUN/Creatinine Ratio 13 (6-26); Blood Urea Nitrogen 12 mg/dL (6-20); Calcium 8.9 mg/dL (8.6-10.3); Carbon Dioxide 29 mEq/L (23-29); Chloride 106 mEq/L (98-107); Glucose 90 mg/dL (70-105); Osmolality,Calculated 287 (280-300); Phosphorous 3.9 mg/dL (2.7-4.5); Potassium 3.9 mEq/L (3.5-5.1); Sodium 139 mEq/L (136-145); eGFR For Non-African Americans > 60 (> 60)
[2018-07-30] MEDS: Sucralfate 1 GM TABLET PO SCH ×2 (06:35→12:13)
[2018-07-30] MEDS: Ziprasidone 80 MG CAPSULE PO SCH (09:06)
[2018-07-30] MEDS ORDERED: Cefdinir 300 MG CAPSULE PO SCH (09:15)
--- NOTE | 2018-07-30 09:15 | Discharge Summary ---
- NOTES TO OUTPATIENT PROVIDER Notes to Outpatient Provider: Follow up with PCP, Urology, Surgery Orders not resulted at time of discharge: Pending orders 07/30/18 11:00 Hemoglobin and Hematocrit [HEME] Q6H Date of Encounter: 07/30/18 Time of Encounter: 09:13 - Discharge Diagnosis (1) Pre-syncope Priority: Primary Status: Acute (2) Abdominal pain Priority: Primary Status: Resolved Qualifiers: Abdominal location: right lower quadrant Qualified Code(s): R10.31 - Right lower quadrant pain (3) Abnormal CT of the abdomen Priority: Primary Status: Acute (4) Chronic schizophrenia Priority: Secondary Status: Chronic (5) DVT prophylaxis Priority: Primary Status: Resolved (6) Retroperitoneal hematoma Priority: Secondary Status: Chronic (7) Schizoaffective disorder Priority: Secondary Status: Chronic Qualifiers: Schizoaffective disorder type: depressive Qualified Code(s): F25.1 - Schizoaffective disorder, depressive type (8) UTI (urinary tract infection) Priority: Primary Status: Acute Qualifiers: Urinary tract infection type: acute cystitis Hematuria presence: with hematuria Qualified Code(s): N30.01 - Acute cystitis with hematuria Hospital course: HPI: Mr. House is a 43 year old male with medical history of schizophrenia, depression, bipolar, recent arthroscopic appendectomy in this facility on 07/16/[address] solis, complicated by acute urinary retention and retroperitoneal hematoma. He was at the surgeon's office for follow-up today when was noted to have a low blood pressure systolic 70, diastolic blood sleep. The patient reports he woke up this morning and had a fall after having felt dizziness, and weakness. He denies vertigo, denies fever or chills, denies chest pain, palpitations or diaphoresis preceding the presyncopal episode. He denies any sick contacts or recent travels. He denies any seizure-like activity, denies any focal weakness, loss of sensation, speech deficits or facial paralysis. He denies blurry vision or headaches. He has no neck stiffness. His blood pressure continued to be low when he was presented to the emergency room, improved with fluid hydration. He denies any changes in bowel or urinary habits. He is yet to follow up with urology as recommended by his discharge on 07/17. Workup showed leukocytosis with left shift, elevated ESR, CRP. Hemoglobin is at baseline from discharge, however he has a new leukocytosis and thrombocytosis. Initial abdomen and pelvis CAT scan was read as a cecal with an area concerning for active bleeding as well as pelvic sidewall hematoma which and small bilateral pleural effusions which is stable. However, radiologist indicated report stating the high attenuation area in the cecum relates to suture line and is not an area of active bleeding. Chest x-rays unremarkable. Hosp course Patient was placed on observation and work up for presyncope. Blood pressure remained stable off IVF Orthostatics negative after IVF hydration EKG unremarkab;e HB stable q6h x4. ECHO was normal with normal EF and no valvular or wall motion abnormalities He is ambulatory and discharged home with changes to the following medications OMnicef BID for K.oxytoca MDRO UTI from urine in 07/24 Discontinue both Prazosn, continue Tamsulosin only Follow up with PCP, Surgery and urology Patient verbalized understanding of plan of care Discharge discussed with: patient, nurse - Time Spent with Patient Total time spent providing and/or coordinating discharge services: Less than 30 minutes - Discharge Medications Home Medications: Chlorpromazine HCl 25 mg PO HS 07/16/18 [History] Duloxetine HCl [Cymbalta] 60 mg PO BID 07/16/18 [History] Hyoscyamine SL [Levsin Sl] 0.125 mg SL Q6H PRN 07/16/18 [History] LORazepam [Ativan] 0.5 mg PO BID PRN 07/16/18 [History] Prazosin HCl [Minipress] 5 mg PO HS PRN 07/16/18 [History] Ziprasidone [Geodon] 80 mg PO BID 07/16/18 [History] traZODone [TraZODone] 50 mg PO HS PRN 07/16/18 [History] Docusate [Colace] 100 mg PO BID #30 capsule 07/17/18 [Rx] Tamsulosin [Flomax] 0.4 mg PO DAILY #30 cap.er.24h 07/17/18 [Rx] Allergies/Adverse Reactions: Allergy/AdvReac Type Severity Reaction Status Date / Time ibuprofen Allergy Unknown Abdominal Verified 07/29/18 11:03 Pain NSAIDS (Non-Steroidal Allergy See Verified 07/29/18 11:03 Anti-Inflamma Comments Date of admission: 07/29/18 14:30 Primary care physician: Faby Avila CNP Consults: 07/29/18 17:38 Consult to Nutrition [CONS] Routine Comment: Consulting Provider: NUTRITION Reason for Dietary Consult: MST Score Discharging clinician: Federico Rand Anticipated date of discharge: 07/30/18 - Constitutional Vitals: Temp Pulse Resp BP Pulse Ox 98.3 F 79 16 133/89 98 07/30/18 06:30 07/30/18 06:30 07/30/18 06:30 07/30/18 06:30 07/30/18 06:30 General appearance: Present: A&O X 3, pleasant, no acute distress Exam: see below - Head Head exam: Present: atraumatic, normocephalic - Eye Eye exam: Present: PERRL, conjuntiva pink, sclera anicteric Pupils: Present: PERRL - Neck Neck exam general surgery: Present: supple, trachea midline. Absent: lymphadenopathy - Respiratory Respiratory exam: Present: CTAB. Absent: accessory muscle use, rales, rhonchi, wheezes - Cardiovascular Cardiovascular exam: Present: RRR, +S1, +S2. Absent: diastolic murmur, gallop, rubs, systolic murmur - GI/Abdominal GI/Abdominal exam: Present: normal bowel sounds, soft, no peritoneal signs. Absent: distended, tenderness - Extremities Exam Extremities exam: Present: warm, radial pulses palpable and symmetrical. Absent: calf tenderness, cyanotic, pedal edema - Neurological Exam Neurological exam: Present: CN II-XII intact, oriented X3, no focal deficits. Absent: pronater drift, facial droop, speech deficit - Skin Skin exam: Present: dry, intact - Patient Status Disposition: Home, Self-Care Condition: Good Functional capacity at discharge: independent ambulation Overall status at discharge: patient is back to baseline - Discharge Instructions Follow Up With: Faby Avila CNP [Primary Care Provider] - - Diet and Activity Activity: resume usual activities as tolerated Diet: low salt diet
[2018-07-30 12:18] LABS: Hematocrit 29.4 % (37.5-50.1); Hemoglobin 9.3 g/dL (12.9-16.9)
[2018-07-30 14:44] VITALS: BP 146/97
--- NOTE | 2018-07-30 20:11 | Electrocardiograph Report ---
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
== END 2018-07-30 16:00 | disposition home or self-care (01) ==
LOC: EMEROOARM 10:52 → 3ANU 10:52 → SUATTDRO 14:30 → 3ANU 15:27
PROVIDERS: ADMIT Internal Medicine Cardiovascular Disease; ATTEND Internal Medicine

== ENCOUNTER 2018-08-14 09:17 | Inpatient (IN) ==
--- NOTE | 2018-08-14 09:23 | Emergency Department Note ---
Disposition Clinical Impression: Suicidal ideations, Acute psychosis Disposition: Admitted As Inpatient Psych HPI - General Chief Complaint: ED Psychiatric Symptoms Stated Complaint: SI Time Seen by Provider: 08/14/18 09:20 Source: EMS Nursing Notes Reviewed: Yes Vital Signs Reviewed: Yes - History of Present Illness HPI Narrative: 43-year-old male past medical history of bipolar syndrome as well as schizophrenia presents to the emergency department with concern of suicidal ideations. Patient states that his hearing voices telling him to kill himself. He also reports visual hallucinations stating that he is seeing shadows on the wall. Patient reports that he would kill himself by ingestion of pills. Reports previous psychiatric hospitalizations in the past. States that he has not taken any substances that is not prescribed. Patient also reporting that he has dental pain. Has chronic history of poor dentition and has not been to the dentist to have his teeth extracted. - Related Data Home Medications Medication Instructions Recorded Confirmed Chlorpromazine HCl 25 mg PO HS 07/16/18 08/14/18 Duloxetine HCl [Cymbalta] 60 mg PO BID 07/16/18 08/14/18 Hyoscyamine SL [Levsin Sl] 0.125 mg SL Q6H PRN 07/16/18 08/14/18 LORazepam [Ativan] 0.5 mg PO BID PRN 07/16/18 08/14/18 Ziprasidone [Geodon] 80 mg PO HS 07/16/18 08/14/18 traZODone [TraZODone] 50 mg PO HS 07/16/18 08/14/18 Benztropine [Cogentin] 1 mg PO DAILY 08/14/18 08/14/18 Ferrous Sulfate [Iron] 325 mg PO DAILY 08/14/18 08/14/18 Pantoprazole Sodium [Protonix] 40 mg PO BID 08/14/18 08/14/18 Polyethylene Glycol 3350 [MiraLAX] 17 gm PO DAILY PRN 08/14/18 08/14/18 Sucralfate [Carafate] 1 gm PO BID 08/14/18 08/14/18 Tamsulosin [Flomax] 0.4 mg PO BID 08/14/18 08/14/18 Ziprasidone HCl [Geodon] 40 mg PO QAM 08/14/18 08/14/18 Allergies Allergy/AdvReac Type Severity Reaction Status Date / Time ibuprofen Allergy Unknown Abdominal Verified 08/14/18 09:22 Pain NSAIDS (Non-Steroidal Allergy See Verified 08/14/18 09:22 Anti-Inflamma Comments All systems ED: reviewed and negative except as stated. Review of Systems: As Per HPI Constitutional: Denies: fever ENT ED: Reports: other (tooth pain) Cardiovascular: Denies: chest pain Respiratory: Denies: cough, dyspnea Gastrointestinal: Denies: abdominal pain, nausea, vomiting Musculoskeletal: Denies: back pain Integumentary: Denies: rash Psychiatric: Reports: suicidal thoughts, auditory hallucinations, visual hallucinations Past Medical History - Past Medical History Medical history: Reports: non-contributory Surgical history: Reports: herniorrhaphy Psychiatric history: Reports: bipolar, schizophrenia, previous psychiatric hospitalization - Social History Smoking Status: Never smoker Smokeless Tobacco Status: No Alcohol use: Reports: none Drug use: Reports: none Physical Exam - General Limitations: no limitations General appearance: alert, in no apparent distress - Head Head exam: normocephalic - Eye Eye exam: Present: EOMI - ENT ENT exam: mucous membranes moist, other (Poor dentition) - Neck Neck exam: Present: trachea midline - Chest Chest inspection: Present: symmetric chest wall rise - Respiratory Respiratory exam: Present: normal lung sounds bilaterally. Absent: respiratory distress, accessory muscle use - Cardiovascular Cardiovascular exam: Present: normal rhythm, normal heart sounds - Extremities Exam Extremities exam: Present: normal capillary refill - Back Exam Back exam: Present: full ROM - Neurological Exam Neurological exam: Present: alert - Psychiatric Psychiatric exam: Present: anxious, suicidal ideation - Skin Skin exam: Present: warm, dry, intact Course Vital Signs Temperature 98.2 F 08/14/18 09:19 Pulse Rate 114 08/14/18 09:19 Respiratory Rate 16 08/14/18 09:19 Blood Pressure 152/102 08/14/18 09:19 O2 Sat by Pulse Oximetry 100 08/14/18 09:19 Temperature 98.5 F 08/14/18 16:29 Pulse Rate 89 08/14/18 16:29 Respiratory Rate 16 08/14/18 16:29 Blood Pressure 134/93 08/14/18 16:29 O2 Sat by Pulse Oximetry 98 08/14/18 16:29 Oxygen Delivery Oxygen Delivery Room Air Psych - MDM Narrative Medical decision making narrative: 43-year-old male presents emergency department with concern for suicidal ideations, auditory and visual hallucinations. Patient has been pink slipped. Currently medically clearing him for psychiatric evaluation. With concern for patient's teeth pain, patient has a chronic history of poor dentition. We will give pain medication as well as antimicrobial therapy with Augmentin here in the emergency department. Ultimately, patient needs his teeth extracted. Psychiatry agreed to accept patient for admission. Patient hemodynamically stable not in acute distress at time. - Lab Data Result diagrams: 08/14/18 09:08/14/18 09:27 Lab Results 08/14/18 08/14/18 08/14/18 Range/Units 09: 09: 11:05 WBC 8.1 (4.3-11.1) K/mcL RBC 3.92 L (4.19-5.50) M/mcL Hgb 10.9 L (12.9-16.9) g/dL Hct 35.3 L (37.5-50.1) % MCV 90.1 (83.0-100.0) fL MCH 27.8 L (28.0-33.3) pg MCHC 30.9 L (31.6-35.5) g/dL RDW 16.0 H (11.5-14.5) % Plt Count 348 (140-400) K/mcL MPV 9.8 (9.4-12.4) fL Immature Gran % 0.4 (0-4) % Seg Neutrophils % 59.3 % Lymphocytes % 24.8 % Monocytes % 7.5 % Eosinophils % 7.0 % Basophils % 1.0 % Neutrophils # 4.8 (1.6-8.9) K/mcL Lymphocytes # 2.0 (0.6-4.6) K/mcL Monocytes # 0.6 (0.0-1.3) K/mcL Eosinophils # 0.6 (0.0-0.6) K/mcL Basophils # 0.1 (0.0-0.2) K/mcL Sodium 139 (136-145) mEq/L Potassium 3.7 (3.5-5.1) mEq/L Chloride 109 H (98-107) mEq/L Carbon Dioxide 25 (23-29) mEq/L BUN 7 (6-20) mg/dL Creatinine 0.93 (0.70-1.30) mg/dL Est GFR ( Amer) > 60 (> 60) Est GFR (Non-Af Amer) > 60 (> 60) BUN/Creatinine Ratio 8 (6-26) Glucose 127 H (70-105) mg/dL Calculated Osmolality 288 (280-300) Calcium 9.0 (8.6-10.3) mg/dL Urine Color Yellow (Yellow) Urine Clarity Clear (Clear) Urine pH 6.0 (5.0-8.0) pH Units Ur Specific [place] > 1.030 H (1.010-1.025) Urine Protein Negative (Neg-Trace) mg/dL Urine Glucose (UA) Normal (Normal) mg/dL Urine Ketones Negative (Negative) mg/dL Urine Blood Negative (Negative) Urine Nitrite Negative (Negative) Urine Bilirubin Negative (Negative) Urine Urobilinogen Normal (Normal) mg/dL Ur Leukocyte Esterase Negative (Negative) Salicylates < 2.5 L (15.0-30.0) mg/dL Urine Opiates Screen (Dvhkro=073) ng/mL Acetaminophen 39 H (10-20) mcg/mL Ur Barbiturates Screen (Gziuyc=950) ng/mL Ur Phencyclidine Scrn (Cutoff=25) ng/mL Ur Amphetamines Screen (Exfgcn=8677) ng/mL U Benzodiazepines Scrn (Byhjnp=119) ng/mL Urine Cocaine Screen (Cutoff= 300) ng/mL U Marijuana (THC) Screen (Cutoff = 50) ng/mL Ur Drug Screen Interp Ethyl Alcohol < 10 (Less than 10) mg/dL 08/14/18 Range/Units 11:05 WBC (4.3-11.1) K/mcL RBC (4.19-5.50) M/mcL Hgb (12.9-16.9) g/dL Hct (37.5-50.1) % MCV (83.0-100.0) fL MCH (28.0-33.3) pg MCHC (31.6-35.5) g/dL RDW (11.5-14.5) % Plt Count (140-400) K/mcL MPV (9.4-12.4) fL Immature Gran % (0-4) % Seg Neutrophils % % Lymphocytes % % Monocytes % % Eosinophils % % Basophils % % Neutrophils # (1.6-8.9) K/mcL Lymphocytes # (0.6-4.6) K/mcL Monocytes # (0.0-1.3) K/mcL Eosinophils # (0.0-0.6) K/mcL Basophils # (0.0-0.2) K/mcL Sodium (136-145) mEq/L Potassium (3.5-5.1) mEq/L Chloride (98-107) mEq/L Carbon Dioxide (23-29) mEq/L BUN (6-20) mg/dL Creatinine (0.70-1.30) mg/dL Est GFR ( Amer) (> 60) Est GFR (Non-Af Amer) (> 60) BUN/Creatinine Ratio (6-26) Glucose (70-105) mg/dL Calculated Osmolality (280-300) Calcium (8.6-10.3) mg/dL Urine Color (Yellow) Urine Clarity (Clear) Urine pH (5.0-8.0) pH Units Ur Specific [place] (1.010-1.025) Urine Protein (Neg-Trace) mg/dL Urine Glucose (UA) (Normal) mg/dL Urine Ketones (Negative) mg/dL Urine Blood (Negative) Urine Nitrite (Negative) Urine Bilirubin (Negative) Urine Urobilinogen (Normal) mg/dL Ur Leukocyte Esterase (Negative) Salicylates (15.0-30.0) mg/dL Urine Opiates Screen Negative (Nazaja=624) ng/mL Acetaminophen (10-20) mcg/mL Ur Barbiturates Screen Negative (Xmbgdb=637) ng/mL Ur Phencyclidine Scrn Negative (Cutoff=25) ng/mL Ur Amphetamines Screen Negative (Xlqgtj=1755) ng/mL U Benzodiazepines Scrn Negative (Sqpmal=371) ng/mL Urine Cocaine Screen Negative (Cutoff= 300) ng/mL U Marijuana (THC) Screen Negative (Cutoff = 50) ng/mL Ur Drug Screen Interp See Below Ethyl Alcohol (Less than 10) mg/dL Psychiatric Medical Clearance - Medical Clearance Checklist Medical History: No Social History Section defined Current Vitals: Last Vital Signs Temp 98.5 F 08/14/18 16:29 Pulse 89 08/14/18 16:29 Resp 16 08/14/18 16:29 BP 134/93 08/14/18 16:29 Pulse Ox 98 08/14/18 16:29 Psychiatric Lab Panel: Drug Levels and Toxicity 08/14/18 08/14/18 09:27 11:05 Urine Opiates Screen Negative Acetaminophen 39 H Ur Barbiturates Screen Negative Ur Phencyclidine Scrn Negative Ur Amphetamines Screen Negative U Benzodiazepines Scrn Negative Urine Cocaine Screen Negative U Marijuana (THC) Screen Negative Ethyl Alcohol < 10 Abnormal Labs: Abnormal lab results RBC 3.92 M/mcL (4.19-5.50) L 08/14/18 09:27 Hgb 10.9 g/dL (12.9-16.9) L 08/14/18 09:27 Hct 35.3 % (37.5-50.1) L 08/14/18 09:27 MCH 27.8 pg (28.0-33.3) L 08/14/18 09:27 MCHC 30.9 g/dL (31.6-35.5) L 08/14/18 09:27 RDW 16.0 % (11.5-14.5) H 08/14/18 09:27 Chloride 109 mEq/L (98-107) H 08/14/18 09:27 Glucose 127 mg/dL (70-105) H 08/14/18 09:27 Ur Specific [place] > 1.030 (1.010-1.025) H 08/14/18 11:05 Salicylates < 2.5 mg/dL (15.0-30.0) L 08/14/18 09:27 Acetaminophen 39 mcg/mL (10-20) H 08/14/18 09:27 Statement of Medical Clearance: I have evaluated the patient, reviewed diagnostic information, and certify that the patient's medical condition is sufficiently stable that transfer to the psychiatric unit does not pose a significant risk of deterioration. Attestation Statement - Attestation Attestation: I, Andrew Knox, examined this patient and my medical decision-making was reviewed with the INCLINOMETER TESTER/PA/Advanced Practice Nurse/Resident Physician. I agree with the documented findings, disposition and treatment plan as described except to the extent set forth below. 43-year-old male presents emergency Department with concerns of suicidal ideation. Patient states he is having visual and auditory hallucinations. He is hearing voices were telling him to overdose on his medications. Patient denies an attempt to hurt himself prior to arrival. He is awake and alert and answering questions appropriately. He reported having some dental pain. He has extensive dental caries. He was given Augmentin and Tylenol in the emergency department. Patient will be medically cleared and evaluated by behavioral health. Patient accepted to for further psychiatric care.
[2018-08-14 09:36] LABS: Basophils # 0.1 K/mcL (0.0-0.2); Eosinophils # 0.6 K/mcL (0.0-0.6); Hematocrit 35.3 % (37.5-50.1); Hemoglobin 10.9 g/dL (12.9-16.9); Immature Granulocytes % 0.4 % (0-4); Lymphocytes % 24.8 %; Mean Corpuscular HGB Conc 30.9 g/dL (31.6-35.5); Mean Corpuscular Hemoglobin 27.8 pg (28.0-33.3); Mean Corpuscular Volume 90.1 fL (83.0-100.0); Mean Platelet Volume 9.8 fL (9.4-12.4); Monocytes # 0.6 K/mcL (0.0-1.3); Monocytes % 7.5 %; Neutrophils # 4.8 K/mcL (1.6-8.9); Platelet Count 348 K/mcL (140-400); Red Blood Count 3.92 M/mcL (4.19-5.50); Segmented Neutrophils % 59.3 %
[2018-08-14 09:57] LABS: Acetaminophen 39 mcg/mL (10-20); BUN/Creatinine Ratio 8 (6-26); Blood Urea Nitrogen 7 mg/dL (6-20); Carbon Dioxide 25 mEq/L (23-29); Chloride 109 mEq/L (98-107); Ethanol < 10 mg/dL (Less than 10); Glucose 127 mg/dL (70-105); Osmolality,Calculated 288 (280-300); Potassium 3.7 mEq/L (3.5-5.1); Salicylate < 2.5 mg/dL (15.0-30.0); Sodium 139 mEq/L (136-145); eGFR For Non-African Americans > 60 (> 60)
[2018-08-14] MEDS ORDERED: Acetaminophen 325 MG TABLET PO ONE (10:57)
[2018-08-14 11:24] LABS: Bilirubin,Urine Negative (Negative); Blood,Urine Negative (Negative); Clarity,Urine Clear (Clear); Color,Urine Yellow (Yellow); Glucose,Urine (UA) Normal (Normal); Ketones,Urine Negative (Negative); Leukocyte Esterase,Urine Negative (Negative); Nitrite,Urine Negative (Negative); Protein,Urine Negative (Neg-Trace); Specific Gravity,Urine > 1.030 (1.010-1.025); Urobilinogen,Urine Normal (Normal)
[2018-08-14 11:33] LABS: Amphetamine Screen,Urine Negative ng/mL (Cutoff=1000); Barbiturate Screen,Urine Negative ng/mL (Cutoff=200); Benzodiazepines Screen,Urine Negative ng/mL (Cutoff=200); Cannabinoid Screen,Urine Negative ng/mL (Cutoff = 50); Cocaine Screen,Urine Negative ng/mL (Cutoff= 300); Opiate Screen,Urine Negative ng/mL (Cutoff=300); Phencyclidine Screen,Urine Negative ng/mL (Cutoff=25)
[2018-08-14] MEDS ORDERED: *HR* LORazepam 2 MG/ML VIAL IM PRN (16:17)
[2018-08-14] MEDS ORDERED: Mag Hydrox/Al Hydrox/Simeth 30 ML UDC PO PRN (16:17)
[2018-08-14] MEDS ORDERED: MOM Conc 10 ML UD.LIQ PO PRN (16:17)
[2018-08-14] MEDS ORDERED: traZODone 50 MG TABLET PO PRN (16:17)
[2018-08-14] MEDS ORDERED: *HR* LORazepam 1 MG TABLET PO PRN (16:17)
[2018-08-14] MEDS ORDERED: Haloperidol Lactate 5 MG/ML VIAL IM PRN (16:17)
[2018-08-14] MEDS ORDERED: Hyoscyamine SL 0.125 MG TAB.SUBL SL PRN (16:21)
[2018-08-14] MEDS ORDERED: *HR* LORazepam 0.5 MG TABLET PO PRN (16:21)
[2018-08-14] MEDS ORDERED: Ziprasidone 80 MG CAPSULE PO SCH (17:00)
[2018-08-14] MEDS: Acetaminophen 325 MG TABLET PO PRN (17:55)
[2018-08-14] MEDS: traZODone 50 MG TABLET PO SCH (20:22)
[2018-08-14] MEDS: Sucralfate 1 GM TABLET PO SCH (20:22)
[2018-08-14] MEDS: hydrOXYzine pamoate 25 MG CAPSULE PO PRN (20:22)
[2018-08-14] MEDS: chlorproMAZINE 25 MG TABLET PO SCH (20:22)
[2018-08-15] MEDS: Acetaminophen 325 MG TABLET PO PRN ×3 (07:28→20:47)
[2018-08-15] MEDS: Sucralfate 1 GM TABLET PO SCH ×2 (08:29→20:47)
[2018-08-15] MEDS ORDERED: Ziprasidone 20 MG CAPSULE PO SCH (09:00)
[2018-08-15] MEDS: Benzocaine 20% 9 GM GEL..GRAM. TP PRN (13:59)
--- NOTE | 2018-08-15 15:08 | Psychiatry History & Physical ---
Date of Encounter: 08/15/18 Time of Encounter: 14:00 History of Present Illness Patient Stated Chief Complaint: I wa going to kill myself, so I got help Medicare Admission Attestation: For traditional Medicare patients the provided hospital inpatient services are reasonable and necessary and in the case of services not specified as inpatient-only under 42 CFR 419.22 (n), that they are appropriately provided as inpatient services in accordance 42 CFR 412.3. For Critical Access Hospital the patient may reasonably be expected to be discharged or transferred to a hospital within 96 hours after admission to the Critical Access Hospital. Admitted From: Emergency Dept Plans for Post Hospital Care: Home History of Present Illness: ID: The patient is a 43-year-old white male. He was admitted to the ER. He is on a pink slip but agrees to be in the hospital. Chief complaint: I was concerned that I would hurt myself. I would do it by taking a bunch of pills. History of present illness: A few days ago the patient the patient found out that his lost her job. This led to some financial stress. Then in the past week they lowered his Geodon he went from 80 mg twice a day with food to 40 and 80. This occurred on . The patient had an increase in voices. Other stresses include dental pain. 3 weeks ago the patient had his appendix taken out. The patient began to hear voices the voice was a deep voice or male voice that said "kll yourself" and "take pills". He is not sure of the identity of the voice. He has some paranoid delusions he has thought broadcasting and thought insertion and delusions of passivity. Thereafter the past psychiatric history is significant for a suicide attempt in [id number]. This was by overdose. The patient has been hospitalized in 2018 and 2016. There are other hospitalizations The patient has a history of alcohol use and he developed a problem with this. He had an OMVI in 1999 and another in 2017. 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 He denies other forms of substance abuse. Past medical history: Surgery appendix scope of left knee 5 hernia repairs 3 on the right 2 on the left and an incision in the midline for a laparoscopy Illnesses include schizophrenia and bleeding ulcer Allergies include Motrin and nonsteroidal anti-inflammatories. The patient has dental pain Family history is relatively unknown as he is adopted. Social history the patient reports no recent alcohol use no smoking no drug abuse. He lives at home with his and 2 children age 12 and 10. He has not attended any alcohol rehabilitation and reports no legal problems at this time. He works at [employer] and is currently on leave. Review of systems is significant for dental pain he had bladder problems that are treated with Flomax. His primary care physician is Faby Avila. He has care source insurance he takes medicines for stomach pain and is knee joint hurts. He does not have a dentist Past Med Surg Social Fam HX - Past Medical History Medical history: non-contributory - Past Psychiatric History Psychiatric history: Reports: schizophrenia, previous psychiatric hospitalization, other Family psychiatric history: Unknown Family History of Suicide: Unknown - Past Surgical History Surgical History: herniorrhaphy - Social History Smoking Status: Never smoker Smokeless Tobacco Status: No Alcohol use: none Drug use: none Occupational status: employed Current living situation: Home - Independent, With Family Activity Level: Independent ambulation Recent Out of Country Travel Within the Last 8 Weeks: No Exposure or Possible Exposure to Illness During Travel: No - Family History Mother Adopted: Yes Family Member Ethnicity: Non- Living Status: Still Living Hx Family Cardiac Disorders: No Hx Family Respiratory Disorders: No Hx Family Cancer: No Hx Family GI Disorders: No Hx Family Endocrine Disorder: No Hx Family Neuromuscular Disorders: No Hx Family Neurologic Disorders: No Hx Family HEENT Disorders: No Hx Family Autoimmune Disorders: No Medications & Allergies Chlorpromazine HCl 25 mg PO HS 07/16/18 [History] Duloxetine HCl [Cymbalta] 60 mg PO BID 07/16/18 [History] Hyoscyamine SL [Levsin Sl] 0.125 mg SL Q6H PRN 07/16/18 [History] LORazepam [Ativan] 0.5 mg PO BID PRN 07/16/18 [History] Ziprasidone [Geodon] 80 mg PO HS 07/16/18 [History] traZODone [TraZODone] 50 mg PO HS 07/16/18 [History] Benztropine [Cogentin] 1 mg PO DAILY 08/14/18 [History] Ferrous Sulfate [Iron] 325 mg PO DAILY 08/14/18 [History] Pantoprazole Sodium [Protonix] 40 mg PO BID 08/14/18 [History] Polyethylene Glycol 3350 [MiraLAX] 17 gm PO DAILY PRN 08/14/18 [History] Sucralfate [Carafate] 1 gm PO BID 08/14/18 [History] Tamsulosin [Flomax] 0.4 mg PO BID 08/14/18 [History] Ziprasidone HCl [Geodon] 40 mg PO QAM 08/14/18 [History] Allergy/AdvReac Type Severity Reaction Status Date / Time ibuprofen Allergy Unknown Abdominal Verified 08/14/18 09:22 Pain NSAIDS (Non-Steroidal Allergy See Verified 08/14/18 09:22 Anti-Inflamma Comments Review of Systems Constitutional: Denies: fever, chills, weakness, weight change Ears, Nose, Throat: Reports: dental pain Cardiovascular: Denies: chest pain, palpitations, dyspnea on exertion Respiratory: Denies: cough, dyspnea, wheezes Gastrointestinal: Denies: abdominal pain, nausea, vomiting, diarrhea, constipation Genitourinary male: Denies: urgency, dysuria, frequency, genital lesions Musculoskeletal: Denies: joint swelling, joint pain Integumentary: Denies: rash, lesions, pruritus Neurological: Denies: headache, weakness, numbness, memory loss Psychiatric: Reports: depression, suicidal ideation, auditory hallucinations, visual hallucinations Endocrine: Denies: fatigue, heat or cold intolerance Hematologic/Lymphatic: Denies: easy bruising, lymphadenopathy Allergic/Immunologic: Denies: urticaria, itchy eyes Exam - HEENT Head exam IM: Present: atraumatic Eye exam IM: Present: EOMI, normal appearance, PERRL ENT exam IM: Present: normal exam - Neurological Neurological exam: Present: CN II-XII intact - Respiratory Respiratory exam IM: Present: CTAB - GI/Abdominal GI/Abdominal exam IM: Present: normal bowel sounds, soft. Absent: tenderness - Extremities Extremities exam IM: Present: full ROM - Skin Skin exam IM: Present: dry, warm - Additional Information Additional Information: lingual dsytonia and dyskinisia poor dentition - Constitutional Vitals: Temp Pulse Resp BP Pulse Ox 98.5 F 112 18 112/79 96 08/15/18 09:00 08/15/18 09:00 08/15/18 09:00 08/15/18 09:00 08/15/18 09:00 General appearance: age & developmentally appropriate, well-groomed, well- nourished - Musculoskeletal Gait: normal Station: relaxed Strength & Tone: normal for patient - Psychiatric Patient Orientation: Yes Person, Yes Time, Yes Place Level of alertness: Alert Behavior: calm, cooperative Psychomotor activity: Normal Eye Contact: Maintains Eye Contact Mood Description: Euthymic/stable Affect description: congruent with mood, full range Speech Volume: Normal Speech pattern: normal rate, normal rhythm, normal tone, fluent, spontaneous Language & Vocabulary: consistent with education Thought Process: Linear, Goal Oriented Thought Content: No Suicidal ideation, No Homicidal ideation, No Overt delusions Perceptual Disturbances: No Auditory hallucinations, No Visual hallucinations Attention Span Ability: Capable of Focused Attention Memory Description: Grossly Intact Patient Reliability: Reliable Historian Fund of knowledge: Yes abstraction ability, Yes average, Yes aware of current events Intelligence Estimate: Average Judgment: Limited Insight: Partial Results - Labs Labs: Laboratory Last Values WBC 8.1 K/mcL (4.3-11.1) 08/14/18 09:27 RBC 3.92 M/mcL (4.19-5.50) L 08/14/18 09:27 Hgb 10.9 g/dL (12.9-16.9) L 08/14/18 09:27 Hct 35.3 % (37.5-50.1) L 08/14/18 09:27 MCV 90.1 fL (83.0-100.0) 08/14/18 09:27 MCH 27.8 pg (28.0-33.3) L 08/14/18 09:27 MCHC 30.9 g/dL (31.6-35.5) L 08/14/18 09:27 RDW 16.0 % (11.5-14.5) H 08/14/18 09:27 Plt Count 348 K/mcL (140-400) 08/14/18 09:27 MPV 9.8 fL (9.4-12.4) 08/14/18 09:27 Immature Gran % 0.4 % (0-4) 08/14/18 09:27 Seg Neutrophils % 59.3 % 08/14/18 09:27 Lymphocytes % 24.8 % 08/14/18 09:27 Monocytes % 7.5 % 08/14/18 09:27 Eosinophils % 7.0 % 08/14/18 09: Basophils % 1.0 % 08/14/18 09:27 Neutrophils # 4.8 K/mcL (1.6-8.9) 08/14/18 09: Lymphocytes # 2.0 K/mcL (0.6-4.6) 08/14/18 09: Monocytes # 0.6 K/mcL (0.0-1.3) 08/14/18 09: Eosinophils # 0.6 K/mcL (0.0-0.6) 08/14/18 09:27 Basophils # 0.1 K/mcL (0.0-0.2) 08/14/18 09:27 Sodium 139 mEq/L (136-145) 08/14/18 09: Potassium 3.7 mEq/L (3.5-5.1) 08/14/18 09: Chloride 109 mEq/L (98-107) H 08/14/18 09: Carbon Dioxide 25 mEq/L (23-29) 08/14/18 09: BUN 7 mg/dL (6-20) 08/14/18 09:27 Creatinine 0.93 mg/dL (0.70-1.30) 08/14/18 09:27 Est GFR ( Amer) > 60 (> 60) 08/14/18 09:27 Est GFR (Non-Af Amer) > 60 (> 60) 08/14/18 09: BUN/Creatinine Ratio 8 (6-26) 08/14/18 09: Glucose 127 mg/dL (70-105) H 08/14/18 09:27 Calculated Osmolality 288 (280-300) 08/14/18 09:27 Calcium 9.0 mg/dL (8.6-10.3) 08/14/18 09:27 Urine Color Yellow (Yellow) 08/14/18 11:05 Urine Clarity Clear (Clear) 08/14/18 11:05 Urine pH 6.0 pH Units (5.0-8.0) 08/14/18 11:05 Ur Specific [place] > 1.030 (1.010-1.025) H 08/14/18 11:05 Urine Protein Negative mg/dL (Neg-Trace) 08/14/18 11:05 Urine Glucose (UA) Normal mg/dL (Normal) 08/14/18 11:05 Urine Ketones Negative mg/dL (Negative) 08/14/18 11:05 Urine Blood Negative (Negative) 08/14/18 11:05 Urine Nitrite Negative (Negative) 08/14/18 11:05 Urine Bilirubin Negative (Negative) 08/14/18 11:05 Urine Urobilinogen Normal mg/dL (Normal) 08/14/18 11:05 Ur Leukocyte Esterase Negative (Negative) 08/14/18 11:05 Salicylates < 2.5 mg/dL (15.0-30.0) L 08/14/18 09:27 Urine Opiates Screen Negative ng/mL (Soxwtu=737) 08/14/18 11:05 Acetaminophen 39 mcg/mL (10-20) H 08/14/18 09:27 Ur Barbiturates Screen Negative ng/mL (Matjtm=505) 08/14/18 11:05 Ur Phencyclidine Scrn Negative ng/mL (Cutoff=25) 08/14/18 11:05 Ur Amphetamines Screen Negative ng/mL (Npyqxx=9898) 08/14/18 11:05 U Benzodiazepines Scrn Negative ng/mL (Qgkxhs=395) 08/14/18 11:05 Urine Cocaine Screen Negative ng/mL (Cutoff= 300) 08/14/18 11:05 U Marijuana (THC) Screen Negative ng/mL (Cutoff = 50) 08/14/18 11:05 Ur Drug Screen Interp See Below 08/14/18 11:05 Ethyl Alcohol < 10 mg/dL (Less than 10) 08/14/18 09:27 Assessment and Plan (1) Alcohol dependence in remission Current visit: No Status: Resolved Plan: Monitor appetite Patient agreeable to treatment: Yes Plans for Post Hospital Care: Home (2) Pain due to dental caries Current visit: Yes Status: Acute Plan: Monitor appetite, Other Risks, benefits, side effects, alternatives discussed w/pt: Yes Patient agreeable to treatment: Yes Plans for Post Hospital Care: Home (3) Schizophrenia Current visit: No Status: Chronic Plan: Admit inpatient for safety and stabilization, Close observation, Suicide Precautions per unit protocol, Encourage participation in unit milieu, Group Therapy, Monitor sleep, Monitor appetite, Secure weapons, Family/Supportive other meeting Risks, benefits, side effects, alternatives discussed w/pt: Yes Patient agreeable to treatment: Yes Plans for Post Hospital Care: Home Estimated Length of Stay (Days): 5 Qualifiers: Schizophrenia type: unspecified Qualified Code(s): F20.9 - Schizophrenia, unspecified (4) Suicidal ideation Current visit: Yes Status: Acute Plan: Admit inpatient for safety and stabilization, Encourage participation in unit milieu, Secure weapons Risks, benefits, side effects, alternatives discussed w/pt: Yes Patient agreeable to treatment: Yes Plans for Post Hospital Care: Home
[2018-08-15] MEDS: Ziprasidone 80 MG CAPSULE PO SCH (16:31)
[2018-08-15] MEDS: hydrOXYzine pamoate 25 MG CAPSULE PO PRN (20:47)
[2018-08-15] MEDS: traZODone 50 MG TABLET PO SCH (20:47)
[2018-08-15] MEDS: chlorproMAZINE 25 MG TABLET PO SCH (20:47)
[2018-08-16] MEDS: Acetaminophen 325 MG TABLET PO PRN ×3 (04:44→20:32)
[2018-08-16] MEDS: Benzocaine 20% 9 GM GEL..GRAM. TP PRN (07:21)
[2018-08-16] MEDS: Ziprasidone 80 MG CAPSULE PO SCH ×2 (08:16→16:24)
[2018-08-16] MEDS: Sucralfate 1 GM TABLET PO SCH ×2 (08:17→20:30)
--- NOTE | 2018-08-16 15:12 | Psychiatry Progress Note ---
Date of Encounter: 08/16/18 Time of Encounter: 14:45 Subjective Interval history: ID the patient is a 43-year-old white male. Chief complaint, the voices are little bit quieter. The patient has continued to report voices these are the voices also told him to kill himself. He started on Geodon yesterday. He ordered no issues and did participate in one group activity. The patient reports that the voice is a little less frequent and less bothersome. He is comfortable anderson milieu. His and one child visited yesterday. He is on leave from work and may require an FMLA. Review of Systems Psychiatric: Reports: depression, suicidal ideation, auditory hallucinations, visual hallucinations Results - Vital Signs Vital Signs: Temp Pulse Resp BP Pulse Ox 97.6 F 91 16 106/74 98 08/16/18 08:55 08/16/18 08:55 08/16/18 08:55 08/16/18 08:55 08/16/18 08:55 Assessment and Plan (1) Alcohol dependence in remission Current visit: No Status: Resolved Plan: Other Risks, benefits, side effects, alternatives discussed w/pt: Yes Patient agreeable to treatment: Yes (2) Pain due to dental caries Current visit: Yes Status: Acute Plan: Continue hospitalization, Close observation, Monitor appetite Risks, benefits, side effects, alternatives discussed w/pt: Yes Patient agreeable to treatment: Yes (3) Schizophrenia Current visit: No Status: Chronic Risks, benefits, side effects, alternatives discussed w/pt: Yes Patient agreeable to treatment: Yes Qualifiers: Schizophrenia type: paranoid schizophrenia Qualified Code(s): F20.0 - Paranoid schizophrenia (4) Suicidal ideation Current visit: Yes Status: Acute Plan: Suicide Precautions per unit protocol, Secure weapons Risks, benefits, side effects, alternatives discussed w/pt: Yes Patient agreeable to treatment: Yes Consult Discharge Plan - Plan Referrals: NONE,PCP [Primary Care Provider] - Psychiatry Exam - Constitutional Vitals: Temp Pulse Resp BP Pulse Ox 97.6 F 91 16 106/74 98 08/16/18 08:55 08/16/18 08:55 08/16/18 08:55 08/16/18 08:55 08/16/18 08:55 General appearance: age & developmentally appropriate, well-groomed, well- nourished, unkempt - Musculoskeletal Gait: normal Station: relaxed Strength & Tone: normal for patient - Psychiatric Patient Orientation: Yes Person, Yes Time, Yes Place Level of alertness: Alert Behavior: calm, cooperative Psychomotor activity: Normal Eye Contact: Maintains Eye Contact Mood Description: Depressed Affect description: congruent with mood, full range, dysphoric Speech Volume: Normal Speech pattern: normal rate, normal rhythm, normal tone, fluent, spontaneous Language & Vocabulary: consistent with education Thought Process: Linear, Goal Oriented Thought Content: Yes Suicidal ideation, No Homicidal ideation, No Overt delusions Perceptual Disturbances: Yes Auditory hallucinations, No Visual hallucinations Attention Span Ability: Capable of Focused Attention Memory Description: Grossly Intact Patient Reliability: Reliable Historian Fund of knowledge: Yes abstraction ability, Yes aware of current events Intelligence Estimate: Average Judgment: Limited Insight: Minimal
[2018-08-16] MEDS: chlorproMAZINE 25 MG TABLET PO SCH (20:30)
[2018-08-16] MEDS: hydrOXYzine pamoate 25 MG CAPSULE PO PRN (20:31)
[2018-08-16] MEDS: traZODone 50 MG TABLET PO SCH (20:31)
[2018-08-17] MEDS: Benzocaine 20% 9 GM GEL..GRAM. TP PRN ×2 (05:13→12:45)
[2018-08-17] MEDS: Ziprasidone 80 MG CAPSULE PO SCH ×2 (08:11→17:32)
[2018-08-17] MEDS: Sucralfate 1 GM TABLET PO SCH ×2 (08:11→20:52)
[2018-08-17] MEDS: Acetaminophen 325 MG TABLET PO PRN ×2 (08:12→14:48)
--- NOTE | 2018-08-17 13:46 | Psychiatry Progress Note ---
Date of Encounter: 08/17/18 Time of Encounter: 13:45 Subjective Interval history: ID: the patient is a 43-year-old white male. Chief complaint: I have not heard the voice today. History of present illness. Patient reports that he has not heard voices as of today previously the voice was a deep voice that told him to kill himself. The patient has not heard commands to kill himself today the patient has tended minimal group. The patient tends to's stay in the bed and sleep throughout the day. This is because he works 10 PM to 7 AM and his job at [employer]. His next scheduled day to work it is August 21. Patient reports that his parents will help out with [place] this year. He did already make some purchases of gifts. The patient has no specific plan to kill himself on the unit. He has tolerated the Geodon. The patient still has dental pain. Patient has signed a voluntary form in order to stay on the unit. He has agreed to follow-up at local [facility]. Review of Systems Psychiatric: Reports: depression, suicidal ideation, auditory hallucinations, visual hallucinations Results - Vital Signs Vital Signs: Temp Pulse Resp BP Pulse Ox 98.7 F 107 18 110/77 99 08/17/18 09:00 08/17/18 09:00 08/17/18 09:00 08/17/18 09:00 08/17/18 09:00 Assessment and Plan (1) Alcohol dependence in remission Current visit: No Status: Resolved Plan: Other Risks, benefits, side effects, alternatives discussed w/pt: Yes Patient agreeable to treatment: Yes (2) Pain due to dental caries Current visit: Yes Status: Acute Plan: Monitor appetite, Other Risks, benefits, side effects, alternatives discussed w/pt: Yes Patient agreeable to treatment: Yes (3) Schizophrenia Current visit: No Status: Chronic Plan: Continue hospitalization, Close observation, Suicide Precautions per unit protocol, Encourage participation in unit milieu, Group Therapy, Monitor sleep, Monitor appetite, Secure weapons, Family/Supportive other meeting Risks, benefits, side effects, alternatives discussed w/pt: Yes Patient agreeable to treatment: Yes Qualifiers: Schizophrenia type: paranoid schizophrenia Qualified Code(s): F20.0 - Paranoid schizophrenia (4) Suicidal ideation Current visit: Yes Status: Acute Plan: Suicide Precautions per unit protocol, Secure weapons Risks, benefits, side effects, alternatives discussed w/pt: Yes Patient agreeable to treatment: Yes Consult Discharge Plan - Plan Referrals: NONE,PCP [Primary Care Provider] - Psychiatry Exam - Constitutional Vitals: Temp Pulse Resp BP Pulse Ox 98.7 F 107 18 110/77 99 08/17/18 09:00 08/17/18 09:00 08/17/18 09:00 08/17/18 09:00 08/17/18 09:00 General appearance: age & developmentally appropriate, well-groomed, well- nourished - Musculoskeletal Gait: normal Station: relaxed Strength & Tone: normal for patient - Psychiatric Patient Orientation: Yes Person, Yes Time, Yes Place Level of alertness: Alert Behavior: calm, cooperative Psychomotor activity: Normal Eye Contact: Maintains Eye Contact Mood Description: Anxious Affect description: congruent with mood, blunted Speech Volume: Normal Speech pattern: normal rate, normal rhythm, normal tone, fluent, spontaneous Language & Vocabulary: consistent with education Thought Process: Linear, Goal Oriented Thought Content: Yes Suicidal ideation, No Homicidal ideation, No Overt delusions Perceptual Disturbances: Yes Auditory hallucinations, No Visual hallucinations Attention Span Ability: Capable of Focused Attention Memory Description: Grossly Intact Patient Reliability: Reliable Historian Fund of knowledge: Yes abstraction ability, Yes aware of current events Intelligence Estimate: Average Judgment: Fair Insight: Partial
[2018-08-17] MEDS: chlorproMAZINE 25 MG TABLET PO SCH (20:52)
[2018-08-17] MEDS: traZODone 50 MG TABLET PO SCH (20:52)
[2018-08-18 08:44] VITALS: BP 127/84
[2018-08-18] MEDS: Ziprasidone 80 MG CAPSULE PO SCH (09:54)
[2018-08-18] MEDS: Sucralfate 1 GM TABLET PO SCH (09:55)
--- NOTE | 2018-08-18 11:27 | Discharge Summary ---
Date of Encounter: 08/18/18 Time of Encounter: 11:00 Diagnosis - Discharge Diagnosis (1) Alcohol dependence in remission Status: Resolved (2) Pain due to dental caries Status: Acute (3) Schizophrenia Status: Acute Qualifiers: Schizophrenia type: paranoid schizophrenia Qualified Code(s): F20.0 - Paranoid schizophrenia (4) Suicidal ideation Status: Resolved Medications - Discharge Medications Prescriptions: Amoxicillin/Clavulanate [Augmentin] 875 mg PO BIDWM 7 Days #14 tablet Benzocaine 20% [Orajel] 1 gm TP Q6H PRN 10 Days #20 gel..gram. PRN Reason: Mouth Sore Pain Ziprasidone [Geodon] 80 mg PO BIDWM 30 Days #60 capsule Chlorpromazine HCl 25 mg PO HS 07/16/18 [History] Duloxetine HCl [Cymbalta] 60 mg PO BID 07/16/18 [History] Hyoscyamine SL [Levsin Sl] 0.125 mg SL Q6H PRN 07/16/18 [History] LORazepam [Ativan] 0.5 mg PO BID PRN 07/16/18 [History] traZODone [TraZODone] 50 mg PO HS 07/16/18 [History] Benztropine [Cogentin] 1 mg PO DAILY 08/14/18 [History] Ferrous Sulfate [Iron] 325 mg PO DAILY 08/14/18 [History] Pantoprazole Sodium [Protonix] 40 mg PO BID 08/14/18 [History] Polyethylene Glycol 3350 [MiraLAX] 17 gm PO DAILY PRN 08/14/18 [History] Sucralfate [Carafate] 1 gm PO BID 08/14/18 [History] Tamsulosin [Flomax] 0.4 mg PO BID 08/14/18 [History] Amoxicillin/Clavulanate [Augmentin] 875 mg PO BIDWM 7 Days #14 tablet 08/18/18 [Rx] Benzocaine 20% [Orajel] 1 gm TP Q6H PRN 10 Days #20 gel..gram. 08/18/18 [Rx] Ziprasidone [Geodon] 80 mg PO BIDWM 30 Days #60 capsule 08/18/18 [Rx] Allergy/AdvReac Type Severity Reaction Status Date / Time ibuprofen Allergy Unknown Abdominal Verified 08/14/18 09:22 Pain NSAIDS (Non-Steroidal Allergy See Verified 08/14/18 09:22 Anti-Inflamma Comments Results Procedures and tests throughout hospitalization: Completed Lab Orders Category Date Time Status Acetaminophen Stat Lab 08/14/18 09:27 Completed Basic Metabolic Panel Stat Lab 08/14/18 09:27 Completed Complete Blood Count [HEME] Stat Lab 08/14/18 09:27 Completed Drug Screen, Urine [UCHEM] Stat Lab 08/14/18 11:05 Completed Ethanol Stat Lab 08/14/18 09:27 Completed Salicylate Stat Lab 08/14/18 09:27 Completed Urinalysis reflex Microscopic [URIN] Stat Lab 08/14/18 11:05 Completed Provider Date of admission: 08/14/18 15:37 Primary care physician: PCP NONE Discharging clinician: Des Carrera Psychiatry Exam - Constitutional Vitals: Temp Pulse Resp BP Pulse Ox 98.0 F 78 18 127/84 99 08/18/18 08:44 08/18/18 08:44 08/18/18 08:44 08/18/18 08:44 08/18/18 08:44 General appearance: age & developmentally appropriate, well-groomed, well- nourished - Musculoskeletal Gait: normal Station: relaxed Strength & Tone: normal for patient - Psychiatric Patient Orientation: Yes Person, Yes Time, Yes Place Level of alertness: Alert Behavior: calm, cooperative Psychomotor activity: Normal Eye Contact: Maintains Eye Contact Mood Description: Euthymic/stable Affect description: congruent with mood, full range Speech Volume: Normal Speech pattern: normal rate, normal rhythm, normal tone, fluent, spontaneous Language & Vocabulary: consistent with education Thought Process: Linear, Goal Oriented Thought Content: No Suicidal ideation, No Homicidal ideation, No Overt delusions Perceptual Disturbances: Yes Auditory hallucinations, No Visual hallucinations Attention Span Ability: Capable of Focused Attention Memory Description: Grossly Intact Patient Reliability: Reliable Historian Fund of knowledge: Yes abstraction ability, Yes aware of current events Intelligence Estimate: Average Judgment: Good Insight: Full Hospital Course Hospital course: Mr. House is a 43 year old male The patient was admitted through the emergency room. Chief complaint I do not hear the voices now they have gone away. He will feel like killing myself. History of present illness the patient was admitted for increasing auditory hallucinations and suicidal ideation. The patient heard a deep voice that would command him to take methods to kill himself. The patient experienced this as a voice talking to him it was frequent and intense. Patient had suicidal ideation. The patient was admitted as an involuntary patient. The time in the emergency room the patient was evaluated and had an active dental infection this was a stressor for him. The dental infection was treated with Augmentin which was continued during the hospital stay and shortly thereafter. The patient dental pain was also treated with Orajel to help. The patient did have some dystonic and dyskinetic movements of the tongue on examination these increased with activation but improved over the course of time and may have been related to the change in medicine. On the prior to admission the patient had Geodon reduced from 80 mg twice a day with food to 40 and 80 per day. The patient developed an increase in auditory hallucinations. He also had some stressors as his had lost her employment. The patient was concerned about the holidays coming up and was depressed and concerned about this. During the hospital stay the Geodon was returned to 80 mg twice a day with food. The patient improved with this added to his regimen.'s important to note that he is also been on Thorazine in addition which is been helpful for him. Other medicines were continued on an outpatient basis. The patient reported reduced auditory hallucinations and reduced suicidal thinking. On the day of discharge he reported that the voices were not very frequent nor bothersome. He denied any suicidal ideation. He was interested in following up at the local mental Health Center and receiving ongoing treatment. He plans to see a dentist in the future. He will have an outpatient prescription for Augmentin and 4 Orajel but was told to contact his his dentist about ongoing treatment and the need for extraction. - Time Spent with Patient Total time spent providing and/or coordinating discharge services: Less than 30 minutes Assessment and Plan - Patient/Caregiver Discharge Instructions Activity: resume usual activities as tolerated, return to work Diet: regular diet Additional Instructions: avoid aclohol and drugs of abuse. - Follow up Plan Follow up with: Imani Velasquez [Outside] - 09/15/18 2:00 pm (Appointment with counselor will be made at client's next appointment.) Functional capacity at discharge: independent ambulation Overall status at discharge: Stable Disposition: Home, Self-Care Quality - Multiple Antipsychotics Patient discharged on 2 or more antipsychotic medications: Yes - Justification Documentation of: History 3 failed trials of monotherapy Procedures - Procedures Procedures: Medication Management, Crisis Stabilization, Supportive Therapy, Group Therapy, Psychoeducational Therapy
== END 2018-08-18 12:20 | disposition home or self-care (01) | DRG 750 ==
LOC: EMEROOARM 09:17 → 1ANU 15:37
PROVIDERS: ADMIT Psychiatry & Neurology Forensic Psychiatry; ATTEND Psychiatry & Neurology Forensic Psychiatry

== ENCOUNTER 2020-03-19 19:45 | Observation (INO) ==
[2020-03-19 20:24] LABS: Basophils # 0.1 K/mcL (0.0-0.2); Basophils % 0.7 %; Eosinophils # 0.6 K/mcL (0.0-0.6); Eosinophils % 6.2 %; Hematocrit 39.6 % (37.5-50.1); Hemoglobin 12.5 g/dL (12.9-16.9); Immature Granulocytes % 1.1 % (0-4); Lymphocytes # 1.6 K/mcL (0.6-4.6); Lymphocytes % 17.1 %; Mean Corpuscular HGB Conc 31.6 g/dL (31.6-35.5); Mean Corpuscular Hemoglobin 29.7 pg (28.0-33.3); Mean Corpuscular Volume 94.1 fL (83.0-100.0); Mean Platelet Volume 9.5 fL (9.4-12.4); Monocytes # 1.2 K/mcL (0.0-1.3); Monocytes % 12.2 %; Neutrophils # 5.9 K/mcL (1.6-8.9); Platelet Count 375 K/mcL (140-400); Red Blood Count 4.21 M/mcL (4.19-5.50); Red Cell Distribution Width 13.2 % (11.5-14.5); Segmented Neutrophils % 62.7 %; White Blood Count 9.5 K/mcL (4.3-11.1)
[2020-03-19 20:51] LABS: Bilirubin,Urine Negative (Negative); Blood,Urine Negative (Negative); Clarity,Urine Clear (Clear); Color,Urine Colorless (Yellow); Glucose,Urine (UA) Normal (Normal); Ketones,Urine Negative (Negative); Leukocyte Esterase,Urine Negative (Negative); Nitrite,Urine Negative (Negative); Protein,Urine Negative (Neg-Trace); Specific Gravity,Urine 1.006 (1.010-1.025); Urobilinogen,Urine Normal (Normal)
[2020-03-19 21:20] LABS: Alanine Aminotransferase 14 Units/L (7-52); Albumin 4.9 g/dL (3.5-5.7); Albumin/Globulin Ratio 1.4 (1.1-2.2); Alkaline Phosphatase 63 Units/L (34-104); Aspartate Amino Transferase 16 Units/L (13-39); BUN/Creatinine Ratio 9 (6-26); Bilirubin,Direct 0.1 mg/dL (0.0-0.2); Bilirubin,Indirect 0.5 mg/dL (0.0-1.0); Bilirubin,Total 0.6 mg/dL (0.3-1.0); Blood Urea Nitrogen 8 mg/dL (6-20); Calcium 9.9 mg/dL (8.6-10.3); Carbon Dioxide 28 mEq/L (23-29); Chloride 102 mEq/L (98-107); Globulin 3.4 g/dL (2.4-3.5); Glucose 101 mg/dL (70-105); Lipase 29 Units/L (11-82); Osmolality,Calculated 282 (280-300); Potassium 4.4 mEq/L (3.5-5.1); Sodium 137 mEq/L (136-145); Total Protein 8.3 g/dL (6.4-8.9); eGFR For African Americans > 60 (> 60); eGFR For Non-African Americans > 60 (> 60)
[2020-03-19] MEDS ORDERED: Famotidine 20 MG/2 ML VIAL IVP ONE (21:59)
[2020-03-19] MEDS ORDERED: Naloxone 0.4 MG/ML INJ IVP PRN (23:52)
[2020-03-20] MEDS ORDERED: 0.9 % Sodium Chloride 1,000 ML IVC ONE (02:17)
[2020-03-20] MEDS ORDERED: Ondansetron 4 MG/2 ML VIAL IVP PRN (03:19)
[2020-03-20] MEDS: Pantoprazole 40 MG VIAL IVP SCH ×2 (05:15→17:17)
[2020-03-20 06:27] LABS: Hemoglobin 11.6 g/dL (12.9-16.9); Mean Corpuscular HGB Conc 31.4 g/dL (31.6-35.5); Mean Corpuscular Hemoglobin 29.7 pg (28.0-33.3); Mean Corpuscular Volume 94.6 fL (83.0-100.0); Mean Platelet Volume 9.6 fL (9.4-12.4); Platelet Count 336 K/mcL (140-400); Red Blood Count 3.91 M/mcL (4.19-5.50); Red Cell Distribution Width 13.2 % (11.5-14.5)
[2020-03-20 06:39] LABS: BUN/Creatinine Ratio 10 (6-26); Blood Urea Nitrogen 8 mg/dL (6-20); Calcium 8.9 mg/dL (8.6-10.3); Carbon Dioxide 27 mEq/L (23-29); Chloride 105 mEq/L (98-107); Glucose 97 mg/dL (70-105); Magnesium 2.2 mg/dL (1.6-2.6); Osmolality,Calculated 284 (280-300); Sodium 138 mEq/L (136-145); eGFR For African Americans > 60 (> 60); eGFR For Non-African Americans > 60 (> 60)
[2020-03-20 06:41] LABS: INR 1.1
[2020-03-20] MEDS ORDERED: Sucralfate 1 GM TABLET PO SCH ×3 (09:00→16:30)
[2020-03-20 12:47] VITALS: BP 150/85
[2020-03-20] MEDS ORDERED: Lidocaine -MPF 2% 5 ML VIAL SQ ONE (18:08)
[2020-03-20] MEDS ORDERED: *HR* Propofol 500 MG/50 ML BOTTLE IVP ONE (18:08)
== END 2020-03-20 18:09 | disposition home or self-care (01) ==
LOC: 3BNU 19:45 → EMEROOARM 19:45 → SUATTDRO 23:47 → 3BNU 03-20 00:28
PROVIDERS: ADMIT Family Medicine; ATTEND Internal Medicine
PROC: ENDOEBX (2020-03-20 14:20)